=== PATIENT | male | born 1955 | race Hispanic/Latino ===

== ENCOUNTER 2024-12-27 12:13 | Outpatient (CLI) | payer MEDICARE, MEDICAID, SELFPAY ==
--- NOTE | ~2024-12-27 | XR_ITS ---
XR chest 2V 12/27/2024 12:37 Indication: Pleuritic chest pain Procedure: 2 view chest Comparison: No prior studies for comparison. Findings: There are pleural-based opacities in the lower lungs bilaterally, right greater than left. Heart size normal. No pleural effusion or pneumothorax. Impression: 1: Bilateral lower thoracic pleural opacities. Correlation with CT chest with contrast recommended. Reviewed, dictated and finalized at location A. Impression: 1: Bilateral lower thoracic pleural opacities. Correlation with CT chest with c ontrast recommended.
--- OUTSIDE RECORDS SUMMARY | 2024-12-27 12:49 | XMS_ITS | Encounter Summary ---
Author Organization [facility] Address [address] [place] [address] Phone Care Team Providers Care Top Frame Fitter Name Role Phone Unavailable Primary Care Provider Unavailabl e Reason for Visit * Reason Comments Medication Refill Encounter Details Date Type Department Care Team (Late st Contact Info) Description 10/03/2020 [facility] [address] [place] [address] Alex Pineda MD [address] [address] Medication Refill Social History Tobacco Use Types Packs/Day Years Used Date Smoking Tobacco: Former Smokeless Tobacco: Never Alcohol Use Standard Drinks/Week Comments No 0 (1 standard drink = 0.6 oz pur e alcohol) PHQ-2 Answer Date Recorded PHQ-2 Score 8 05/29/2019 Sexually Active Control Partners Comments Never Sex and Gender Information Value Date Recorded Sex Assigned at Not on file Legal Sex Male 11:07 AM CDT Gender Identity Not on file Sexual Orientation Not on file documented as of this encounter Miscellaneous Notes * Telephone Encounter - Humera Roth RMA - 10/05/2020 5:50 PM BUDGET EXAMINER Called patient, no answer ET EXAMINER * Telephone Encounter - Patricia Jackson RN - 10/05/2020 8:07 AM CST Patient needs appointment per Dr Pineda. ET EXAMINER * Telephone Encounter - Vickie Rivers RN - 10/03/2020 1:15 PM CST Medication failed the protocol, provider to review and approve the medication order if appropriate.Last OV 08/05/2019. Requested Prescriptions Pending Prescriptions Disp Refills Vascepa 1 g Capsule [Pharmacy Med Name: Vascepa 1 GM Oral Capsule] 360 Cap 0 Sig: TAKE 2 CAPSULES BY MOUTH TWICE DAILY Off-Protocol Failed - 10/03/2020 10:57 AM Failed - Valid encounter within last 12 months Past Office Visits Recent Outpatient Visits 1 year ago Essential hypertension [facility] - Alex Hathaway MD 1 year ago Essential hypertension [facility] Alex Hathaway MD 1 year ago Chronic midline low [facility] without [facility] 2 [facility] [place] APN, DIVORCE ATTORNEY 2 years ago Type 2 diabetes mellitus without complication, with long-term current use of insulin (HCC) [facility] Alex Hathaway MD 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 Showing recent visits within past 460 days with a meds authorizing provider and meeting all other requirements Future Appointments No visits were found meeting these conditions. Showing future appointments within next 90 days with a meds authorizing provider and meeting all other requirements Failed - Medication not assigned to a protocol, review manually. ET EXAMINER documented in this encounter Plan of Treatment Not on file documented as of this encounter Visit Diagnoses Not on filedocumented in this encounter Additional Health Concerns Assessment Noted Time PHQ-9 Depression Total Score: 8 04/03/20 1:49 PM CDT documented as of this encounter
--- OUTSIDE RECORDS SUMMARY | 2024-12-27 12:49 | XMS_ITS | Encounter Summary ---
Author Organization [facility] Address [address] [place] [address] Phone Care Team Providers Care Photolith Operator Name Role Phone Unavailable Primary Care Provider Unavailabl e Reason for Visit * Reason Comments Medication Refill Encounter Details Date Type Department Care Team (Late st Contact Info) Description 06/25/2020 Refill [facility] - [facility] [address] [place] [address] Alex Pineda MD [address] [address] Medication Refill Social History Tobacco Use Types [...] encounter Miscellaneous Notes * Telephone Encounter - Beulah Dale RN - 06/27/2020 2:01 PM CDT Requested Prescriptions Pending Prescriptions Disp Refills busPIRone (BUSPAR) 10 MG Tablet [Pharmacy Med Name: BUSPIRONE 10MG TABLETS] 270 Tab 0 Sig: TAKE 1 TABLET BY MOUTH THREE TIMES DAILY Not Delegated - Psychiatry: Anxiolytics/Hypnotics Failed - 06/25/2020 6:51 PM Failed - Valid encounter within last 6 months Past Office Visits Recent Outpatient Visits 10 months ago Essential hypertension [facility] - Alex Hathaway MD 1 year ago Essential hypertension [facility] Alex Hathaway MD 1 year ago Chronic midline low back pain without sciatica [facility] Alex Hathaway MD 1 year [facility] KYM 2 years ago Type 2 diabetes mellitus without complication, with long-term current use of insulin (HCC) [facility] Alex Hathaway MD 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 Showing future appointments within next 90 days with a meds authorizing provider and meeting all other requirements Failed - This refill cannot be delegated documented in this encounter Plan of Treatment Not on file documented as of this encounter Visit Diagnoses Not on filedocumented in this encounter Additional Health Concerns Assessment Noted Time PHQ-9 Depression Total Score: 8 04/03/20 19 1:49 PM CDT documented as of this encounter
--- OUTSIDE RECORDS SUMMARY | 2024-12-27 12:50 | XMS_ITS | Encounter Summary ---
Author Organization [facility] Address [address] [place] [address] Care Team Providers Care Small Electric Engine Technician Name Role Phone Unavailable Primary Care Provider Unavailabl e Encounter Details Date Type Department Care Team (Latest Contact Info) Description 08/07/2018 Abstract [facility] , Generic ConversionMD Social History Tobacco Use Types Packs/Day Years Used Date Smoking Tobacco: Never Assessed Sex and Gender Information Value Date Recorded Sex Assigned at Not on file Legal Sex Male 9:16 PM CDT Gender Identity Not on file Sexual Orientation Not on file documented as of this encounter Plan of Treatment Not on file documented as of this encounter Visit Diagnoses Not on filedocumented in this encounter
--- OUTSIDE RECORDS SUMMARY | 2024-12-27 12:50 | XMS_ITS | Clinical Summary ---
Author Organization [facility] Address [address] [place] [address] Care Team Providers Care Foot Drill Operator Name Role Phone Unavailable Primary Care Provider Unavailabl e Social History Tobacco Use Types Packs/Day Years Used Date Smoking Tobacco: Never Assessed Sex and Gender Information Value Date Recorded Sex Assigned at Not on file Legal Sex Male 9:16 PM CDT Gender Identity Not on file Sexual Orientation Not on file Last Filed Vital Signs Vital Sign Reading Time Taken Comments Blood Pressure 135/64 04/08/2014 10:29 AM CDT Pulse 74 04/08/2014 10:29 AM CDT Temperature - - Respiratory Rate - - Oxygen Saturation - - Inhaled Oxygen Concentration - - Weight 76.6 kg (168 lb 14.4 oz) 014 10:29 AM CDT Height 160 cm (5' 3 ) 04/08/2014 10:29 AM CDT Body Mass Index 29.92 04/08/2014 10:29 AM CDT Plan of Treatment Health Maintenance Due Date Last Done Comments Colorectal Cancer Screening Colonoscopy (10 Years) 1957 Hepatitis C 1975 DTaP, Tdap and Td Vaccines ( 1 - Tdap) 1976 Zoster Vaccines (1 of 2) 2007 Pneumococcal Vaccine: 65+ Ye ars (1 of 1 - PCV) 2022 COVID-19 Vaccine ( - 2023-2 5 season) 2024 Influenza Adult (#1) 2024 08/09/2012 RSV Immunization or 60+ Years (1 - 1-dose 75+ series) 2032 Meningococcal B Vaccine Aged Out No l onger eligible based on patient's age to complete this topic Meningococcal Vaccine Aged Out No miryam jadon eligible based on patient's age to complete this topic RSV Immunizations Under 20 Months Aged Out No longer eligible based on patient's age to complete this topic
--- OUTSIDE RECORDS SUMMARY | 2024-12-27 12:50 | XMS_ITS | Referral Summary ---
Author Organization [facility] Address [address] [place] [address] Care Team Providers Care Residential Tech Name Role Phone Becca Oh MD Primary Care Provider [phone] Allergies Active Allergy Reactions Criticality Noted Date Comments Cyclobenzaprine Dizziness Low 07/27/2021 Isosorbide Mononitrate Headache High 08/01/2018 Medications insulin glargine (LANTUS) 100 unit/mL (3 mL) pen for injection 80 Units daily 0 Active pen needle, diabetic 32 gauge x 5/32 needle BD Rebecca 2nd Gen Pen Needle 32 gauge x 5/32 Active amLODIPine (NORVASC) 10 mg tablet 1 tablet daily 1 Active metFORMIN (GLUCOPHAGE) 1,000 mg tablet 1 tablet 2 (two) times a day 2 Active carvediloL (COREG) 6.25 mg tablet carvedilol 6.25 mg tablet TAKE 1 TABLET BY MOUTH TWICE DAILY 1 Active montelukast (SINGULAIR) 10 mg tablet 1 tablet daily 0 Active lidocaine (LIDODERM) 5 % lidocaine 5 % topical patch 8 Active clopidogreL (PLAVIX) 75 mg tablet 1 tablet daily 7 Active irbesartan (AVAPRO) 300 mg tablet 1 tablet daily 1 Active furosemide (LASIX) 20 mg tablet 1 tablet daily 7 Active FLUoxetine (PROzac) 20 mg capsule 1 capsule daily Acti ve ALPRAZolam (XANAX) 1 mg tablet 1 tablet 3 (three) times a day Active gabapentin (NEURONTIN) 300 mg capsule 1 capsule daily as needed Active HYDROcodone-theo taminophen (NORCO) 7.5-325 mg per tablet 1 tablet 3 (three) times a day as needed Active morphine ER (MS CONTIN) 15 mg 12 hr tablet 1 tablet 2 (two) times a day Active potassium chloride ER (KLOR-CON) 20 mEq CR tablet 1 tablet daily A ctive Active Problems Problem Noted Date Diagnosed Date Physical deconditioning 02/08/2022 Spondylosis of lumbar region without myelopathy or radiculopathy 10/19/2021 Lumbar radiculitis 10/19/2021 Hypertension, essential 07/27/2021 Assessment & Plan (07/27/2021 3:40 PM CDT): Continue current medications. Discussed low-salt diet. Discussed exercise on regular basis. Will continue to monitor Dyslipidemia 07/27/2021 Assessment & Plan (07/27/2021 3:40 PM CDT): Controlled on current medications. Continue low-fat diet. Will continue to monitor . Controlled type 2 diabetes miri rodriguez without complication, with long-term current use of insulin 07/27/2021 Assessment & Plan (07/27/2021 3:40 PM CDT): Continue current medications, discussed low carbohydrate diet, advised to exercise on regular basis, advised to have annual eye exam. We will continue to monitor. Coronary artery disease invo lving napaimute coronary artery of napaimute heart without angina pectoris 07/27/2021 Assessment & Plan (07/27/2021 3:40 PM CDT): Status post stent placement. Continue current medications and he is followed by post commander Chronic bilateral low back pain without sciatica 07/27/2021 Assessment & Plan (07/27/2021 3:40 PM CDT): Patient needs to follow-up with pain specialist Immunizations Immunization Administration Dates Next Due Influenza, Quadrivalent, Jada l Culture-based MDCK, Preservative Free, Antibiotic Free, Intramuscular 07/17/2020 Influenza, Quadrivalent, Spl it, Preservative Free, Intramuscular 07/27/2021,08/05/2019,06/28/2018,06/23 Influenza, Trivalent, IM (MDV) 07/11/2016,2015,10/12/2013 Influenza, Unspecified 10/12/2013,07/25/2009, Pneumococcal Polysaccharide PPV23 06/23/2017 Tdap 07/01/2019 Social History Tobacco Use Types Packs/Day Years Used Date Smoking Tobacco: Former Cigarettes 2 9 1 971 - 1979 Smokeless Tobacco: Never AUDIT-C Answer Date Recorded Q1: How often do you have a drink containing alc ohol? Never 07/27/2021 Average Number of Drinks Not on file 021 Q3: How often do you have si x or more drinks on one occasion? Never 07/27/2021 PHQ-2 Answer Date Recorded PHQ-2 Total Score (If total score is 3 or more points, staff should administer the PHQ-9) 0 07/27/2021 Personal Safety Answer Date Recorded Getting School Help Needed Not on file 11/25 Sex and Gender Information Value Date Recorded Sex Assigned at Not on file Legal Sex Male 12:30 AM FLOOR HAND Gender Identity Not on file Sexual Orientation Not on file Last Filed Vital Signs Vital Sign Reading Time Taken Comments Blood Pressure 157/64 02/08/2022 9:58 AM CDT Pulse 75 02/08/2022 9:58 AM CDT Temperature 36.7 C (98.1 F) 10/19/2021 8:51 AM FLOOR HAND Respiratory Rate 18 10/19/2021 8:51 AM FLOOR HAND Oxygen Saturation 99% 02/08/2022 9:58 AM CDT Inhaled Oxygen Concentration - - Weight 80.2 kg (176 lb 11.2 oz) 02/08/2022 9:58 AM CDT Height 160 cm (5' 2.99 ) 02/08/2022 9:58 AM CDT Body Mass Index 31.31 02/08/2022 9:58 AM CDT Plan of Treatment Not on file Procedures Procedure Name Priority Date/Time Associated Diagnosis Comments SERUM LIPID PANEL Routine 11/22/2016 8:1 7 AM FLOOR HAND from Last 3 Months or Most Recently Relevant to Health Maintenance Results * (ABNORMAL) Serum lipid panel (11/22/2016 8:17 AM FLOOR HAND) Cholesterol 126 100 - 200 mg/dl CDR HISTORICAL RESULTS Comment: Interpretive Data Desirable: <200 mg/dL Borderline high: 200-239 mg/dL High: >240 mg/dL Current interpretive data was last revised on 2016. Triglycerides 158(H) 10 - 150 mg/dl CDR HISTORICAL RESULTS Comment: Interpretive Data Desirable: < 150 mg/dL Borderline High: 150 - 199 mg/dL High: 200 - 499 mg/dL Very High: > or = 499 mg/dL Current interpretive data was last revised on 2016. HDL 29(L) 40 - 59 mg/dl CDR HISTORICAL RESULTS Comment: Interpretive Data Less than 40 mg/dL - Low; A major risk factor for heart disease. Greater than or equal to 60 mg/dL - High; Considered protective of heart disease. Current interpretive data was last revised on 2016. LDL 65 60 - 129 mg/dl CDR HISTORICAL RESULTS Comment: Interpretive Data Optimal: < 100 mg/dL Near Optimal: 100 - 129 mg/dL Borderline High: 130 - 159 mg/dL High: > 160 mg/dL Current interpretive data was last revised on 2016. Non-HDL cholesterol, calculated 97 mg/dl CDR HISTORICAL RESULTS Comment: Interpretive Data When triglycerides are >200 mg/dL, non-HDL C is a secondary target of therapy, with a goal 30 mg/dL higher than the identified LDL-C goal. Current interpretive data was last revised 2016. Serum 11/22/2016 8:17 AM FLOOR HAND us Florian Au MD LAB BLOOD ORDERABLES Fin al Result CDR HISTORICAL RESULTS from Last 3 Months or Most Recently Relevant to Health Maintenance Insurance MEDICARE ADVANTAGE [facility] Address: [facility] [address] [place] [address] IDPA [facility] MEDICARE ADVANTAGE [facility] MEDIC[facility] Address: [address] [address] [place] [address] Care Teams Residential Tech Relationship Specialty Start Date End Date Becca Oh MD [address] [facility] [place] [address] PCP - General Internal Medicine 07/27/21
--- OUTSIDE RECORDS SUMMARY | 2024-12-27 12:50 | XMS_ITS | Encounter Summary ---
Author Organization [facility] Address [address] [place] [address] Care Team Providers Care Bait Man Name Role Phone Mary Workman MD Primary Care Provider [phone] Reason for Visit * Reason Comments Question Encounter Details Date Type Department Care Team ([facility] st Contact Info) Description 12/26/2024 Telephone [facility] [address] [place] [address] Mary Workman MD [address] [place] [address] Question Social History Tobacco Use Types Packs/Day Years Used Date Smoking Tobacco: Never Passive Smoke Exposure: Never Smokeless Tobacco: Never Alcohol Use Standard Drinks/Week Comments Not Currently 0 (1 standard drink = 0.6 oz pur e alcohol) Sex and Gender Information Value Date Recorded Sex Assigned at Not on file Legal Sex Male 12:22 PM CDT Gender Identity Not on file Sexual Orientation Not on file documented as of this encounter Miscellaneous Notes * Telephone Encounter - Serena Bernard RN - 12/26/2024 2:36 PM CDT Please advise patient that chest x-ray order was sent to [facility] and a new prescription for pantoprazole was sent to [facility] to replace the omeprazole. He should not take them both. 12/26/2024 2:36 PM Returned call. No answer. Left voice mail/message advising above information. If patient/caregiver calls back, contact center please transfer caller to [facility] mack. Serena BURNETTE * Telephone Encounter - Mary Workman MD - 12/26/2024 12:48 PM CDT Ok for CXR and change omeprazole to pantoprazole 20 mg daily. * Telephone Encounter - Serena Bernard RN - 12/26/2024 12:25 PM CDT Patient having upper back pain for the last month. He is recovering from URI. No longer having a cough. He c/o pain in upper back, off and on, worse when he takes a deep breath. He says he had pleurisy in the past. It's hard to get specific answers from him about his symptoms. He says he takes cough/cold medicine and it helps his back pain but then he says he's not having any cough/cold symptoms.I tried to get him to schedule an appointment but [place] ways away and with the closure of [facility] it is difficult for him. Are you ok with ordering a chest xray and he can go to [facility] to have it done? OtherwiseI will refer him to Urgent Care. Also, when he picked up his plavix from [facility] they told him he shouldn't be taking omeprazole with it. Is there any concern with this or should he be switched to something else? 22 minutes spent on phone with patient. * Telephone Encounter - Stephany Solano - 12/26/2024 10:49 AM CDT Copied from [facility] #[id number]. Topic: Patient or Caregiver Communication Request >> Dec 26, 2024 10:48 AM Stephany Guevara wrote: Patient or Caregiver requesting that a message be sent to Care Team Caller: Christian Patient/Caregiver Callback Number: [phone] Call Notes: Pt calling stating he has been experiencing back pain x 1 month Offered same day appt with Phu ELIAS for today 12/26 at 2:20 pt declined appt requesting an order for an xray to be placed so he can do the xray at hospital Pt informed of 24 - 48 hour time frame and suggested to schedule an appt to discuss his request ethel xray Pt declined Please advise documented in this encounter Plan of Treatment Upcoming Encounters Date Type Department Care Team (Late st Contact Info) Description 02/05/2025 2:40 PM CDT Office Visit [facility] [address] [place] [address] Phu Ly, PA-C [address] [place] [address] Scheduled Orders Name Type Priority Associated Diagnoses Orde r Schedule XR CHEST PA AND LATERAL 2 VW Imaging Routine Pleuritic chest pain Upper back pain 1 Occurrences starting 12/26/2024 until 12/26/2025 documented as of this encounter Visit Diagnoses Diagnosis Pleuritic chest pain- Primary Painful respiration Upper back pain documented in this encounter Care Teams Bait Man Relationship Specialty Start Date End Date Mary Workman MD [address] [place] [id number] PCP - General Internal Medicine 12/26/23 documented as of this encounter
--- OUTSIDE RECORDS SUMMARY | 2024-12-27 12:50 | XMS_ITS | Encounter Summary ---
Author Organization [facility] Address [address] [place] [address] Care Team Providers Care Airline Lounge Receptionist Name Role Phone Mary Workman MD Primary Care Provider [phone] Reason for Visit * Reason Comments Medication Assistance Encounter Details Date Type Department Care Team ([facility] st Contact Info) Description 12/26/2024 Telephone [facility] [address] [place] [address] Mary Wrokman MD [address] [place] [address] Medication Assistance Social History Tobacco Use Types Packs/Day Years [...] Encounter - Serena Bernard RN - 12/26/2024 12:45 PM CDT See other TE. * Telephone Encounter - Stephany Solano - 12/26/2024 10:46 AM CDT Copied from [facility] #[id number]. Topic: Medication Request >> Dec 26, 2024 10:34 CRYSTAL Guevara wrote: Caller Name: Christian Callback Number: [phone] Medication (Ask patient/caregiver to spell if possible): omeprazole Pt states he went to [facility] previously and was advised by pharmacist to have pcp send alternative rx for omerazole Pt states they can call [facility] and they'll explain it to them Note: All medication prescriptions can be requested using one CRM Caller is requesting: Medication Question from Patient (not involving new prescription or refill) Preferred Pharmacy: [facility] pharmacy Call Notes: Caller has question about Is there an encounter open? No documented in this encounter Plan of Treatment Upcoming Encounters Date Type Department Care Team (Late st Contact Info) Description 02/05/2025 2:40 PM CDT Office Visit [facility] [address] [place] [address] Phu Ly PA-C [address] [place] [address] documented as of this encounter Visit Diagnoses Not on filedocumented in this encounter Care Teams Airline Lounge Receptionist Relationship Specialty Start Date End Date Mary Workman MD [address] [place] [address] PCP - General Internal Medicine 12/26/23 documented as of this encounter
--- OUTSIDE RECORDS SUMMARY | 2024-12-27 12:50 | XMS_ITS | Clinical Summary ---
Author Organization [facility] Address [address] [address] Phone Care Team Providers Care Geodetic Surveyor Technologist Name Role Phone Unavailable Primary Care Provider Unavailabl e Allergies No known active allergies Medications clopidogrel (PLAVIX) 75 MG Tablet TK 1 T PO QD 11 7 Active metoprolol tartrate (LOPRESSOR) 25 MG Tablet Take 50 mg by mouth 2 times daily. 0 7 Active nitroGLYCERIN (NITROSTAT) 0.[address] 1 T UNDER TONGUE PRN. MAY REPEAT TWICE IN 10 MINUTES 11 7 Active losartan-hydroc hlorothiazide (HYZAAR) 100-12.5 MG Tablet Reported on 03/02/2017 11 7 Active ASPIRIN LOW DOSE 81 MG Tablet Delayed Response TK 1 T PO QD 0 7 Active furosemide (LASIX) 20 MG Tablet Take 1 Tab by mouth daily. 11 7 Active ondansetron (ZOFRAN) 4 MG Tablet Take 1 Tab by mouth every 8 hours as needed for Nausea. 15 Tab 7 Active omeprazole (PRILOSEC) 40 MG CAPSULE DELAYED RELEASE TAKE 1 CAPSULE BY MOUTH TWICE DAILY 180 Cap 3 7 Active potassium chloride SA (KLORCON M) 20 MEQ Tablet Controlled Release TAKE 1 TABLET BY MOUTH DAILY 90 Tab 3 7 Active amLODIPine (NORVASC) 5 MG Tablet Take 1 Tab by mouth daily. 3 7 Active busPIRone (BUSPAR) 5 MG Tablet Take 1 Tab by mouth 3 times daily. 270 Tab 8 Active sucralfate (CARAFATE) 1 GM Tablet TK 1 T PO THREE TIMES DAILY 0 8 Active rosuvastatin (CRESTOR) 10 MG Tablet Take 10 mg by mouth daily. Active insulin aspart (NOVOLOG FLEXPEN) 100 UNIT/ML Solution Pen-injector 12 units before each meal. Correctional factor insulin of 1:20 if > 140 mg/dL. Up to 60 units per day 30 mL 3 8 Active Additional Information Patient not taking.Reported on 08/05/2019 Blood Glucose Monitoring Suppl (YouMail) w/Device Kit 1 Kit by Does not apply route daily. Test blood sugar 4x daily. E11.9 1 Kit 8 Active Lancets Mis Test Blood sugar 4x daily. E11.9 400 Lancet 3 8 Active clotrimazole-be tamethasone (LOTRISONE) 1-0.05 % Cream Application Site: apply to groin daily (Description and Location) 45 g 8 Active pravastatin (PRAVACHOL) 10 MG Tablet TAKE ONE TABLET BY MOUTH EVERY DAY 90 Tab 3 8 Active losartan (COZAAR) 100 MG Tablet TK 1 T PO D 6 8 Active metoprolol tartrate (LOPRESSOR) 50 MG Tablet TK 1 T PO BID 7 8 Active HYDROcodone-theo taminophen (NORCO) 10-325 MG Tablet Take 1 Tab by mouth every 8 hours as needed for Moderate or more severe pain. 90 Tab 8 Active ergocalciferol (VITAMIN D) 67707 UNIT Capsule TAKE 1 CAPSULE BY MOUTH EVERY WEEK. 30 Cap 4 8 Active isosorbide mononitrate (IMDUR) 30 MG TABLET SR 24 HR TK 1 T PO D 6 8 Active lidocaine (LIDODERM) 5 % Patch 8 Active tiZANidine (ZANAFLEX) 4 MG Tablet Take 1 Tab by mouth 2 times daily as needed. 1 8 Active metFORMIN (GLUCOPHAGE) 1000 MG Tablet Take 1 Tab by mouth 2 times daily. 180 Tab 3 9 Active busPIRone (BUSPAR) 10 MG Tablet Take 1 Tab by mouth 3 times daily. 270 Tab 9 Active Insulin Pen Needle (BD PEN NEEDLE CHRISTOS U/F) 32G X 4 MM Misc USE FOUR TIMES DAILY 400 Pen Needle 3 9 Active Glucose Blood (ONETOUCH VERIO) Strip 1 Strip by Does not apply route 4 times daily. Test blood sugar 4x daily. E11.9 400 Strip 3 9 Active montelukast (SINGULAIR) 10 MG Tablet TAKE 1 TABLET BY MOUTH DAILY 90 Tab 2 9 Active Alcohol Swabs (B-D SINGLE USE SWABS REGULAR) Pads USE 1 ALCOHOL PAD BEFORE INJECTION( THREE TIMES DAILY) 300 Each 2 9 Active ALPRAZolam (XANAX) 0.5 MG Tablet Take 1 Tab by mouth 3 times daily. 80 Tab 9 Active VASCEPA 1 g Capsule TAKE 2 CAPSULES BY MOUTH TWICE DAILY 360 Cap 3 9 Active dicyclomine (BENTYL) 10 MG Capsule TAKE ONE CAPSULE BY MOUTH THREE TIMES DAILY 270 Cap 3 9 Active LANTUS SOLOSTAR 100 UNIT/ML Solution Pen-injector ADMINISTER 80 UNITS UNDER THE SKIN EVERY 12 HOURS 90 mL 2 0 Active Active Problems Problem Noted Date Diagnosed Date Brain tumor 07/19/2017 Left lower quadrant pain 04/05/2017 Physical exam, annual (Adult) 02/23/2017 Lipid disorder 02/23/2017 HTN (hypertension) 02/23/2017 Chronic midline low back pain without sciatica 0 02/23/2017 Type 2 diabetes mellitus wit h diabetic polyneuropathy, with long-term current use of insulin 02/23/2017 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 02/23/2017 Anxiety 02/23/2017 Immunizations Immunization Administration Dates Next Due Influenza Vaccine greater than 3 yrs 07/11/2016 Influenza Vaccine, Quadrivalent, PF 08/05/2019,0 06/28/2018,06/23/2017 Influenza Vaccine,unspecified Formulation 2008 Influenza, Seasonal, Injectable, Undefined 10/12 Pneumococcal Vaccine Adult - 23 Valent 7 Family History Medical History Relation Name Comments No Known Problems Father Diabetes Mother Relation Name Status Comments Father Mother Social History Tobacco Use Types Packs/Day Years Used Date Smoking Tobacco: Former Smokeless Tobacco: Never Tobacco Cessation:Counseling Given: No Alcohol Use Standard Drinks/Week Comments No 0 [...] Sign Reading Time Taken Comments Blood Pressure 130/76 08/05/2019 2:25 PM [facility] Pulse 72 08/05/2019 2:25 PM [facility] Temperature 36.4 C (97.6 F) 08/05/2019 2:25 PM [facility] Respiratory Rate 16 08/05/2019 2:25 PM [facility] Oxygen Saturation 98% 08/05/2019 2:25 PM [facility] Inhaled Oxygen Concentration - - Weight 79.1 kg (174 lb 4.8 oz) 08/05/2019 2:25 P M [facility] Height 165.1 cm (5' 5 ) 08/05/2019 2:25 PM [facility] Body Mass Index 29.01 08/05/2019 2:25 PM [facility] Plan of Treatment Health Maintenance Due Date Last Done Comments Diabetes: Eye Exam 1957 Diabetes: Foot Exam 1955 TdaP Immunization 1955 Cologuard 2007 Immunochemical Fecal Occult Blood 2007 Zoster Immunization (1 of 2) 2007 Respiratory Syncytial Virus (RSV) Immunization (Adult) (1 - Risk 60-74 years 1-dose series) 2017 Pneumococcal Immunization (50+ years) (2 of 2 - PCV) 06/23/2018 06/23/2017 Diabetes: Hemoglobin A1c 02/03/2020 019, 04/03/2019, 08/22/2018, Additional history exists Diabetes: Nephropathy Screening 08/05/2020 08/05/2019, 08/05/2019, 04/03/2019, Additional history exists Influenza Immunization (#1) 06/02/202412/2018, 06/28/2018, 06/23/2017, Additional history exists SARS-COV-2 Immunization ( season) 2024 02/02/2021, 01/06/2021 Colonoscopy 06/26/2027 06/26/2017 Colorectal Cancer Screening 06/26/2027 06/26/2017 Hepatitis C Virus (HCV) Screening Completed 02/23/2017 Pneumococcal Immunization Combined Discontinued 06/23/2017 Hepatitis B Immunization Aged Out No longer eligible based on patient's age to complete this topic Meningococcal Immunization (ACWY) Aged Out No longer eligible based on patient's age to complete this topic Rotavirus Immunization Aged Out No lo nger eligible based on patient's age to complete this topic Procedures Procedure Name Priority Date/Time Associated Diagnosis Comments CMP (COMPREHENSIVE METABOLIC PANEL) Today 08/05/2019 2:56 PM [facility] Essential hypertension Type 2 diabetes mellitus with diabetic polyneuropathy, with long-term current use of insulin (HCC) Coronary artery disease involving chitina coronary artery of chitina heart without angina pectoris Lipid disorder Chronic midline low back pain without sciatica HEMOGLOBIN A1C W/ ESTIMATED GLUCOSE Today 08/05/2019 2:56 PM [facility] Essential hypertension Type 2 diabetes mellitus with diabetic polyneuropathy, with long-term current use of insulin (HCC) Coronary artery disease involving chitina coronary artery of chitina heart without angina pectoris Lipid disorder Chronic midline low back pain without sciatica HM COLONOSCOPY Routine 06/26/2017 HEPATITIS C ANTIBODY Routine 02/23/2017 2:14 PM CDT Physical exam, annual (Adult) from Last 3 Months or Most Recently Relevant to Health Maintenance Results * (ABNORMAL) HEMOGLOBIN A1C W/ ESTIMATED GLUCOSE (08/05/2019 2:56 PM [facility]) HGB-A1C 9.4(H) 4.0 - 6.0 % 08/05/2019 4:28 PM [facility] Est Average Glucose 223.1 mg/dL 08/05/2019 4:28 PM G[facility] D[facility] Blood specimen (specimen) Venipuncture / Unknown 08/05/2019 2:56 PM [facility] 08/05/2019 2:56 PM [facility] Narrative [facility] - 08/05/2019 4:28 PM [facility] HEMOGLOBIN A1C: DIABETIC PATIENTS: WELL-CONTROLLED: 6.2 - 7.0 INTERMEDIATE WELL-CONTROLLED: 7.0 - 9.0 POORLY-CONTROLLED: >9.0 us Alex Pineda MD CHEMISTRY ORDERABLES Final Re sult [facility] [address] [place] [address] * (ABNORMAL) CMP (COMPREHENSIVE METABOLIC PANEL) (08/05/2019 2:56 PM [facility]) SODIUM 143 136 - 144 mmol/L 08/05/2019 3:50 PM [facility] POTASSIUM 4.3 3.5 - 5.1 mmol/L 08/05/2019 3:50 PM [facility] CHLORIDE 105 100 - 110 mmol/L 08/05/2019 3:50 PM [facility] CO2, VENOUS 25 22 - 32 mmol/L 08/05/2019 3:50 PM [facility] ANION GAP 17.3 8.0 - 20.0 mmol/L 08/05/2019 3:50 PM [facility] GLUCOSE 159(H) 70 - 99 mg/dL 08/05/2019 3:50 PM [facility] BUN 7(L) 8 - 23 mg/dL 08/05/2019 3:50 PM [facility] CREATININE, BLOOD 0.51(L) 0.80 - 1.30 mg/dL 08/05/2019 3:50 PM [facility] BUN/CREATININE RATIO 14 12 - 20 ratio 08/05/2019 3:50 PM [facility] TOTAL PROTEIN 7.1 6.0 - 8.3 g/dL 08/05/2019 3:50 PM [facility] ALBUMIN 4.3 3.5 - 5.2 g/dL 08/05/2019 3:50 PM [facility] Comment: The colormetric methods used for the determination of Albumin may lead to falsely elevated test results in patients suffering from renal failure or insufficiency due to interference with other proteins. A/G RATIO 1.5 1.0 - 2.0 08/05/2019 3:50 PM [facility] CALCIUM 9.5 8.9 - 10.3 mg/dL 08/05/2019 3:50 PM [facility] T BILI 0.3 <=1.2 mg/dL 08/05/2019 3:50 PM [facility] SGOT (AST) 17 <=40 U/L 08/05/2019 3:50 PM [facility] SGPT (ALT) 29 <=41 U/L 08/05/2019 3:50 PM [facility] ALKALINE PHOSPHATASE 53 40 - 130 U/L 08/05/2019 3:50 PM [facility] GFR, EST. NONAFRICAN >60 >=60 08/05/2019 3:50 PM [facility] GFR, EST. >60 >=60 019 3:50 PM [facility] Comment: Creatinine Clearance is the preferred criteria for selecting drug dose adjustments in renally impaired patients. The GFR is provided as additional pertinent clinical information. GFR is reported in mL/min/1.73 sq m. Blood specimen (specimen) Venipuncture / Unknown 08/05/2019 2:56 PM [facility] 08/05/2019 2:56 PM [facility] us Alex Pineda MD CHEMISTRY ORDERABLES Final Re sult [facility] [address] [place] [address] * COLONOSCOPY (06/26/2017) us Tata Do MD PROCEDURE/MINOR SURGICAL ORDER EMILY Final Result * HEPATITIS C ANTIBODY (02/23/2017 2:14 PM CDT) hepatitis C antibody 0.06 <1 S/CO 02/23/2017 11:23 PM CDT [facility] Comment: Signal/Cutoff ratio < 0.79 is Nondetected Signal/Cutoff ratio 0.80-0.99 is Grayzone Signal/Cutoff ratio > 0.99 is Detected Supplemental assays are recommended if signal/cutoff ratio is >/=1.00. Signal/cutoff ratio result >/= 5.00 is 97% predictive of positivity for recombinant immunoblot assay (RIBA) and will be reported to the [place] [facility] as required. Blood specimen (specimen) Venipuncture / Unknown 02/23/2017 2:14 PM CDT 02/23/2017 2:14 PM CDT us Alex Pineda MD CHEMISTRY ORDERABLES Final Re sult [facility] [address] [place] [address], from Last 3 Months or Most Recently Relevant to Health Maintenance Insurance MEDICARE [place]ICA[place]
--- OUTSIDE RECORDS SUMMARY | 2024-12-27 12:50 | XMS_ITS | CONTINUITY OF CARE DOCUMENT ---
Author Name ismael guevara Address Unknown Organization [facility] Address [address] [place] [address] Phone [phone] Care Team Providers Care Slate Splitting Supervisor Name Role Phone Jarod Villegas MD Unavailable [phone] NHAN CARRIZALES MD Unavailable JASON RUIZ Unavailable [phone] PROBLEMS Condition Status Date Provider Notes Hypertension active Misael Becerril DIABETES MELLITUS active Jarod Villegas MD Tobacco use quit active Jarod Villegas MD Chest pain-type to be determined completed - Jarod Villegas MD Iron deficiency anemia active Misael garciaerg Preop exam completed - Jaord Villegas MD Aortic stenosis, mild active Sukhi Joseph i Systolic murmur active Domi Ventimiglia [facility] [employer] Shortness of breath active Domi Ventimigl ia [place]ON LINER PAD - mild active Kathia Hodgson Venous insufficiency active Kathia knox Swelling, R leg active Jarod Villegas MD Leg cramps active Kathia Hodgson Snoring - NEG sleep study 10/18 active Misael Becerril Right renal artery stenosis active Jarod campos MD CAD active Jarod Villegas MD Dyslipidemia active Misael Becerril ENCOUNTERS Date Type Provider Location Encounter Diag nosis 4 - 5 In-person encounter Office Visit Jarod Villegas MD [facility] Aortic stenosis, mild 0 - 7 In-person encounter Office Visit Jarod Villegas MD [facility] Shortness of breathSystolic murmur 0 - 1 In-person encounter Office Visit Jarod Villegas MD [facility] 1 - 3 In-person encounter Office Visit Jarod Villegas MD [facility] Swelling, R legVenous insufficiencyPAD - mild 7 - 9 In-person encounter Office Visit Jarod Villegas MD [facility] Leg cramps 8 - 8 In-person encounter Office Visit Jarod Villegas MD [facility] Chest pain-type to be determined 6 - 6 In-person encounter Office Visit Jarod Villegas MD [facility] Preop exam 9 - 9 In-person encounter Office Visit Jarod Villegas MD [facility] Right renal artery stenosis 1 - 5 In-person encounter Office Visit Jarod Villegas MD [facility] 9 - 1 In-person encounter Office Visit Nicolas Rocha MD [facility] 0 - 0 In-person encounter Office Visit Jarod Villegas MD [facility] 0 - 2 In-person encounter Office Visit Jarod Villegas MD [facility] 6 - 5 In-person encounter Office Visit Jarod Villegas MD [facility] Iron deficiency anemia 1 - 3 In-person encounter Office Visit Jarod Villegas MD [facility] Iron deficiency anemiaSnoring - NEG sleep study 10/18 8 - 0 In-person encounter Office Visit Jarod Villegas MD [facility] CADRight renal artery stenosis 3 - 4 In-person encounter Office Visit Jarod Villegas MD [facility] 3 - 8 In-person encounter Office Visit Jarod Villegas MD [facility] 7 - 4 In-person encounter Office Visit Jarod Villegas MD [facility] 9 - 6 In-person encounter Office Visit Jarod Villegas MD [facility] Tobacco use quit 0 - 3 In-person encounter Office Visit Jarod Villegas MD [facility] 0 - 4 In-person encounter Office Visit Jarod Villegas MD [facility] 6 - 7 In-person encounter Office Visit Jarod Villegas MD [facility] 0 - 1 In-person encounter Office Visit Jarod Villegas MD [facility] 2 - 2 In-person encounter Office Visit Jarod Villegas MD [facility] HypertensionDyslipidemiaDIABETES MELLITUS VITAL SIGNS Date Observation Value Provider Body Mass Index (Ratio) 32.94 kg/m2 [facility] am Angie blood pressure, cuff size regular [facility] blood pressure, diastolic 68 mm[Hg] [facility] blood pressure, systolic 148 mm[Hg] [facility] pulse rate 85 /min [facility] respiratory rate E&M 12 /min [facility] oxygen saturation, oximetry 98 % [facility] weight E&M 186 [lb_av] [facility] height E&M 63 [in_i] [facility] Body Mass Index (Ratio) 32.59 kg/m2 [facility] am Angie blood pressure, cuff size regular [facility] blood pressure, diastolic 58 mm[Hg] [facility] blood pressure, systolic 138 mm[Hg] [facility] oxygen saturation, oximetry 99 % Aisha [place] respiratory rate E&M 16 /min Aisha championr pulse rate 76 /min Aisha [place] weight E&M 184 [lb_av] Aisha [place] height E&M 63 [in_i] [facility] Body Mass Index (Ratio) 32.41 kg/m2 Kiki Connerabilio blood pressure, diastolic 67 mm[Hg] Jade Ajand blood pressure, systolic 141 mm[Hg] Slava jojo Ewing oxygen saturation, oximetry 97 % Allyson Ewing pulse rate 76 /min Allyson grider weight E&M 183 [lb_av] Allyson grider respiratory rate E&M 16 /min Ankita Ewing blood pressure, cuff size large Jade chan Gildardo height E&M 63 [in_i] Allyson grider Body Mass Index (Ratio) 32.59 kg/m2 Kiki Connerabilio blood pressure, diastolic 65 mm[Hg] Ri rocio Ernandezerson blood pressure, systolic 141 mm[Hg] Long jojo Ernandezerson blood pressure, cuff size regular Eric Baca oxygen saturation, oximetry 97 % Alejandra Baca respiratory rate E&M 16 /min Rejilamont garcia Baca pulse rate 84 /min Alejandra Hennessy son weight E&M 184 [lb_av] Alejandra Hennessy son height E&M 63 [in_i] Alejandra Hennessy son Body Mass Index (Ratio) 31.70 kg/m2 Kiki Connerabilio blood pressure, cuff size large Ke amparoi Claudette blood pressure, diastolic 67 mm[Hg] Ke rri Gruenenfelder blood pressure, systolic 134 mm[Hg] Deanne Fortenenfelder oxygen saturation, oximetry 97 % Genesis Deleonnfelder respiratory rate E&M 14 /min Genesis romeronfelder pulse rate 84 /min Genesis Fortenestoneye lder weight E&M 179 [lb_av] Genesis Fortenenfe lder height E&M 63 [in_i] Genesis Deleonnfe lder Body Mass Index (Ratio) 31.17 kg/m2 Nate Becerril blood pressure, cuff size regular Cy ariel Ovalle blood pressure, diastolic 60 mm[Hg] Cy ariel Ovalle blood pressure, systolic 120 mm[Hg] Reyna Ovalle oxygen saturation, oximetry 98 % Lily Ovalle respiratory rate E&M 16 /min Lily Ovalle pulse rate 76 /min Lily Campbel l weight E&M 176 [lb_av] Lily Campbel l height E&M 63 [in_i] Lily Campbel l Body Mass Index (Ratio) 32.06 kg/m2 Jarod Villegas MD blood pressure, diastolic 70 mm[Hg] Da siobhan Kp blood pressure, systolic 122 mm[Hg] Dac ia Kp oxygen saturation, oximetry 96 % Yasmine Kp respiratory rate E&M 16 /min Yasmine V oss pulse rate 63 /min Yasmine Kp weight E&M 181 [lb_av] Yasmine Kp height E&M 63 [in_i] Yasmine Kp blood pressure, diastolic 70 mm[Hg] Cy ariel Ovalle blood pressure, systolic 158 mm[Hg] Reyna rodger Ovalle pulse rate 76 /min Lily Campbel l height E&M 63 [in_i] Liyl sandy height in centimeters E&M 160.02 cm Cy ariel Ovalle Body Mass Index (Ratio) 31.70 kg/m2 Nate Becerril blood pressure, cuff size regular Cy ariel Ovalle blood pressure, diastolic 70 mm[Hg] Cy ariel Ovalle blood pressure, systolic 160 mm[Hg] Reyna Ovalle oxygen saturation, oximetry 98 % Lily Ovalle respiratory rate E&M 16 /min Lily Ovalle pulse rate 77 /min Lily sandy weight E&M 179 [lb_av] Lily sandy height E&M 63 [in_i] Lily sandy Body Mass Index (Ratio) 31.35 kg/m2 Cecilia Rocha MD height E&M 63 [in_i] Jaord Villegas MD blood pressure, diastolic 75 mm[Hg] Inna Villegas MD blood pressure, systolic 142 mm[Hg] Jarod Villegas MD pulse rate 75 /min Jarod Villegas MD blood pressure, diastolic 75 mm[Hg] Da [facility] blood pressure, systolic 142 mm[Hg] Dac ia Kp pulse rate 75 /min Yasmine Kp height E&M 63 [in_i] Yasmine Kp height in centimeters E&M 160.02 cm Da siobhan Kp blood pressure, diastolic 80 mm[Hg] Da siobhan Kp blood pressure, systolic 146 mm[Hg] Dac ia Kp oxygen saturation, oximetry 96 % Yasmine Kp respiratory rate E&M 16 /min Yasmine V oss pulse rate 81 /min Yasmine Kp weight E&M 177 [lb_av] Yasmine Kp height E&M 63 [in_i] Yasmine [place] Body Mass Index (Ratio) 31.53 kg/m2 Nate Becerril blood pressure, diastolic 70 mm[Hg] Da siobhan [place] blood pressure, systolic 142 mm[Hg] Dac ia Kp oxygen saturation, oximetry 97 % Yasmine [place] respiratory rate E&M 16 /min Yasmine V oss pulse rate 72 /min Yasmine Kp weight E&M 178 [lb_av] Yasmine [place] height E&M 63 [in_i] Yasmine [place] Body Mass Index (Ratio) 30.82 kg/m2 Nate Becerril blood pressure, cuff size regular Ke [facility] pressure, diastolic 90 mm[Hg] [facility], systolic 148 mm[Hg] [facility] oxygen saturation, oximetry 98 % Genesis [facility] respiratory rate E&M 18 /min Genesis aguero pulse rate 65 /min Genesis Sol [facility] weight E&M 174 [lb_av] Genesis Sol [facility] height E&M 63 [in_i] Genesis Sol [facility] Body Mass Index (Ratio) 32.41 kg/m2 Nate Becerril oxygen saturation, oximetry 86 % Jannette [place] respiratory rate E&M 16 /min Jannette Emanuel schmidt pulse rate 97 /min Jannette [place] blood pressure, diastolic 70 mm[Hg] Ie sha [place] blood pressure, systolic 140 mm[Hg] Ies anders [place] weight E&M 183 [lb_av] Jannette [place] height E&M 63 [in_i] Jannette [place] Body Mass Index (Ratio) 32.34 kg/m2 Rebecca ica N Ady blood pressure, diastolic 60 mm[Hg] crystal Demecs RN blood pressure, systolic 150 mm[Hg] [facility] sta Demecs RN blood pressure, cuff size regular crystal Demecs RN oxygen saturation, oximetry 99 % Ivelisse Demecs RN respiratory rate E&M 18 /min Gilbert Demecs RN pulse rate 88 /min Ivelisse Demecs R N weight E&M 182.6 [lb_av] Gilbert Demecs RN Body Mass Index (Ratio) 32.17 kg/m2 [facility] N Ady blood pressure, cuff size regular crystal Demecs RN blood pressure, diastolic 56 mm[Hg] crystal Demecs RN blood pressure, systolic 136 mm[Hg] [facility] sta [facility] oxygen saturation, oximetry 98 % Gilbert Demecs RN respiratory rate E&M 18 /min Gilbert Demecs RN pulse rate 86 /min Gilbert Demecs R N weight E&M 181.6 [lb_av] Gilbert Demecs RN Body Mass Index (Ratio) 32.09 kg/m2 Nate Becerril blood pressure, resting Yes Tami Antoine blood pressure, diastolic 63 mm[Hg] Ashwin Antoine blood pressure, systolic 123 mm[Hg] Arpita Antoine oxygen saturation, oximetry 98 % Massimo Antoine respiratory rate E&M 18 /min Quirino Antoine pulse rate 60 /min Massimo mcgee weight E&M 181.2 [lb_av] Massimo genao height E&M 63 [in_i] Massimo mcgee blood pressure, diastolic 50 mm[Hg] Ashwin Antoine blood pressure, systolic 110 mm[Hg] Arpita Antoine pulse rate 87 /min Massimo mcgee oxygen saturation, oximetry 96 % Massimo Antoine respiratory rate E&M 16 /min Qiurino Antoine Body Mass Index (Ratio) 32.06 kg/m2 Tami Antoine weight E&M 181 [lb_av] Massimo mcgee blood pressure, diastolic, left arm 71 mm [Hg] Carmen Terry blood pressure, systolic, left arm 126 mm [Hg] Carmen Terry blood pressure, diastolic, right arm 70 m m[Hg] Carmen Terry blood pressure, systolic, right arm 121 m m[Hg] Carmen Terry blood pressure, diastolic 70 mm[Hg] Va destini Terry blood pressure, systolic 121 mm[Hg] Ayah aylin Terry pulse rate 74 /min Carmen Terry oxygen saturation, oximetry 97 % Carmen Terry respiratory rate E&M 15 /min Carmen Terry Body Mass Index (Ratio) 32.59 kg/m2 Juliet kushal Terry weight E&M 184 [lb_av] Carmen Terry blood pressure, diastolic, left arm 68 mm [Hg] Carmen Terry blood pressure, systolic, left arm 138 mm [Hg] Carmen Terry blood pressure, diastolic, right arm 70 m m[Hg] Carmen Terry blood pressure, systolic, right arm 135 m m[Hg] Carmen Terry blood pressure, diastolic 68 mm[Hg] Me destini Terry blood pressure, systolic 138 mm[Hg] Ayah aylin Terry pulse rate 74 /min Carmen Terry oxygen saturation, oximetry 98 % Carmen Terry respiratory rate E&M 16 /min Carmen Terry Body Mass Index (Ratio) 32.59 kg/m2 Juliet fatima Terry weight E&M 184 [lb_av] Carmen Terry blood pressure, diastolic 68 mm[Hg] Ashwin Antoine blood pressure, systolic 132 mm[Hg] Arpita Antoine pulse rate 69 /min Massimo mcgee oxygen saturation, oximetry 99 % Massimo Antoine respiratory rate E&M 16 /min Quirino Antoine Body Mass Index (Ratio) 32.91 kg/m2 Tami Antoine weight E&M 185.8 [lb_av] Massimo genao blood pressure, diastolic 71 mm[Hg] Ashwin Antoine blood pressure, systolic 160 mm[Hg] Arpita Antoine pulse rate 83 /min Massimo mcgee oxygen saturation, oximetry 97 % Massimo Antoine respiratory rate E&M 16 /min Quirino Antoine Body Mass Index (Ratio) 33.30 kg/m2 Tami Antoine weight E&M 188 [lb_av] Massimo Prince nszeke blood pressure, diastolic, left arm 75 mm [Hg] Carmen Terry blood pressure, systolic, left arm 155 mm [Hg] Carmen Terry blood pressure, diastolic, right arm 88 m m[Hg] Carmen Terry blood pressure, systolic, right arm 177 m m[Hg] Carmen Terry Body Mass Index (Ratio) 31.35 kg/m2 Juliet ssa Terry blood pressure, diastolic 75 mm[Hg] Va destini Terry blood pressure, systolic 155 mm[Hg] Ayah aylin Terry pulse rate 84 /min Carmen Terry oxygen saturation, oximetry 98 % Carmen Terry respiratory rate E&M 15 /min Carmen Terry weight E&M 177 [lb_av] Carmen Terry Body Mass Index (Ratio) 32.41 kg/m2 Faust i Reannanegianni blood pressure, diastolic 53 mm[Hg] Ke rri Gruenenfelder blood pressure, systolic 120 mm[Hg] Deanne ri Reannanejobyer pulse rate 90 /min Genesis Reannanenfe lder oxygen saturation, oximetry 97 % Genesis Claudette respiratory rate E&M 16 /min Genesis G more weight E&M 183 [lb_av] Genesis Sloane lder blood pressure, diastolic 66 mm[Hg] Prashanth Greenberg RN blood pressure, systolic 158 mm[Hg] Tre Garberkallie BURNETTE pulse rate 89 /min Tre Greenberg RN oxygen saturation, oximetry 98 % Tre Greenberg RN respiratory rate E&M 16 /min Tre Tanya kallie [place] Body Mass Index (Ratio) 30.58 kg/m2 Tre Greenberg RN weight E&M 172 [lb_av] Tre Greenberg RN Body Mass Index (Ratio) 30.22 kg/m2 Faust i Claudette blood pressure, diastolic 77 mm[Hg] Ke rri Claudette blood pressure, systolic 138 mm[Hg] Deanne ri Claudette pulse rate 76 /min Genesis Nathaliae lder oxygen saturation, oximetry 99 % Genesis Nathaliaelder respiratory rate E&M 16 /min Genesis G katieenenfelder weight E&M 170 [lb_av] Genesis Reannanenfe lder height E&M 63 [in_i] Genesis Gruenenfe lder blood pressure, diastolic 58 mm[Hg] Dru perla Paulino blood pressure, systolic 117 mm[Hg] Jose lopez Lora pulse rate 87 /min Gloria Paulino oxygen saturation, oximetry 99 % Gloria Paulino respiratory rate E&M 16 /min Gloria Corearan weight E&M 172 [lb_av] Ash Carvajalacop ALLERGIES Allergy Name Onset Date Reaction Criticality Status NORVAS Unable to assess critical ity suspended IMDUR Headaches High Criticality active RESULTS Date Observation Value Provider Reference Range Interpretation Location 2 LDL cholesterol, serum 137 mg/dL Jarod Villegas MD 2 prothrombin time (patient) 10.4 s [facility] 9.1-12.0 2 international normalized ratio (INR) 1.0 [facility] 0.8-1.2 2 lipoprotein, beta, serum, point, quantitative, calculated 137 mg/dL [facility] 0-99 High 2 very low density lipoproteins 32 mg/dL [facility] 5-40 2 HDL cholesterol, serum 29 mg/dL [facility] >39 Low 2 triglyceride, serum, random 162 mg/dL [facility] 0-149 High 2 cholesterol, serum 198 mg/dL [facility] [id number]/01/1 2 calcium, serum 9.6 mg/dL [facility] 8.6-10.2 2 carbon dioxide, venous blood 25 mmol/L [facility] 20-29 2 chloride, serum 106 mmol/L [facility] 96-106 2 potassium, serum 4.6 mmol/L [facility] 3.5-5.2 2 sodium, serum 144 mmol/L [facility] [id number]/01/1 2 urea nitrogen/creatini ne ratio, serum 16 [facility] 10-24 2 eGFR if 123 mL/min/{1 .73_m2} [facility] >59 2 eGFR if not 106 mL/min/{1 .73_m2} [facility] >59 2 creatinine, serum 0.63 mg/dL [facility] 0.76-1.27 Low 2 urea nitrogen, blood 10 mg/dL [facility] 8-27 2 blood glucose, random 127 mg/dL [facility] 65-99 High 2 basophil count, absolute 0.0 x10E3/uL [facility] 0.0-0.2 2 Eosinophil Absolute Count 0.2 X10E3/UL [facility] 0.0-0.4 2 monocyte count, blood, automated 0.5 X10E3/UL [facility] 0.1-0.9 2 lymphocyte count, blood, automated 2.2 X10E3/UL [facility] 0.7-3.1 2 Absolute Neutrophils 3.0 X10E3/UL [facility] 1.4-7.0 2 basophils as percent of blood leukocytes 0 % [facility] Not Estab. 2 eosinophils as percent of blood leukocytes 3 % [facility] Not Estab. 2 monocytes as percent of blood leukocytes 8 % [facility] Not Estab. 2 lymphocytes as percent of blood leukocytes 37 % [facility] Not Estab. 2 neutrophils as percent of blood leukocytes 52 % [facility] Not Estab. 2 platelet count 264 X10E3/UL [facility] [id number]/01/1 2 red blood cell distribution width 14.2 % [facility] 12.3-15.4 2 mean corpuscular hemoglobin concentration, RBC 33.7 G/DL [facility] 31.5-35.7 2 mean corpuscular hemoglobin, RBC 28.1 pg [facility] 26.6-33.0 2 mean corpuscular volume, RBC 84 fL [facility] 79-97 2 hematocrit, blood 38.0 % [facility] 37.5-51.0 2 hemoglobin, blood 12.8 g/dL [facility] 13.0-17.7 Low 2 erythrocyte (RBC) count 4.55 X10E6/UL [facility] 4.14-5.80 2 leukocyte count, blood 6.0 X10E3/UL [facility] 3.4-10.8 0 hemoglobin A1C, blood, as % of total hemoglobin 8.2 % [facility] 0 LDL cholesterol, serum 74 mg/dL [facility] 3 ferritin, serum 585.5 ng/mL [facility] 30.0 - 400.0 High 3 red blood cell distribution width, size density 52.6 fL [facility] - 3 immature granulocytes, percentage of total cells, blood 0.4 % [facility] 3 nucleated red blood cells as percent of blood leukocytes 0.0 % [facility] 3 red blood cell (erythrocyte) count, per high power field 0.0 10*3/UL [facility] - 3 eosinophils as percent of blood leukocytes 2.0 % [facility] - 3 neutrophils as percent of blood leukocytes 55.7 % [facility] - 3 Absolute Neutrophils 3.0 CELLS/UL [facility] 1.5 - 7.8 3 basophils as percent of blood leukocytes 0.6 % [facility] - 3 Absolute Basophils 0.0 CELLS/UL [facility] 0.0 - 0.2 3 monocytes as percent of blood leukocytes 6.8 % [facility] Absolute Monocytes 0.4 CELLS/UL [facility] 0.2 - 1.0 3 lymphocytes as percent of blood leukocytes 34.5 % [facility] - 3 Absolute Lymphocytes 1.9 CELLS/UL [facility] 0.9 - 3.9 3 mean platelet volume 10.8 (?) [facility] - 3 platelet count 255.0 THOUSAND/ UL [facility] 100.0 - 400.0 3 mean corpuscular hemoglobin concentration, RBC 30.9 G/DL [facility] 31.0 - 38.0 Low 3 mean corpuscular hemoglobin, RBC 26.9 pg [facility] 25.0 - 35.0 3 mean corpuscular volume, RBC 87.1 fL [facility] 75.0 - 100.0 3 hematocrit, blood 39.2 % [facility] 35.0 - 55.0 3 hemoglobin, blood 12.1 g/dL [facility] 11.5 - 16.5 3 erythrocyte count, whole blood 4.5 MILLION/U L [facility] 3.5 - 5.5 3 iron, serum 91.0 ug/dL [facility] 31.0 - 144.0 3 iron saturation percent, serum 31.4 % [facility] 20.0 - 50.0 3 iron binding capacity, total 289.8 ug/dL [facility] 250.0 - 450.0 6 folate, serum 17.3 NG/MLM [facility] 4.4 - 31.0 6 vitamin b12, serum 335.3 pg/mL [facility] 211.0 - 946.0 6 ferritin, serum 15.3 ng/mL [facility] 30.0 - 400.0 Low 6 iron, serum 70.0 ug/dL [facility] 31.0 - 144.0 6 iron saturation percent, serum 14.7 % [facility] 20.0 - 50.0 Low 6 iron binding capacity, total 476.0 ug/dL [facility] 250.0 - 450.0 High 6 reticulocyte count, absolute 0.099 10*6 CELLS/UL [facility] - 6 reticulocyte count, blood, uncorrected 2.40 % [facility] 0.50 - 2.00 High 9 hemoglobin A1C, blood, as % of total hemoglobin 8.5 % [facility] 4.0 - 5.6 High 3 LDL cholesterol, serum 53 mg/dL Jarod Villegas MD 4 very low density lipoproteins 42.0 mg/dL [facility] 5.0 - 40.0 High 4 LDL/HDL (low-density lipoprotein/high- density lipoprotein) ratio 1.5 RATIO [facility] - 4 lipoprotein, beta, serum, point, quantitative, calculated 53.0 (?) [facility] 0.0 - 100.0 4 HDL cholesterol, serum 36.0 mg/dL [facility] 35.0 - 55.0 4 cholesterol, serum 131.0 mg/dL [facility] 0.0 - 200.0 4 triglyceride, serum, fasting 210.0 mg/dL [facility] 0.0 - 150.0 High 4 urea nitrogen/creatini ne ratio, [facility].3 [facility] Estimated Glomerular Filtration Rate (calc) 105.2 (?) [facility] 59.0 - 4 chloride, serum 96.5 mmol/L [facility] 98.0 - 107.0 Low 4 potassium, serum 4.5 [facility] - 5[facility]1 4 sodium, serum 140.0 mmol/L [facility] 136.0 - 145.0 4 creatinine, serum 0.8 mg/dL [facility] 0.7 - 1.2 4 carbon dioxide, venous blood 25.0 mmol/L [facility] 22.0 - 29.0 4 calcium, serum 10.3 mg/dL [facility] 8.6 - 10.2 High 4 urea nitrogen, blood 13.0 mg/dL [facility] 6.[facility] - 20.0 4 blood glucose, random 115.0 mg/dL [facility] 74.0 - 99.0 High 4 red blood cell distribution width, size density 44.6 fL [facility] - 4 immature granulocytes, percentage of total cells, blood 0.8 % [facility] - 4 nucleated red blood cells as percent of blood leukocytes 0.0 % [facility] - 4 red blood cell (erythrocyte) count, per high power field 0.0 10*3/UL [facility] - 4 eosinophils as percent of blood leukocytes 1.8 % [facility] - 4 neutrophils as percent of blood leukocytes 58.7 % [facility] - 4 Absolute Neutrophils 4.2 CELLS/UL [facility] 1.5 - 7.8 4 basophils as percent of blood leukocytes 0.7 % [facility] - 4 Absolute Basophils 0.1 CELLS/UL [facility] 0.0 - 0.2 4 monocytes as percent of blood leukocytes 7.0 % [facility] - 4 Absolute Monocytes 0.5 CELLS/UL [facility] 0.2 - 1.0 4 lymphocytes as percent of blood leukocytes 31.0 % [facility] - 4 Absolute Lymphocytes 2.2 CELLS/UL [facility] 0.9 - 3.9 4 mean platelet volume 10.9 (?) [facility] - 4 platelet count 290.0 THOUSAND/ UL [facility] 100.0 - 400.0 4 mean corpuscular hemoglobin concentration, RBC 30.3 G/DL [facility] 31.0 - 38.0 Low 4 mean corpuscular hemoglobin, RBC 26.5 pg [facility] 25.0 - 35.0 4 mean corpuscular volume, RBC 87.3 fL [facility] 75.0 - 100.0 4 hematocrit, blood 38.6 % [facility] 35.0 - 55.0 4 hemoglobin, blood 11.7 g/dL [facility] 11.5 - 16.5 4 erythrocyte count, whole blood 4.4 MILLION/U L [facility] 3.5 - 5.5 4 prothrombin time (patient) 10.0 s [facility] 9.0 - 11.5 4 international normalized ratio (INR) 0.9 [facility] 0.9 - 1.1 4 hemoglobin A1C, blood, as % of total hemoglobin 8.4 % [facility] 4.0 - 6.0 High 2 triglyceride, serum, fasting 267 mg/dL Jarod Villegas MD 2 HDL cholesterol, serum 36 mg/dL Jarod Villegas MD 2 LDL cholesterol, serum 116 mg/dL Jarod Villegas MD 2 cholesterol, serum 205 mg/dL Jarod Villegas MD 2 triglyceride, serum, fasting 267 mg/dL Jarod Villegas MD 2 HDL cholesterol, serum 36 mg/dL Jarod Villegas MD 2 LDL cholesterol, serum 116 mg/dL Jarod Villegas MD 2 cholesterol, serum 205 mg/dL Jarod Villegas MD 0 hemoglobin A1C, blood, as % of total hemoglobin 8.1 % [facility] 4.0 - 6.0 High HISTORY OF MEDICATION USE Medication Status Instructions Dates Provider Indications Com ments atorvastatin 80 mg tablet active Take 1 tablet by mouth once a day LAST FILL TILL SEEN IN OFFICE 12/26 Genesis Wilkins irbesartan 300 mg tablet active TAKE 1 TABLET BY MOUTH DAILY. INSTEAD OF LOSARTAN. 10/15 Bharti Rushing irbesartan 300 mg tablet completed TAKE 1 TABLET BY MOUTH EVERY DAY, INSTEAD OF LOSARTAN. - 10/15 Bharti Rushiana rosa nitroglycerin 0.4 mg tablet, sublingual active PLACE ONE TABLET UNDER THE TONGUE NEEDED FOR CHEST PAIN AND MAY REPEAT IN 10 MINUTES IF NEEDED 11/20 Hoa Dove RN amoxicillin-pot clavulanate 875-125 mg tablet active 1 tablet by mouth twice a day 10/21 Domi Nguyen MASON LINER irbesartan 300 mg tablet completed TAKE 1 TABLET BY MOUTH DAILY, INSTEAD OF LOSARTAN - Genesis Wilkins Viagra 50 mg tablet active Take 1 tablet by mouth once a day as needed NEVER TAKE WITHIN 24 HOURS OF NITROGLYCERIN 02/19 Tomeka Grant furosemide 20 mg tablet active TAKE 1 TABLET BY MOUTH EVERY DAY 06/07 Bharti Rushing furosemide 20 mg tablet completed Take 1 tablet by mouth once a day 06/04 - 06/07 Allyson Eiwng carvedilol 6.25 mg tablet active TAKE 1 TABLET BY MOUTH EVERY DAY 12/06 Massimo Antoine nitroglycerin 0.4 mg tablet, sublingual completed ONE TABLET UNDER TONGUE NEEDED FOR CHEST PAIN. MAY REPEAT IN 10 MINUTES IF NEEDED 10/04 - 11/20 Hoa Dove RN furosemide 20 mg tablet completed TAKE 1 TABLET BY MOUTH DAILY - 06/04 Genesis Wilkins clopidogrel 75 mg tablet active TAKE 1 TABLET BY MOUTH DAILY irbesartan 300 mg tablet completed TAKE 1 TABLET BY MOUTH EVERY DAY INSTEAD OF LOSARTAN - carvedilol 6.25 mg tablet completed Take 1 tablet by mouth twice a day 06/19 - 12/06 Tre Greenberg RN atorvastatin 80 mg tablet completed TAKE 1 TABLET BY MOUTH DAILY 05/19 - 12/26 Genesis Wilkins Viagra 50 mg tablet completed Take 1 tablet by mouth single dose as needed 05/17 - 05/24 Jarod Villegas MD Vitamin D3 125 mcg (5,000 unit) tablet active Take 1 tablet by mouth once a day 05/17 Jarod Villegas MD amlodipine 10 mg tablet active TAKE 1 TABLET BY MOUTH EVERY DAY DIRECTED 05/09 Bharti Adams clopidogrel 75 mg tablet completed Take 1 tablet by mouth once a day 01/10 - Catrachita Cuevas Patient needs appointment for further refills//EB 04/25/21 carvedilol 6.25 mg tablet completed 1 tablet twice a day 10/09 - 06/19 Tomeka Grant per pcp cyclobenzaprine 10 mg tablet completed Take 1 tablet three times a day 04/08 - 10/21 Domi Ventimiglia [facility] morphine 15 mg tablet completed Take 1 tablet once a day 04/08 - 10/21 Domi Ontiverosmigljosh RAMOSP buspirone 30 mg tablet active Take once a day 10/17 Tomeka Grant ISOSORBIDE MONONITRATE ER 30 MG ORAL TABLET EXTENDED RELEASE 24 HOUR completed one tab. daily - Misael Schuster U-100 Insulin 100 unit/mL solution active Inject as directed Tomeka Grant amlodipine 10 mg tablet completed Take 1 tablet by mouth once a day as directed 10/16 - 05/09 Lavonshea Atkins PEPCID TABLET completed as directed 05/31 - 04/25 Yasmine Kp atorvastatin 80 mg tablet completed Take 1 tablet by mouth once a day 11/10 - 05/19 Lavonsamna Atkins furosemide 20 mg tablet completed Take 1 tablet by mouth once a day 10/30 - Lavmarii Atkins Plavix 75 mg tablet completed 1 tablet once a day 02/24 - Jarod Villegas MD Nitrostat 0.4 mg tablet, sublingual completed Place 1 tablet under tongue as needed 05/04 - 10/04 Jarod Villegas MD ZITHROMAX PACKET completed Use as directed 04/13 - 04/25 Massimo Antoine NORVASC 10 MG ORAL TABLET completed Take one tablet daily 03/17 - 04/13 Jarod Villegas MD ZITHROMAX Z-GIACOMO 250 MG ORAL TABLET completed Take as directed 01/26 - 04/13 Carmen Terry irbesartan 300 mg tablet completed Take 1 tablet by mouth once a day 05/01 - Vargas Bansal CRESTOR 40 MG ORAL TABLET completed ONE TAB. DAILY 01/19 - 03/20 Emilia Ochoa RN side aches, stopped by PCP and changed to atorvastatin NOVOLOG FLEXPEN 100 UNIT/ML SUBCUTANEOUS SOLUTION PEN-INJECTOR completed 60u twice a day 01/19 - 04/25 Yasmine Goodrich PROMETHAZINE HCL 25 MG ORAL TABLET completed TAKE ONE TAB BY MOUTH EVERY 8 HOURS NEEDED FOR NAUSEA/VOMITTI NG - 04/25 Genesis Wilkins OMEPRAZOLE 40 MG ORAL CAPSULE DELAYED RELEASE completed TAKE ONE CAPSULE BY MOUTH DAILY. - 01/15 Tre Greenberg RN montelukast 10 mg tablet active Take 1 tablet by mouth once a day Irma Heard LIDODERM 5 % EXTERNAL PATCH completed APPLY 1 PATCH TOPICALLY FOR 12 HOURS, THEN REMOVE FOR 12 HOURS. - 04/13 Carmen Terry HYDROCORTISONE ACETATE 25 MG RECTAL SUPPOSITORY completed INSERT ONE SUPPOSITORY RECTALLY EVERY NIGHT AT BEDTIME. - 01/15 Tre Greenberg RN fluticasone propionate 50 mcg/actuation spray,suspension active Take as directed Irma Heard clotrimazole-bet amethasone 1-0.05% cream active Take as directed Tomeka Grant BUPROPION HCL ER (XL) 300 MG ORAL TABLET EXTENDED RELEASE 24 HOUR completed TAKE ONE TAB BY MOUTH EVERY MORNING - 04/25 Genesis Wilkins JANUVIA TABLET completed 1 tab daily 04/02 - 04/25 Genesis Wilkins FOLIC ACID 1 MG ORAL TABLET completed 1 tab daily 04/02 - 01/15 Tre Greenberg RN ACTOS 45 MG ORAL TABLET completed 1 tab daily 04/02 - 04/25 Genesis Wilkins ASPIRIN 81 MG ORAL TABLET active 1 tablet once a day 04/02 Jarod Villegas MD BUDEPRION XL 300 MG [id number] completed 1 tab daily 04/02 - 04/25 Genesis Wilkins FAMOTIDINE 20 MG ORAL TABLET completed 1 tab daily 04/02 - 04/25 Genesis Wilkins metformin 1,000 mg tablet active 1 tablet twice a day 04/02 Tomeka Grant CARISOPRODOL 350 MG ORAL TABLET completed 1 tab four times daily. - 04/13 Carmen Terry LAMOTRIGINE 100 MG ORAL TABLET completed 1 tab twice daily 04/02 - 04/25 Genesis Wilkins PRAVACHOL 80 MG ORAL TABLET completed 1 tab daily 04/02 - 04/25 Genesis Wilkins alprazolam 1 mg tablet active 1 tablet three times a day 04/02 Tomeka Grant ABILIFY 20 MG ORAL TABLET completed 1 tab daily 04/02 - 04/25 Genesis Claudette MORPHINE SULFATE ER 60 MG ORAL CAPSULE EXTENDED RELEASE 24 HOUR completed 1 tab two times daily 04/02 - 04/25 Massimo Antoine METOPROLOL TARTRATE 50MG TABLETS completed TAKE 1 TABLET BY MOUTH TWICE DAILY 06/14 - 10/09 Tomeka Grant GLIPIZIDE XL 10 MG ORAL TABLET EXTENDED RELEASE 24 HOUR completed 1 tab twice daily 04/02 - 04/25 Genesis Claudette HYDROCODONE-ACET AMINOPHEN 10-500 MG ORAL TABLET completed 1 tablet five times a day - 10/21 Domi Nguyen [facility] SOCIAL HISTORY Date Observation Value Provider drug use no Jarod Villegas MD alcohol use no Jarod Villegas MD passive cigarette sm pao exposure yes Jarod Villegas MD smoking, year quit 1982 Jarod burrell MD number of years as a smoker 10 a Jarod Villegas MD smoking history, tot al pack/year 20 Jarod Villegas MD smoking history, tot al pack/day 2 Jarod Villegas MD cigarette use yes Jarod Villegas MD smoking status Former smoker Jarod Villegas MD alcohol use no Domi RAMOSP smoking status Former smoker Aisha Mauricio social history E&M Marital Statu s: E thnicity: Smoking History: Andrew medellin is a former smoker. Kathia Hodgson social history reviewed E&M revi maryseed - no changes required Kathia Hodgson physical exercise, frequency, days per week yes Allyson Ewing caffeine use, averag e drinks per day 1+ Allyson Ewing passive cigarette sm pao exposure yes Allyson Ewing smoking, year quit 1982 Allyson Ewing number of years as a smoker 10 a Allyson Ewing smoking history, tot al pack/year 20 Allyson Ewing smoking history, tot al pack/day 2 Allyson Ewing cigarette use yes Allyson Siddiqui nd smoking status Former smoker Allyson smith social history E&M Marital Statu s: E thnicity: Smoking History: P atclarisa is a former smoker. Jarod Villegas MD social history reviewed E&M revi ewed - no changes required Jarod Villegas MD physical exercise, frequency, days per week yes Alejandra Baca caffeine use, averag e drinks per day 1+ Alejandra Baca passive cigarette sm pao exposure yes Alejandra Baca smoking, year quit 1982 Alejandra Baca number of years as a smoker 10 a Alejandra Baca smoking history, tot al pack/year 20 Alejandra Baca smoking history, tot al pack/day 2 Alejandra Baca cigarette use yes Alejandra damianzeke smoking status Former smoker Alejandra lai social history E&M Marital Statu s: E thnicity: Smoking History: P lacie is a former smoker. Kathia Hodgson social history reviewed E&M revi ewed - no changes required Kathia Hodgson physical exercise, frequency, days per week yes Genesis Wilkins caffeine use, averag e drinks per day 1+ Genesis Wilkins passive cigarette sm pao exposure yes Genesis Wilikns smoking, year quit 1982 Genesis beckwith number of years as a smoker 10 a Genesis Wilkins smoking history, tot al pack/year 20 Genesis Wilkins smoking history, tot al pack/day 2 Genesis Wilkins cigarette use yes Genesis broderick smoking status Former smoker Genesis hemphiller social history reviewed E&M revi ewed - no changes required [facility] physical exercise, frequency, days per week yes [facility] alcohol use, average drinks per day none [facility] alcohol use no Misael Lyndb erg caffeine use, averag e drinks per day 1+ [facility] drug use no Misael Lyndb erg passive cigarette sm pao exposure yes [facility] smoking, year quit 1982 [facility] number of years as a smoker 10 a [facility] smoking history, tot al pack/year 20 [facility] smoking history, tot al pack/day 2 [facility] cigarette use yes [facility] smoking status Former smoker Misael [facility] social history reviewed E&M revi ewed - no changes required Jarod Villegas MD physical exercise, frequency, days per week yes Yasmine Kp alcohol use, average drinks per day none Yasmine Kp alcohol use no Yasmine Kp caffeine use, averag e drinks per day 1+ Yasmine Kp drug use no Yasmine Kp passive cigarette sm pao exposure yes Yasmine Kp smoking, year quit 1982 Yasmine Santy s number of years as a smoker 10 a Yasmine Kp smoking history, tot al pack/day 2 Yasmine Kp cigarette use yes Yasmine Kp smoking status Former smoker Yasmine Kp social history E&M Marital Statu s: E thnicity: Smoking History: P atient is a former smoker. Misael Becerril social history reviewed E&M revi ewed - no changes required Misael Becerril number of grandchildren Jarod Villegas MD physical exercise, frequency, days per week yes Lily Ovalle alcohol use, average drinks per day none Lily Ovalle alcohol use no Lily sandy caffeine use, averag e drinks per day 1+ Lily Ovalle drug use no Lily Yung l passive cigarette sm pao exposure yes Lily Ovalle smoking, year quit 1982 Lily Jose vidales number of years as a smoker 10 a Lily Ovalle smoking history, tot al pack/day 2 Lily Ovalle cigarette use yes Lily Muñiz ll smoking status Former smoker Lily Nicola acharya physical exercise, frequency, days per week yes Misael Kennyberg alcohol use, average drinks per day none Misael Becerril alcohol use no Misael Kennyb erg caffeine use, averag e drinks per day 1+ Misael Kennyberg drug use no Misael Kennyb erg passive cigarette sm pao exposure yes Misael Becerril smoking, year quit 1982 Misael Becerril number of years as a smoker 10 a Misael Becerril smoking history, tot al pack/day 2 Misael Jone cigarette use yes Misael Kenny osullivan smoking status Former smoker Misael Munoz [facility] social history reviewed E&M revi ewed - no changes required Misael Becerril number of grandchildren Nicolas Rocha MD social history reviewed E&M revi ewed - no changes required Nicolas Rocha MD social history E&M Marital Statu s: E thnicity: Smoking History: P lacie is a former smoker. Nicolas Rocha MD physical exercise, frequency, days per week yes [facility] alcohol use, average drinks per day none [facility] alcohol use no Yasmine Kp caffeine use, averag e drinks per day 1+ Yasmine Kp drug use no Yasmine [place] passive cigarette sm pao exposure yes [facility] smoking, year quit 1982 [facility] number of years as a smoker 10 a [facility] smoking history, tot al pack/year 5840 [facility] smoking history, tot al pack/day 2 [facility] cigarette use yes [facility] smoking status Former smoker [facility] social history reviewed E&M revi ewed - no changes required Misael Becerril physical exercise, frequency, days per week yes [facility] alcohol use, average drinks per day none [facility] alcohol use no [facility] caffeine use, averag e drinks per day 1+ [facility] drug use no [facility] passive cigarette sm pao exposure yes [facility] smoking, year quit 1982 [facility] number of years as a smoker 10 a [facility] smoking history, tot al pack/day 2 [facility] cigarette use yes [facility] smoking status Former smoker [facility] social history reviewed E&M revi ewed - no changes required Jarod Villegas MD physical exercise, frequency, days per week yes Genesis Wilkins alcohol use, average drinks per day none Genesis Wilkins alcohol use no Genesis rogers caffeine use, averag e drinks per day 1+ Genesis Wilkins drug use no Genesis leunger passive cigarette sm pao exposure yes Genesis Deleongianni smoking, year quit 1982 Genesis gardnerjjetelvinaalexander number of years as a smoker 10 a Genesis Sloanyahiralexander smoking history, tot al pack/day 2 Genesis Sloanmeggan cigarette use yes Genesis broderick smoking status Former smoker Genesis luameggan physical exercise, frequency, days per week yes Jarod Villegas MD alcohol use, average drinks per day none Jarod Villegas MD alcohol use no Jarod Villegas MD caffeine use, averag e drinks per day 1+ Jarod Villegas MD drug use no Jarod Villegas MD passive cigarette sm pao exposure yes Jarod Villegas MD smoking, year quit 1982 Jarod burrell MD smoking history, tot al pack/day 2 Jarod Villegas MD cigarette use yes Jarod Villegas MD smoking status Former smoker Jarod Villegas MD social history reviewed E&M ricco serraed - no changes required Jarod Villegas MD social history reviewed E&M ricco ewed - no changes required Misael Becerril social history E&M Marital Statu s: E thnicity: Smoking History: Andrew medellin is a former smoker. Misael Becerril physical exercise, frequency, days per week yes Massimo Antoine alcohol use, average drinks per day none Massimo Antoine alcohol use no Massimo mcgee caffeine use, averag e drinks per day 1+ Misael Becerril drug use no Massimo mcgee passive cigarette sm pao exposure yes Massimo Antoine smoking, year quit 1982 Massimo Antoine number of years as a smoker 10 a Massimo Antoine smoking history, tot al pack/day 2 Massimo Antoine cigarette use yes Massimo genao smoking status Former smoker Massimo Mcallister social history reviewed E&M revi ewed - no changes required Jarod Villegas MD physical exercise, frequency, days per week yes Massimo Antoine alcohol use, average drinks per day none Massimo Antoine alcohol use no Massimo mayon caffeine use, averag e drinks per day yes Massimo Antoine drug use no Massimo mayon passive cigarette sm pao exposure yes Massimo Antoine smoking, year quit 1982 Massimo Antoine number of years as a smoker 10 a Massimo Antoine smoking history, tot al pack/year 5840 Massimo Antoine smoking history, tot al pack/day 2 Massimo Antoine cigarette use yes Massimo genao smoking status Former smoker Massimo Mcallister social history E&M Marital Statu s: E thnicity: Smoking History: Patient is a former smoker. Misael Becerril social history reviewed E&M revi ewed - no changes required Jarod Villegas MD physical exercise, frequency, days per week yes Carmen Mara alcohol use, average drinks per day none Carmen Terry alcohol use no Carmen Terry caffeine use, averag e drinks per day yes Carmen Terry drug use no Carmen Terry passive cigarette sm pao exposure yes Carmen Terry smoking, year quit 1982 Carmen Ramos Fariba number of years as a smoker 10 a Carmen Terry smoking history, tot al pack/year 5840 Carmen Terry smoking history, tot al pack/day 2 Carmen Terry cigarette use yes Carmen Terry smoking status Former smoker Carmen Garcia nn social history reviewed E&M revi ewed - no changes required Jarod Villegas MD social history E&M Marital Statu s: E thnicity: Smoking History: Andrew medellin is a former smoker. Jarod Villegas MD physical exercise, frequency, days per week yes Carmen Terry alcohol use, average drinks per day none Carmen Terry alcohol use no Carmen Terry caffeine use, averag e drinks per day yes Carmen Terry drug use no Carmen Terry passive cigarette sm pao exposure yes Carmen Terry smoking, year quit 1982 Carmen Ramos cCamichael number of years as a smoker 10 a Carmen Terry smoking history, tot al pack/year 5840 Carmen Terry smoking history, tot al pack/day 2 Carmen Terry cigarette use yes Carmen Terry smoking status Former smoker Carmen Garcia nn social history reviewed E&M ricco ewed - no changes required Jarod Villegas MD physical exercise, frequency, days per week yes Massimo Antoine alcohol use, average drinks per day none Massimo Antoine alcohol use no Massiom mcgee caffeine use, averag e drinks per day yes Massimo Antoine drug use no MassimoAnila mayon passive cigarette sm pao exposure yes Massimo Antoine smoking, year quit 1982 Massimo Antoine number of years as a smoker 10 a Massimo Antoine smoking history, tot al pack/year 5840 Massimo Antoine smoking history, tot al pack/day 2 Massimo Antoine cigarette use yes Massimo genao smoking status Former smoker Massimo [facility] social history E&M Marital Statu s: E thnicity: Smoking History: Andrew medellin is a former smoker. Jarod Villegas MD social history reviewed E&M revi ewed - no changes required Jarod Villegas MD physical exercise, frequency, days per week yes Massimo Antoine alcohol use, average drinks per day none Massimo Antoine alcohol use no Massimo mayon caffeine use, averag e drinks per day yes Massimo Antoine drug use no Massimo mayon passive cigarette sm pao exposure yes Massimo Antoine smoking, year quit 1982 Massimo Antoine number of years as a smoker 10 a Massimo Antoine smoking history, tot al pack/year 5840 Massimo Antoine smoking history, tot al pack/day 2 Massimo Antoine cigarette use yes Massimo genao smoking status Former smoker Massimo Mcallister social history E&M Marital Statu s: E thnicity: Andrew medellin is a former smoker. Smoking History: Andrew medellin is a former smoker. Andrew medellin has been counseled to quit. Misael Becerril social history reviewed E&M revi ewed - no changes required Misael Becerril physical exercise, frequency, days per week yes Carmen Mara alcohol use, average drinks per day none Carmen Mara alcohol use no Carmen Terry caffeine use, averag e drinks per day yes Carmen Terry drug use no Carmen Terry passive cigarette sm pao exposure yes Carmen Terry smoking/tobacco cess ation, patient education and counseling yes Carmen Terry smoking, year quit 1982 Carmen Link number of years as a smoker 10 a Carmen Mara smoking history, tot al pack/year 5840 Carmen Terry smoking history, tot al pack/day 2 Carmen Terry cigarette use yes Carmen Terry smoking status Former smoker Carmen Garcia michael smoking/tobacco cess ation, patient education and counseling yes Jarod Villegas MD social history E&M Marital Statu s: E thnicity: Andrew medellin is a former smoker. Smoking History: Andrew medellin is a former smoker. Lawanda Camara social history reviewed E&M ricco collazo - no changes required Lawanda Camara alcohol use no Genesis rogers number of years as a smoker 10 a Genesis Wilkins smoking history, tot al pack/day 2 Genesis Wilkins cigarette use yes Genesis broderick smoking status Former smoker Lawanda Camara social history reviewed E&M reviewed Tre Greenberg RN social history reviewed E&M reviewed Tre Greenberg RN drug use no Genesis rogers passive cigarette sm pao exposure yes Genesis Wilkins smoking history, tot al pack/year 5840 eGnesis Wilkins smoking, year quit 1983 Genesis beckwith smoking status former smoker Genesis archer social history E&M Marital Statu s: E thnicity: Jarod Villegas MD physical exercise, frequency, days per week no Jarod Villegas MD drug use none Jarod Villegas MD smoking status Non-Smoker Jarod Grider social history reviewed E&M reviewed Jarod Villegas MD physical exercise, frequency, days per week yes [employer] caffeine use, averag e drinks per day yes [employer] alcohol use, average drinks per day none [employer] smoking status Non-smoker [employer] FUNCTIONAL STATUS Date Observation Value Provider HRA, CV Assess/Plan, Angina (inactive) Management Plan continue current therapy Jarod Villegas MD HRA, CV Assess/Plan, Angina (inactive) Management Plan continue current therapy Domi Mckayfransicojosh [place] [facility]ER HRA, CV Assess/Plan, Angina (inactive) Management Plan continue current therapy Kathia Hodgson HRA, CV Assess/Plan, Angina (inactive) Management Plan continue current therapy Jarod Villegas MD HRA, CV Assess/Plan, Angina (inactive) Management Plan continue current therapy Kathia Hodgson HRA, CV Assess/Plan, Angina (inactive) Management Plan continue current therapy [facility] HRA, CV Assess/Plan, Angina (inactive) Management Plan continue current therapy Jarod Villegas MD HRA, CV Assess/Plan, Angina (inactive) Management Plan continue current therapy Jarod Villegas MD HRA, CV Assess/Plan, Angina (inactive) Management Plan continue current therapy Jarod Villegas MD HRA, CV Assess/Plan, Angina (inactive) Management Plan continue current therapy, antianginal therapy Nicolas Rocha MD HRA, CV Assess/Plan, Angina (inactive) Management Plan continue current therapy [facility] HRA, CV Assess/Plan, Angina (inactive) Management Plan continue current therapy Jarod Villegas MD HRA, CV Assess/Plan, Angina (inactive) Management Plan continue current therapy Jarod Villegas MD HRA, CV Assess/Plan, Angina (inactive) Management Plan continue current therapy Misael [facility] HRA, CV Assess/Plan, Angina (inactive) Management Plan continue current therapy Jarod Villegas MD MENTAL STATUS Date Observation Value Provider assessment of judgme nt and insight E&M Alert and oriented to time, place and person. Mood and affect are normal. Tre Greenberg RN assessment of judgme nt and insight E&M Alert and oriented to time, place and person. Mood and affect are normal. Tre Greenberg RN FAMILY HISTORY Family Member Condition Father Family History of Pr ostate Cancer: INSURANCE PROVIDERS Payer name Policy type / Coverage type Mary red democrat ID [facility] CHRONIC COMPLETE ASSURE (PPO C-SNP) Medicare [id number] [facility] Medicaid 1 [id number] ADVANCE DIRECTIVES Name Date DISCUSSED - NO DECISION MADE TREATMENT PLAN Date Name Performer [id number],C,continued cullen sation encouraged. [facility] [id number],C,w ill update lipids H is updated medication list for this problem includes: Atorvastatin 80 Mg Tablet (Atorvastatin) ..... Take 1 tablet by mouth daily [facility] [id number],C,B P controlled c ontinue current meds H is updated medication list for this problem includes: Furosemide 20 Mg Tablet (Furosemide) ..... Take 1 tablet by mouth every day Irbesartan 300 Mg Tablet (Irbesartan) ..... Take 1 tablet by mouth daily, instead of losartan Amlodipine 10 Mg Tablet (Amlodipine) ..... Take 1 tablet by mouth every day as directed Carvedilol 6.25 Mg Tablet (Carvedilol) ..... Take 1 tablet by mouth every day [facility] [id number],C,n ew on exam today w ith reports of chest congestion and LE edema c oncern for MR and possible CHF w ill update labs and echo H is updated medication list for this problem includes: Furosemide 20 Mg Tablet (Furosemide) ..... Take 1 tablet by mouth every day Irbesartan 300 Mg Tablet (Irbesartan) ..... Take 1 tablet by mouth daily, instead of losartan Carvedilol 6.25 Mg Tablet (Carvedilol) ..... Take 1 tablet by mouth every day Nitroglycerin 0.4 Mg Tablet, Sublingual (Nitroglycerin) ..... One tablet under tongue as needed for chest pain. may repeat in 10 minutes if needed [facility] [id number],C,w ith previous stents in past c /o chest congestion but no pain E KG today NSR w ill update echo c ontinue current meds H is updated medication list for this problem includes: Amlodipine 10 Mg Tablet (Amlodipine) ..... Take 1 tablet by mouth every day as directed Clopidogrel 75 Mg Tablet (Clopidogrel) ..... Take 1 tablet by mouth daily Carvedilol 6.25 Mg Tablet (Carvedilol) ..... Take 1 tablet by mouth every day Nitroglycerin 0.4 Mg Tablet, Sublingual (Nitroglycerin) ..... One tablet under tongue as needed for chest pain. may repeat in 10 minutes if needed Dominaomi Mckayjosh [facility] [id number],C,P atient reports chest congestion with cough H as chest discomfort with deep inspiration l ungs are clear on exam today O 2 saturation is normal H e does have new systolic murmur noted on exam which is new c oncern is for URI as reviewed with Dr. Nelly schulz ill send abx therapy, do CXR, labs and f/u echo p atient will return in 2-4 weeks or sooner if needed. H is updated medication list for this problem includes: Furosemide 20 Mg Tablet (Furosemide) ..... Take 1 tablet by mouth every day Irbesartan 300 Mg Tablet (Irbesartan) ..... Take 1 tablet by mouth daily, instead of losartan Amlodipine 10 Mg Tablet (Amlodipine) ..... Take 1 tablet by mouth every day as directed Carvedilol 6.25 Mg Tablet (Carvedilol) ..... Take 1 tablet by mouth every day Dominaomi Nguyen [facility] [id number],C,N o CP No SOB, leg swelling does not bother him. Kathia Hodgson [id number],C, H is updated medication list for this problem includes: Metformin 1,000 Mg Tablet (Metformin) ..... 1 tablet twice a day Lantus U-100 Insulin 100 Unit/ml Solution (Insulin glargine) ..... Inject as directed Irbesartan 300 Mg Tablet (Irbesartan) ..... Take 1 tablet by mouth every day instead of losartan Kathia Jacobsmeyer [id number],C, H is updated medication list for this problem includes: Atorvastatin 80 Mg Tablet (Atorvastatin) ..... Take 1 tablet by mouth daily Kathia Hodgson [id number],C, B P today: 141/67 P rior BP: 141/65 (08/22/2022) Labs Reviewed: C reat: 0.63 (10/13/2018) C hol: 198 (10/13/2018) HDL: 29 (10/13/2018) His updated medication list for this problem includes: Amlodipine 10 Mg Tablet (Amlodipine) ..... Take 1 tablet by mouth every day as directed Irbesartan 300 Mg Tablet (Irbesartan) ..... Take 1 tablet by mouth every day instead of losartan Furosemide 20 Mg Tablet (Furosemide) ..... Take 1 tablet by mouth every day Carvedilol 6.25 Mg Tablet (Carvedilol) ..... Take 1 tablet by mouth every day Kathia Hodgson [id number],C,N o CP No SOB, leg swelling does not bother him. echo NL EF, renal artery duplex is normal. Pro BNP is normal. Kathia Camposyuni [id number],C,H emoglobin A1c was 9.1 and I advised him to contact PCP for further diabetes care. . He has significant proteinuria. H is updated medication list for this problem includes: Irbesartan 300 Mg Tablet (Irbesartan) ..... Take 1 tablet by mouth every day instead of losartan Metformin 1,000 Mg Tablet (Metformin) ..... 1 tablet twice a day Lantus U-100 Insulin 100 Unit/ml Solution (Insulin glargine) ..... Inject as directed Kathiaedith Connerabilio [id number],C,L DL is 80 H is updated medication list for this problem includes: Atorvastatin 80 Mg Tablet (Atorvastatin) ..... Take 1 tablet by mouth daily Kathia Connerabilio [id number],C,V enous duplex showed bilateral venous insufficiency. Arterial duples showed mild PAD. He does not have leg pain thus no need for intervention at this time. He'll continue Lasix. Kathia Hodgson [id number],C,P t denies CP or SOB. Will continiue Lasix. Will reorder echo, renal artery duplex, and proBNP. H is updated medication list for this problem includes: Amlodipine 10 Mg Tablet (Amlodipine) ..... Take 1 tablet by mouth every day as directed Carvedilol 6.25 Mg Tablet (Carvedilol) ..... Take 1 tablet by mouth every day Carvedilol 6.25 Mg Tablet (Carvedilol) ..... Take 1 tablet by mouth every day Nitroglycerin 0.4 Mg Tablet, Sublingual (Nitroglycerin) ..... One tablet under tongue as needed for chest pain. may repeat in 10 minutes if needed Clopidogrel 75 Mg Tablet (Clopidogrel) ..... Take 1 tablet by mouth daily Jarod Villegas MD [id number],C,V enous duplex showed bilateral venous insufficiency. Arterial duples showed mild PAD. He has significant proteinuria. LDL cholesterol is 80. He is not willing to take additional medications. Echo and renal artery duplex were not performed yet. He does not have leg pain thus no need for intervention at this time. He'll continue Lasix. Hemoglobin A1c was 9.1 and I advised him to contact PCP for further diabetes care. Will continiue Lasix. Will reorder echo, renal artery duplex, and proBNP. Jarod Villegas MD [id number],C,H emoglobin A1c was 9.1 and I advised him to contact PCP for further diabetes care. His updated medication list for this problem includes: Irbesartan 300 Mg Tablet (Irbesartan) ..... Take 1 tablet by mouth every day instead of losartan Metformin 1,000 Mg Tablet (Metformin) ..... 1 tablet twice a day Lantus U-100 Insulin 100 Unit/ml Solution (Insulin glargine) ..... Inject as directed Jarod Villegas MD [id number],C, B P today: 141/65 P rior BP: 134/67 (07/18/2022) Labs Reviewed: C reat: 0.63 (10/13/2018) C hol: 198 (10/13/2018) HDL: 29 (10/13/2018) His updated medication list for this problem includes: Irbesartan 300 Mg Tablet (Irbesartan) ..... Take 1 tablet by mouth every day instead of losartan Furosemide 20 Mg Tablet (Furosemide) ..... Take 1 tablet by mouth every day Amlodipine 10 Mg Tablet (Amlodipine) ..... Take 1 tablet by mouth every day as directed Carvedilol 6.25 Mg Tablet (Carvedilol) ..... Take 1 tablet by mouth every day Carvedilol 6.25 Mg Tablet (Carvedilol) ..... Take 1 tablet by mouth every day Jarod Villegas MD [id number],C, H is updated medication list for this problem includes: Atorvastatin 80 Mg Tablet (Atorvastatin) ..... Take 1 tablet by mouth daily Jarod Villegas MD [id number],C, H is updated medication list for this problem includes: Irbesartan 300 Mg Tablet (Irbesartan) ..... Take 1 tablet by mouth every day instead of losartan Metformin 1,000 Mg Tablet (Metformin) ..... 1 tablet twice a day Lantus U-100 Insulin 100 Unit/ml Solution (Insulin glargine) ..... Inject as directed Kathia Hodgson [id number],C, H is updated medication list for this problem includes: Atorvastatin 80 Mg Tablet (Atorvastatin) ..... Take 1 tablet by mouth daily Kathia Hodgson [id number],C, B P today: 134/67 P rior BP: 120/60 (04/08/2019) Labs Reviewed: C reat: 0.63 (10/13/2018) C hol: 198 (10/13/2018) HDL: 29 (10/13/2018) His updated medication list for this problem includes: Irbesartan 300 Mg Tablet (Irbesartan) ..... Take 1 tablet by mouth every day instead of losartan Furosemide 20 Mg Tablet (Furosemide) ..... Take 1 tablet by mouth every day Amlodipine 10 Mg Tablet (Amlodipine) ..... Take 1 tablet by mouth every day as directed Carvedilol 6.25 Mg Tablet (Carvedilol) ..... Take 1 tablet by mouth every day Carvedilol 6.25 Mg Tablet (Carvedilol) ..... Take 1 tablet by mouth every day [facility] [place] [id number],C,P t denies chest pain or SOB. W ill check microalbumin, BMP, proBNP, hs CRP, lipid panel, A1C, and venous duplex and arterial duplex of the lower extremities, and renal artery duplex, hx of right renal artery stenosis, and echo. H is updated medication list for this problem includes: Amlodipine 10 Mg Tablet (Amlodipine) ..... Take 1 tablet by mouth every day as directed Carvedilol 6.25 Mg Tablet (Carvedilol) ..... Take 1 tablet by mouth every day Carvedilol 6.25 Mg Tablet (Carvedilol) ..... Take 1 tablet by mouth every day Nitroglycerin 0.4 Mg Tablet, Sublingual (Nitroglycerin) ..... One tablet under tongue as needed for chest pain. may repeat in 10 minutes if needed Clopidogrel 75 Mg Tablet (Clopidogrel) ..... Take 1 tablet by mouth daily Kathia Hodgson [id number],C,T he pt complains of leg cramps. He stopped Lasix with some improvement but then developed leg swelling. Will check microalbumin, BMP, proBNP, hs CRP, lipid panel, A1C, and venous duplex and arterial duplex of the lower extremities, and renal artery duplex, hx of right renal artery stenosis, and echo. Kathia Hodgson [id number],S, Kathia garrisonoryuni [id number],C, H is updated medication list for this problem includes: Metformin 1,000 Mg Tablet (Metformin) ..... 1 tablet twice a day Lantus U-100 Insulin 100 Unit/ml Solution (Insulin glargine) ..... Inject as directed Irbesartan 300 Mg Tablet (Irbesartan) ..... Take 1 tablet by mouth once a day Kathia aCmposyuni [id number],C,O n statin. His updated medication list for this problem includes: Atorvastatin 80 Mg Tablet (Atorvastatin) ..... Take 1 tablet by mouth once a day Kathia Camposyuni [id number],C, H is updated medication list for this problem includes: Amlodipine 10 Mg Tablet (Amlodipine) ..... Take 1 tablet by mouth every day as directed Carvedilol 6.25 Mg Tablet (Carvedilol) ..... 1 tablet twice a day Furosemide 20 Mg Tablet (Furosemide) ..... Take 1 tablet by mouth once a day Irbesartan 300 Mg Tablet (Irbesartan) ..... Take 1 tablet by mouth once a day [facility] [id number],C,T he pt has rare episodes of angina. He is using NTG s/l once a month. He is feeling well. He would like to take Viagra. He is aware he cannot take it with NTG. H is updated medication list for this problem includes: Nitrostat 0.4 Mg Tablet, Sublingual (Nitroglycerin) ..... Place 1 tablet under tongue as needed Amlodipine 10 Mg Tablet (Amlodipine) ..... Take 1 tablet by mouth every day as directed Carvedilol 6.25 Mg Tablet (Carvedilol) ..... 1 tablet twice a day Clopidogrel 75 Mg Tablet (Clopidogrel) ..... Take 1 tablet by mouth once a day Plavix 75 Mg Tablet (Clopidogrel) ..... 1 tablet once a day Kathiaedith Connerabilio Cardiology: H is updated medication list for this problem includes: Clopidogrel 75 Mg Tablet (Clopidogrel) ..... Take 1 tablet by mouth daily Jarod Villegas MD Cardiology: H is updated medication list for this problem includes: Furosemide 20 Mg Tablet (Furosemide) ..... Take 1 tablet by mouth every day Irbesartan 300 Mg Tablet (Irbesartan) ..... Take 1 tablet by mouth daily, instead of losartan Amlodipine 10 Mg Tablet (Amlodipine) ..... Take 1 tablet by mouth every day as directed Carvedilol 6.25 Mg Tablet (Carvedilol) ..... Take 1 tablet by mouth every day Jarod Villegas MD Cardiology: B P today: 148/68 P rior BP: 138/58 (08/21/2023) Labs Reviewed: C reat: 0.63 (10/13/2018) C hol: 198 (10/13/2018) HDL: 29 (10/13/2018) LDL: 137 (10/13/2018) T (10/13/2018) His updated medication list for this problem includes: Furosemide 20 Mg Tablet (Furosemide) ..... Take 1 tablet by mouth every day Irbesartan 300 Mg Tablet (Irbesartan) ..... Take 1 tablet by mouth daily, instead of losartan Amlodipine 10 Mg Tablet (Amlodipine) ..... Take 1 tablet by mouth every day as directed Carvedilol 6.25 Mg Tablet (Carvedilol) ..... Take 1 tablet by mouth every day Jarod Villegas MD Cardiology: LDL is 8 8. We discussed PREVAIL clinical trial. H is updated medication list for this problem includes: Atorvastatin 80 Mg Tablet (Atorvastatin) ..... Take 1 tablet by mouth daily Jarod Villegas MD Cardiology Jarod Villegas MD Cardiology:Overall d oing well, He is over his URI. No CP or SOB. Echo shwoed normal Ef with mild aortic stenosis. LDL is 88. We discussed PREVAIL clinical trial. H is updated medication list for this problem includes: Amlodipine 10 Mg Tablet (Amlodipine) ..... Take 1 tablet by mouth every day as directed Clopidogrel 75 Mg Tablet (Clopidogrel) ..... Take 1 tablet by mouth daily Carvedilol 6.25 Mg Tablet (Carvedilol) ..... Take 1 tablet by mouth every day Nitroglycerin 0.4 Mg Tablet, Sublingual (Nitroglycerin) ..... One tablet under tongue as needed for chest pain. may repeat in 10 minutes if needed Jarod Villegas MD Cardiology:continued cessation e ncouraged. [facility] Cardiology:will upda te lipids H is updated medication list for this problem includes: Atorvastatin 80 Mg Tablet (Atorvastatin) ..... Take 1 tablet by mouth daily [facility] Cardiology:BP contro lled c ontinue current meds H is updated medication list for this problem includes: Furosemide 20 Mg Tablet (Furosemide) ..... Take 1 tablet by mouth every day Irbesartan 300 Mg Tablet (Irbesartan) ..... Take 1 tablet by mouth daily, instead of losartan Amlodipine 10 Mg Tablet (Amlodipine) ..... Take 1 tablet by mouth every day as directed Carvedilol 6.25 Mg Tablet (Carvedilol) ..... Take 1 tablet by mouth every day [facility] Cardiology:new on ex am today w ith reports of chest congestion and LE edema c oncern for MR and possible CHF w ill update labs and echo H is updated medication list for this problem includes: Furosemide 20 Mg Tablet (Furosemide) ..... Take 1 tablet by mouth every day Irbesartan 300 Mg Tablet (Irbesartan) ..... Take 1 tablet by mouth daily, instead of losartan Carvedilol 6.25 Mg Tablet (Carvedilol) ..... Take 1 tablet by mouth every day Nitroglycerin 0.4 Mg Tablet, Sublingual (Nitroglycerin) ..... One tablet under tongue as needed for chest pain. may repeat in 10 minutes if needed [facility] Cardiology:with prev ious stents in past c /o chest congestion but no pain E KG today NSR w ill update echo c ontinue current meds H is updated medication list for this problem includes: Amlodipine 10 Mg Tablet (Amlodipine) ..... Take 1 tablet by mouth every day as directed Clopidogrel 75 Mg Tablet (Clopidogrel) ..... Take 1 tablet by mouth daily Carvedilol 6.25 Mg Tablet (Carvedilol) ..... Take 1 tablet by mouth every day Nitroglycerin 0.4 Mg Tablet, Sublingual (Nitroglycerin) ..... One tablet under tongue as needed for chest pain. may repeat in 10 minutes if needed Domi Nguyen [facility] Cardiology:Patient r eports chest congestion with cough H as chest discomfort with deep inspiration l ungs are clear on exam today O 2 saturation is normal H e does have new systolic murmur noted on exam which is new c oncern is for URI as reviewed with Dr. Nelly schulz ill send abx therapy, do CXR, labs and f/u echo p atient will return in 2-4 weeks or sooner if needed. His updated medication list for this problem includes: Furosemide 20 Mg Tablet (Furosemide) ..... Take 1 tablet by mouth every day Irbesartan 300 Mg Tablet (Irbesartan) ..... Take 1 tablet by mouth daily, instead of losartan Amlodipine 10 Mg Tablet (Amlodipine) ..... Take 1 tablet by mouth every day as directed Carvedilol 6.25 Mg Tablet (Carvedilol) ..... Take 1 tablet by mouth every day Dominaomi Nguyen [facility] Cardiology:No CP No SOB, leg swelling does not bother him. Kathia Hodgson Cardiology: H is updated medication list for this problem includes: Metformin 1,000 Mg Tablet (Metformin) ..... 1 tablet twice a day Lantus U-100 Insulin 100 Unit/ml Solution (Insulin glargine) ..... Inject as directed Irbesartan 300 Mg Tablet (Irbesartan) ..... Take 1 tablet by mouth every day instead of losartan Kathia Hodgson Cardiology: H is updated medication list for this problem includes: Atorvastatin 80 Mg Tablet (Atorvastatin) ..... Take 1 tablet by mouth daily Kathia Hodgson Cardiology: B P today: 141/67 P rior BP: 141/65 (08/22/2022) Labs Reviewed: C reat: 0.63 (10/13/2018) C hol: 198 (10/13/2018) HDL: 29 (10/13/2018) His updated medication list for this problem includes: Amlodipine 10 Mg Tablet (Amlodipine) ..... Take 1 tablet by mouth every day as directed Irbesartan 300 Mg Tablet (Irbesartan) ..... Take 1 tablet by mouth every day instead of losartan Furosemide 20 Mg Tablet (Furosemide) ..... Take 1 tablet by mouth every day Carvedilol 6.25 Mg Tablet (Carvedilol) ..... Take 1 tablet by mouth every day Kathia Rema Cardiology:No CP No SOB, leg swelling does not bother him. echo NL EF, renal artery duplex is normal. Pro BNP is normal. Kathia Hodgson Cardiology:Hemoglobi n A1c was 9.1 and I advised him to contact PCP for further diabetes care. . He has significant proteinuria. H is updated medication list for this problem includes: Irbesartan 300 Mg Tablet (Irbesartan) ..... Take 1 tablet by mouth every day instead of losartan Metformin 1,000 Mg Tablet (Metformin) ..... 1 tablet twice a day Lantus U-100 Insulin 100 Unit/ml Solution (Insulin glargine) ..... Inject as directed Kathia Hodgson Cardiology:LDL is 80 H is updated medication list for this problem includes: Atorvastatin 80 Mg Tablet (Atorvastatin) ..... Take 1 tablet by mouth daily Kathia Hodgson Cardiology:Venous du plex showed bilateral venous insufficiency. Arterial duples showed mild PAD. He does not have leg pain thus no need for intervention at this time. He'll continue Lasix. Kathia Hodgson Cardiology:Pt denies CP or SOB. Will continiue Lasix. Will reorder echo, renal artery duplex, and proBNP. H is updated medication list for this problem includes: Amlodipine 10 Mg Tablet (Amlodipine) ..... Take 1 tablet by mouth every day as directed Carvedilol 6.25 Mg Tablet (Carvedilol) ..... Take 1 tablet by mouth every day Carvedilol 6.25 Mg Tablet (Carvedilol) ..... Take 1 tablet by mouth every day Nitroglycerin 0.4 Mg Tablet, Sublingual (Nitroglycerin) ..... One tablet under tongue as needed for chest pain. may repeat in 10 minutes if needed Clopidogrel 75 Mg Tablet (Clopidogrel) ..... Take 1 tablet by mouth daily Jarod Villegas MD Cardiology:Venous du plex showed bilateral venous insufficiency. Arterial duples showed mild PAD. He has significant proteinuria. LDL cholesterol is 80. He is not willing to take additional medications. Echo and renal artery duplex were not performed yet. He does not have leg pain thus no need for intervention at this time. He'll continue Lasix. Hemoglobin A1c was 9.1 and I advised him to contact PCP for further diabetes care. Will continiue Lasix. Will reorder echo, renal artery duplex, and proBNP. Jarod Villegas MD Cardiology:Hemoglobi n A1c was 9.1 and I advised him to contact PCP for further diabetes care. His updated medication list for this problem includes: Irbesartan 300 Mg Tablet (Irbesartan) ..... Take 1 tablet by mouth every day instead of losartan Metformin 1,000 Mg Tablet (Metformin) ..... 1 tablet twice a day Lantus U-100 Insulin 100 Unit/ml Solution (Insulin glargine) ..... Inject as directed Jarod Villegas MD Cardiology: B P today: 141/65 P rior BP: 134/67 (07/18/2022) Labs Reviewed: C reat: 0.63 (10/13/2018) C hol: 198 (10/13/2018) HDL: 29 (10/13/2018) His updated medication list for this problem includes: Irbesartan 300 Mg Tablet (Irbesartan) ..... Take 1 tablet by mouth every day instead of losartan Furosemide 20 Mg Tablet (Furosemide) ..... Take 1 tablet by mouth every day Amlodipine 10 Mg Tablet (Amlodipine) ..... Take 1 tablet by mouth every day as directed Carvedilol 6.25 Mg Tablet (Carvedilol) ..... Take 1 tablet by mouth every day Carvedilol 6.25 Mg Tablet (Carvedilol) ..... Take 1 tablet by mouth every day Jarod Villegas MD Cardiology: H is updated medication list for this problem includes: Atorvastatin 80 Mg Tablet (Atorvastatin) ..... Take 1 tablet by mouth daily Jarod Villegas MD Cardiology: H is updated medication list for this problem includes: Irbesartan 300 Mg Tablet (Irbesartan) ..... Take 1 tablet by mouth every day instead of losartan Metformin 1,000 Mg Tablet (Metformin) ..... 1 tablet twice a day Lantus U-100 Insulin 100 Unit/ml Solution (Insulin glargine) ..... Inject as directed Kathia Hodgson Cardiology: H is updated medication list for this problem includes: Atorvastatin 80 Mg Tablet (Atorvastatin) ..... Take 1 tablet by mouth daily Kathia Hodgson Cardiology: B P today: 134/67 P rior BP: 120/60 (04/08/2019) Labs Reviewed: C reat: 0.63 (10/13/2018) C hol: 198 (10/13/2018) HDL: 29 (10/13/2018) His updated medication list for this problem includes: Irbesartan 300 Mg Tablet (Irbesartan) ..... Take 1 tablet by mouth every day instead of losartan Furosemide 20 Mg Tablet (Furosemide) ..... Take 1 tablet by mouth every day Amlodipine 10 Mg Tablet (Amlodipine) ..... Take 1 tablet by mouth every day as directed Carvedilol 6.25 Mg Tablet (Carvedilol) ..... Take 1 tablet by mouth every day Carvedilol 6.25 Mg Tablet (Carvedilol) ..... Take 1 tablet by mouth every day Kathia Hodgson Cardiology:Pt denies chest pain or SOB. W ill check microalbumin, BMP, proBNP, hs CRP, lipid panel, A1C, and venous duplex and arterial duplex of the lower extremities, and renal artery duplex, hx of right renal artery stenosis, and echo. H is updated medication list for this problem includes: Amlodipine 10 Mg Tablet (Amlodipine) ..... Take 1 tablet by mouth every day as directed Carvedilol 6.25 Mg Tablet (Carvedilol) ..... Take 1 tablet by mouth every day Carvedilol 6.25 Mg Tablet (Carvedilol) ..... Take 1 tablet by mouth every day Nitroglycerin 0.4 Mg Tablet, Sublingual (Nitroglycerin) ..... One tablet under tongue as needed for chest pain. may repeat in 10 minutes if needed Clopidogrel 75 Mg Tablet (Clopidogrel) ..... Take 1 tablet by mouth daily Kathia Hodgson Cardiology:The pt co mplains of leg cramps. He stopped Lasix with some improvement but then developed leg swelling. Will check microalbumin, BMP, proBNP, hs CRP, lipid panel, A1C, and venous duplex and arterial duplex of the lower extremities, and renal artery duplex, hx of right renal artery stenosis, and echo. Kathia Hodgson Telehealth Kathia Jason eyer Telehealth: H is updated medication list for this problem includes: Metformin 1,000 Mg Tablet (Metformin) ..... 1 tablet twice a day Lantus U-100 Insulin 100 Unit/ml Solution (Insulin glargine) ..... Inject as directed Irbesartan 300 Mg Tablet (Irbesartan) ..... Take 1 tablet by mouth once a day Kathia Hodgson Telehealth:On statin . His updated medication list for this problem includes: Atorvastatin 80 Mg Tablet (Atorvastatin) ..... Take 1 tablet by mouth once a day Kathia Hodgson Telehealth: H is updated medication list for this problem includes: Amlodipine 10 Mg Tablet (Amlodipine) ..... Take 1 tablet by mouth every day as directed Carvedilol 6.25 Mg Tablet (Carvedilol) ..... 1 tablet twice a day Furosemide 20 Mg Tablet (Furosemide) ..... Take 1 tablet by mouth once a day Irbesartan 300 Mg Tablet (Irbesartan) ..... Take 1 tablet by mouth once a day Kathia Hodgson Telehealth:The pt anders s rare episodes of angina. He is using NTG s/l once a month. He is feeling well. He would like to take Viagra. He is aware he cannot take it with NTG. H is updated medication list for this problem includes: Nitrostat 0.4 Mg Tablet, Sublingual (Nitroglycerin) ..... Place 1 tablet under tongue as needed Amlodipine 10 Mg Tablet (Amlodipine) ..... Take 1 tablet by mouth every day as directed Carvedilol 6.25 Mg Tablet (Carvedilol) ..... 1 tablet twice a day Clopidogrel 75 Mg Tablet (Clopidogrel) ..... Take 1 tablet by mouth once a day Plavix 75 Mg Tablet (Clopidogrel) ..... 1 tablet once a day Kathia Rema Telehealth:His new [facility] ed medication list for this problem includes: Lantus 100 Unit/ml Subcutaneous Solution (Insulin glargine) ..... Inject as directed Irbesartan 300mg Tablets (Irbesartan) ..... Take 1 tablet by mouth every day Metformin Hcl 1000 Mg Oral Tablet (Metformin hcl) ..... 1 tab twice daily Aspirin 81 Mg Oral Tablet (Aspirin) ..... 1 tab daily [facility] Telehealth:His [facility] medication list for this problem includes: Atorvastatin 80mg Tablets (Atorvastatin calcium) ..... Take 1 tablet by mouth daily [facility] Telehealth:Prior BP: 120/60 (04/08/2019) His updated medication list for this problem includes: Carvedilol 6.25 Mg Oral Tablet (Carvedilol) ..... One tablet twice a day Amlodipine Besylate 10mg Tablets (Amlodipine besylate) ..... Take 1 tablet by mouth daily Lasix 20 Mg Oral Tablet (Furosemide) ..... One tablet daily Irbesartan 300mg Tablets (Irbesartan) ..... Take 1 tablet by mouth every day [facility] Telehealth:Rare epis odes of CP. Took a nitro once 2 months ago. Will continue current medications. His updated medication list for this problem includes: Clopidogrel Bisulfate 75 Mg Tabs (Clopidogrel bisulfate) ..... Take 1 tablet by mouth daily Carvedilol 6.25 Mg Oral Tablet (Carvedilol) ..... One tablet twice a day Amlodipine Besylate 10mg Tablets (Amlodipine besylate) ..... Take 1 tablet by mouth daily Plavix 75 Mg Oral Tablet (Clopidogrel bisulfate) ..... One tab. daily Nitrostat 0.4 Mg Sublingual Tablet Sublingual (Nitroglycerin) ..... One tab. under tongue as needed. may repeat twice in 10 minutes. Aspirin 81 Mg Oral Tablet (Aspirin) ..... 1 tab daily Misael Jone Cardiology follow up Misael Sandy gilma Cardiology follow up :Declined to participate in a clinical trial. His updated medication list for this problem includes: Lantus 100 Unit/ml Subcutaneous Solution (Insulin glargine) ..... Inject as directed Irbesartan 300 Mg Oral Tablet (Irbesartan) ..... One tab daily Metformin Hcl 1000 Mg Oral Tablet (Metformin hcl) ..... 1 tab twice daily Aspirin 81 Mg Oral Tablet (Aspirin) ..... 1 tab daily Labs Reviewed: H gBA1c: 8.2 (03/21/2018) Creat: 0.63 (10/13/2018) Misael [facility] Cardiology follow up :Labs (before Atorvastatin was increased to 80mg daily): C HOL: 198 (10/13/2018) HDL: 29 (10/13/2018) TRI (10/13/2018) LDL: 137 (10/13/2018) His updated medication list for this problem includes: Atorvastatin Calcium 80 Mg Oral Tablet (Atorvastatin calcium) ..... Take one tablet daily Recommended to check lipid panel periodically. Misael [facility] Cardiology follow up :BP today: 120/60 P rior BP: 122/70 (10/17/2018) His updated medication list for this problem includes: Amlodipine Besylate 10 Mg Oral Tablet (Amlodipine besylate) ..... Take one tablet daily Lasix 20 Mg Oral Tablet (Furosemide) ..... One tablet daily Irbesartan 300 Mg Oral Tablet (Irbesartan) ..... One tab daily Metoprolol Tartrate 50 Mg Oral Tablet (Metoprolol tartrate) ..... One tablet twice daily Misael Jone Cardiology follow up :No chest pain or SOB. Reviewed the last cath and intervention from 05/2016. His updated medication list for this problem includes: Amlodipine Besylate 10 Mg Oral Tablet (Amlodipine besylate) ..... Take one tablet daily Plavix 75 Mg Oral Tablet (Clopidogrel bisulfate) ..... One tab. daily Nitrostat 0.4 Mg Sublingual Tablet Sublingual (Nitroglycerin) ..... One tab. under tongue as needed. may repeat twice in 10 minutes. Metoprolol Tartrate 50 Mg Oral Tablet (Metoprolol tartrate) ..... One tablet twice daily Aspirin 81 Mg Oral Tablet (Aspirin) ..... 1 tab daily Misael Becerril Cardiology follow up :Since BP is well controlled, there's no need for renal artery angio at this time. Misael Becerril Cardiology follow up :CHOL: 198 (10/13/2018) HDL: 29 (10/13/2018) TRI (10/13/2018) LDL: 137 (10/13/2018) His updated medication list for this problem includes: Atorvastatin Calcium 80 Mg Oral Tablet (Atorvastatin calcium) ..... Take one tablet daily Jarod Villegas MD Cardiology follow up :Labs Reviewed: H gBA1c: 8.2 (03/21/2018) Creat: 0.63 (10/13/2018) His updated medication list for this problem includes: Lantus 100 Unit/ml Subcutaneous Solution (Insulin glargine) ..... Inject as directed Losartan Potassium 100 Mg Oral Tablet (Losartan potassium) ..... Take one tablet daily Metformin Hcl 1000 Mg Oral Tablet (Metformin hcl) ..... 1 tab twice daily Aspirin 81 Mg Oral Tablet (Aspirin) ..... 1 tab daily Jarod Villegas MD Cardiology follow up :His updated medication list for this problem includes: Amlodipine Besylate 10 Mg Oral Tablet (Amlodipine besylate) ..... Take one tablet daily Plavix 75 Mg Oral Tablet (Clopidogrel bisulfate) ..... One tab. daily Nitrostat 0.4 Mg Sublingual Tablet Sublingual (Nitroglycerin) ..... One tab. under tongue as needed. may repeat twice in 10 minutes. Metoprolol Tartrate 50 Mg Oral Tablet (Metoprolol tartrate) ..... One tablet twice daily Aspirin 81 Mg Oral Tablet (Aspirin) ..... 1 tab daily Jarod Villegas MD Cardiology follow up :BP today: 122/70 P rior BP: 158/70 (10/12/2018) His updated medication list for this problem includes: Amlodipine Besylate 10 Mg Oral Tablet (Amlodipine besylate) ..... Take one tablet daily Lasix 20 Mg Oral Tablet (Furosemide) ..... One tablet daily Losartan Potassium 100 Mg Oral Tablet (Losartan potassium) ..... Take one tablet daily Metoprolol Tartrate 50 Mg Oral Tablet (Metoprolol tartrate) ..... One tablet twice daily Jarod Villegas MD Cardiology follow up :Labs Reviewed: H gBA1c: 8.2 (03/21/2018) His updated medication list for this problem includes: Lantus 100 Unit/ml Subcutaneous Solution (Insulin glargine) ..... Inject as directed Losartan Potassium 100 Mg Oral Tablet (Losartan potassium) ..... Take one tablet daily Metformin Hcl 1000 Mg Oral Tablet (Metformin hcl) ..... 1 tab twice daily Aspirin 81 Mg Oral Tablet (Aspirin) ..... 1 tab daily Misael Jone Cardiology follow up :His updated medication list for this problem includes: Atorvastatin Calcium 20 Mg Oral Tablet (Atorvastatin calcium) ..... Take 1 tab at bedtime LDL: 74 (03/21/2018) Misael Jone Cardiology follow up :His updated medication list for this problem includes: Amlodipine Besylate 10 Mg Oral Tablet (Amlodipine besylate) ..... Take one tablet daily Plavix 75 Mg Oral Tablet (Clopidogrel bisulfate) ..... One tab. daily Nitrostat 0.4 Mg Sublingual Tablet Sublingual (Nitroglycerin) ..... One tab. under tongue as needed. may repeat twice in 10 minutes. Metoprolol Tartrate 50 Mg Oral Tablet (Metoprolol tartrate) ..... One tablet twice daily Aspirin 81 Mg Oral Tablet (Aspirin) ..... 1 tab daily Misael Becerril Cardiology follow up :BP today: 160/70 P rior BP: 142/75 (08/01/2018) His updated medication list for this problem includes: Amlodipine Besylate 10 Mg Oral Tablet (Amlodipine besylate) ..... Take one tablet daily Lasix 20 Mg Oral Tablet (Furosemide) ..... One tablet daily Losartan Potassium 100 Mg Oral Tablet (Losartan potassium) ..... Take one tablet daily Metoprolol Tartrate 50 Mg Oral Tablet (Metoprolol tartrate) ..... One tablet twice daily Orders: R enal Angio - [facility] (*) Misael Becerril Cardiology follow up :Orders: R enal Angio - [facility] (*) Misael Becerril Cardiology - angina class:BP today: 142/75 P rior BP: 142/70 (01/29/2018) His updated medication list for this problem includes: Amlodipine Besylate 5 Mg Oral Tablet (Amlodipine besylate) ..... Take one tab daily Lasix 20 Mg Oral Tablet (Furosemide) ..... One tablet daily Losartan Potassium 100 Mg Oral Tablet (Losartan potassium) ..... Take one tablet daily Metoprolol Tartrate 50 Mg Oral Tablet (Metoprolol tartrate) ..... One tablet twice daily Jarod Villegas MD Cardiology - angina class:These medications were stopped: Isosorbide Mononitrate Er 30 Mg Oral Tablet Extended Release 24 Hour (Isosorbide mononitrate) ..... One tab. daily His updated medication list for this problem includes: Amlodipine Besylate 5 Mg Oral Tablet (Amlodipine besylate) ..... Take one tab daily Plavix 75 Mg Oral Tablet (Clopidogrel bisulfate) ..... One tab. daily Nitrostat 0.4 Mg Sublingual Tablet Sublingual (Nitroglycerin) ..... One tab. under tongue as needed. may repeat twice in 10 minutes. Metoprolol Tartrate 50 Mg Oral Tablet (Metoprolol tartrate) ..... One tablet twice daily Aspirin 81 Mg Oral Tablet (Aspirin) ..... 1 tab daily Jarod Villegas MD Cardiology - angina class:Reschedule stress test for tomorrow. Jarod Villegas MD Cardiology follow up : H is updated medication list for this problem includes: Atorvastatin Calcium 20 Mg Oral Tablet (Atorvastatin calcium) ..... Take 1 tab at bedtime Orders: S TR - Exercise Nuclear (CPT-87472) 9 9215 HIGH Complex (CPT-13832) C omplete Echo (CPT-24820) R enal Artery Duplex (CPT-86796) Nicolas Rocha MD Cardiology follow up : T he following medications were removed from the medication list: Novolog Flexpen 100 Unit/ml Subcutaneous Solution Pen-injector (Insulin aspart) ..... 60u twice a day H is updated medication list for this problem includes: Lantus 100 Unit/ml Subcutaneous Solution (Insulin glargine) ..... Inject as directed Losartan Potassium 100 Mg Oral Tablet (Losartan potassium) ..... Take one tablet daily Metformin Hcl 1000 Mg Oral Tablet (Metformin hcl) ..... 1 tab twice daily Aspirin 81 Mg Oral Tablet (Aspirin) ..... 1 tab daily Orders: STR - Exercise Nuclear (CPT-54152) 9 9215 HIGH Complex (CPT-75220) C omplete Echo (CPT-13747) Nicolas Rocha MD Cardiology follow up :May be driving his BP up. Will get renal artery doppler. Nicolas Rocha MD Cardiology follow up : H is updated medication list for this problem includes: Amlodipine Besylate 5 Mg Oral Tablet (Amlodipine besylate) ..... Take one tab daily Lasix 20 Mg Oral Tablet (Furosemide) ..... One tablet daily Losartan Potassium 100 Mg Oral Tablet (Losartan potassium) ..... Take one tablet daily Metoprolol Tartrate 50 Mg Oral Tablet (Metoprolol tartrate) ..... One tablet twice daily Aspirin 81 Mg Oral Tablet (Aspirin) ..... 1 tab daily BP today: 146/80 P rior BP: 142/70 (01/29/2018) Labs Reviewed: C reat: 0.8 (05/05/2016) C hol: 131.0 (05/05/2016) HDL: 36.0 (05/05/2016) T.0 (05/05/2016) Nicolas Rocha MD Cardiology follow up Nicolas welch MD Cardiology follow up :Will order Lexiscan stress test and echo. HIs symptoms may be resembling prior CAD. He is exposed to secondhand smoke. Still on ASA Plavix. Will add Imdur 30 mg once daily. & #13;His updated medication list for this problem includes: Amlodipine Besylate 5 Mg Oral Tablet (Amlodipine besylate) ..... Take one tab daily Plavix 75 Mg Oral Tablet (Clopidogrel bisulfate) ..... One tab. daily Nitrostat 0.4 Mg Sublingual Tablet Sublingual (Nitroglycerin) ..... One tab. under tongue as needed. may repeat twice in 10 minutes. Metoprolol Tartrate 50 Mg Oral Tablet (Metoprolol tartrate) ..... One tablet twice daily Aspirin 81 Mg Oral Tablet (Aspirin) ..... 1 tab daily Orders: S TR - Exercise Nuclear (CPT-84141) C omplete Echo (CPT-80489) Nicolas Rocha MD Cardiology follow up :He would like to participate in the [facility] trial. His updated medication list for this problem includes: Losartan Potassium 100 Mg Oral Tablet (Losartan potassium) ..... Take one tablet daily Novolog Flexpen 100 Unit/ml Subcutaneous Solution Pen-injector (Insulin aspart) ..... 60u twice a day Metformin Hcl 1000 Mg Oral Tablet (Metformin hcl) ..... 1 tab twice daily Aspirin 81 Mg Oral Tablet (Aspirin) ..... 1 tab daily Orders: B ASIC METABOLIC PANEL W/EGFR (92158) H EMOGLOBIN A1c (496) U RINALYSIS, RANDOM, MICROALB/CREATININE (6517) Misael Becerril Cardiology follow up :BP today: 142/70 P rior BP: 148/90 (05/31/2017) His updated medication list for this problem includes: Amlodipine Besylate 5 Mg Oral Tablet (Amlodipine besylate) ..... Take one tab daily Lasix 20 Mg Oral Tablet (Furosemide) ..... One tablet daily Losartan Potassium 100 Mg Oral Tablet (Losartan potassium) ..... Take one tablet daily Metoprolol Tartrate 50 Mg Oral Tablet (Metoprolol tartrate) ..... One tablet twice daily Misael Becerril Cardiology follow up :No chest pain or SOB. His updated medication list for this problem includes: Amlodipine Besylate 5 Mg Oral Tablet (Amlodipine besylate) ..... Take one tab daily Plavix 75 Mg Oral Tablet (Clopidogrel bisulfate) ..... One tab. daily Nitrostat 0.4 Mg Sublingual Tablet Sublingual (Nitroglycerin) ..... One tab. under tongue as needed. may repeat twice in 10 minutes. Metoprolol Tartrate 50 Mg Oral Tablet (Metoprolol tartrate) ..... One tablet twice daily Aspirin 81 Mg Oral Tablet (Aspirin) ..... 1 tab daily Misael [facility] Cardiology follow up :He's a candidate for dental extractions. He's clear from cardiac perspective. [facility] Follow up :% Saturation increased to 31.4 and ferritin increased to 585.5. Hemoglobin 12.1 and hematocrit 39.2. [facility] Follow up:Continues o n 20mg Lasix daily. [facility] Follow up :% Saturation increased to 31.4 and ferritin increased to 585.5. Hemoglobin 12.1 and hematocrit 39.2. [facility] Follow up :His updated medication list for this problem includes: Atorvastatin Calcium 20 Mg Oral Tabs (Atorvastatin calcium) ..... Take 1 tab at bedtime [facility] Follow up :BP today: 148/90 P rior BP: 140/70 (02/24/2017) His updated medication list for this problem includes: Lasix 20 Mg Tabs (Furosemide) ..... One tablet daily Losartan Potassium 100 Mg Oral Tabs (Losartan potassium) ..... Take one tablet daily Metoprolol Tartrate 50 Mg Tabs (Metoprolol tartrate) ..... One tablet twice daily [facility] Follow up :He's a candidate for dental work and a colonoscopy. He may stop Plavix as recommended by the dentist and GI specialist. [facility] Follow up :The pt has rare episodes of chest discomfort. Will increase Metoprolol to 50mg BID. He's a candidate for dental work and a colonoscopy. He may stop Plavix as recommended by the dentist and GI specialist. If he has more chest pain, will consider cardiac cath. His updated medication list for this problem includes: Plavix 75 Mg Tabs (Clopidogrel bisulfate) ..... One tab. daily Nitrostat 0.4 Mg Subl (Nitroglycerin) ..... One tab. under tongue as needed. may repeat twice in 10 minutes. Metoprolol Tartrate 50 Mg Tabs (Metoprolol tartrate) ..... One tablet twice daily Aspirin 81 Mg Tabs (Aspirin) ..... 1 tab daily Misael [facility] Cardiology Follow up :The pt has rare episodes of chest discomfort. If he has more chest pain, will consider cardiac cath. [facility]:S/P iron infusion x2. [facility]:On Crestor 40mg daily . [facility]:His new [facility] ed medication list for this problem includes: Losartan Potassium 100 Mg Oral Tabs (Losartan potassium) ..... Take one tablet daily Novolog Flexpen 100 Unit/ml Sc Sopn (Insulin aspart) ..... 60u twice a day Metformin Hcl 1000 Mg Tabs (Metformin hcl) ..... 1 tab twice daily Aspirin 81 Mg Tabs (Aspirin) ..... 1 tab daily [facility]:BP today: 140/70 P rior BP: 150/60 (01/23/2017) His updated medication list for this problem includes: Lasix 20 Mg Tabs (Furosemide) ..... One tablet daily Losartan Potassium 100 Mg Oral Tabs (Losartan potassium) ..... Take one tablet daily Metoprolol Tartrate 25 Mg Oral Tabs (Metoprolol tartrate) ..... Take one tab twice daily [facility]:S/P iron infusion x2. Misael [facility] Cardiology:He has sw elling of his fingers and hands. We will switch Losartan-HCTZ to Losartan and start Lasix 20mg daily. [facility]:No recurr ence of chest pain or SOB. His updated medication list for this problem includes: Plavix 75 Mg Tabs (Clopidogrel bisulfate) ..... One tab. daily Nitrostat 0.4 Mg Subl (Nitroglycerin) ..... One tab. under tongue as needed. may repeat twice in 10 minutes. Metoprolol Tartrate 25 Mg Oral Tabs (Metoprolol tartrate) ..... Take one tab twice daily Aspirin 81 Mg Tabs (Aspirin) ..... 1 tab daily [facility]:Sleep blake dy in October was negative for NEETU. [facility]:Orders: F ERRITIN (457) F OLATE, SERUM (466) I BERYL AND TOTAL IRON BINDING CAPACITY (7573) R ETICULOCYTE COUNT (793) V ITAMIN B12 (927) [facility]:Labs Revi ewed: H gBA1c: 8.5 (06/30/2016) Creat: 0.8 (05/05/2016) His updated medication list for this problem includes: Losartan Potassium-hctz 100-12.5 Mg Oral Tabs (Losartan potassium-hctz) ..... One tablet daily Novolog Flexpen 100 Unit/ml Sc Sopn (Insulin aspart) ..... 60u twice a day Metformin Hcl 1000 Mg Tabs (Metformin hcl) ..... 1 tab twice daily Aspirin 81 Mg Tabs (Aspirin) ..... 1 tab daily [facility]:His updat ed medication list for this problem includes: Crestor 40 Mg Tabs (Rosuvastatin calcium) ..... One tab. daily CHOL: 131.0 (05/05/2016) HDL: 36.0 (05/05/2016) T.0 (05/05/2016) LDL: 53.0 (05/05/2016) [facility]:BP today: 123/63 P rior BP: 110/50 (06/29/2016) His updated medication list for this problem includes: Losartan Potassium-hctz 100-12.5 Mg Oral Tabs (Losartan potassium-hctz) ..... One tablet daily Metoprolol Tartrate 25 Mg Oral Tabs (Metoprolol tartrate) ..... Take one tab twice daily Aspirin 81 Mg Tabs (Aspirin) ..... 1 tab daily [facility]:Pt had an admission for chest pain and DE was ruled out. Will schedule regadenosine myoview. His updated medication list for this problem includes: Nitrostat 0.4 Mg Subl (Nitroglycerin) ..... One tab. under tongue as needed. may repeat twice in 10 minutes. Misael Jone Cardiology:Pt had an admission for chest pain and DE was ruled out. Will schedule regadenosine myoview. His updated medication list for this problem includes: Plavix 75 Mg Tabs (Clopidogrel bisulfate) ..... One tab. daily Metoprolol Tartrate 25 Mg Oral Tabs (Metoprolol tartrate) ..... Take one tab twice daily Aspirin 81 Mg Tabs (Aspirin) ..... 1 tab daily Misael Jone Cardiology:Pt had an admission for chest pain and DE was ruled out. Will schedule regadenosine myoview. His updated medication list for this problem includes: Nitrostat 0.4 Mg Subl (Nitroglycerin) ..... One tab. under tongue as needed. may repeat twice in 10 minutes. Misael Becerril Cardiology:BP today: 110/50 P rior BP: 121/70 (2016) Jarod Villegas MD Cardiology:Will repe at HgA1c. If still above 7.0%, he would like to participate in the [place] trial. Jarod Villegas MD Cardiology:Resolved after stents to the LCX and diagonal branch. Jarod Villegas MD Cardiology:S/P stent s to the LCX and diagonal branch. Angina has resolved. Jarod Villegas MD Cardiology:Orders: LIPID PANEL ( 7600) Misael Becerril Cardiology:BP today: 121/70 P rior BP: 138/68 (04/13/2016) Misael Becerril Cardiology:Labs Revi ewed: HgBA1c: 8.4 (04/14/2016) His updated medication list for this problem includes: Zestoretic 20-12.5 Mg Tabs (Lisinopril-hydrochlorothiazide) ..... One tab. daily Novolog Flexpen Sopn (Insulin aspart sopn) ..... 60u twice a day Metformin Hcl 1000 Mg Tabs (Metformin hcl) ..... 1 tab twice daily Aspirin 81 Mg Tabs (Aspirin) ..... 1 tab daily Misael Becerril Cardiology:Myoview s can showed inferior wall ischemia. Will schedule cardiac cath. Will start nitroglycerin prn. Misael Becerril Cardiology:BP today: 138/68 P rior BP: 132/68 (01/27/2016) The following medications were removed from the medication list: Norvasc 10 Mg Oral Tabs (Amlodipine besylate) ..... Take one tablet daily His updated medication list for this problem includes: Zestoretic 20-12.5 Mg Tabs (Lisinopril-hydrochlorothiazide) ..... One tab. daily Metoprolol Tartrate 25 Mg Oral Tabs (Metoprolol tartrate) ..... Take one tab twice daily Aspirin 81 Mg Tabs (Aspirin) ..... 1 tab daily Jarod Villegas MD Cardiology:CHOL: 205 (04/22/2010) LDL: 116 (04/22/2010) HDL: 36 (04/22/2010) T (04/22/2010) Dose of Crestor increased to 40mg daily. Jarod Villegas MD Cardiology:Will repeat HgA1c. Inna Villegas MD Cardiology:Labs Revi ewed: H gBA1c: 8.1 (12/10/2015) His updated medication list for this problem includes: Zestoretic 20-12.5 Mg Tabs (Lisinopril-hydrochlorothiazide) ..... One tab. daily Novolog Flexpen Sopn (Insulin aspart sopn) ..... 60u twice a day Metformin Hcl 1000 Mg Tabs (Metformin hcl) ..... 1 tab twice daily Aspirin 81 Mg Tabs (Aspirin) ..... 1 tab daily Jarod Villegas MD Cardiology:His new [facility] ed medication list for this problem includes: Crestor 20 Mg Oral Tabs (Rosuvastatin calcium) ..... Take one pill a day Jarod Villegas MD Cardiology:BP today: 132/68 P rior BP: 160/71 (12/09/2015) His updated medication list for this problem includes: Zestoretic 20-12.5 Mg Tabs (Lisinopril-hydrochlorothiazide) ..... One tab. daily Metoprolol Tartrate 25 Mg Oral Tabs (Metoprolol tartrate) ..... Take one tab twice daily Aspirin 81 Mg Tabs (Aspirin) ..... 1 tab daily Jarod Villegas MD Cardiology:His upd ed medication list for this problem includes: Crestor 20 Mg Oral Tabs (Rosuvastatin calcium) ..... Take one pill a day Jarod Villegas MD Cardiology:His updat ed medication list for this problem includes: Novolog Flexpen Sopn (Insulin aspart sopn) ..... 60u twice a day Zestoretic 20-12.5 Mg Tabs (Lisinopril-hydrochlorothiazide) ..... Two tablets daily Metformin Hcl 1000 Mg Tabs (Metformin hcl) ..... 1 tab twice daily Aspirin 81 Mg Tabs (Aspirin) ..... 1 tab daily Orders: S [facility]: [id number] Physical Exam, Performed: Pulse Exam of Foot ([id number]) H EMOGLOBIN A1c (496) Jarod Villegas MD Cardiology:Blood pre ssure is elevated. Will increase the Zestoretic to two pills daily. B P today: 160/71 P rior BP: 155/75 (05/11/2015) His updated medication list for this problem includes: Zestoretic 20-12.5 Mg Tabs (Lisinopril-hydrochlorothiazide) ..... Two tablets daily Aspirin 81 Mg Tabs (Aspirin) ..... 1 tab daily Jarod Villegas MD Cardiology:BP today: 155/75 P rior BP: 120/53 (01/19/2015) Misael Jone Cardiology:No chest pain or SOB. The patient is a cndidate for shoulder surgery.He is cleared from cardiology perspective. Misael Becerril Date Name X-Ray, Chest - Routi ne HEMOGLOBIN A1c CBC (INCLUDES DIFF/P LT) LIPID PANEL PROBNP, N TERMINAL COMPREHENSIVE METABO LIC PANEL, W/EGFR Complete Echo RPM (remote patient monitoring) PROBNP, N TERMINAL CRP, high sensitivit y HEMOGLOBIN A1c LIPID PANEL PROBNP, N TERMINAL BASIC METABOLIC PANE L W/EGFR Microalb/Creatinine Urine, Random Venous Doppler Bilat eral LE - Reflux Arterial Duplex Bi-L ower EX Complete Echo Renal Artery Duplex RPM (remote patient monitoring) PROTHROMBIN TIME WIT H INR LIPID PANEL CBC (INCLUDES DIFF/P LT) BASIC METABOLIC PANE L W/EGFR Renal Angio - [facility] X-Ray, Chest - Routi ne Renal Artery Duplex Complete Echo STR - Exercise Nucle ar URINALYSIS, RANDOM, MICROALB/CREATININE HEMOGLOBIN A1c BASIC METABOLIC PANE L W/EGFR IRON AND TOTAL IRON BINDING CAPACITY FERRITIN CBC (INCLUDES DIFF/P LT) STR - Adenosine VITAMIN B12 RETICULOCYTE COUNT IRON AND TOTAL IRON BINDING CAPACITY FOLATE, SERUM FERRITIN Carotid Duplex Bilat eral HEMOGLOBIN A1c PROTHROMBIN TIME WIT H INR CBC (INCLUDES DIFF/P LT) LIPID PANEL BASIC METABOLIC PANE L W/EGFR Cardiac Cath - Left - GC STR - Adenosine Complete Echo HEMOGLOBIN A1c HEMOGLOBIN A1c Stress Test - [place] Complete Echo HISTORY OF PROCEDURES Procedure Date Procedure Name Provider Procedure Notes S tatus EKG Jarod Villegas MD completed MARTIR Villegas MD completed Regadenoson, 4 units Jarod Villegas MD completed Cardiolite, 2 units Jarod Villegas MD c ompleted SPECT Images Ariela Baer MD complet ed Stress EKG Jasen Guardado MD complete d EKG Nicolas Rocha MD completed EKG Jarod Villegas MD completed SNOMED-CT: [id number] Physical Exam, Performed: Pulse Exam of Foot Jarod Villegas MD completed SNOMED-CT: 079850467 [id number] Current Medications Documented Jarod Villegas MD completed SNOMED-CT: 16209705 Physical Exam, Performed: Pulse Exam of Foot Jarod Villegas MD completed SNOMED-CT: [id number] 757775 Current Medications Documented Jarod Villegas MD completed Stress EKG Axel Torres MD complet ed Regadenoson, 4 units Jarod Villegas MD completed Cardiolite, 2 units Jarod Villegas MD c ompleted SPECT Images Ariela Baer MD complet ed SNOMED-CT: 87707064 Physical Exam, Performed: Pulse Exam of Foot Jarod Villegas MD completed EKG Jarod Villegas MD completed SNOMED-CT: 094217495 839268 Current Medications Documented Jarod Villegas MD completed SNOMED-CT: 68782221 Physical Exam, Performed: Pulse Exam of Foot Jarod Villegas MD completed SNOMED-CT: 440034970 850756 Current Medications Documented Jarod Villegas MD completed SNOMED-CT: 96201492 Physical Exam, Performed: Pulse Exam of Foot Jarod Villegas MD completed SNOMED-CT: 810224065 772578 Current Medications Documented Jarod Villegas MD completed Stress EKG Jasen Guardado MD complete d Regadenoson, 4 units Jarod Villegas MD completed Cardiolite, 2 units Jarod Villegas MD c ompleted SPECT Images Jarod Villegas MD complete d SNOMED-CT: 46331950 Physical Exam, Performed: Pulse Exam of Foot Jarod Villegas MD completed EKG Jarod Villegas MD completed SNOMED-CT: 181377873 944449 Current Medications Documented Jarod Villegas MD completed SNOMED-CT: 49574997 Physical Exam, Performed: Pulse Exam of Foot Jarod Villegas MD completed SNOMED-CT: 277886692 Smoking Cessation Counseling Jarod Villegas MD completed SNOMED-CT: 151781454 951100 Current Medications Documented Jarod Villegas MD completed SNOMED-CT: 325345721 Smoking Cessation Counseling Jarod Villegas MD completed SNOMED-CT: 957296483 Smoking Cessation Counseling Jarod Villegas MD completed SNOMED-CT: 22333220 Physical Exam, Performed: Pulse Exam of Foot Jarod Villegas MD completed SNOMED-CT: 413639054 503401 Current Medications Documented Jarod Villegas MD completed EKG Jarod Villegas MD completed EKG Jarod Villegas MD completed EKG Jarod Villegas MD completed ePrescribe - Check t his box if eRx is used Jarod Villegas MD completed EKG Jarod Villegas MD completed EKG Jarod Villegas MD completed
--- OUTSIDE RECORDS SUMMARY | 2024-12-27 12:50 | XMS_ITS | Clinical Summary ---
Author Organization [facility] Address [address] [place] [id number] Care Team Providers Care Freezer Machine Operator Name Role Phone Becca Oh MD Primary Care Provider [phone] Allergies Active Allergy Reactions Criticality Noted Date [...] to monitor. Coronary artery disease invo lving [place] coronary artery of [place] heart without angina pectoris 07/27/2021 Assessment & Plan (07/27/2021 3:40 PM CDT): Status post stent placement. Continue current medications and he is followed by loan expeditor Chronic bilateral low back pain without sciatica 07/27/2021 Assessment & Plan (07/27/2021 3:40 PM CDT): Patient needs to follow-up with pain specialist Immunizations Immunization Administration Dates Next Due Influenza, Quadrivalent, Jada l Culture-based MDCK, Preservative Free, Antibiotic Free, Intramuscular 07/17/2020 Influenza, Quadrivalent, Spl it, Preservative Free, Intramuscular 07/27/2021,08/05/2019,06/28/2018,06/23 Influenza, Trivalent, IM (MDV) 07/11/2016,2015,10/12/2013 Influenza, Unspecified 10/12/2013,07/25/2009, Pneumococcal Polysaccharide PPV23 06/23/2017 Tdap 07/01/2019 Surgical History Surgery Date Site/Laterality Comments CARDIAC SURGERY 10/02/2015 - 10/01/2016 2 stents BRAIN SURGERY 10/02/2005 - 10/01/2006 Tumor removed CHOLECYSTECTOMY Medical History Medical History Date Comments Hypertension Hyperlipidemia Diabetes mellitus (HCC) Heart disease Vitamin D deficiency Family History Medical History Relation Name Comments Prostate cancer Father Diabetes Mother Relation Name Status Comments [...] on file Legal Sex 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 Gender Identity Not on file Sexual Orientation Not on file Obstetrics History Last Filed Vital Signs Vital Sign Reading Time Taken Comments Blood Pressure 157/64 02/08/2022 9:58 AM CDT Pulse 75 02/08/2022 9:58 AM CDT Temperature 36.7 C (98.1 F) 10/19/2021 8:51 AM MECHANICAL MAINTENANCE FOREMAN Respiratory Rate 18 10/19/2021 8:51 AM MECHANICAL MAINTENANCE FOREMAN Oxygen Saturation 99% 02/08/2022 9:58 AM CDT Inhaled Oxygen Concentration - - Weight 80.2 kg (176 lb 11.2 oz) 02/08/2022 9:58 AM CDT Height 160 cm (5' 2.99 ) 02/08/2022 9:58 AM CDT Body Mass Index 31.31 02/08/2022 9:58 AM CDT Plan of Treatment Health Maintenance Due Date Last Done Comments Albumin Creatinine Ratio, Urine 1957 Colon Cancer Screening-Colonoscopy 1957 Hemoglobin A1C 1957 Hepatitis C Screening 1957 Prostate Cancer Screening-PSA 1957 eGFR 1957 Dilated Eye Exam 1957 Foot Exam 1957 Hepatitis B Screening 1975 Zoster Vaccine (1 of 2) 2007 Lipid Panel 11/22/2017 11/22/2016 Pneumococcal vaccine 65+ (2 of 2 - PCV) 06/23/2018 06/23/2017 Abdominal Aortic Aneurysm (A AA) Screen 2022 Well Visit 65+ 2022 Depression Screening 07/27/2022 07/27/2021 Fall Risk Assessment 07/27/2022 07/27/2021 Covid-19 Vaccine (3 - 2023-2 5 season) 2024 02/02/2021, 01/06/2021 Influenza Vaccine (#1) 2024 , 07/17/2020, 08/05/2019, Additional history exists DTaP/Tdap/Td Vaccine (2 - Td or Tdap) 07/01/2029 07/01/2019 Procedures Procedure Name Priority Date/Time Associated Diagnosis Comments SERUM LIPID PANEL Routine 11/22/2016 8:1 7 AM MECHANICAL MAINTENANCE FOREMAN from Last 3 Months or Most Recently Relevant to Health Maintenance Results * (ABNORMAL) Serum lipid panel (11/22/2016 8:17 AM MECHANICAL MAINTENANCE FOREMAN) Pathologist [facility] Cholesterol 126 100 - 200 mg/dl CDR [...] last revised 2016. Serum 11/22/2016 8:17 AM MECHANICAL MAINTENANCE FOREMAN Florian Au MD LAB BLOOD ORDERABLES Fin al Result CDR HISTORICAL RESULTS from Last 3 Months or Most Recently Relevant to Health Maintenance Insurance MEDICARE [facility] Address: [facility] [address] [place] [address] ID[employer] [facility] MEDICARE [facility] Address: [address] [address] [place] [address] Care Teams Freezer Machine Operator Relationship Specialty Start Date End Date Becca Oh MD [address] [place] [address] PCP - General Internal Medicine 07/27/21
--- OUTSIDE RECORDS SUMMARY | 2024-12-27 12:50 | XMS_ITS | Encounter Summary ---
Author Organization [facility] Address [address] [place] [address] Care Team Providers Care Food Services Director Name Role Phone Mary Workman MD Primary Care Provider [phone] Reason for Visit * Reason Onset Date Comments Medication Refill 12/27/2024 Encounter Details Date Type Department Care Team (Late st Contact Info) Description 12/27/2024 Telephone [facility] [place] [address] [place] [address] Mary Workman MD [address] [place] [address] Medication Refill Social History Tobacco Use Types [...] encounter Miscellaneous Notes * Telephone Encounter - Valery Molina - 12/27/2024 11:23 AM CDT Images from the original note were not included. documented in this encounter Plan of Treatment Upcoming Encounters Date Type Department Care Team (Late Contact Info) Description 02/05/2025 2:40 PM CDT Office Visit [facility] [address] [place] [address] Phu Ly PA-C [address] [place] [address] documented as of this encounter Visit Diagnoses Not on filedocumented in this encounter Care Teams Food Services Director Relationship Specialty Start Date End Date Mary Workman MD [address] [place] [address] PCP - General Internal Medicine 12/26/23 documented as of this encounter
--- OUTSIDE RECORDS SUMMARY | 2024-12-27 12:50 | XMS_ITS | Clinical Summary ---
Author Organization [id number]. 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 07/21/20 21 Active atorvastatin (LIPITOR) 80 mg tablet atorvastatin 80 mg tablet 05/19/20 21 Active clopidogreL (PLAVIX) 75 mg Tablet clopidogrel 75 mg tablet 07/27/20 21 Active FLUoxetine (PROzac) 20 mg capsule 1 Capsule daily. Act carmen fluticasone propionate (FLONASE) 50 mcg/spray [place], Suspension nasal inhaler fluticasone propionate 50 mcg/actuation spray,suspension Active furosemide (LASIX) 20 mg tablet furosemide 20 mg tablet 06/07/20 22 Active Irbesartan (AVAPRO) 300 mg tablet irbesartan 300 mg tablet 07/23/20 21 Active montelukast (SINGULAIR) 10 mg tablet Take by mouth. Activ e potassium chloride (KLOR-CON) 20 mEq Extended Release tablet 1 Tablet daily. Active clotrimazole-b etamethasone (LOTRISONE) 1-0.05 % CreamIndicatio ns:Tinea pedis of both feet Apply to affected area 2 times daily. 30 Gram 12/26/19 24 Active potassium chloride (K-TAB) 20 mEq Extended Release tablet take 1 tablet by mouth every day 90 Tablet 1 01/08/20 24 Active glipiZIDE (GLUCOTROL XL) 5 mg Extended Release 24 hour tabletIndicati ons:Controlled type 2 diabetes mellitus without complication, with long-term current use of insulin (CMS/HCC) Take 1 Tablet (5 mg) by mouth daily with breakfast. DIABETES 100 Tablet 3 03/29/20 24 Active metFORMIN (GLUCOPHAGE) 1,000 mg tablet Take 1 Tablet (1,000 mg) by mouth 2 times daily with meals. 200 Tablet 3 04/11/20 24 Active Lantus Solostar U-100 Insulin 100 unit/mL (3 mL) solution for injectionIndic ations:Control led type 2 diabetes mellitus without complication, with long-term current use of insulin ([facility]) Inject 80 Units by subcutaneous injection 2 times daily. 144 mL 3 05/29/20 24 Active gabapentin (NEURONTIN) 300 mg capsule Take 1 Capsule (300 mg) by mouth 3 times daily. 90 Capsule 3 07/01/20 24 Active ipratropium bromide (ATROVENT) 42 mcg (0.06 %) [place], Non-AerosolInd ications:Runny nose Administer 2 Sprays in each nostril 2 times daily with meals. 1 mL 2 07/01/20 24 Active carvediloL (COREG) 12.5 mg tablet take 1 tablet by mouth twice daily 200 Tablet 3 07/05/20 24 Active amLODIPine (NORVASC) 10 mg tablet take 1 tablet by mouth every day as directed 100 Tablet 3 07/08/20 24 Active metoclopramide HCl (REGLAN) 10 mg tabletIndicati ons:Nausea,Con trolled type 2 diabetes mellitus without complication, with long-term current use of insulin ([facility]) Take 1 Tablet (10 mg) by mouth 2 times daily as needed for Nausea/Emesis. 60 Tablet 07/16/20 24 Active Insulin [place], Disposable, 32 gauge x 5/32 Needle Use needle to administer lantus subcutaneously two times daily 200 Each 3 09/23/20 24 Active ferrous sulfate 325 mg (65 mg iron) tablet Take 1 Tablet (325 mg) by mouth daily. 100 Tablet 3 10/04/19 25 Active cholecalcifero l 1,250 mcg (50,000 unit) Capsule Take 1 Capsule (50,000 Units) by mouth every 7 days. 14 Capsule 10/11/19 25 Active hydrocortisone acetate (ANUSOL-HC) 25 mg SuppositoryInd ications:Hemor rhoids, unspecified hemorrhoid type Insert 1 Suppository (25 mg) by rectum 2 times daily as needed for Itching. 60 Suppository 10/17/19 25 Active cyclobenzaprin e (FLEXERIL) 10 mg tablet Take 1 Tablet (10 mg) by mouth 3 times daily as needed for Spasm. 90 Tablet 10/21/19 25 Active lancets (OneTouch Delica Plus Lancet) 30 gauge Use to check blood glucose twice daily. 200 Each 3 12/26/19 25 Active blood sugar diagnostic (OneTouch Ultra Test) Strip Use to check blood glucose twice daily. 200 Strip 3 12/26/19 25 Active pantoprazole (PROTONIX) 20 mg Tablet, Delayed Release (E.C.) Take 1 Tablet (20 mg) by mouth daily. 100 Tablet 3 12/27/19 25 Active OneTouch Ultra Test Strip 12/20/19 24 2024 Discontin ued(Reord er) OneTouch Delica Plus Lancet 30 gauge 12/20/19 24 2024 Discontin ued(Reord er) omeprazole (PriLOSEC) 20 mg Capsule, Delayed Release(E.C.) take 1 capsule by mouth twice daily 200 Capsule 3 07/05/20 24 2024 Discontin ued(Alter nicole therapy prescribe d) testosterone cypionate (DEPO-TESTOSTE GABRIEL) 200 mg/mL OilIndications :Erectile dysfunction, unspecified erectile dysfunction type Inject 0.5 mL (100 mg) by intramuscular injection one time only for 1 dose. 1 mL 3 12/03/19 25 2024 doxycycline (MONODOX) 100 mg Capsule Take 1 Capsule (100 mg) by mouth every 12 hours for 7 days. 14 Capsule 12/04/19 25 2024 Active Problems Problem Noted Date Diagnosed Date Obesity (BMI 30.0-34.9) 03/29/2024 Aortic stenosis, mild 09/04/2023 Systolic murmur 08/21/2023 Peripheral arterial occlusive disease 08/22/2022 Venous insufficiency 08/22/2022 Anxiety 02/23/2017 Chronic low back pain 02/23/2017 Overview (12/26/2023): Last Assessment & Plan: Patient needs to follow-up with pain specialist Controlled type 2 diabetes m ellitus without complication, with long-term current use of insulin 02/23/2017 Overview (12/26/2023): Last Assessment & Plan: Continue current medications, discussed low carbohydrate diet, advised to exercise on regular basis, advised to have annual eye exam. We will continue to monitor. Iron deficiency anemia 11/30/2016 Arteriosclerosis of coronary artery 06/29/2016 Overview (12/26/2023): Last Assessment & Plan: Status post stent placement. Continue current medications and he is followed by choker setter Right renal artery stenosis 06/29/2016 Personal history of nicotine dependence 12/09/19 16 Dyslipidemia 04/20/2010 Overview (12/26/2023): Last Assessment & Plan: Controlled on current medications. Continue low-fat diet. Will continue to monitor . Hypertension, essential 04/20/2010 Overview (12/26/2023): Last Assessment & Plan: Continue current medications. Discussed low-salt diet. Discussed exercise on regular basis. Will continue to monitor Resolved Problems Problem Noted Date Diagnosed Date Resolved Date Right ankle injury, initial encounter 01/08/2024 07/01/2024 Physical deconditioning 02/08/202212/01 Spondylosis of lumbar region without myelopathy or radiculopathy 10/19/2021 07/01/2024 Brain tumor 07/19/2017 12/26/2023 Snoring 10/17/2016 12/26/2023 Encounters Date Type Department Care Team Description 12/27/2024 Telephone [facility] [place] [address] [place] [address] Mary Workman MD Medication Refill 12/26/2024 Telephone [facility] [place] [address] [place] [address] Mary Workman MD Question 12/26/2024 [facility] [place] [address] [place] [address] Mary Workman MD Medication Assistance 12/25/2024 Refill [facility] [address] [place] [address] Mary Workman MD 12/18/2024 External Device Data STL ABSTRACTION Provider, Abstract 12/12/2024 Refill [facility] [place] [address] Mary Workman MD 12/07/2024 External Device Data STL ABSTRACTION Provider, Abstract 12/06/2024 External Device Data STL ABSTRACTION Provider, Abstract 12/04/2024 External Device Data STL ABSTRACTION Provider, Abstract 12/03/2024 Telephone [facility] [address] [place] [phone] Mary Workman MD Medication Assistance; Question 11/26/2024 Results Follow-Up [facility] [place] [address] Phu Ly PA-C FERRITIN, HEPATITIS C ANTIBODY W REFLEX, CBC WITH DIFFERENTIAL, Additional followed-up results: 2 11/04/2024 3:00 PM BREEDING MANAGER Office Visit [address] [address] Phu Ly PA-C Annual physical exam (Primary Dx); Controlled type 2 diabetes mellitus without complication, with long-term current use of insulin ([facility]); Venous insufficiency; Systolic murmur; Right renal artery stenosis; Personal history of nicotine dependence; Peripheral arterial occlusive disease; Obesity (BMI 30.0-34.9); Iron deficiency anemia, unspecified iron deficiency anemia type; Hypertension, essential; Dyslipidemia; Chronic midline low back pain without sciatica; Aortic stenosis, mild; Anxiety; Arteriosclerosis of coronary artery; History of smoking; Screening for AAA (abdominal aortic aneurysm); Need for hepatitis C screening test; Erectile dysfunction, unspecified erectile dysfunction type 10/21/2024 Refill [facility] [address] [place] [address], [place] [phone] Mary Workman MD 10/17/2024 Telephone [facility] [address] [facility] [phone] Mary Workman MD Medication Assistance 10/11/2024 Orders Only [facility] [address] [address] Phu Ly PA-C 10/07/2024 Telephone [facility] [address] [facility] [place] [address] Mary Workman MD Results (a) 10/04/2024 [facility] [address] [facility] [place] [address] Phu Ly, PARandell Results from Last 3 Months Immunizations Immunization Administration Dates Next Due (ADACEL/BOOSTRIX)(10 YR UP) TDAP VACCINE, 0.5ML, IM 07/01/2019 (PNEUMOVAX 23)(50 YRS UP) PN EUMOCOCCAL POLYSACCHARIDE (PPV23) 0.5 ML, IM 06/23/2017 (PREVNAR 20)(6 WKS UP) PNEUM OCOCCAL CONJUGATE VACCINE 20-VALENT (PCV20), POLYSACCHARIDE CAR104 CONJUGATE, ADJUVANT 0.5 ML (PF) IM 03/29/2024 INFLUENZA VACCINE INACTIVATE D ADJUV, (65 YR UP), 0.5ML (PF), IM 07/01/2024 INFLUENZA VACCINE QUADRIVALE NT 6 MOS UP CELL DERIVED PF IM 07/17/2020 INFLUENZA VACCINE QUADRIVALE NT 6 MOS UP PF IM 07/27/2021,08/05/2019,06/28/2018,06/23 Influenza Seasonal Unspecifi ed Formulation IM 07/27/2021,07/11/2016,10/12/2013 Influenza, Unspecified Formulation 10/12/2013, Skin Test TB 10/12/2013 Family History Medical History Relation Name Comments Diabetes Sister 1 Diabetes Sister 2 Relation Name Status Comments Father Mother Sister 1 Sister 2 Alive Social History Tobacco Use Types Packs/Day Years Used Date Smoking Tobacco: Never Passive Smoke Exposure: Never Smokeless Tobacco: Never Tobacco Cessation:Counseling Given: No Alcohol Use Standard Drinks/Week Comments Not Currently 0 (1 standard drink = 0.6 oz pur e alcohol) Sex and Gender Information Value Date Recorded Sex Assigned at Not on file Legal Sex Male 12:22 PM CDT Gender Identity Not on file Sexual Orientation Not on file Last Filed Vital Signs Vital Sign Reading Time Taken Comments Blood Pressure 112/62 09/18/2024 12:47 PM BREEDING MANAGER Pulse 86 11/04/2024 2:38 PM BREEDING MANAGER Temperature 36.4 C (97.6 F) 11/04/2024 2:38 PM BREEDING MANAGER Respiratory Rate 18 11/04/2024 2:38 PM BREEDING MANAGER Oxygen Saturation 98% 11/04/2024 2:38 PM BREEDING MANAGER Inhaled Oxygen Concentration - - Weight 82.3 kg (181 lb 6.4 oz) 11/04/2024 2:38 P M BREEDING MANAGER Height 160 cm (5' 3 ) 11/04/2024 2:38 PM BREEDING MANAGER Body Mass Index 32.13 11/04/2024 2:38 PM BREEDING MANAGER Plan of Treatment Upcoming Encounters Date Type Department Care Team (Late st Contact Info) Description 02/05/2025 2:40 PM CDT Office Visit [facility] [place] [address] [place] [address] Phu Ly PA-C [address] [place] [address] Health Maintenance Due Date Last Done Comments DIABETES ANNUAL RETINAL EXAM 1975 FIT/ DNA Q 3 YEARS (AUTO ORDER) 1975 FIT/FOBT Q 1 YEAR (AUTO ORDER) 1975 FIT-DNA Q 3 years 2002 FIT/FOBT Q 1 year 2002 Flex Sig/CT Colonography Q 5 years 2002 ZOSTER VACCINE (1 of 2) 2007 RSV VACCINE (60+ or ) (1 - Risk 60-74 years 1-dose series) 2017 FLEX SIG/CT COLONOGRAPHY Q 5 YEARS (AUTO ORDER) 06/26/2022 06/26/2017, 06/26/2017 KHE uACR (Auto Order) 10/02/2024 03/29/2024 DIABETES MICROALBUMIN ANNUAL SCREEN 03/29/2025 03/29/2024 DIABETES HBA1C Q 6 MONTHS 04/03/20252024, 07/01/2024, 03/29/2024, Additional history exists DIABETES ANNUAL FOOT EXAM 07/01/2025 07/01/2024, LDL CHOLESTEROL ANNUAL 07/15/2025 07/15/2024, 2023 DIABETES: A1C (Auto Order) 10/04/202510/04, 07/01/2024, 03/29/2024, Additional history exists COLORECTAL CANCER SCREENING (AUTO ORDER) 06/26/2027 06/26/2017 COLORECTAL SCREENING 06/26/2027 06/26/2017 Colorectal Cancer Screening (AUTO ORDER) 06/26/2027 Colorectal Cancer Screening 06/26/2027 DTAP/TDAP/TD VACCINES (2 - T d or Tdap) 07/01/2029 07/01/2019 PNEUMOCOCCAL VACCINE 50+ YEARS Completed 03/29/2024 , 06/23/2017 INFLUENZA VACCINE Completed 07/01/2024, , 07/27/2021, Additional history exists KHE eGFR (Auto Order) Completed 10/04/2024 , 07/15/2024, 04/30/2024, Additional history exists Medicare Advantage ([place]) Preventative Visit/Annual Wellness Visit Completed 11/04/2024, 11/04/2024, 07/01/2024 Procedures Procedure Name Priority Date/Time Associated Diagnosis Comments TESTOSTERONE FREE AND TOTAL Routine 11/25/2024 10:08 AM BREEDING MANAGER Erectile dysfunction, unspecified erectile dysfunction type HEPATITIS C ANTIBODY Routine 11/25/2024 10:05 AM BREEDING MANAGER Need for hepatitis C screening test FERRITIN Routine 11/25/2024 10:05 AM BREEDING MANAGER Iron deficiency anemia, unspecified iron deficiency anemia type IRON, TIBC, AND PERCENT SATURATION Routine 11/25/2024 10:00 AM BREEDING MANAGER Iron deficiency anemia, unspecified iron deficiency anemia type CBC WITH DIFFERENTIAL Routine 11/25/2024 10:00 AM BREEDING MANAGER Iron deficiency anemia, unspecified iron deficiency anemia type HEMOGLOBIN A1C Routine 10/04/2024 8:50 AM BREEDING MANAGER Controlled type 2 diabetes mellitus without complication, with long-term current use of insulin ([facility]) VITAMIN D 25 HYDROXY Routine 10/04/2024 8:50 AM BREEDING MANAGER Vitamin D deficiency TSH REFLEXIVE Routine 10/04/2024 8:50 AM BREEDING MANAGER Iron deficiency anemia, unspecified iron deficiency anemia type care home use of drug COMPREHENSIVE METABOLIC PANEL Routine 10/04/2024 8:50 AM BREEDING MANAGER Iron deficiency anemia, unspecified iron deficiency anemia type CBC WITH DIFFERENTIAL Routine 10/04/2024 8:50 AM BREEDING MANAGER Iron deficiency anemia, unspecified iron deficiency anemia type LIPID PANEL Routine 07/15/2024 8:41 AM CDT Dyslipidemia POC MICROALB/CREAT RATIO URINE QUANT Routine 03/29/2024 10:29 AM CDT Controlled type 2 diabetes mellitus without complication, with long-term current use of insulin ([facility]) from Last 3 Months or Most Recently Relevant to Health Maintenance Results * (ABNORMAL) TESTOSTERONE FREE AND TOTAL (11/25/2024 10:08 AM BREEDING MANAGER) [facility] TESTOSTERONE 222(L) 250 - 1100 ng/dL [email or web address] Comment: Men with clinically significant hypogonadal symptoms and testosterone values repeatedly in the range of the 200-300 ng/dL or less, may benefit from testosterone treatment after adequate risk and benefits counseling. For additional information, please refer to https://education.Zilyo.swabr/faq/DGO689 (This link is being provided for informational/educational purposes only.) (Note) This test was developed and its analytical performance characteristics have been determined by [employer]. It has not been cleared or approved by the FDA. This assay has been validated pursuant to the CLIA regulations and is used for clinical purposes. TESTOSTERONE FREE 34.3(L) 35.0 - 155.0 pg/mL [facility] Comment: (Note) This test was developed and its analytical performance characteristics have been determined by [employer]. It has not been cleared or approved by the FDA. This assay has been validated pursuant to the CLIA regulations and is used for clinical purposes. [facility] [address] [address],[address] [facility] [address] Marcelina Johnson MD, PhD FASTING:YES FASTING: YES Test Performed at: [facility] [address] [place] [address], [address] [place] [address] Marcelina Johnson MD,PhD Blood 11/25/2024 10:0 8 AM BREEDING MANAGER 11/25/2024 10:08 AM BREEDING MANAGER Phu Ly PA-C CHEMISTRY ORDERABLES F inal Result [facility] [phone] [facility] [address] [place] [address], [address] [place] [address] * HEPATITIS C ANTIBODY W REFLEX (11/25/2024 10:05 AM BREEDING MANAGER) HEPATITIS C AB NON-REACTI VE NON-REACT CARMEN [facility] Comment: HCV antibody was non-reactive. There is no laboratory evidence of HCV infection. In most cases, no further action is required. However, if recent HCV exposure is suspected, a test for HCV RNA (test code 57134) is suggested. For additional information please refer to http://education.Zilyo.swabr/faq/IOW85a7 (This link is being provided for informational/ educational purposes only.) FASTING:YES FASTING: YES Test Performed at: [facility] [address] [place] [address] Kassandra Rendon MD Blood 11/25/2024 10:0 5 AM BREEDING MANAGER 11/25/2024 10:06 AM BREEDING MANAGER Phu Ly PA-C CHEMISTRY ORDERABLES F inal Result Performing Organization Address [facility] Co de Phone Number [facility] [phone] [facility] [address] * (ABNORMAL) FERRITIN (11/25/2024 10:05 AM BREEDING MANAGER) Pathologist [facility] FERRITIN 8(L) 24 - 380 ng/mL [facility] Comment: FASTING:YES FASTING: YES Test Performed at: [facility] [address] Kassandra Rendon MD Blood 11/25/2024 10:0 5 AM BREEDING MANAGER 11/25/2024 10:06 AM BREEDING MANAGER Phu Ly PA-C CHEMISTRY ORDERABLES F inal Result Performing Organization Address [facility] de Phone Number [place] [phone] [facility] [address] * (ABNORMAL) IRON, TIBC, AND PERCENT SATURATION (11/25/2024 10:00 AM BREEDING MANAGER) [facility] IRON 40(L) 50 - 180 mcg/dL [facility] TIBC 347 250 - 425 mcg/dL (calc) [facility] IRON % SATURATION 12(L) 20 - 48 % (calc) [facility] Comment: FASTING:YES FASTING: YES Test Performed at: [employer] [facility] [address] Kassandra Rendon MD Blood 11/25/2024 10:0 0 AM BREEDING MANAGER 11/25/2024 10:01 AM BREEDING MANAGER Phu Ly PA-C CHEMISTRY ORDERABLES F inal Result Performing Organization Address [facility] Co de Phone Number [facility] [phone] [facility] [address] * (ABNORMAL) CBC WITH DIFFERENTIAL (11/25/2024 10:00 AM BREEDING MANAGER) Only the most recent of2 resultswithin the time period is included. WBC 5.8 3.8 - 10.8 Thousand/u L [facility] RBC 4.42 4.20 - 5.80 Million/uL [facility] HEMOGLOBIN 11.4(L) 13.2 - 17.1 g/dL [facility] HEMATOCRIT 37.8(L) 38.5 - 50.0 % [facility] MCV 85.5 80.0 - 100.0 fL [facility] MCH 25.8(L) 27.0 - 33.0 pg [facility] MCHC 30.2(L) 32.0 - 36.0 g/dL [facility] Comment: For adults, a slight decrease in the calculated MCHC value (in the range of 30 to 32 g/dL) is most likely not clinically significant; however, it should be interpreted with caution in correlation with other red cell parameters and the patient's clinical condition. RDW 19.7(H) 11.0 - 15.0 % [facility] PLATELETS 325 140 - 400 Thousand/u L [facility] MPV 10.3 7.5 - 12.5 fL [facility] NEUTROPHIL ABSOLUTE 3,579 1,500 - 7,800 cells/uL [facility] LYMPHOCYTE ABSOLUTE 1,647 850 - 3,900 cells/uL [facility] MONOCYTE ABSOLUTE 423 200 - 950 cells/uL [facility] EOSINOPHIL ABSOLUTE 110 15 - 500 cells/uL [facility] BASOPHILS ABSOLUTE 41 0 - 200 cells/uL [facility] NEUTROPHIL 61.7 % [facility] LYMPHOCYTES 28.4 % [facility] MONOCYTE 7.3 % [facility] EOSINOPHILS 1.9 % [facility] BASOPHILS 0.7 % [facility] Comment: FASTING:YES FASTING: YES Test Performed at: [facility] [address] [facility] [place] [address] HelenaShereen Rendon MD Blood 11/25/2024 10:0 0 AM BREEDING MANAGER 11/25/2024 10:01 AM BREEDING MANAGER Phu Ly PA-C HEMATOLOGY ORDERABLES Final Result [facility] [phone] [facility] [address] [place] [address] * TSH REFLEXIVE (10/04/2024 8:50 AM BREEDING MANAGER) TSH 1.97 0.40 - 4.50 mIU/L [facility] Comment: Test Performed at: [facility] [address] [place] [address] Kassandra Rendon Blood 10/04/2024 8:50 AM BREEDING MANAGER 10/04/2024 8:50 AM BREEDING MANAGER Phu Ly PA-C CHEMISTRY ORDERABLES F inal Result [facility] [phone] [place] [address] [place] [address] * VITAMIN D 25 HYDROXY (10/04/2024 8:50 AM BREEDING MANAGER) VITAMIN D, 25 OH, TOTAL 63 30 - 100 ng/mL [facility] Comment: Vitamin D Status 25-OH Vitamin D: Deficiency: <20 ng/mL Insufficiency: 20 - 29 ng/mL Optimal: > or = 30 ng/mL For 25-OH Vitamin D testing on patients on D2-supplementation and patients for whom quantitation of D2 and D3 fractions is required, the [facility] 25-OH VIT D, (D2,D3), LC/MS/MS is recommended: order code 06211 (patients >2yrs). See Note 1 Note 1 For additional information, please refer to http://education.Blue Apron/faq/FRG340 (This link is being provided for informational/ educational purposes only.) Test Performed at: [facility] [address] [address] Kassandra Rendon MD Blood 10/04/2024 8:50 AM BREEDING MANAGER 10/04/2024 8:50 AM BREEDING MANAGER Phu Ly PA-C CHEMISTRY ORDERABLES F inal Result Performing Organization Address City/[facility]/ZIP Co ca Phone Number [facility] [phone] [facility] [address] [address] * (ABNORMAL) HEMOGLOBIN A1C (10/04/2024 8:50 AM BREEDING MANAGER) HEMOGLOBIN A1C 7.8(H) <5.7 % of total Hgb [facility] [place] Comment: For someone without known diabetes, a hemoglobin A1c value of 6.5% or greater indicates that they may have diabetes and this should be confirmed with a follow-up test. For someone with known diabetes, a value <7% indicates that their diabetes is well controlled and a value greater than or equal to 7% indicates suboptimal control. A1c targets should be individualized based on duration of diabetes, age, comorbid conditions, and other considerations. Currently, no consensus exists regarding use of hemoglobin A1c for diagnosis of diabetes for children. ESTIMATED AVERAGE GLUCOSE (MG/DL) 177 mg/dL [facility] [place] ESTIMATED AVERAGE GLUCOSE (MMOL/L) 9.8 mmol/L [facility] [place] Comment: Test Performed at: [facility] [address] [address] Kassandra Rendon Blood 10/04/2024 8:50 AM BREEDING MANAGER 10/04/2024 8:50 AM BREEDING MANAGER Phu Ly PA-C CHEMISTRY ORDERABLES F inal Result [facility] [phone] [facility] [address] [address] * (ABNORMAL) COMPREHENSIVE METABOLIC PANEL (10/04/2024 8:50 AM BREEDING MANAGER) GLUCOSE 92 65 - 99 mg/dL [facility] [place] Comment: Fasting reference interval BUN 13 7 - 25 mg/dL [facility] [place] CREATININE 0.56(L) 0.70 - 1.35 mg/dL [facility] [place] GFR 108 > OR = 60 mL/min/1. 73m2 [facility] [place] BUN/CREAT RATIO 23(H) 6 - 22 (calc) [facility] [place] SODIUM 140 135 - 146 mmol/L [facility] [place] POTASSIUM 4.2 3.5 - 5.3 mmol/L [facility] [place] CHLORIDE 105 98 - 110 mmol/L [facility] [place] CO2 26 20 - 32 mmol/L [facility] [place] CALCIUM 8.6 8.6 - 10.3 mg/dL [facility] [place] TOTAL PROTEIN 6.1 6.1 - 8.1 g/dL [facility] [place] ALBUMIN 4.0 3.6 - 5.1 g/dL [facility] [place] GLOBULIN 2.1 1.9 - 3.7 g/dL (calc) [facility] [place] ALBUMIN/GLOBULIN RATIO 1.9 1.0 - 2.5 (calc) [facility] [place] BILIRUBIN TOTAL 0.3 0.2 - 1.2 mg/dL [facility] [place] ALKALINE PHOSPHATASE 48 35 - 144 U/L [facility] [place] AST 14 10 - 35 U/L [facility] [place] ALT 21 9 - 46 U/L [facility] [place] Comment: Test Performed at: [place] [address] [address] [place] [phone] HelenaLorraine Pendleton Blood 10/04/2024 8:50 AM BREEDING MANAGER 10/04/2024 8:50 AM BREEDING MANAGER Phu Ly PA-C CHEMISTRY ORDERABLES F inal Result [facility] [phone] [facility] [place] [address] [address] [place] [phone] * (ABNORMAL) LIPID PANEL (07/15/2024 8:41 AM CDT) [facility] CHOLESTEROL 92 <200 mg/dL [facility] [place] HDL 25(L) > OR = 40 mg/dL [facility] [place] TRIGLYCERIDE 120 <150 mg/dL [facility] [place] LDL CALCULATED 46 mg/dL (calc) [facility] [place] Comment: Reference range: <100 Desirable range <100 mg/dL for primary prevention; <70 mg/dL for patients with CHD or diabetic patients with > or = 2 CHD risk factors. LDL-C is now calculated using the Ricardo calculation, which is a validated novel method providing better accuracy than the Friedewald equation in the estimation of LDL-C. Robbin SS et al. MORIAH. 2013;310(19): 6770-1608 (http://education.Blue Apron/faq/UIV949) CHOL/HDL RATIO 3.7 <5.0 (calc) [facility] [place] NON-HDL CHOLESTEROL 67 <130 mg/dL (calc) [facility] [place] Comment: For patients with diabetes plus 1 major ASCVD risk factor, treating to a non-HDL-C goal of <100 mg/dL (LDL-C of <70 mg/dL) is considered a therapeutic option. Test Performed at: [facility] ([place]) [place] [address] [address] [place] [phone] Kassandra Pendleton Blood 07/15/2024 8:41 AM CDT 07/15/2024 8:41 AM CDT Tara Diop NP CHEMISTRY ORDERABLES Final Re sult [facility] [phone] [place] [address] [address] [place] [phone] * POC MICROALB/CREAT RATIO URINE QUANT (03/29/2024 10:29 AM CDT) Pathologist [facility] MICROALBUMIN, URINE POC 5.2 5.0 - 300.0 mg/L [facility] CREATININE, URINE POC 25.6 15.0 - 500.0 mg/dL [facility] MICROALBUMIN/CR EAT RATIO, URINE POC 20.3 1.0 - 2,000.0 mg/g [facility] Urine 03/29/2024 10:2 9 AM CDT Marry Weber PA-C POINT OF CARE TESTING Fi nal Result [facility] CLIA# [id number] [place] [address] from Last 3 Months or Most Recently Relevant to Health Maintenance 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
== END 2024-12-27 12:14 | disposition home or self-care (01) ==
PROVIDERS: PCP Family Medicine
DX: R07.81 Pleurodynia (principal); M54.9 Dorsalgia, unspecified
CPT/HCPCS: 71046

== ENCOUNTER 2025-01-15 11:15 | Outpatient (CLI) | payer MEDICARE, MEDICAID, SELFPAY ==
--- NOTE | ~2025-01-15 | CT_ITS ---
Clinical Indication: Chest pain CT Scan of the Chest with Contrast: Technique: Contiguous sections were acquired throughout the chest after intravenous administration of 75 cc of Omnipaque 350. Dose reduction technique was used on this scan by utilizing automated exposu re control and iterative reconstruction technique. The dose-length product (DLP) was 241.29 mGy-cm. Findings: There is no evidence of any significant mediastinal, hilar or axillary lymphadenopathy. There is no f illing defect in the pulmonary arterial tree to suggest pulmonary embolus. There is no evidence of ao rtic dissection or aneurysm. There is no evidence of pleural or pericardial effusion. 4 mm left basilar pulmonary nodule present (axial image 65). Lungs are otherwise essentially clear. Images through the upper abdomen reveal diffuse hepatic steatosis. Impression: 4 mm left basilar pulmonary nodule. According to Fleischner Society criteria, for a low-risk patient, no further follow-up required. For a high-risk patient, consider 12 month follow-up CT. Diffuse hepatic steatosis. Reviewed, dictated and finalized at location . Impression: 4 mm left basilar pulmonary nodule. According to Fleischner Society criteria, f or a low-risk patient, no further follow-up required. For a high-risk patient, consider 12 month follow-up CT. Diffuse hepatic steatosis.
[2025-01-15 11:48] LABS: Estimated Glomerular Filt Rate > 60
--- OUTSIDE RECORDS SUMMARY | 2025-01-15 12:40 | XMS_ITS | Clinical Summary ---
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
--- OUTSIDE RECORDS SUMMARY | 2025-01-15 12:40 | XMS_ITS | Clinical Summary ---
Author Organization [facility] Organization [address] [place] [address] Address [address] [place] [address] Care Team Providers Care Automatic Lathe Tender Name Role Phone Mary Workman MD Primary Care Provider [phone] Allergies No known active allergies Medications ALPRAZolam (XANAX) 1 mg tablet 1 Tablet. Active atorvastatin (LIPITOR) 80 mg tablet atorvastatin 80 mg tablet Active clopidogreL (PLAVIX) 75 mg Tablet clopidogrel 75 mg tablet 021 Active FLUoxetine (PROzac) 20 mg capsule 1 Capsule daily. Act carmen fluticasone propionate (FLONASE) 50 mcg/spray [place], Suspension nasal inhaler fluticasone propionate 50 mcg/actuation spray,suspension Active furosemide (LASIX) 20 mg tablet furosemide 20 mg tablet 022 Active Irbesartan (AVAPRO) 300 mg tablet irbesartan 300 mg tablet 021 Active montelukast (SINGULAIR) 10 mg tablet Take by mouth. Activ e potassium chloride (KLOR-CON) 20 mEq Extended Release tablet 1 Tablet daily. Active clotrimazole-b etamethasone (LOTRISONE) 1-0.05 % CreamIndicatio ns:Tinea pedis of both feet Apply to affected area 2 times daily. 30 Gram 024 Active potassium chloride (K-TAB) 20 mEq Extended Release tablet take 1 tablet by mouth every day 90 Tablet 1 024 Active glipiZIDE (GLUCOTROL XL) 5 mg Extended Release 24 hour tabletIndicati ons:Controlled type 2 diabetes mellitus without complication, with long-term current use of insulin (CMS/HCC) Take 1 Tablet (5 mg) by mouth daily with breakfast. DIABETES 100 Tablet 3 024 Active metFORMIN (GLUCOPHAGE) 1,000 mg tablet Take 1 Tablet (1,000 mg) by mouth 2 times daily with meals. 200 Tablet 3 024 Active Lantus Solostar U-100 Insulin 100 unit/mL (3 mL) solution for injectionIndic ations:Control led type 2 diabetes mellitus without complication, with long-term current use of insulin ([facility]) Inject 80 Units by subcutaneous injection 2 times daily. 144 mL 3 024 Active gabapentin (NEURONTIN) 300 mg capsule Take 1 Capsule (300 mg) by mouth 3 times daily. 90 Capsule 3 024 Active ipratropium bromide (ATROVENT) 42 mcg (0.06 %) [place], Non-AerosolInd ications:Runny nose Administer 2 Sprays in each nostril 2 times daily with meals. 1 mL 2 024 Active carvediloL (COREG) 12.5 mg tablet take 1 tablet by mouth twice daily 200 Tablet 3 024 Active amLODIPine (NORVASC) 10 mg tablet take 1 tablet by mouth every day as directed 100 Tablet 3 024 Active metoclopramide HCl (REGLAN) 10 mg tabletIndicati ons:Nausea,Con trolled type 2 diabetes mellitus without complication, with long-term current use of insulin ([facility]) Take 1 Tablet (10 mg) by mouth 2 times daily as needed for Nausea/Emesis. 60 Tablet 024 Active Insulin [place], Disposable, 32 gauge x 5/32 Needle Use needle to administer lantus subcutaneously two times daily 200 Each 3 024 Active ferrous sulfate 325 mg (65 mg iron) tablet Take 1 Tablet (325 mg) by mouth daily. 100 Tablet 3 025 Active cholecalcifero l 1,250 mcg (50,000 unit) Capsule Take 1 Capsule (50,000 Units) by mouth every 7 days. 14 Capsule 025 Active pantoprazole (PROTONIX) 20 mg Tablet, Delayed Release (E.C.) Take 1 Tablet (20 mg) by mouth daily. 100 Tablet 3 025 Active ipratropium-al buteroL (DUONEB) 0.5 mg-3 mg(2.5 mg base)/3 mL Solution for Nebulization Take 3 mL by inhalation every 6 hours as needed for Shortness of Breath. 100 Each 1 Active blood sugar diagnostic (OneTouch Ultra Test) Strip Use to check blood glucose four times a day. 400 Strip 3 Active lancets (OneTouch Delica Plus Lancet) 30 gauge Use to check blood glucose four times a day. 400 Each 3 Active hydrocortisone acetate (ANUSOL-HC) 25 mg SuppositoryInd ications:Hemor rhoids, unspecified hemorrhoid type INSERT 1 SUPPOSITORY (25 MG) BY RECTUM 2 TIMES DAILY NEEDED FOR ITCHING. 60 Suppository Active cyclobenzaprin e (FLEXERIL) 10 mg tablet TAKE 1 TABLET BY MOUTH 3 TIMES DAILY NEEDED FOR SPASMS 90 Tablet Active testosterone cypionate (DEPO-TESTOSTE GABRIEL) 200 mg/mL Oil Inject 200 mg by intramuscular injection every 2 weeks. Active methocarbamoL (ROBAXIN) 500 mg tablet Take 1 Tablet (500 mg) by mouth 4 times daily as needed for Spasm. 30 Tablet Active OneTouch Ultra Test Strip 024 2024 Discontinued( Reorder) OneTouch Delica Plus Lancet 30 gauge 2024 Discontinued( Reorder) omeprazole (PriLOSEC) 20 mg Capsule, Delayed Release(E.C.) take 1 capsule by mouth twice daily 200 Capsule 3 024 2024 Discontinued( Alternate therapy prescribed) hydrocortisone acetate (ANUSOL-HC) 25 mg SuppositoryInd ications:Hemor rhoids, unspecified hemorrhoid type Insert 1 Suppository (25 mg) by rectum 2 times daily as needed for Itching. 60 Suppository 025 2024 Discontinued cyclobenzaprin e (FLEXERIL) 10 mg tablet Take 1 Tablet (10 mg) by mouth 3 times daily as needed for Spasm. 90 Tablet 025 2024 Discontinued lancets (OneTouch Delica Plus Lancet) 30 gauge Use to check blood glucose twice daily. 200 Each 3 025 2024 Discontinued( Reorder) blood sugar diagnostic (OneTouch Ultra Test) Strip Use to check blood glucose twice daily. 200 Strip 3 025 2024 Discontinued( Reorder) doxycycline hyclate (VIBRAMYCIN) 100 mg tablet Take 1 Tablet (100 mg) by mouth 2 times daily for 7 days. 14 Tablet 025 2024 Hospital, Clinic, or Other Facility Administered Medication Ordered Dose Route Frequency Start Date End Date Status lidocaine-EPINEPHrine (XYLOCAINE-EPI) 1 %-1:100,000 injection 3 mLIndications:Back muscle spasm,Trigger point with back pain 3 mL Ifil ONE TIME ONLY 01/07/2025 01/07/2025 E nded Active Problems Problem Noted Date Diagnosed Date Obesity (BMI 30.0-34.9) 03/29/2024 Aortic stenosis, mild 09/04/2023 Systolic murmur 08/21/2023 Peripheral arterial occlusive disease 08/22/2022 Venous insufficiency 08/22/2022 Anxiety 02/23/2017 Chronic low back pain 02/23/2017 Overview (12/26/2023): Last Assessment & Plan: Patient needs to follow-up with pain specialist Controlled type 2 diabetes miri rodriguez without [...] current medications and he is followed by elastic cutter Right renal artery stenosis 06/29/2016 Personal history [...] Encounters Date Type Department Care Team Description 01/13/2025 Telephone [facility] [place] [address] [place] [address] Mary Workman MD Medication Refill 01/07/2025 2:40 PM CDT Office Visit [facility] [place] [address] [place] [phone] Tara Diop NP Type 2 diabetes mellitus without complication, unspecified whether termite renewal inspector insulin use ([facility]) (Primary Dx); Controlled type 2 diabetes mellitus without complication, with long-term current use of insulin ([facility]); Obesity (BMI 30.0-34.9); Personal history of nicotine dependence; Other specified deforming dorsopathies, cervical region; Back muscle spasm; Trigger point with back pain; Hx of fall 01/07/2025 Refill [facility] [place] [address] [place] [address] Tara Diop NP Muscle spasm of back (Primary Dx); Trigger point with back pain; Hx of fall 01/07/2025 Results Follow-Up [facility] [place] [address] [place] [address] Tara Diop, ONEL POC HEMOGLOBIN A1C, MICROALBUMIN/CREATINI NE RATIO, RANDOM UR 01/06/2025 Refill [facility] [place] [address] [place] [phone] Mary Workman MD 01/01/2025 Refill [facility] [address] [place] [address] Mary Workman MD 01/01/2025 Refill [facility] [address] [place] [address] Phu Ly, PA-C Hemorrhoids, unspecified hemorrhoid type 01/01/2025 [facility] [address] [place] [address] Mary Workman MD Provider Call 01/01/2025 [facility] [place] [address] [place] [address] Mary Workman MD Clinical Consult Before Scheduling 01/01/2025 Refill [facility] [address] [place] [phone] Mary Workman MD 12/31/2024 Telephone [facility] [address] [place] [phone] Mary Workman MD Needs Orders Written; Patient Communication 12/30/2024 Results Follow-Up [facility] [address] [place] [address] Mary Workman MD XR CHEST PA AND LATERAL 2 VW 12/30/2024 Orders Only [facility] [place] [address] [place] [phone] Mary Workman MD Pleuritic chest pain; Upper back pain 12/27/2024 Telephone [facility] [place] [phone] Mary Workman MD Medication Refill 12/26/2024 Telephone [facility] [address] [place] [address] Mary Workman MD Question; Patient Communication 12/26/2024 Telephone [facility] [address] [place] [address] Mary Workman MD Medication Assistance 12/25/2024 Refill [facility] [address] [place] [phone] Mary Workman MD 12/18/2024 External Device Data STL ABSTRACTION Provider, Abstract 12/12/2024 Refill [facility] [place] [address] [place] [phone] Mary Workman MD 12/07/2024 External Device Data STL ABSTRACTION Provider, Abstract 12/06/2024 External Device Data STL ABSTRACTION Provider, Abstract 12/04/2024 External Device Data STL ABSTRACTION Provider, Abstract 12/03/2024 Telephone [facility] [address] [place] [address] Mary Workman MD Medication Assistance; Question 11/26/2024 Results Follow-Up [facility] [address] [place] [phone] Phu Ly PA-C FERRITIN, HEPATITIS C ANTIBODY W REFLEX, CBC WITH DIFFERENTIAL, Additional followed-up results: 2 11/04/2024 3:00 PM UI ARCHITECT Office Visit [facility] [place] [address] [place] [phone] Phu Ly PA-C Annual physical exam (Primary Dx); Controlled type 2 diabetes mellitus without complication, with long-term current use of insulin ([facility]); Venous insufficiency; Systolic murmur; Right renal artery [...] dysfunction, unspecified erectile dysfunction type 10/21/2024 Refill [facility] [place] [address] [place] [address] Mary Workman MD 10/17/2024 Telephone [facility] [place] [address] [place] [address] Mary Workman MD Medication Assistance from Last 3 Months Immunizations Immunization Administration Dates Next Due (ADACEL/BOOSTRIX)(10 YR UP) TDAP VACCINE, 0.5ML, IM 07/01/2019 (PNEUMOVAX 23)(50 YRS UP) PN EUMOCOCCAL POLYSACCHARIDE (PPV23) 0.5 ML, IM 06/23/2017 (PREVNAR 20)(6 WKS UP) PNEUM OCOCCAL CONJUGATE VACCINE 20-VALENT (PCV20), POLYSACCHARIDE [id number] CONJUGATE, ADJUVANT 0.5 ML (PF) IM 03/29/2024 [...] Sign Reading Time Taken Comments Blood Pressure 110/60 01/07/2025 2:52 PM CDT Pulse 66 01/07/2025 2:52 PM CDT Temperature 37 C (98.6 F) 01/07/2025 2:52 PM CDT Respiratory Rate 16 01/07/2025 2:52 PM CDT Oxygen Saturation 98% 01/07/2025 2:52 PM CDT Inhaled Oxygen Concentration - - Weight 86.2 kg (190 lb) 01/07/2025 2:52 PM CDT Height 160 cm (5' 3 ) 01/07/2025 2:52 PM CDT Body Mass Index 33.66 01/07/2025 2:52 PM CDT Plan of Treatment Upcoming Encounters Date Type Department Care Team (Late st Contact Info) Description 02/05/2025 2:40 PM CDT Office Visit [facility] [address] [place] [address] Phu Ly PA-C [address] [place] [phone] 04/08/2025 2:20 PM CDT Office Visit [facility] [address] [place] [address] Tara Diop, LINOTYPE WORKER [address] [place] [address] Health Maintenance Due Date Last Done Comments [...] 5 YEARS (AUTO ORDER) 06/26/2022 06/26/2017, 06/26/2017 DIABETES ANNUAL FOOT EXAM 07/01/2025 07/01/2024, DIABETES HBA1C Q 6 MONTHS 07/09/20252024, 10/04/2024, 07/01/2024, Additional history exists LDL CHOLESTEROL ANNUAL 07/15/2025 07/15/2024, 2023 DIABETES MICROALBUMIN ANNUAL SCREEN 01/07/2026 01/07/2025, 03/29/2024 DIABETES: A1C (Auto Order) 01/07/202601/07, 10/04/2024, 07/01/2024, Additional history exists COLORECTAL CANCER SCREENING (AUTO [...] Visit/Annual Wellness Visit Completed 11/04/2024, 11/04/2024, 07/01/2024 KHE uACR (Auto Order) Completed 01/07/2025, 024 Procedures Procedure Name Priority Date/Time Associated Diagnosis Comments POC HEMOGLOBIN A1C Routine 01/07/2025 3: 03 PM CDT Type 2 diabetes mellitus without complication, unspecified whether termite renewal inspector insulin use (CMS/HCC) MICROALBUMIN/CREATININ E RATIO, RANDOM UR Routine 01/07/2025 3:00 PM CDT Type 2 diabetes mellitus without complication, unspecified whether senior living insulin use (CMS/HCC) AR INJECTION SINGLE/BOXING INSPECTOR TRIGGER POINT 1/2 MUSCLES Routine 01/07/2025 2:40 PM CDT Trigger point with back pain XR CHEST PA AND LATERAL 2 VW Routine 12/27/2024 Pleuritic chest pain Upper back pain TESTOSTERONE FREE AND TOTAL Routine 11/25/2024 10:08 AM UI ARCHITECT Erectile dysfunction, unspecified erectile dysfunction type HEPATITIS C ANTIBODY Routine 11/25/2024 10:05 AM UI ARCHITECT Need for hepatitis C screening test FERRITIN Routine 11/25/2024 10:05 AM UI ARCHITECT Iron deficiency anemia, unspecified iron deficiency anemia type IRON, TIBC, AND PERCENT SATURATION Routine 11/25/2024 10:00 AM UI ARCHITECT Iron deficiency anemia, unspecified iron deficiency anemia type CBC WITH DIFFERENTIAL Routine 11/25/2024 10:00 AM UI ARCHITECT Iron deficiency anemia, unspecified iron deficiency anemia type COMPREHENSIVE METABOLIC PANEL Routine 10/04/2024 8:50 AM UI ARCHITECT Iron deficiency anemia, unspecified iron deficiency anemia type LIPID PANEL Routine 07/15/2024 8:41 AM CDT Dyslipidemia from Last 3 Months or Most Recently Relevant to Health Maintenance Results * (ABNORMAL) POC HEMOGLOBIN A1C (01/07/2025 3:03 PM CDT) HGB A1C POC 7.1(A) 4.0 - 6.0 % [facility] KIT LOT NUMBER POC [phone] [facility] KIT EXP DATE POC 11/25/2026 [facility] Blood, capillary 01/07/2025 3:03 PM CDT us Tara Diop NP POINT OF CARE TESTING Final R esult [facility] CLIA# [id number] [facility] [place] [address] * MICROALBUMIN/CREATININE RATIO, RANDOM UR (01/07/2025 3:00 PM CDT) Creatinine, Urine 85 20 - 320 mg/dL [facility] MICROALBUMIN, URINE 2.0 See Note: mg/dL [facility] Comment: Reference Range: Reference Range Not established MICROALBUMIN/CREAT RATIO, UR 24 <30 mg/g creat [facility] Comment: The ADA defines abnormalities in albumin excretion as follows: Albuminuria Category Result (mg/g creatinine) Normal to Mildly increased <30 Moderately increased 30-299 Severely increased > OR = 300 The ADA recommends that at least two of three specimens collected within a 3-6 month period be abnormal before considering a patient to be within a diagnostic category. Test Performed at: [facility] [address] [id number] Kassandra Rendon MD Urine URINE SPECIMEN OBTAINED BY CLEAN CATCH PROCEDURE / Unknown 01/07/2025 3:00 PM CDT 01/08/2025 7:06 AM CDT Tara Diop NP URINE ORDERABLES Final Result [facility] [phone] [facility] [address] [place] [id number] * AR INJECTION SINGLE/BOXING INSPECTOR TRIGGER POINT 1/2 MUSCLES (01/07/2025 2:40 PM CDT) Narrative [facility] - 01/07/2025 2:40 PM CDT Tara Diop NP 01/07/2025 3:41 PM Injection Trigger Point Date/Time: 01/07/2025 2:40 PM Performed by: Tara Diop NP Authorized by: Tara Diop NP Local anesthesia used: yes Anesthesia: see MAR for details Anesthesia: Local anesthesia used: yes Anesthetic total: 3 mL Sedation: Patient sedated: no Patient tolerance: patient tolerated the procedure well with no immediate complications Comments: Recommendations for proceeding with trigger point injection: Patient has a pain complaint with reported altered sensation in the expected distribution of referred pain from suspected trigger point on examination. There is a taut band/lump palpable in an accessible muscle contributing to myofascial pain. On examination there is exquisite spot tenderness upon palpation at said points along the length of the taut band/lump contributing to myofascial pain. There is restricted range of motion related to myofascial pain in the involved muscle and region upon examination. Additionally, the patient complains of Reproduction of clinical pain complaint or altered sensation by pressure on the tender spot Local response (twitch) elicited by snapping palpation at the tender spot and by needle insertion into the tender spot. Pain alleviation by elongating (stretching) the muscle and by injecting the tender spot. Recommendations: Discussed side effects, precautions and indications of trigger point injections. Discussed that this is a procedure that will be billed to insurance. Discussed side effects of medications involved. The patient has tried at home stretching, over the counter medications including tylenol and ibuprofen. The patient has tried ice and heat. Additional interventions that the patient has tried to alleviate pain and discomfort include tylenol, heat, NSAIDs, muscle relaxers, stretching. The patient has decided to proceed with procedure. Pain prior to procedure was a 6/10. Pain post procedure was a 0/10. us Tara Diop NP PROCEDURE/MINOR SURGICAL ORDE ANSELMO Final Result [facility]# [id number] [facility] [place] [address] * XR CHEST PA AND LATERAL 2 VW (12/27/2024) Anatomical Region Laterality Modality Chest Other 12/27/2024 us Mary Workman MD DIAGNOSTIC IMAGING ORDERABLES Fi nal Result * (ABNORMAL) TESTOSTERONE FREE AND TOTAL (11/25/2024 10:08 AM UI ARCHITECT) TESTOSTERONE 222(L) 250 - 1100 ng/dL [facility] Comment: Men with clinically significant hypogonadal symptoms and testosterone values repeatedly in the range of the 200-300 ng/dL or less, may benefit from testosterone treatment after adequate risk and benefits counseling. For additional information, please refer to https://education.[employer]/faq/YMK305 (This link is being provided for informational/educational purposes only.) (Note) This test was developed and its analytical performance characteristics have been determined by [employer]. It has not been cleared or approved by the FDA. This assay has been validated pursuant to the CLIA regulations and is used for clinical purposes. TESTOSTERONE FREE 34.3(L) 35.0 - 155.0 pg/mL [facility] Comment: (Note) This test was developed and its analytical performance characteristics have been determined by [employer]. It has not been cleared or approved by the FDA. This assay has been validated pursuant to the CLIA regulations and is used for clinical purposes. [facility] [address] [place] [address],[address] [place] [id number] Marcelina Johnson MD, PhD FASTING:YES FASTING: YES Test Performed at: [facility] [address] [place] [address], [address] [place] [id number] Marcelina Johnson MD,PhD Blood 11/25/2024 10:0 8 AM UI ARCHITECT 11/25/2024 10:08 AM UI ARCHITECT Phu Ly PA-C CHEMISTRY ORDERABLES F inal Result [facility] [phone] [facility] [address] [place] [address], [address] [place] [phone] * HEPATITIS C ANTIBODY W REFLEX (11/25/2024 10:05 AM UI ARCHITECT) HEPATITIS C AB NON-REACTI VE NON-REACT CARMEN [facility] Comment: HCV antibody was non-reactive. There is no laboratory evidence of HCV infection. In most cases, no further action is required. However, if recent HCV exposure is suspected, a test for HCV RNA (test code 58836) is suggested. For additional information please refer to http://education.[employer]/faq/ELP40b8 (This link is being provided for informational/ educational purposes only.) FASTING:YES FASTING: YES Test Performed at: [facility] [address] [place] [address] Kassandra Rendon MD Blood 11/25/2024 10:0 5 AM UI ARCHITECT 11/25/2024 10:06 AM UI ARCHITECT Phu Ly PA-C CHEMISTRY ORDERABLES F inal Result Performing Organization Address [facility] Co de Phone Number [facility] [phone] [facility] [phone] * (ABNORMAL) FERRITIN (11/25/2024 10:05 AM UI ARCHITECT) FERRITIN 8(L) 24 - 380 ng/mL [facility] Comment: FASTING:YES FASTING: YES Test Performed at: [facility] [address] HelenaShereen Rendon MD Blood 11/25/2024 10:0 5 AM UI ARCHITECT 11/25/2024 10:06 AM UI ARCHITECT Phu Ly PA-C CHEMISTRY ORDERABLES F inal Result Performing Organization Address [facility] Co de Phone Number [facility] [phone] [facility] [address] [place] [phone] * (ABNORMAL) IRON, TIBC, AND PERCENT SATURATION (11/25/2024 10:00 AM UI ARCHITECT) IRON 40(L) 50 - 180 mcg/dL [facility] TIBC 347 250 - 425 mcg/dL (calc) [facility] IRON % SATURATION 12(L) 20 - 48 % (calc) [facility] Comment: FASTING:YES FASTING: YES Test Performed at: [facility] [address] [place] [phone] Kassandra Rendon MD Blood 11/25/2024 10:0 0 AM UI ARCHITECT 11/25/2024 10:01 AM UI ARCHITECT us Phu yL PA-C CHEMISTRY ORDERABLES F inal Result [facility] [phone] [facility] [address] [id number] * (ABNORMAL) CBC WITH DIFFERENTIAL (11/25/2024 10:00 AM UI ARCHITECT) WBC 5.8 3.8 - 10.8 Thousand/u L [...] % [facility] BASOPHILS 0.7 % [facility] Comment: FASTING:YES FASTING: YES Test Performed at: [facility] [address] [facility] [place] [address] Kassandra Rendon MD Blood 11/25/2024 10:0 0 AM UI ARCHITECT 11/25/2024 10:01 AM UI ARCHITECT Phu Ly PA-C HEMATOLOGY ORDERABLES Final Result [facility] [phone] [facility] [address] [place] [address] * (ABNORMAL) COMPREHENSIVE METABOLIC PANEL (10/04/2024 8:50 AM UI ARCHITECT) GLUCOSE 92 65 - 99 mg/dL [facility] [place] Comment: Fasting reference interval BUN 13 7 - 25 mg/dL [facility] [place] CREATININE 0.56(L) 0.70 - 1.35 mg/dL [facility] [place] GFR 108 > OR = 60 mL/min/1. 73m2 [facility] [place] BUN/CREAT RATIO 23(H) 6 - 22 (calc) [facility] [place] SODIUM 140 135 - 146 mmol/L [facility] [place] POTASSIUM 4.2 3.5 - 5.3 mmol/L [facility] [place] CHLORIDE 105 98 - 110 mmol/L [facility] [place] CO2 26 20 - 32 mmol/L [facility] [place] CALCIUM 8.6 8.6 - 10.3 mg/dL [facility] [place] TOTAL PROTEIN 6.1 6.1 - 8.1 g/dL [facility] [place] ALBUMIN 4.0 3.6 - 5.1 g/dL [facility] [place] GLOBULIN 2.1 1.9 - 3.7 g/dL (calc) [facility] [place] ALBUMIN/GLOBULIN RATIO 1.9 1.0 - 2.5 (calc) [facility] [place] BILIRUBIN TOTAL 0.3 0.2 - 1.2 mg/dL [facility] [place] ALKALINE PHOSPHATASE 48 35 - 144 U/L [facility] [place] AST 14 10 - 35 U/L Craft DragonRosario garces [place] ALT 21 9 - 46 U/L [facility] [place] Comment: Test Performed at: [place] [address] [address] [address] [facility] Blood 10/04/2024 8:50 AM UI ARCHITECT 10/04/2024 8:50 AM UI ARCHITECT Phu Ly PA-C CHEMISTRY ORDERABLES F inal Result [facility] [facility] [phone] [facility] [place] [address] [address] [phone] * (ABNORMAL) LIPID PANEL (07/15/2024 8:41 AM CDT) CHOLESTEROL 92 <200 mg/dL [facility] [place] HDL 25(L) > OR = 40 mg/dL [facility] [place] TRIGLYCERIDE 120 <150 mg/dL [facility] EmoryRosario mili [place] LDL CALCULATED 46 mg/dL (calc) Tani [employer] SecurityRosario garces Stanislaw Comment: Reference range: <100 Desirable range <100 mg/dL for primary prevention; <70 mg/dL for patients with CHD or diabetic patients with > or = 2 CHD risk factors. LDL-C is now calculated using the Ricardo calculation, which is a validated novel method providing better accuracy than the Friedewald equation in the estimation of LDL-C. Robbin SHAIKH et al. MORIAH. 2013;310(19): 9541-6323 (http://education.AMS VariCode.EyeQuant/faq/OLI668) CHOL/HDL RATIO 3.7 <5.0 (calc) Tani [place] NON-HDL CHOLESTEROL 67 <130 mg/dL (calc) Tani [facility] [place] Comment: For patients with diabetes plus 1 major ASCVD risk factor, treating to a non-HDL-C goal of <100 mg/dL (LDL-C of <70 mg/dL) is considered a therapeutic option. Test Performed at: [place] [address] [address] [place] [phone] [facility] Blood 07/15/2024 8:41 AM CDT 07/15/2024 8:41 AM CDT Tara Diop LINOTYPE WORKER CHEMISTRY ORDERABLES Final Re sult [facility] [phone] [facility] [address] [place] [address] from Last 3 Months or Most Recently Relevant to Health Maintenance Insurance Care Teams Automatic Lathe Tender Relationship Specialty Start Date End Date Mary Workman MD [address] [place] [phone] PCP - General Internal Medicine 12/26/23
--- OUTSIDE RECORDS SUMMARY | 2025-01-15 12:40 | XMS_ITS | Encounter Summary ---
Author Organization [facility] Address [address] [place] [address] Phone Care Team Providers Care General Internal Medicine Doctor Name Role Phone Unavailable Primary Care Provider Unavailabl e Reason for Visit * Reason Comments Medication Refill Encounter Details Date Type Department Care Team (Late st Contact Info) Description 06/25/2020 Refill [facility] - Family Medicine [facility] [address] [place] [address] Alex Pineda MD [address] [address] Medication Refill Social History Tobacco Use Types [...] Outpatient Visits 10 months ago Essential hypertension [facility] - Alex Hathaway MD 1 year ago Essential hypertension [facility] - Alex Hathaway MD 1 year ago Chronic midline low back pain without sciatica [facility] - Alex Hathaway MD 1 year ago [facility] [place] [facility], KYM 2 years ago Type 2 diabetes mellitus without complication, with long-term current use of insulin (HCC) 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
--- OUTSIDE RECORDS SUMMARY | 2025-01-15 12:40 | XMS_ITS | Encounter Summary ---
Author Organization [facility] Address [address] [place] [address] Phone Care Team Providers Care Flatwork Folder Name Role Phone Unavailable Primary Care Provider Unavailabl e Reason for Visit * Reason Comments Medication Refill Encounter Details Date Type Department Care Team (Late st Contact Info) Description 10/03/2020 [facility] [address] [place] [address] Alex Pineda MD [address] [address] Medication Refill Social History Tobacco Use Types [...] Humera Roth RMA - 10/05/2020 5:50 PM SEMAPHORE OPERATOR Called patient, no answer PHORE OPERATOR * Telephone Encounter - Patricia Jackson RN - 10/05/2020 8:07 AM CST Patient needs appointment per Dr Pineda. 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 Showing future appointments within next 90 days with a meds authorizing provider and meeting all other requirements Failed - Medication not assigned to a protocol, review manually. PHORE OPERATOR documented in this encounter Plan of Treatment Not on file documented as of this encounter Visit Diagnoses Not on filedocumented in this encounter Additional Health Concerns Assessment Noted Time PHQ-9 Depression Total Score: 8 04/03/20 1:49 PM CDT documented as of this encounter
--- OUTSIDE RECORDS SUMMARY | 2025-01-15 12:40 | XMS_ITS | Encounter Summary ---
Author Organization [facility] Address [address] [place] [address] Care Team Providers Care Beamer Hand Name Role Phone Unavailable Primary Care Provider Unavailabl e Encounter Details Date Type Department Care Team (Latest Contact Info) Description 08/07/2018 Abstract [facility] , Generic MD Heena Social History Tobacco Use Types Packs/Day Years [...]
--- OUTSIDE RECORDS SUMMARY | 2025-01-15 12:41 | XMS_ITS | CONTINUITY OF CARE DOCUMENT ---
Author Name ismael guevara Address Unknown Organization [facility] Address [address] [place] [address] Phone [phone] Care Team Providers Care Actuarial Manager Name Role Phone Jarod Villegas MD Unavailable [phone] NHAN CARRIZALES MD Unavailable JASON RUIZ Unavailable [phone] PROBLEMS Condition Status Date Provider Notes Hypertension active Misael Becerril Dyslipidemia active Misael Becerril DIABETES MELLITUS active Jarod Villegas MD Tobacco use quit active Jarod Villegas MD Chest pain-type to be determined completed - Jarod Villegas MD CAD active Jarod Villegas MD Right renal artery stenosis active Jarod campos MD Iron deficiency anemia active Misael dos santos Snoring - NEG sleep study 10/18 active Misael Becerril Preop exam completed - Jarod Villegas MD Leg cramps active Kathia Hodgson Swelling, R leg active Jarod Villegas MD Venous insufficiency active Kathia knox PAD - mild active Kathia Hodgson Shortness of breath active Domi 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 Systolic murmur active Domi Ventimiglia F 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 Aortic stenosis, mild active Sukhi Joseph i ENCOUNTERS Date Type Provider Location Encounter Diag nosis 4 - 5 In-person encounter Office Visit Jarod Villegas MD [facility] Aortic stenosis, mild 0 - 7 In-person encounter Office Visit Jarod Villegas MD [facility] Shortness of breathSystolic murmur 0 - 1 In-person encounter Office Visit Jarod Villegas MD [facility] Office 1 - 3 In-person encounter Office Visit Jarod Villegas MD [facility] Swelling, R legVenous insufficiencyPAD - mild 7 - 9 In-person encounter Office Visit Jarod Villegas MD [facility] Leg cramps 8 - 8 In-person encounter Office Visit Jarod Villegas MD [facility] Chest pain-type to be determined 6 - 6 In-person encounter Office Visit Jarod Villegas MD [facility] Preop exam 9 - 9 In-person encounter Office Visit Jarod Villegas MD [facility] Right renal artery stenosis 1 - 5 In-person encounter Office Visit Jarod Villegas MD [facility] 9 - 1 In-person encounter Office Visit Nicolas Rocha MD [facility] 0 - 0 In-person encounter Office Visit Jarod Villegas MD [facility] 0 - 2 In-person encounter Office Visit Jarod Villegas MD [facility] 6 - 5 In-person encounter Office Visit Jarod Villegas MD [facility] Office Iron deficiency anemia 1 - 3 In-person encounter Office Visit Jarod Villegas MD [facility] Iron deficiency anemiaSnoring - NEG sleep study 10/18 8 - 0 In-person encounter Office Visit Jarod Villegas MD [facility] CADRight renal artery stenosis 3 - 4 In-person encounter Office Visit Jarod Villegas MD [facility] Office 3 - 8 In-person encounter Office Visit Jarod Villegas MD [facility] 7 - 4 In-person encounter Office Visit Jarod Villegas MD [facility] 9 - 6 In-person encounter Office Visit Jarod Villegas MD [facility] Tobacco use quit 0 - 3 In-person encounter Office Visit Jarod Villegas MD [facility] 0 - 4 In-person encounter Office Visit Jarod Villegas MD [facility] 6 - 7 In-person encounter Office Visit Jarod Villegas MD [facility] 0 - 1 In-person encounter Office Visit Jarod Villegas MD [facility] 2 - 2 In-person encounter Office Visit Jarod Villegas MD [facility] HypertensionDyslipidemiaDIABETES MELLITUS VITAL SIGNS Date Observation Value Provider Body Mass Index (Ratio) 32.94 kg/m2 [facility] Angie blood pressure, cuff size regular [facility] blood pressure, diastolic 68 mm[Hg] [facility] blood pressure, systolic 148 mm[Hg] [facility] pulse rate 85 /min [facility] respiratory rate E&M 12 /min [facility] oxygen saturation, oximetry 98 % [facility] weight E&M 186 [lb_av] [facility] height E&M 63 [in_i] [facility] Body Mass Index (Ratio) 32.59 kg/m2 [facility] Angie blood pressure, cuff size regular [facility] blood pressure, diastolic 58 mm[Hg] [facility] blood pressure, systolic 138 mm[Hg] [facility] oxygen saturation, oximetry 99 % [facility] respiratory rate E&M 16 /min Aisha championr pulse rate 76 /min Aisha [place] weight E&M 184 [lb_av] Aisha [place] height E&M 63 [in_i] [facility] Body Mass Index (Ratio) 32.41 kg/m2 Kiki Connerabilio blood pressure, diastolic 67 mm[Hg] Mi rocio Ewing blood pressure, systolic 141 mm[Hg] Slava jojo [...] jojo Ernandezerson blood pressure, cuff size regular Chica Baca oxygen saturation, oximetry 97 % Alejandra Baca respiratory rate E&M 16 /min Rejilamont garcia Baca pulse rate 84 /min Alejandra Hennessy son weight E&M 184 [lb_av] Alejandra Hennessy son height E&M 63 [in_i] Alejandra Hennessy son Body Mass Index (Ratio) 31.70 kg/m2 Kiki sharma Rema blood pressure, cuff size large Ke amparoi Claudette blood pressure, diastolic 67 mm[Hg] Ke rri Claudette blood pressure, systolic 134 mm[Hg] Deanne Sloanelder oxygen saturation, oximetry 97 % Genesis Sloanelder respiratory rate E&M 14 /min Genesis romeronfelder pulse rate 84 /min Genesis Sloane lder weight E&M 179 [lb_av] Genesis Sloane lder height E&M 63 [in_i] Genesis Sloane lder Body Mass Index (Ratio) 31.17 kg/m2 [...] Campbel l height E&M 63 [in_i] Lily sandy height in centimeters E&M 160.02 cm Jeremy Ovalle Body Mass Index (Ratio) 31.70 kg/m2 Nate Becerril blood pressure, cuff size regular Cy ariel Ovalle blood pressure, diastolic 70 mm[Hg] Cy ariel Ovalle blood pressure, systolic 160 mm[Hg] Reyna rodger Ovalle oxygen saturation, oximetry 98 % Lily Ovalle respiratory rate E&M 16 /min Lily Ovalle pulse rate 77 /min Lily sandy weight E&M 179 [lb_av] Lily sandy height E&M 63 [in_i] Lily sandy Body Mass Index (Ratio) 31.35 kg/m2 Cecilia Rocha MD height E&M 63 [in_i] Jarod Villegas MD blood pressure, diastolic 75 mm[Hg] Inna Villegas MD blood pressure, systolic 142 mm[Hg] Jarod Villegas MD pulse rate 75 /min Jarod Villegas MD blood pressure, diastolic 75 mm[Hg] Da [facility] blood pressure, systolic 142 mm[Hg] Dac ia [...] Yasmine Kp height E&M 63 [in_i] Yasmine [place] Body Mass Index (Ratio) 31.53 kg/m2 Nate Becerril blood pressure, diastolic 70 mm[Hg] Da siobhan [place] blood pressure, systolic 142 mm[Hg] Dac ia Kp oxygen saturation, oximetry 97 % Yasmine Kp respiratory rate E&M 16 /min Yasmine V oss pulse rate 72 /min Yasmine Kp weight E&M 178 [lb_av] Yasmine Kp height E&M 63 [in_i] Yasmine [place] Body Mass Index (Ratio) 30.82 kg/m2 Nate Becerril blood pressure, cuff size regular Ke [facility] blood pressure, diastolic 90 mm[Hg] Rickey [facility] blood pressure, systolic 148 mm[Hg] Deanne Sloanthe [facility] oxygen saturation, oximetry 98 % Genesischica Sloanwhite river junction va medical centeralexander respiratory rate E&M 18 /min Genesis aguero pulse rate 65 /min Genesis Sol [facility] weight E&M 174 [lb_av] Genesis [facility] height E&M 63 [in_i] Genesis Sol [facility] Body Mass Index (Ratio) 32.41 kg/m2 Nate Becerril oxygen saturation, oximetry 86 % Jannette [place] respiratory rate E&M 16 /min Jannette Emanuel schmidt pulse rate 97 /min Jannette [place] blood pressure, diastolic 70 mm[Hg] Ie sha [place] blood pressure, systolic 140 mm[Hg] Ies anders [place] weight E&M 183 [lb_av] Jannette [place] height E&M 63 [in_i] Jannette [place] Body Mass Index (Ratio) 32.34 kg/m2 Rebecca ica N Ady blood pressure, diastolic 60 mm[Hg] crystal Demecs RN blood pressure, systolic 150 mm[Hg] [facility] sta Demecs RN blood pressure, cuff size regular crystal Demecs RN oxygen saturation, oximetry 99 % Ivelisse Demecs RN respiratory rate E&M 18 /min [place] Demecs RN pulse rate 88 /min Ivelisse Demecs R N weight E&M 182.6 [lb_av] [place] Demecs RN Body Mass Index (Ratio) 32.17 kg/m2 [facility] N Ady blood pressure, cuff size regular crystal Demecs RN blood pressure, diastolic 56 mm[Hg] crystal Demecs RN blood pressure, systolic 136 mm[Hg] [facility] sta [facility] oxygen saturation, oximetry 98 % [place] Demecs RN respiratory rate E&M 18 /min [place] Demecs RN pulse rate 86 /min [place] Demecs R N weight E&M 181.6 [lb_av] [place] Demecs RN Body Mass Index (Ratio) 32.09 [...] /min Quirino Antoine Body Mass Index (Ratio) 32.06 kg/m2 Tami Antoine weight E&M 181 [lb_av] Massimo Prince zeke blood pressure, diastolic, left arm 71 mm [Hg] Carmen Terry blood pressure, systolic, left arm 126 mm [Hg] Carmen Terry blood pressure, diastolic, right arm 70 m m[Hg] Carmen Terry blood pressure, systolic, right arm 121 m m[Hg] Carmen Terry blood pressure, diastolic 70 mm[Hg] Ca destini Terry blood pressure, systolic 121 mm[Hg] [...] ssa Terry blood pressure, diastolic 75 mm[Hg] Ca destini Terry blood pressure, systolic 155 mm[Hg] Ayah aylin Terry pulse rate 84 /min Carmen Terry oxygen saturation, oximetry 98 % Carmen Terry respiratory rate E&M 15 /min Carmen Terry weight E&M 177 [lb_av] Carmen Terry Body Mass Index (Ratio) 32.41 kg/m2 Faust i Claudette blood pressure, diastolic 53 mm[Hg] Ke rri Gruenenfelder blood pressure, systolic 120 mm[Hg] Ker ri Reannanejobyer pulse rate 90 /min Genesis Adriennenfe lder oxygen saturation, oximetry 97 % Genesis Claudette respiratory rate E&M 16 /min Genesis G more weight E&M 183 [lb_av] Genesis Nathaliae lder blood pressure, diastolic 66 mm[Hg] Prashanth Greenberg RN blood pressure, systolic 158 mm[Hg] Tre Garberkallie BURNETTE pulse rate 89 /min Tre Greenberg RN oxygen saturation, oximetry 98 % Tre Greenberg RN respiratory rate E&M 16 /min Tre Tanya kallie RN Body Mass Index (Ratio) 30.58 kg/m2 Tre Greenberg RN weight E&M 172 [lb_av] Tre Greenberg RN Body Mass Index (Ratio) 30.22 kg/m2 Faust i Claudette blood pressure, diastolic 77 mm[Hg] Ke rri Claudette blood pressure, systolic 138 mm[Hg] Deanne ri Claudette pulse rate 76 /min Genesis Reannanenfe lder oxygen saturation, oximetry 99 % Genesis Nathaliaelder respiratory rate E&M 16 /min Genesis G katieenenfelder weight E&M 170 [lb_av] Genesis Reannanenfe lder height E&M 63 [in_i] Genesis Gruenenfe lder blood pressure, diastolic 58 mm[Hg] Dru perla Paulino blood pressure, systolic 117 mm[Hg] Jose lopez Paulino pulse rate 87 /min Gloria Paulino oxygen saturation, oximetry 99 % Gloria Paulino respiratory rate E&M 16 /min Gloria Corearan weight E&M 172 [lb_av] Ash Mirzap ALLERGIES Allergy Name Onset Date Reaction Criticality [...] High 2 cholesterol, serum 198 mg/dL [facility] 114-181 3334/01/1 2 calcium, serum 9.6 mg/dL [facility] 8.6-10.2 2 carbon dioxide, venous blood 25 mmol/L [facility] 20-29 2 chloride, serum 106 mmol/L [facility] 96-106 2 potassium, serum 4.6 mmol/L [facility] 3.5-5.2 2 sodium, serum 144 mmol/L [facility] 420-915 9317/01/1 2 urea nitrogen/creatini ne ratio, serum 16 [...] Estab. 2 platelet count 264 X10E3/UL [facility] [phone]/01/1 2 red blood cell distribution width 14.2 [...] as % of total hemoglobin 8.2 % [facility] 0 LDL cholesterol, serum 74 mg/dL [facility] 3 ferritin, serum 585.5 ng/mL [facility] 30.0 - 400.0 High 3 red blood cell distribution width, size density 52.6 fL [facility] - 3 immature granulocytes, percentage of total cells, blood 0.4 % [facility] 3 nucleated red blood cells as percent of blood leukocytes 0.0 % [facility] - 3 red blood cell (erythrocyte) count, per high power field 0.0 10*3/UL [facility] - 3 eosinophils as percent of blood leukocytes 2.0 % [facility] - 3 neutrophils as percent of blood leukocytes 55.7 % [facility] - 3 Absolute Neutrophils 3.0 CELLS/UL [facility] 1.5 - 7.8 3 basophils as percent of blood leukocytes 0.6 % [facility] - 3 Absolute Basophils 0.0 CELLS/UL [facility] 0.0 - 0.2 3 monocytes as percent of blood leukocytes 6.8 % [facility] Absolute Monocytes 0.4 CELLS/UL [facility] 0.2 - 1.0 3 lymphocytes as percent of blood leukocytes 34.5 % [facility] - 3 Absolute Lymphocytes 1.9 CELLS/UL [facility] 0.9 - 3.9 3 mean platelet volume 10.8 (?) [facility] - 3 platelet count 255.0 THOUSAND/ UL [...] (low-density lipoprotein/high- density lipoprotein) ratio 1.5 RATIO [facility] - 4 lipoprotein, beta, serum, point, quantitative, calculated 53.0 (?) [facility] 0.0 - 100.0 4 HDL cholesterol, serum 36.0 mg/dL [facility] 35.0 - 55.0 4 cholesterol, serum 131.0 mg/dL [facility] 0.0 - 200.0 4 triglyceride, serum, fasting 210.0 mg/dL [facility] 0.0 - 150.0 High 4 urea nitrogen/creatini ne ratio, serum 16.3 [facility] - 4 Estimated Glomerular Filtration Rate (calc) 105.2 (?) [facility] 59[facility]0 - 4 chloride, serum 96.5 mmol/L [facility] 98.0 - 107.0 Low 4 potassium, serum 4.5 mmol/L [facility] 3.5 - 5.1 4 sodium, serum 140.0 mmol/L [facility] 136.0 - 145.0 4 creatinine, serum 0.8 mg/dL [facility] 0.7 - 1.2 4 carbon dioxide, venous blood 25.0 mmol/L [facility] 22.0 - 29.0 4 calcium, serum 10.3 mg/dL [facility] 8.6 - 10.2 High 4 urea nitrogen, blood 13.0 mg/dL [facility] 6.0 - 20.0 4 blood glucose, random 115.0 mg/dL [facility] 74.0 - 99.0 High 4 red blood cell distribution width, size density 44.6 fL [facility] - 4 immature granulocytes, percentage of total cells, blood 0.8 % [facility] - 4 nucleated red blood cells as percent of blood leukocytes 0.0 % [facility] - 4 red blood cell (erythrocyte) count, per high power field 0.0 10*3/UL [facility] - 4 eosinophils as percent of blood leukocytes 1.8 % [facility] - 4 neutrophils as percent of blood [...] BY MOUTH DAILY. INSTEAD OF LOSARTAN. 10/15 Domi Meléndez RN irbesartan 300 mg tablet completed TAKE 1 TABLET BY MOUTH EVERY DAY, INSTEAD OF LOSARTAN. - 10/15 Bharti Adams nitroglycerin 0.4 mg tablet, sublingual active PLACE ONE TABLET UNDER THE TONGUE NEEDED FOR CHEST PAIN AND MAY REPEAT IN 10 MINUTES IF NEEDED 11/20 Hoa Dove RN amoxicillin-pot clavulanate 875-125 mg tablet active 1 tablet by mouth twice a day 10/21 Domi GROVE irbesartan 300 mg tablet completed TAKE 1 TABLET BY MOUTH DAILY, INSTEAD OF LOSARTAN - Genesis Wilkins Viagra 50 mg tablet active Take 1 tablet by mouth once a day as needed NEVER TAKE WITHIN 24 HOURS OF NITROGLYCERIN 02/19 Tomeka Grant furosemide 20 mg tablet active TAKE 1 TABLET BY MOUTH EVERY DAY 06/07 Domi Meléndez RN furosemide 20 mg tablet completed Take 1 tablet by mouth once a day 06/04 - 06/07 Allyson Ewing carvedilol 6.25 mg tablet active TAKE 1 TABLET BY MOUTH EVERY DAY 12/06 Massimo Antoine nitroglycerin 0.4 mg tablet, sublingual completed ONE TABLET UNDER TONGUE NEEDED FOR CHEST PAIN. MAY REPEAT IN 10 MINUTES IF NEEDED 10/04 - 11/20 Hao Dove RN furosemide 20 mg tablet completed TAKE 1 TABLET BY MOUTH DAILY - 06/04 Genesis Wilkins clopidogrel 75 mg tablet active TAKE 1 TABLET BY MOUTH DAILY Domi Meléndez RN irbesartan 300 mg tablet completed TAKE 1 TABLET BY MOUTH EVERY DAY INSTEAD OF LOSARTAN - Ammon Hannon carvedilol 6.25 mg tablet completed Take 1 [...] times a day 04/08 - 10/21 Domi Ontiverosmigljosh BIOLOGY RESEARCH ASSISTANT morphine 15 mg tablet completed Take 1 tablet once a day 04/08 - 10/21 Domi RAMOSP buspirone 30 mg tablet active Take [...] completed as directed 05/31 - 04/25 Yasmine Goodrich atorvastatin 80 mg tablet completed Take 1 tablet by mouth once a day 11/10 - 05/19 Lavonsamna Atkins furosemide 20 mg tablet completed Take 1 tablet by mouth once a day 10/30 - Lavclydehea Atkins Plavix 75 mg tablet completed 1 [...] Jarod Villegas MD BUDEPRION XL 300 MG [id number] completed 1 tab daily 04/02 - 04/25 [...] times a day - 10/21 Domi Nguyen [facility] SOCIAL HISTORY Date Observation Value Provider drug [...] of years as a smoker 10 a Alejandar Baca smoking history, tot al pack/year 20 [...] cigarette sm pao exposure yes Genesis Wilkins smoking, year quit 1982 Genesis beckwith number of years as a smoker 10 a Genesis Wilkins smoking history, tot al pack/year 20 Genesis Wilkins smoking history, tot al pack/day 2 Genesis Wilkins cigarette use yes Genesis broderick smoking status Former smoker Genesis hemphiller social history reviewed E&M revi ewed - no changes required [facility] physical exercise, frequency, days per week yes [facility] alcohol use, average drinks per day none [facility] alcohol use no Misael Mineral [facility] caffeine use, averag e drinks per day 1+ [facility] drug use no [facility] erg passive cigarette sm pao exposure yes [facility] smoking, year quit 1982 [facility] number of years as a smoker 10 a [facility] smoking history, tot al pack/year 20 [facility] smoking history, tot al pack/day 2 [facility] cigarette use yes [facility] smoking status Former smoker [facility] social history reviewed E&M revi ewed - no changes required Jarod Villegas MD physical exercise, frequency, days per week yes Yasmine Kp alcohol use, average drinks per day none Yasmine Kp alcohol use no Yasmine Kp caffeine use, averag e drinks per day 1+ Ysamine Kp drug use no Yasmine Kp passive [...] History: P atient is a former smoker. [facility] social history reviewed E&M revi ewed - no changes required Misael Jone number of grandchildren Jarod Villegas MD physical exercise, frequency, days per week yes Lily Ovalle alcohol use, average drinks per day none Lily Ovalle alcohol use no iLly sandy caffeine use, averag e drinks per [...] exercise, frequency, days per week yes Misael Becerril alcohol use, average drinks per day none Misael Becerril alcohol use no Misael Miller erg caffeine use, averag e drinks per day 1+ Misael Becerril drug use no Misael Kennyb erg passive cigarette sm pao exposure yes Misael Jone smoking, year quit 1982 Misael Becerril number of years as a smoker 10 a Misael Becerril smoking history, tot al pack/day 2 Misael Jone cigarette use yes Misael Kenny osullivan smoking status Former smoker Misael [facility] social history reviewed E&M revi ewed - no changes required Misael Jone number of grandchildren Nicolas Rocha MD social history reviewed E&M revi ewed - no changes required Nicolas Rocha MD social history E&M Marital Statu s: E thnicity: Smoking History: P atclarisa is a former smoker. Nicolas Rocha MD physical exercise, frequency, days per week yes [facility] alcohol use, average drinks per day none [facility] alcohol use no Yasmine Pk caffeine use, averag e drinks per day 1+ Yasmine Kp drug use no [facility] passive cigarette sm pao exposure yes [facility] smoking, year quit 1982 [facility] number of years as a smoker 10 a [facility] smoking history, tot al pack/year 5840 [facility] smoking history, tot al pack/day 2 [facility] cigarette use yes [facility] smoking status Former smoker [facility] social history reviewed E&M revi ewed - no changes required Misael Becerril physical exercise, frequency, days per week yes [facility] alcohol use, average drinks per day none [facility] alcohol use no [facility] caffeine use, averag e drinks per day 1+ [facility] drug use no [facility] passive cigarette sm pao exposure yes [facility] smoking, year quit 1982 [facility] s number of years as a smoker 10 a [facility] smoking history, tot al pack/day 2 [facility] cigarette use yes [facility] smoking status Former smoker [facility] social history reviewed E&M revi ewed - no changes required Jarod Villegas MD physical exercise, frequency, days per week yes Genesis Wilkins alcohol use, average drinks per day none Genesis Wilkins alcohol use no Genesis rogers caffeine use, averag e drinks per day 1+ Genesis Wilkins drug use no Genesis leunger passive cigarette sm pao exposure yes Genesis Sloanmeggan smoking, year quit 1982 Genesis mariaalexander number of years as a smoker 10 a Genesis Sloanyahiralexander smoking history, tot al pack/day 2 Genesis Sloanmeggan cigarette use yes Genesis broderick smoking status Former smoker Genesis luameggan physical exercise, frequency, days per week yes Jarod Villegas MD alcohol use, average drinks per day none Jarod Villegas MD alcohol use no Jarod Villegas MD caffeine use, averag e drinks per day 1+ Jaord Villegas MD drug use no Jarod Villegas MD passive cigarette sm pao exposure yes Jarod Villegas MD smoking, year quit 1982 Jarod burrell MD smoking history, tot al pack/day 2 Jarod Villegas MD cigarette use yes Jarod Villegas MD smoking status Former smoker Jarod Villegas MD social history reviewed E&M ricco collazo - no changes required Jarod Villegas MD [...] years as a smoker 10 a Carmen Hebertann smoking history, tot al pack/year 5840 Carmen Hebertann smoking history, tot al pack/day 2 Carmen Hebertann cigarette use yes Carmen Terry smoking status [...] yes Carmen Terry drug use no Carmen Trery passive cigarette sm pao exposure yes Carmen Terry smoking, year quit 1982 Carmen Ramos cCamichael number of years as a smoker 10 a Carmen Terry smoking history, tot al pack/year 5840 Carmen Terry smoking history, tot al pack/day 2 Carmen Terry cigarette use yes Carmen Terry smoking status Former smoker Carmen Garcia nn social history reviewed E&M i ewed - no changes required Jarod Villegas [...] history E&M Marital Statu s: E thnicity: P lacie is a former smoker. Smoking History: Andrew [...] Lawanda Camara social history reviewed E&M ricco serraed - no changes required Lawanda Camara alcohol [...] Wilkins smoking history, tot al pack/year 5840 Genesis Wilkins smoking, year quit 1983 Genesis beckwith [...] (inactive) Management Plan continue current therapy Domi Nguyen BIOLOGY RESEARCH ASSISTANT HRA, CV Assess/Plan, Angina (inactive) Management Plan continue current therapy Kathia Hodgson HRA, CV Assess/Plan, Angina (inactive) Management Plan continue current therapy Jarod Villegas MD HRA, CV Assess/Plan, Angina (inactive) Management Plan continue current therapy Kathia Hodgson HRA, CV Assess/Plan, Angina (inactive) Management Plan continue current therapy [facility] HRA, CV Assess/Plan, Angina (inactive) Management Plan [...] Angina (inactive) Management Plan continue current therapy [facility] HRA, CV Assess/Plan, Angina (inactive) Management Plan continue current therapy Jarod Villegas MD HRA, CV Assess/Plan, Angina (inactive) Management Plan continue current therapy Jarod Villegas MD HRA, CV Assess/Plan, Angina (inactive) Management Plan continue current therapy [facility] HRA, CV Assess/Plan, Angina (inactive) Management Plan [...] Policy type / Coverage type Mary red alliance party ID [id number] (PPO C-SNP) [employer] insurance [employer] [id number] HEALTHCARE AND FAMILY SERVICES Medicaid 1 [id number] ADVANCE DIRECTIVES Name Date DISCUSSED - NO DECISION MADE TREATMENT PLAN Date Name Performer [id number],C,continued cullen sation encouraged. [facility] [id number],C,w ill update lipids H is updated medication list for this problem includes: Atorvastatin 80 Mg Tablet (Atorvastatin) ..... Take 1 tablet by mouth daily [facility] [id number],C,B P controlled c ontinue current meds H [...] Take 1 tablet by mouth every day [facility] [id number],C,n ew on exam today w ith reports [...] may repeat in 10 minutes if needed [facility] [id number],C,w ith previous stents in past c /o [...] in 10 minutes if needed Dominaomi Mckayjosh [facility] [id number],C,P atient reports chest congestion with cough H [...] tablet by mouth every day Dominaomi Nguyen [facility] [id number],C,N o CP No SOB, leg swelling does not bother him. Kathia Hodgson [id number],C, H is updated medication list for this problem includes: Metformin 1,000 Mg Tablet (Metformin) ..... 1 tablet twice a day Lantus U-100 Insulin 100 Unit/ml Solution (Insulin glargine) ..... Inject as directed Irbesartan 300 Mg Tablet (Irbesartan) ..... Take 1 tablet by mouth every day instead of losartan Kathia Hodgson [id number],C, H is updated medication list for this problem includes: Atorvastatin 80 Mg Tablet (Atorvastatin) ..... Take 1 tablet by mouth daily Kathia Hodgson [id number],C, B P today: 141/67 P rior BP: [...] 1 tablet by mouth every day [facility] [id number],C,N o CP No SOB, leg swelling does not bother him. echo NL EF, renal artery duplex is normal. Pro BNP is normal. Kathia Conneryuni [id number],C,H emoglobin A1c was 9.1 and I advised [...] glargine) ..... Inject as directed Kathiaedith Connerabilio [id number],C,L DL is 80 H is updated medication list for this problem includes: Atorvastatin 80 Mg Tablet (Atorvastatin) ..... Take 1 tablet by mouth daily Kathia Connerabilio [id number],C,V enous duplex showed bilateral venous insufficiency. Arterial duples showed mild PAD. He does not have leg pain thus no need for intervention at this time. He'll continue Lasix. Kathia Hodgson [id number],C,P t denies CP or SOB. Will continiue [...] tablet by mouth daily Jarod Villegas MD [id number],C,V enous duplex showed bilateral venous insufficiency. Arterial [...] artery duplex, and proBNP. Jarod Villegas MD [id number],C,H emoglobin A1c was 9.1 and I advised [...] ..... Inject as directed Jarod Villegas MD [id number],C, B P today: 141/65 P rior BP: [...] by mouth every day Jarod Villegas MD [id number],C, H is updated medication list for this problem includes: Atorvastatin 80 Mg Tablet (Atorvastatin) ..... Take 1 tablet by mouth daily Jarod Villegas MD [id number],C, H is updated medication list for this problem includes: Irbesartan 300 Mg Tablet (Irbesartan) ..... Take 1 tablet by mouth every day instead of losartan Metformin 1,000 Mg Tablet (Metformin) ..... 1 tablet twice a day Lantus U-100 Insulin 100 Unit/ml Solution (Insulin glargine) ..... Inject as directed Kathia Hodgson [id number],C, H is updated medication list for this problem includes: Atorvastatin 80 Mg Tablet (Atorvastatin) ..... Take 1 tablet by mouth daily Kathia Hodgson [id number],C, B P today: 134/67 P rior BP: [...] 1 tablet by mouth every day [facility] [id number],C,P t denies chest pain or SOB. W [...] Take 1 tablet by mouth daily Kathia Rema [id number],C,T he pt complains of leg cramps. He stopped Lasix with some improvement but then developed leg swelling. Will check microalbumin, BMP, proBNP, hs CRP, lipid panel, A1C, and venous duplex and arterial duplex of the lower extremities, and renal artery duplex, hx of right renal artery stenosis, and echo. Kathia Hodgson [id number],S, Kathia garrisoniayuni [id number],C, H is updated medication list for this problem includes: Metformin 1,000 Mg Tablet (Metformin) ..... 1 tablet twice a day Lantus U-100 Insulin 100 Unit/ml Solution (Insulin glargine) ..... Inject as directed Irbesartan 300 Mg Tablet (Irbesartan) ..... Take 1 tablet by mouth once a day [facility] [id number],C,O n statin. His updated medication list for this problem includes: Atorvastatin 80 Mg Tablet (Atorvastatin) ..... Take 1 tablet by mouth once a day [facility] [id number],C, H is updated medication list for this [...] tablet by mouth once a day [facility] [id number],C,T he pt has rare episodes of angina. [...] ..... 1 tablet once a day [facility] Card[facility]: H is updated medication list for [...] Jarod Villegas MD Cardiology:continued cessation e ncouraged. [facility] Cardiology:will upda te lipids H is updated medication list for this problem includes: Atorvastatin 80 Mg Tablet (Atorvastatin) ..... Take 1 tablet by mouth daily [facility] Cardiology:BP contro lled c ontinue current meds [...] Take 1 tablet by mouth every day [facility] Cardiology:new on ex am today w ith [...] may repeat in 10 minutes if needed [facility] Cardiology:with prev ious stents in past c [...] in 10 minutes if needed Domi Nguyen [facility] Cardiology:Patient r eports chest congestion with cough [...] tablet by mouth every day Dominaomi Nguyen [facility] Cardiology:No CP No SOB, leg swelling does [...] tablet once a day Kathia Rema Telehealth:His [facility] ed medication list for this problem includes: Lantus 100 Unit/ml Subcutaneous Solution (Insulin glargine) ..... Inject as directed Irbesartan 300mg Tablets (Irbesartan) ..... Take 1 tablet by mouth every day Metformin Hcl 1000 Mg Oral Tablet (Metformin hcl) ..... 1 tab twice daily Aspirin 81 Mg Oral Tablet (Aspirin) ..... 1 tab daily [facility] Telehealth:His [facility] medication list for this problem includes: Atorvastatin 80mg Tablets (Atorvastatin calcium) ..... Take 1 tablet by mouth daily [facility] Telehealth:Prior BP: 120/60 (04/08/2019) His updated medication list for this problem includes: Carvedilol 6.25 Mg Oral Tablet (Carvedilol) ..... One tablet twice a day Amlodipine Besylate 10mg Tablets (Amlodipine besylate) ..... Take 1 tablet by mouth daily Lasix 20 Mg Oral Tablet (Furosemide) ..... One tablet daily Irbesartan 300mg Tablets (Irbesartan) ..... Take 1 tablet by mouth every day [facility] Telehealth:Rare epis odes of CP. Took a [...] gBA1c: 8.2 (03/21/2018) Creat: 0.63 (10/13/2018) Misael Jone Cardiology follow up :Labs (before Atorvastatin was increased to 80mg daily): C HOL: 198 (10/13/2018) HDL: 29 (10/13/2018) TRI (10/13/2018) LDL: 137 (10/13/2018) His updated medication list for this problem includes: Atorvastatin Calcium 80 Mg Oral Tablet (Atorvastatin calcium) ..... Take one tablet daily Recommended to check lipid panel periodically. Misael Jone Cardiology follow up :BP today: 120/60 P [...] Oral Tablet (Aspirin) ..... 1 tab daily [facility] Cardiology follow up :His updated medication list for this problem includes: Atorvastatin Calcium 20 Mg Oral Tablet (Atorvastatin calcium) ..... Take 1 tab at bedtime LDL: 74 (03/21/2018) [facility] Cardiology follow up :His updated medication list [...] Oral Tablet (Aspirin) ..... 1 tab daily [facility] Cardiology follow up :BP today: 160/70 P [...] ..... One tablet twice daily Orders: R eber Angio - SL (*) Misael Becerril Cardiology follow up :Orders: R jjal Angio - [facility] (*) Misael Becerril Cardiology [...] bedtime Orders: S TR - Exercise Nuclear (CPT-81217) 9 9215 HIGH Complex (CPT-54517) C omplete Echo (CPT-20173) R enal Artery Duplex (CPT-63091) Nicolas Rocha MD Cardiology follow up : [...] tab daily Orders: STR - Exercise Nuclear (CPT-17805) 9 9215 HIGH Complex (CPT-45577) C omplete Echo (CPT-41126) Nicolas Rocha MD Cardiology follow up :May [...] daily Orders: S TR - Exercise Nuclear (CPT-39342) C omplete Echo (CPT-47677) Nicolas Rocha MD Cardiology follow up :He [...] daily Orders: B ASIC METABOLIC PANEL W/EGFR (34456) H EMOGLOBIN A1c (496) U RINALYSIS, RANDOM, [...] Tablet (Aspirin) ..... 1 tab daily Misael [facility][Note 3] Cardiology follow up :He's a candidate for dental extractions. He's clear from cardiac perspective. [facility] Cardiology Follow up :% Saturation increased to 31.4 and ferritin increased to 585.5. Hemoglobin 12.1 and hematocrit 39.2. [facility] Cardiology Follow up:Continues o n 20mg Lasix daily. [facility] Cardiology Follow up :% Saturation increased to 31.4 and ferritin increased to 585.5. Hemoglobin 12.1 and hematocrit 39.2. [facility] Cardiology Follow up :His updated medication list for this problem includes: Atorvastatin Calcium 20 Mg Oral Tabs (Atorvastatin calcium) ..... Take 1 tab at bedtime [facility] Cardiology Follow up :BP today: 148/90 P rior BP: 140/70 (02/24/2017) His updated medication list for this problem includes: Lasix 20 Mg Tabs (Furosemide) ..... One tablet daily Losartan Potassium 100 Mg Oral Tabs (Losartan potassium) ..... Take one tablet daily Metoprolol Tartrate 50 Mg Tabs (Metoprolol tartrate) ..... One tablet twice daily [facility] Cardiology Follow up :He's a candidate for dental work and a colonoscopy. He may stop Plavix as recommended by the dentist and GI specialist. [facility] Cardiology Follow up :The pt has rare [...] Mg Tabs (Aspirin) ..... 1 tab daily [facility] Cardiology Follow up :The pt has rare episodes of chest discomfort. If he has more chest pain, will consider cardiac cath. [facility] Cardiology:S/P iron infusion x2. [facility] Cardiology:On Crestor 40mg daily . [facility] Cardiology:His [facility] ed medication list for this problem includes: Losartan Potassium 100 Mg Oral Tabs (Losartan potassium) ..... Take one tablet daily Novolog Flexpen 100 Unit/ml Sc Sopn (Insulin aspart) ..... 60u twice a day Metformin Hcl 1000 Mg Tabs (Metformin hcl) ..... 1 tab twice daily Aspirin 81 Mg Tabs (Aspirin) ..... 1 tab daily [facility] Cardiology:BP today: 140/70 P rior BP: 150/60 (01/23/2017) His updated medication list for this problem includes: Lasix 20 Mg Tabs (Furosemide) ..... One tablet daily Losartan Potassium 100 Mg Oral Tabs (Losartan potassium) ..... Take one tablet daily Metoprolol Tartrate 25 Mg Oral Tabs (Metoprolol tartrate) ..... Take one tab twice daily [facility] Cardiology:S/P iron infusion x2. [facility] Cardiology:He has sw elling of his fingers and hands. We will switch Losartan-HCTZ to Losartan and start Lasix 20mg daily. [facility] Cardiology:No recurr ence of chest pain or [...] Mg Tabs (Aspirin) ..... 1 tab daily [facility] Cardiology:Sleep blake dy in October was negative for NEETU. [facility] Cardiology:Orders: F ERRITIN (457) F OLATE, SERUM (466) I BERYL AND TOTAL IRON BINDING CAPACITY (7573) R ETICULOCYTE COUNT (793) V ITAMIN B12 (927) [facility] Cardiology:Labs Revi ewed: H gBA1c: 8.5 (06/30/2016) [...] Mg Tabs (Aspirin) ..... 1 tab daily [facility] Cardiology:His updat ed medication list for this problem includes: Crestor 40 Mg Tabs (Rosuvastatin calcium) ..... One tab. daily CHOL: 131.0 (05/05/2016) HDL: 36.0 (05/05/2016) T.0 (05/05/2016) LDL: 53.0 (05/05/2016) [facility] Cardiology:BP today: 123/63 P rior BP: 110/50 (06/29/2016) His updated medication list for this problem includes: Losartan Potassium-hctz 100-12.5 Mg Oral Tabs (Losartan potassium-hctz) ..... One tablet daily Metoprolol Tartrate 25 Mg Oral Tabs (Metoprolol tartrate) ..... Take one tab twice daily Aspirin 81 Mg Tabs (Aspirin) ..... 1 tab daily [facility] Cardiology:Pt had an admission for chest pain and IL was ruled out. Will schedule regadenosine myoview. His updated medication list for this problem includes: Nitrostat 0.4 Mg Subl (Nitroglycerin) ..... One tab. under tongue as needed. may repeat twice in 10 minutes. Misael Jone Cardiology:Pt had an admission for chest pain and IL was ruled out. Will schedule regadenosine myoview. His updated medication list for this problem includes: Plavix 75 Mg Tabs (Clopidogrel bisulfate) ..... One tab. daily Metoprolol Tartrate 25 Mg Oral Tabs (Metoprolol tartrate) ..... Take one tab twice daily Aspirin 81 Mg Tabs (Aspirin) ..... 1 tab daily Misael Jone Cardiology:Pt had an admission for chest pain and IL was ruled out. Will schedule regadenosine myoview. His updated medication list for this problem includes: Nitrostat 0.4 Mg Subl (Nitroglycerin) ..... One tab. under tongue as needed. may repeat twice in 10 minutes. Misael Becerril Cardiology:BP today: 110/50 P rior BP: 121/70 (2016) Jarod Villegas MD Cardiology:Will repe at HgA1c. If still above 7.0%, he would like to participate in the Viola trial. Jarod Villegas MD Cardiology:Resolved after stents [...] (Aspirin) ..... 1 tab daily Misael Jone Cardiology:Myoview s can showed inferior wall ischemia. [...] 1 tab daily Jarod Villegas MD Cardiology:His [facility] ed medication list for this problem includes: [...] 1 tab daily Jarod Villegas MD Cardiology:His updat ed medication [...] (Aspirin) ..... 1 tab daily [id number] Physical Exam, Performed: Pulse Exam of Foot ([id number]-[id number]) H EMOGLOBIN A1c (496) Jarod Villegas MD [...] completed EKG Jarod Villegas MD completed SNOMED-CT: 48162979 Physical Exam, Performed: Pulse Exam of Foot Jarod Villegas MD completed SNOMED-CT: 251027700 801122 Current Medications Documented Jarod Villegas MD completed SNOMED-CT: 00739608 Physical Exam, Performed: Pulse Exam of Foot Jarod Villegas MD completed SNOMED-CT: 737113340 501153 Current Medications Documented Jarod Villegas MD completed Stress EKG Axel Torres MD complet ed Regadenoson, 4 eduardo Villegas MD completed Cardiolite, 2 units Jarod Villegas MD c ompleted SPECT Images Ariela Baer MD complet ed SNOMED-CT: 87913010 Physical Exam, Performed: Pulse Exam of Foot Jarod Villegas MD completed EKG Jarod Villegas MD completed SNOMED-CT: 209784527 072590 Current Medications Documented Jarod Villegas MD completed SNOMED-CT: 23189347 Physical Exam, Performed: Pulse Exam of Foot Jarod Villegas MD completed SNOMED-CT: 796426948 648805 Current Medications Documented Jarod Villegas MD completed SNOMED-CT: 96342127 Physical Exam, Performed: Pulse Exam of Foot Jarod Villegas MD completed SNOMED-CT: 265897899 965602 Current Medications Documented Jarod Villegas MD completed Stress EKG Jasen Guardado MD complete d Regadenoson, 4 eduardo Villegas MD completed Cardiolite, 2 units Jarod Villegas MD c ompleted SPECT Images Jarod Villegas MD complete d SNOMED-CT: 66282823 Physical Exam, Performed: Pulse Exam of Foot Jarod Villegas MD completed EKG Jarod Villegas MD completed SNOMED-CT: 154980035 879720 Current Medications Documented Jarod Villegas MD completed SNOMED-CT: 68103787 Physical Exam, Performed: Pulse Exam of Foot Jarod Villegas MD completed SNOMED-CT: 265033034 Smoking Cessation Counseling Jarod Villegas MD completed SNOMED-CT: 119492137 638035 Current Medications Documented Jarod Villegas MD completed SNOMED-CT: 469229949 Smoking Cessation Counseling Jarod Villegas MD completed SNOMED-CT: 236013626 Smoking Cessation Counseling Jarod Villegas MD completed SNOMED-CT: 09916937 Physical Exam, Performed: Pulse Exam of Foot Jarod Villegas MD completed SNOMED-CT: 967698123 613163 Current Medications Documented Jarod Villegas MD completed EKG Jarod Villegas MD completed EKG Jarod Villegas MD completed EKG Jarod Villegas MD completed ePrescribe - Check t his box if eRx is used Jarod Villegas MD completed EKG Jarod Villegas MD completed EKG Jarod Villegas MD completed
--- OUTSIDE RECORDS SUMMARY | 2025-01-15 12:41 | XMS_ITS | Clinical Summary ---
Author Organization [facility] Address [address] [address] Phone Care Team Providers Care Production Sampler Name Role Phone Unavailable Primary Care Provider [...] taking.Reported on 08/05/2019 Blood Glucose Monitoring Suppl (HowDo) w/Device Kit 1 Kit by Does not [...] 90 Tab 8 Active ergocalciferol (VITAMIN D) 59963 UNIT Capsule TAKE 1 CAPSULE BY MOUTH [...] insulin 02/23/2017 Coronary artery disease invo lving [place] coronary artery without angina pectoris 02/23/2017 Anxiety [...] Comments Blood Pressure 130/76 08/05/2019 2:25 PM [employer] Pulse 72 08/05/2019 2:25 PM [employer] Temperature 36.4 C (97.6 F) 08/05/2019 2:25 PM [employer]PECTOR Respiratory Rate 16 08/05/2019 2:25 PM [employer]PECTOR Oxygen Saturation 98% 08/05/2019 2:25 PM [employer]OR Inhaled Oxygen Concentration - - Weight 79.1 kg (174 lb 4.8 oz) 08/05/2019 2:25 P M [employer] Height 165.1 cm (5' 5 ) 08/05/2019 2:25 PM [employer] Body Mass Index 29.01 08/05/2019 2:25 PM [employer]PECT[employer] Plan of Treatment Health Maintenance Due Date [...] (COMPREHENSIVE METABOLIC PANEL) Today 08/05/2019 2:56 PM [employer] Essential hypertension Type 2 diabetes mellitus with diabetic polyneuropathy, with long-term current use of insulin (HCC) Coronary artery disease involving [place] coronary artery of [place] heart without angina pectoris Lipid disorder Chronic midline low back pain without sciatica HEMOGLOBIN A1C W/ ESTIMATED GLUCOSE Today 08/05/2019 2:56 PM [employer] Essential hypertension Type 2 diabetes mellitus with diabetic polyneuropathy, with long-term current use of insulin (HCC) Coronary artery disease involving [place] coronary artery of [place] heart without angina pectoris Lipid disorder Chronic midline low back pain without sciatica HM COLONOSCOPY Routine 06/26/2017 HEPATITIS C ANTIBODY Routine 02/23/2017 2:14 PM CDT Physical exam, annual (Adult) from Last 3 Months or Most Recently Relevant to Health Maintenance Results * (ABNORMAL) HEMOGLOBIN A1C W/ ESTIMATED GLUCOSE (08/05/2019 2:56 PM AIR CARRIER INSPECTOR) HGB-A1C 9.4(H) 4.0 - 6.0 % 08/05/2019 4:28 PM [employer] INSPECT[employer] [facility] Est Average Glucose 223.1 mg/dL 08/05/2019 4:28 PM [employer] INSPECTOR [facility] Blood specimen (specimen) Venipuncture / Unknown 08/05/2019 2:56 PM [employer]ER INSPECTOR 08/05/2019 2:56 PM [employer] INSPECTOR Narrative [facility] - 08/05/2019 4:28 PM [employer] INSPECTOR HEMOGLOBIN A1C: DIABETIC PATIENTS: WELL-CONTROLLED: 6.2 - 7.0 INTERMEDIATE WELL-CONTROLLED: 7.0 - 9.0 POORLY-CONTROLLED: >9.0 us Alex Pineda MD CHEMISTRY ORDERABLES Final Re sult [facility] [address] [place] [address] * (ABNORMAL) CMP (COMPREHENSIVE METABOLIC PANEL) (08/05/2019 2:56 PM AIR CAR[employer]ER INSPECTOR) SODIUM 143 136 - 144 mmol/L 08/05/2019 3:50 PM [employer] CAR[employer]ER INSPECTOR [facility] POTASSIUM 4.3 3.5 - 5.1 mmol/L 08/05/2019 3:50 PM [facility] CHLORIDE 105 100 - 110 mmol/L 08/05/2019 3:50 PM [facility] CO2, VENOUS 25 22 - 32 mmol/L 08/05/2019 3:50 PM [facility] ANION GAP 17.3 8.0 - 20.0 mmol/L 08/05/2019 3:50 PM [facility] GLUCOSE 159(H) 70 - 99 mg/dL 08/05/2019 3:50 PM [facility] BUN 7(L) 8 - 23 mg/dL 08/05/2019 3:50 PM [facility] CREATININE, BLOOD 0.51(L) 0.80 - 1.30 mg/dL 08/05/2019 3:50 PM [facility] BUN/CREATININE RATIO 14 12 - 20 ratio 08/05/2019 3:50 PM [facility] TOTAL PROTEIN 7.1 6.0 - 8.3 g/dL 08/05/2019 3:50 PM [facility] ALBUMIN 4.3 3.5 - 5.2 g/dL 08/05/2019 3:50 PM [facility] Comment: The colormetric methods used for the determination of Albumin may lead to falsely elevated test results in patients suffering from renal failure or insufficiency due to interference with other proteins. A/G RATIO 1.5 1.0 - 2.0 08/05/2019 3:50 PM [employer] [facility] CALCIUM 9.5 8.9 - 10.3 mg/dL 08/05/2019 3:50 PM AIR CARRIER INSPECTOR [facility] T BILI 0.3 <=1.2 mg/dL 08/05/2019 3:50 PM AIR CARRIER INSPECTOR [facility] SGOT (AST) 17 <=40 U/L 08/05/2019 3:50 PM AIR CARRIER INSPECTOR [facility] SGPT (ALT) 29 <=41 U/L 08/05/2019 3:50 PM [employer] CAR[employer]ER INSPECTOR [facility] ALKALINE PHOSPHATASE 53 40 - 130 U/L 08/05/2019 3:50 PM AIR CARRIER INSPECTOR [facility] GFR, EST. NONAFRICAN >60 >=60 08/05/2019 3:50 PM AIR CARRIER INSPECTOR [facility] GFR, EST. >60 >=60 019 3:50 PM AIR CARRIER INSPECTOR [facility] Comment: Creatinine Clearance is the preferred criteria for selecting drug dose adjustments in renally impaired patients. The GFR is provided as additional pertinent clinical information. GFR is reported in mL/min/1.73 sq m. Blood specimen (specimen) Venipuncture / Unknown 08/05/2019 2:56 PM AIR CARRIER INSPECTOR 08/05/2019 2:56 PM [employer]ER INSPECTOR us Alex Pineda MD CHEMISTRY ORDERABLES Final Re sult [facility] [address] [place] [address] * COLONOSCOPY (06/26/2017) us Tata Do MD PROCEDURE/MINOR SURGICAL ORDER EMILY Final Result * HEPATITIS C ANTIBODY (02/23/2017 2:14 PM CDT) hepatitis C antibody 0.06 <1 S/CO 02/23/2017 11:23 PM CDT [facility] Comment: Signal/Cutoff ratio < 0.79 is Nondetected Signal/Cutoff ratio 0.80-0.99 is Grayzone Signal/Cutoff ratio > 0.99 is Detected Supplemental assays are recommended if signal/cutoff ratio is >/=1.00. Signal/cutoff ratio result >/= 5.00 is 97% predictive of positivity for recombinant immunoblot assay (RIBA) and will be reported to the [place] [facility] Public [facility] as required. Blood specimen (specimen) Venipuncture / Unknown 02/23/2017 2:14 PM CDT 02/23/2017 2:14 PM CDT us Alex Pineda MD CHEMISTRY ORDERABLES Final Re sult [facility] [address] [place] [address], from Last 3 Months or Most Recently Relevant to Health Maintenance Insurance MEDICARE [place]
--- OUTSIDE RECORDS SUMMARY | 2025-01-15 12:41 | XMS_ITS | Encounter Summary ---
Author Organization [facility] Address [address] [place] [address] Care Team Providers Care Gutter Installer Name Role Phone Mary Workman MD Primary Care Provider [phone] Encounter Details Date Type Department Care Team (Late Contact Info) Description 01/07/2025 Results Follow-Up [facility] [address] [place] [address] Tara Diop NP [address] [place] [address] POC HEMOGLOBIN A1C, MICROALBUMIN/CREATIN INE RATIO, RANDOM UR Social History Tobacco Use Types Packs/Day Years [...] as of this encounter Miscellaneous Notes * Result Encounter Note - [place] [place] - 01/09/2025 8:48 AM CDT Pt aware verbalized understanding no questions documented in this encounter Plan of Treatment Upcoming Encounters Date Type Department Care Team (Late st Contact Info) Description 02/05/2025 2:40 PM CDT Office Visit [facility] [address] [place] [address] Phu Ly, BHANUC [address] [place] [address] 04/08/2025 2:20 PM CDT Office Visit [facility] Primary [facility] [address] [place] [address] Tara Diop NP [address] [place] [address] documented as of this encounter Visit Diagnoses Not on filedocumented in this encounter Care Teams Gutter Installer Relationship Specialty Start Date End Date Mary Workman MD [facility] [place] [address] PCP - General Internal Medicine 12/26/23 documented as of this encounter
== END 2025-01-15 11:16 | disposition home or self-care (01) ==
DX: R07.81 Pleurodynia (principal); K76.0 Fatty (change of) liver, not elsewhere classified; R91.1 Solitary pulmonary nodule
CPT/HCPCS: 71260; Q9967

== ENCOUNTER 2025-01-27 13:19 | Outpatient (CLI) | payer MEDICARE, MEDICAID, SELFPAY ==
--- NOTE | ~2025-01-27 | XR_ITS ---
Cervical Spine: AP, lateral, open-mouth views Clinical History: Pain Findings: There is straightening of the normal cervical lordosis. No fracture or subluxation. Interve rtebral disc spaces are relatively well-preserved. There is moderate to advanced facet arthropathy th roughout the cervical spine. Pre-vertebral soft tissues are unremarkable. Impression: Straightening of the normal cervical lordosis with diffuse moderate to severe facet arthropathy. Reviewed, dictated and finalized at location M. Impression: Straightening of the normal cervical lordosis with diffuse moderate to severe f acet arthropathy.
--- NOTE | ~2025-01-27 | XR_ITS ---
Thoracic spine: Clinical Indication: Back pain AP and lateral views were performed. No fracture is seen. There is normal alignment of the vertebrae. Mild to moderate degenerative disc change throughout the thoracic spine. Paravertebral soft tissues a ppear normal. Impression: Mild to moderate degenerative disc narrowing throughout the thoracic spine. No fracture or subluxatio n. Reviewed, dictated and finalized at [facility]. Impression: Mild to moderate degenerative disc narrowing throughout the thoracic spine. No fracture or subluxation.
--- OUTSIDE RECORDS SUMMARY | 2025-01-27 15:18 | XMS_ITS | Data Portability ---
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 Plan of Treatment Reminders Order Date Submit Date Provider Last Modified By Organization Details Last Modified Time Details Appointments None recorded. Lab unlisted lab - PSA total and free 2022 023 [email or web address] [facility] (Lab), [address] [place], [address], 3 10:45:34 urinalysis complete, reflex culture 2022 023 [facility] (Lab), [address] [place], [address], 3 01:26:55 glycohemogl obin, total, blood 2022 023 [facility] (Lab), [address] [place], [address], 3 20:47:08 CBC 2022 023 [facility] (Lab), [address] [place], [address], 3 19:37:48 CMP, serum or plasma 2022 023 [facility] (Lab), [address] [place], [address], 3 20:57:25 glycohemogl obin, total, blood 2022 023 [facility] (Lab), [address] [place], [address], 3 21:19:24 CBC [address] (Lab), [address] [place], [address], 3 16:15:51 lipid panel, serum [address] (Lab), [address] [place], [address], 3 16:24:25 CMP, serum or plasma [address] (Lab), [address] [place], [address], 3 16:23:56 microalbumi n, urine [address] (Lab), [address] [place], [address], 3 16:24:57 Referral endocrinolo gy referral - Please call patient to schedule appointment . 2023 024 [email or web address] Paulina Correa MD, [address], [place], [address], 4 10:25:12 pain management referral 2022 023 [email or web address] Marry Cruz MD, [address], [facility] [address], [place], [address], 3 10:49:33 Procedures None recorded. Surgeries None recorded. Imaging CT, head, w/wo contrast - *Please call pt to schedule* 2022 023 [facility] ([facility]), [address], [place], [address], 3 12:12:21 Medication Orders fluticasone propionate 50 mcg/actuati on nasal spray,suspe nsion 2023 024 [facility] #[id number], [address], [place], [place], [id number], 4 14:55:44 Lantus Solostar U-100 Insulin 100 unit/mL (3 mL) subcutaneou s pen 2023 024 [facility] #[id number], [address], [place], [place], [id number], 4 14:55:47 fluticasone propionate 50 mcg/actuati on nasal spray,suspe nsion 2022 023 [facility] #[id number], [address], [place], [place], [id number], 3 17:25:35 ergocalcife rol (vitamin D2) 1,250 mcg (50,000 unit) capsule 2022 023 [facility] #[id number], [address], [place], [place], [id number], 3 17:25:34 Lantus Solostar U-100 Insulin 100 unit/mL (3 mL) subcutaneou s pen 2022 023 [facility] #64094, [address], [place], [place], [id number], 3 17:25:35 Mounjaro 2.5 mg/0.5 mL subcutaneou s pen injector 2022 023 [facility] #19425, [address], [place], [place], [id number], 3 17:25:36 Lantus Solostar U-100 Insulin 100 unit/mL (3 mL) subcutaneou s pen 2022 023 [facility] #23457, [address], [place], [place], [id number], 3 15:10:46 naproxen 500 mg tablet 2022 023 [facility] #01564, [address], [place], [place], [id number], 3 15:37:48 ketorolac 30 mg/mL (1 mL) injection solution 2022 023 [email or web address] Not available 3 15:56:11 amoxicillin 500 mg capsule 2022 023 [email or web address] [facility] #43586, [address], [place], [place], [id number], 3 09:12:07 Patient TargetsNo targets recorded. Patient InstructionsNo instructions recorded. Reason for Referral Pain Management Referral for Chronic back pain Referring Physician: Tien Torres, Family Medicine, Encounter Date: 05/03/2023 Endocrinology Referral for H yperglycemia due to type 2 diabetes mellitus Please call patient to schedule appointment. Referring Physician: Ayad Villar Family Medicine, Encounter Date: 10/19/2023 Results Created Date Observation Date Name Description Value Unit Range Abnormal Flag Note LastModifiedBy Organization Detail LastModifiedTime 03/09/20 23 03/09/2023 CBC W/O DIFFE RENTI AL white blood cells 6.6 x10'3 /uL 4.2-10 .8 Not Available [facility] ([facility]) [address] [place], [address], 03/09/2023 19:50:06 03/09/2003/09/2023 CBC W/O DIFFE RENTI AL red blood cells 4.49 x10'6 /uL 4.10-5 .80 Not Available [facility] (Lab) [address] [place], [address], 03/09/2023 19:50:06 03/09/20 23 03/09/2023 CBC W/O DIFFE RENTI AL hemoglobin 11.7 g/dL 13.2-1 7.0 low Not Available [facility] (Lab) [address] [place], [address], 03/09/2023 19:50:06 03/09/20 23 03/09/2023 CBC W/O DIFFE RENTI AL hematocrit 38.0 % 39.3-5 0.0 low Not Available [facility] (Lab) [address] [place], [address], 03/09/2023 19:50:06 03/09/20 23 03/09/2023 CBC W/O DIFFE RENTI AL mean red cell volume 84.6 fL 80.0-9 7.0 Not Available [facility] (Lab) [address] [place], [address], 03/09/2023 19:50:06 03/09/20 23 03/09/2023 CBC W/O DIFFE RENTI AL mean red cell hemoglobin 26.1 pg 27.0-3 3.0 low Not Available [facility] (Lab) [address] [place], [address], 03/09/2023 19:50:06 03/09/20 23 03/09/2023 CBC W/O DIFFE RENTI AL mean RBC HGB concentratio n 30.8 g/dL 31.0-3 6.0 low Not Available [facility] (Lab) [address] [place], [address], 03/09/2023 19:50:06 03/09/20 23 03/09/2023 CBC W/O DIFFE RENTI AL red cell distribution width 14.4 % 11.8-1 5.5 Not Available [facility] (Lab) [address] [place], [address], 03/09/2023 19:50:06 03/09/20 23 03/09/2023 CBC W/O DIFFE RENTI AL platelets 323 x10'3 /uL 150-40 0 Not Available [facility] (Lab) [address] [place], [address], 03/09/2023 19:50:06 03/09/20 23 03/09/2023 CBC W/O DIFFE RENTI AL mean platelet volume 10.5 fL 9.0-12 .4 Not Available [facility] (Lab) [address] [place], [address], 03/09/2023 19:50:06 03/09/20 23 03/09/2023 MICRO ALBUM IN RANDO M URINE microalbumin , urine <6.0 mg/L 0.0-16 .6 Not Available [facility] (Lab) [address] [place], [address], 03/09/2023 20:14:18 03/09/2003/09/2023 LIPID PANEL cholesterol 122 mg/dL 140-19 9 low NIH ANNIE NSUS RECOM MENDA TION FOR ASHLI STERO L: ADULT CHILD LOW RISK: <200 <170 BORDE RLINE : <200- 239 ----- HIGH RISK: >240 >200 Not Available [facility] (Lab) [address] [place], [address], 03/09/2023 20:11:35 03/09/20 23 03/09/2023 LIPID PANEL triglyceride s 234 mg/dL 0-150 high NIH ANNIE NSUS REPOR T RECOM MENDA TION FOR TRIGL YCERI LIBAN: ADULT CHILD LOW RISK: <150 ----- BODER LINE: 150-1 99 ----- HIGH RISK: >200 ----- Not Available [facility] (Lab) [address] [place], [address], 03/09/2023 20:11:35 03/09/20 23 03/09/2023 LIPID PANEL HDL cholesterol 30 mg/dL 40- low Not Available [facility] (Lab) [address] [place], [address], 03/09/2023 20:11:35 03/09/20 23 03/09/2023 LIPID PANEL LDL cholesterol, calculated 45 mg/dL 0-130 NIH ANNIE NSUS REPOR T RECOM MENDA TIONS FOR LDL: ADULT CHILD LOW RISK <130 <110 (OPTI MAL LDL) <100 ----- CHRISTEL RLINE : 130-1 59 ----- HIGH RISK: >160 >130 A TRIGL YCERI DE RESUL T >400 INVAL IDATE S THE CALCU LATIO N FOR LDL FRACT IONAT ION - THE LDL RESUL T WILL NOT BE REPOR YAHIR. Not Available [facility] (Lab) [address] [place], [address], 03/09/2023 20:11:35 03/09/20 23 03/09/2023 COMPR EHENS CARMEN METAB OLIC PANEL sodium 137 mmol/ L 137-14 5 Not Available [facility] (Lab) [address] [place], [address], 03/09/2023 20:11:41 03/09/20 23 03/09/2023 COMPR EHENS CARMEN METAB OLIC PANEL potassium 4.3 mmol/ L 3.5-5. 1 Not Available [facility] (Lab) [address] [place], [address], 03/09/2023 20:11:41 03/09/20 23 03/09/2023 COMPR EHENS CARMEN METAB OLIC PANEL chloride 102 mmol/ L 98-107 Not Available [facility] (Lab) [address] [place], [address], 03/09/2023 20:11:41 03/09/20 23 03/09/2023 COMPR EHENS CARMEN METAB OLIC PANEL carbon dioxide 22 mmol/ L 22-30 Not Available [facility] (Lab) [address] [place], [address], 03/09/2023 20:11:41 03/09/20 23 03/09/2023 COMPR EHENS CARMEN METAB OLIC PANEL anion gap 17.3 mmol/ L 14-22 Not Available [facility] (Lab) [address] [place], [address], 03/09/2023 20:11:41 03/09/20 23 03/09/2023 COMPR EHENS CARMEN METAB OLIC PANEL glucose 259 mg/dL 70-99 high Not Available [facility] (Lab) [address] [place], [address], 03/09/2023 20:11:41 03/09/20 23 03/09/2023 COMPR EHENS CARMEN METAB OLIC PANEL BUN 10 mg/dL 8-19 Not Available [facility] (Lab) [address] [place], [address], 03/09/2023 20:11:41 03/09/20 23 03/09/2023 COMPR EHENS CARMEN METAB OLIC PANEL creatinine 0.57 mg/dL 0.66-1 .25 low Not Available [facility] (Lab) [address] [place], [address], 03/09/2023 20:11:41 03/09/20 23 03/09/2023 COMPR EHENS CARMEN METAB OLIC PANEL GFR >60 Refer ence Range : [place] ge GFR Healt hy Adult : >60 mL/mi n/1.7 3 m2 Chron ic Kidne y Disea se: 15-60 mL/mi n/1.7 3 m2 Kidne y Failu re: <15/m L/min /1.73 m2 www.n iddk. nih.g ov The MDRD study equat ion has not been valid ated in child areli <18 years of age; pregn ant women ; the elder ly >85 years of age; or in some racia l or ethni c subgr oups, such as Hispa nics. Outsi de the valid ated kiah eters , estim ated GFR is less accur ate, requi ring clini ernesto judgm ent on a case- by-ca se basis . Clini ernesto inter preta tion for other races and ages must be made by the clini isis. The MDRD study equat ion has not been valid ated for the evalu ation of serum creat inine relat ed to nutri mamie l statu s or medic ation usage . For perso ns <18 years of age, a pedia tric GFR calcu lator is avail able on the [facility] websi te: https ://alirio w.samia jackson.o rg/pr ofess ional s/kdo qi/gf r_cal culat or Not Available [facility] (Lab) [address] [place], [address], 03/09/2023 20:11:41 03/09/20 23 03/09/2023 COMPR EHENS CARMEN METAB OLIC PANEL alkaline phosphatase 69 U/L 38-126 Not Available [facility] (Lab) [address] [place], [address], 03/09/2023 20:11:41 03/09/20 23 03/09/2023 COMPR EHENS CARMEN METAB OLIC PANEL alanine aminotransfe rase 36 U/L 0-50 Not Available [facility] (Lab) [address] [place], [address], 03/09/2023 20:11:41 03/09/20 23 03/09/2023 COMPR EHENS CARMEN METAB OLIC PANEL aspartate aminotransfe rase 31 U/L 15-46 Not Available [facility] (Lab) [address] [place], [address], 03/09/2023 20:11:41 03/09/20 23 03/09/2023 COMPR EHENS CARMEN METAB OLIC PANEL bilirubin, total 0.50 mg/dL 0.20-1 .30 Not Available [facility] (Lab) [address] [place], [address], 03/09/2023 20:11:41 03/09/20 23 03/09/2023 COMPR EHENS CARMEN METAB OLIC PANEL calcium 9.6 mg/dL 8.4-10 .2 Not Available [facility] (Lab) [address] [place], [address], 03/09/2023 20:11:41 03/09/20 23 03/09/2023 COMPR EHENS CARMEN METAB OLIC PANEL total protein 7.1 g/dL 6.3-8. 2 Not Available [facility] (Lab) [address] [place], [address], 03/09/2023 20:11:41 03/09/20 23 03/09/2023 COMPR EHENS CARMEN METAB OLIC PANEL albumin 4.1 g/dL 3.0-4. 4 Not Available [facility] (Lab) [address] [place], [address], 03/09/2023 20:11:41 03/09/20 23 03/09/2023 COMPR EHENS CARMEN METAB OLIC PANEL globulin 3.0 g/dL 2.6-4. 2 Not Available [facility] (Lab) [address] [place], [address], 03/09/2023 20:11:41 03/09/20 23 03/09/2023 COMPR EHENS CARMEN METAB OLIC PANEL A/G ratio 1.4 ratio 1.0-2. 0 Not Available [facility] (Lab) [address] [place], [address], 03/09/2023 20:11:41 05/03/2005/03/2023 CBC W/O DIFFE RENTI AL white blood cells 7.6 x10'3 /uL 4.2-10 .8 Not Available [facility] (Lab) [address] [place], [address], 05/03/2023 19:37:48 05/03/2005/03/2023 CBC W/O DIFFE RENTI AL red blood cells 4.13 x10'6 /uL 4.10-5 .80 Not Available [facility] (Lab) [address] [facility] [place], [address], 05/03/2023 19:37:48 05/03/2005/03/2023 CBC W/O DIFFE RENTI AL hemoglobin 10.6 g/dL 13.2-1 7.0 low Not Available [facility] (Lab) [address] [place], [address], 05/03/2023 19:37:48 05/03/2005/03/2023 CBC W/O DIFFE RENTI AL hematocrit 34.7 % 39.3-5 0.0 low Not Available [facility] (Lab) [address] [place], [address], 05/03/2023 19:37:48 05/03/2005/03/2023 CBC W/O DIFFE RENTI AL mean red cell volume 84.0 fL 80.0-9 7.0 Not Available [facility] (Lab) [address] [place], [address], 05/03/2023 19:37:48 05/03/2005/03/2023 CBC W/O DIFFE RENTI AL mean red cell hemoglobin 25.7 pg 27.0-3 3.0 low Not Available [facility] (Lab) [address] [place], [address], 05/03/2023 19:37:48 05/03/20 23 05/03/2023 CBC W/O DIFFE RENTI AL mean RBC HGB concentratio n 30.5 g/dL 31.0-3 6.0 low Not Available [facility] (Lab) [address] [place], [address], 05/03/2023 19:37:48 05/03/20 23 05/03/2023 CBC W/O DIFFE RENTI AL red cell distribution width 14.7 % 11.8-1 5.5 Not Available [facility] (Lab) [address] [place], [address], 05/03/2023 19:37:48 05/03/20 23 05/03/2023 CBC W/O DIFFE RENTI AL platelets 306 x10'3 /uL 150-40 0 Not Available [facility] (Lab) [address] [place], [address], 05/03/2023 19:37:48 05/03/20 23 05/03/2023 CBC W/O DIFFE RENTI AL mean platelet volume 10.7 fL 9.0-12 .4 Not Available [facility] (Lab) [address] [place], [address], 05/03/2023 19:37:48 05/03/20 23 05/03/2023 COMPR EHENS CARMEN METAB OLIC PANEL sodium 137 mmol/ L 137-14 5 Not Available [facility] (Lab) [address] [place], [address], 05/03/2023 20:57:24 05/03/2005/03/2023 COMPR EHENS CARMEN METAB OLIC PANEL potassium 4.6 mmol/ L 3.5-5. 1 Not Available [facility] (Lab) [address] [place], [address], 05/03/2023 20:57:24 05/03/20 23 05/03/2023 COMPR EHENS CARMEN METAB OLIC PANEL chloride 104 mmol/ L 98-107 Not Available [facility] (Lab) [address] [place], [address], 05/03/2023 20:57:24 05/03/20 23 05/03/2023 COMPR EHENS CARMEN METAB OLIC PANEL carbon dioxide 25 mmol/ L 22-30 Not Available [facility] (Lab) [address] [place], [address], 05/03/2023 20:57:24 05/03/20 23 05/03/2023 COMPR EHENS CARMEN METAB OLIC PANEL anion gap 12.6 mmol/ L 14-22 low Not Available [facility] (Lab) [address] [place], [address], 05/03/2023 20:57:24 05/03/20 23 05/03/2023 COMPR EHENS CARMEN METAB OLIC PANEL glucose 280 mg/dL 70-99 high Not Available [facility] (Lab) [address] [place], [address], 05/03/2023 20:57:24 05/03/20 23 05/03/2023 COMPR EHENS CARMEN METAB OLIC PANEL BUN 10 mg/dL 8-19 Not Available [facility] (Lab) [address] [place], [address], 05/03/2023 20:57:24 05/03/20 23 05/03/2023 COMPR EHENS CARMEN METAB OLIC PANEL creatinine 0.51 mg/dL 0.66-1 .25 low Not Available [facility] (Lab) [address] [place], [address], 05/03/2023 20:57:24 05/03/20 23 05/03/2023 COMPR EHENS CARMEN METAB OLIC PANEL GFR >60 Refer ence Range : [place] ge GFR Healt hy Adult : >60 mL/mi n/1.7 3 m2 Chron ic Kidne y Disea se: 15-60 mL/mi n/1.7 3 m2 Kidne y Failu re: <15/m L/min /1.73 m2 www.n iddk. nih.g ov The MDRD study equat ion has not been valid ated in child areli <18 years of age; pregn ant women ; the elder ly >85 years of age; or in some racia l or ethni c subgr oups, such as Hispa nics. Outsi de the valid ated kiah eters , estim ated GFR is less accur ate, requi ring clini ernesto judgm ent on a case- by-ca se basis . Clini ernesto inter preta tion for other races and ages must be made by the clini isis. The MDRD study equat ion has not been valid ated for the evalu ation of serum creat inine relat ed to nutri mamie l statu s or medic ation usage . For perso ns <18 years of age, a pedia tric GFR calcu lator is avail able on the [facility] websi te: https ://alirio w.kid manuel.o rg/pr ofess ional s/kdo qi/gf r_cal culat or Not Available [facility] (Lab) [address] [place], [address], 05/03/2023 20:57:24 05/03/20 23 05/03/2023 COMPR EHENS CARMEN METAB OLIC PANEL alkaline phosphatase 61 U/L 38-126 Not Available [facility] (Lab) [address] [place], [address], 05/03/2023 20:57:24 05/03/20 23 05/03/2023 COMPR EHENS CARMEN METAB OLIC PANEL alanine aminotransfe rase 34 U/L 0-50 Not Available [facility] (Lab) [address] [place], [address], 05/03/2023 20:57:24 0805/03/2023 COMPR EHENS CARMEN METAB OLIC PANEL aspartate aminotransfe rase 26 U/L 15-46 Not Available [facility] (Lab) [address] [place], [address], 05/03/2023 20:57:24 05/03/20 23 05/03/2023 COMPR EHENS CARMEN METAB OLIC PANEL bilirubin, total 0.20 mg/dL 0.20-1 .30 Not Available [facility] (Lab) [address] [place], [address], 05/03/2023 20:57:24 05/03/20 23 05/03/2023 COMPR EHENS CARMEN METAB OLIC PANEL calcium 9.2 mg/dL 8.4-10 .2 Not Available [facility] (Lab) [address] [place], [address], 05/03/2023 20:57:24 05/03/20 23 05/03/2023 COMPR EHENS CARMEN METAB OLIC PANEL total protein 6.6 g/dL 6.3-8. 2 Not Available [facility] (Lab) [address] [place], [address], 05/03/2023 20:57:24 05/03/20 23 05/03/2023 COMPR EHENS CARMEN METAB OLIC PANEL albumin 4.1 g/dL 3.0-4. 4 Not Available [facility] (Lab) [address] [place], [address], 05/03/2023 20:57:24 05/03/20 23 05/03/2023 COMPR EHENS CARMEN METAB OLIC PANEL globulin 2.5 g/dL 2.6-4. 2 low Not Available [facility] (Lab) [address] [place], [address], 05/03/2023 20:57:24 05/03/20 23 05/03/2023 COMPR EHENS CARMEN METAB OLIC PANEL A/G ratio 1.6 ratio 1.0-2. 0 Not Available [facility] (Lab) [address] [place], [address], 05/03/2023 20:57:24 05/03/20 23 05/03/2023 HEMOG LOBIN A1C HA1C 8.8 % 4.0-6. 0 high Diabe enrrique Scree kristal Crite tejas: <5.7% Consi stent with absen ce of diabe enrrique 5.7-6 .4% Consi stent with incre ased risk for diabe enrrique (pred iabet es) >OR=6 .5% Consi stent with diabe enrrique REFER ENCE: Diabe enrrique Care 2016, 39(Hooks ppl.1 ):s13 -s22 Not Available [facility] (Lab) [address] [place], [address], 05/03/2023 21:19:23 08/03/20 23 08/03/2023 URINA LYSIS COMPL ETE/I RIS W/RFX color LIGHT- YELLOW Not Available [facility] (Lab) [address] [place], [address], 08/03/2023 20:11:22 08/03/20 23 08/03/2023 URINA LYSIS COMPL ETE/I RIS W/RFX appear CLEAR Not Available [facility] (Lab) [address] [place], [address], 08/03/2023 20:11:22 08/03/20 23 08/03/2023 URINA LYSIS COMPL ETE/I RIS W/RFX specific gravity 1.029 1.001- 1.030 Not Available [facility] (Lab) [address] [place], [address], 08/03/2023 20:11:22 08/03/20 23 08/03/2023 URINA LYSIS COMPL ETE/I RIS W/RFX pH 5.5 pH_un its 5.0-9. 0 Not Available [facility] (Lab) [address] [place], [address], 08/03/2023 20:11:22 08/03/20 23 08/03/2023 URINA LYSIS COMPL ETE/I RIS W/RFX leukocytes NEGATI VE marily/u L negati ve- Not Available [facility] (Lab) [address] [place], [address], 08/03/2023 20:11:22 08/03/20 23 08/03/2023 URINA LYSIS COMPL ETE/I RIS W/RFX nitrite NEGATI VE negati ve- Not Available [facility] (Lab) [address] [place], [address], 08/03/2023 20:11:22 08/03/20 23 08/03/2023 URINA LYSIS COMPL ETE/I RIS W/RFX protein NEGATI VE mg/dL negati ve- Not Available [facility] (Lab) [address] [place], [address], 08/03/2023 20:11:22 08/03/20 23 08/03/2023 URINA LYSIS COMPL ETE/I RIS W/RFX glucose >/=100 0 mg/dL normal - abnormal Not Available [facility] (Lab) [address] [place], [address], 08/03/2023 20:11:22 08/03/20 23 08/03/2023 URINA LYSIS COMPL ETE/I RIS W/RFX ketones NEGATI VE mg/dL negati ve- Not Available [facility] (Lab) [address] [place], [address], 08/03/2023 20:11:22 08/03/20 23 08/03/2023 URINA LYSIS COMPL ETE/I RIS W/RFX urobilinogen NORMAL mg/dL normal - Not Available [facility] (Lab) [address] [place], [address], 08/03/2023 20:11:22 08/03/20 23 08/03/2023 URINA LYSIS COMPL ETE/I RIS W/RFX bilirubin NEGATI VE mg/dL negati ve- Not Available [facility] (Lab) [address] [place], [address], 08/03/2023 20:11:22 08/03/20 23 08/03/2023 URINA LYSIS COMPL ETE/I RIS W/RFX blood NEGATI VE mg/dL negati ve- Not Available [facility] (Lab) [address] [place], [address], 08/03/2023 20:11:22 08/03/20 23 08/03/2023 URINA LYSIS COMPL ETE/I RIS W/RFX white blood cells 0-8 /i??h pfi?? 0-8 Not Available [facility] (Lab) [address] [place], [address], 08/03/2023 20:11:22 08/03/20 23 08/03/2023 URINA LYSIS COMPL ETE/I RIS W/RFX red blood cells 0-4 /i??h pfi?? 0-4 Not Available [facility] (Lab) [address] [place], [address], 08/03/2023 20:11:22 08/03/20 23 08/03/2023 URINA LYSIS COMPL ETE/I RIS W/RFX bacteria NONE Not Available [facility] (Lab) [address] [place], [address], 08/03/2023 20:11:22 08/03/20 23 08/03/2023 URINA LYSIS COMPL ETE/I RIS W/RFX squamous epithelial NONE /i??l pfi?? abnormal Not Available [facility] (Lab) [address] [place], [address], 08/03/2023 20:11:22 08/03/20 23 08/03/2023 HEMOG LOBIN A1C HA1C 8.6 % 4.0-6. 0 high Diabe enrrique Teae kristal Matutete tejas: <5.7% Consi stent with absen ce of diabe enrrique 5.7-6 .4% Consi stent with incre ased risk for diabe enrrique (pred iabet es) >OR=6 .5% Consi stent with diabe enrrique REFER ENCE: Diabe enrrique Care 2016, 39(Hooks ppl.1 ):s13 -s22 Not Available [facility] (Lab) [address] [place], [address], 08/03/2023 20:47:08 08/03/20 23 08/05/2023 PSA TOTAL +FREE (LC) prostate specific Ag, serum 0.9 NG/mL 0.0-4. 0 Maurizio ECLIA metho dolog y. . Accor ding to the [employer] n, Serum PSA shoul d decre ase and remai n at undet ectab le level s after radic al prost atect gabriel. The AUA defin es bioch emica l recur rence as an initi al PSA value 0.2 ng/mL or great er follo wed by a subse quent confi rmato ry PSA value 0.2 ng/mL or great er. Value s obtai winnie with diffe rent assay metho ds or kits canno t be used inter ervin eably . Resul ts canno t be inter prete d as absol grayling evide nce of the prese nce or absen ce of nicanor manzoa se. Not Available [facility] (Lab) [address] [place], [address], 08/05/2023 08:15:10 08/03/20 23 08/05/2023 PSA TOTAL +FREE (LC) PSA, free 0.17 NG/mL n/a Maurizio ECLIA metho dolog y. Not Available [facility] (Lab) [address] [place], [address], 08/05/2023 08:15:10 08/03/20 23 08/05/2023 PSA TOTAL +FREE (LC) % free PSA 18.9 % The table below lists the proba bilit y of prost ate cance r for men with non-s uspic ious ALYSSA resul ts and total PSA betwe en 4 and 10 ng/mL , by patie nt age (Maria jorge et al, MORIAH 1998, 279:1 542). % Free PSA 50-64 yr 65-75 yr 0.00- 10.00 % 56% 55% 10.01 -15.0 0% 24% 35% 15.01 -20.0 0% 17% 23% 20.01 -25.0 0% 10% 20% >25.0 0% 5% 9% Plevenice e note: Marcus dean et al did not make speci fic recom menda tions regar ding the use of perce nt free PSA for any other popul ation of men. Perfo rmed at: [facility] [address] [id number] Lab Direc tor: Christiano mcgee PhD, Phone : [phone] Not Available [facility] (Lab) [address] [place], [address], 08/05/2023 08:15:10 08/10/20 23 08/10/2023 CREAT ININE , I-STA T creatinine 0.5 mg/dL 0.6-1. 3 low Not Available [facility] (Lab) [address] [place], [address], 08/10/2023 09:47:55 04/19/20 23 04/19/2023 XR, chest No observ ation record ed. [email or web address] [facility] [address] [place], [address], 04/20/2023 10:24:45 04/19/20 23 04/19/2023 XR, lumba r spine No observ ation record ed. [email or web address] [facility] [address] [place], [address], 04/20/2023 10:25:07 04/19/20 23 04/19/2023 XR, thora cic spine No observ ation record ed. [email or web address] [facility] [address] [place], [address], 04/20/2023 10:26:20 08/10/20 23 08/10/2023 CT, head, w/wo contr ast No observ ation [facility] ed. [email or web address] ([facility] Scheduling) [address] [place], [address], 08/14/2023 17:49:17 08/22/20 23 08/22/2023 XR, chest No observ ation record ed. [email or web address] [facility] [address] [place], [address], 08/22/2023 13:44:33 09/04/20 23 08/28/2023 US, echoc ardio gram No observ ation record ed. [facility] [address], [place], [address], 09/06/2023 08:53:08 12/14/19 24 12/14/2023 XR, foot [facility] [address] [place] [address] Patien t Name: CHRISTIAN MCCURDY [facility] ion #: [id number] Sex: M : 1954 3 Dictat ed By: Sj Moreno Attend ing Physic taran: ASHLEY NERI [facility] Physic taran: ASHLEY NERI Exam Date: 2023 10:46 AM Exam Name: XR FOOT RT 3V+ Admitt ing Diagno sis(es ): CLINIC AL INDICA TION: pain in right ankle and joints of right foot [facility] Indica tion: pain in right ankle and joints of right foot Compar raghavendra: None FINDIN GS: The AP, obliqu e, and latera l views of the ankle show normal alignm ent withou t fractu res or disloc ations . The mortis e is normal . The tibiot alar joint and talar dome are unrema rkable . The subtal ar joint is unrema rkable . There is no ankle joint effusi on. The distal tibia- fibula r alignm ent is unrema rkable . There is no soft tissue swelli ng or radiop aque foreig n bodies . If there is furthe r concer n, recomm end follow -up radiog raphs or MRI for comple te assess ment. IMPRES ANTONIO: No fractu res or disloc ation of the right ankle. Foot 3 views Clinic al Indica tion: pain in right ankle and joints of right foot Compar raghavendra: None FINDIN GS: AP, obliqu e, and latera l views of the foot show normal alignm ent withou t fractu res or disloc ations . There is narrow ing of the first MTP joint. . The talar dome is normal . Page 1 [facility] [place] [address] Patien t Name: CHRISTIAN MCCURDY ion #: [id number] Sex: M : 1954 3 Dictat ed By: Sj Moreno Attend ing Physic taran: YANG HINKLE Orderi ng Physic taran: ASHLEY NERI Exam Date: 2023 10:46 AM Exam Name: XR FOOT RT 3V+ Admitt ing Diagno sis(es ): There is no soft tissue swelli ng or radiop aque foreig n bodies . If there is furthe r concer n, recomm end follow -up radiog raphs or bone scan for comple te assess ment. IMPRES ANTONIO: No acute fractu res identi fied. Arthri tic change s of the first MTP joint SL: HM-IC- PHAM1 Electr onical ly Signed by: Sj Moreno at 2023 13:38: 13 PM Page 2 [facility] (Imaging) [address], [place], [address], 12/15/2023 16:04:31 12/14/19 24 12/14/2023 XR, ankle , 3 or more view [facility] [address] [facility] [address], [place] [address] Patien t Name: CHRITSIAN MCCURDY Access ion #: [id number] Sex: M : 1954 3 Dictat ed By: Sj Moreno Attend ing Physic taran: ASHLEY NERI Physic taran: ASHLEY NERI Exam Date: 2023 10:46 AM Exam Name: XR ANKLE RT 3V+ Admitt ing Diagno sis(es ): CLINIC AL INDICA TION: pain in right ankle and joints of right foot [facility] al Indica tion: pain in right ankle and joints of right foot Compar raghavendra: None FINDIN GS: The AP, obliqu e, and latera l views of the ankle show normal alignm ent withou t fractu res or disloc ations . The mortis e is normal . The tibiot alar joint and talar dome are unrema rkable . The subtal ar joint is unrema rkable . There is no ankle joint effusi on. The distal tibia- fibula r alignm ent is unrema rkable . There is no soft tissue swelli ng or radiop aque foreig n bodies . If there is furthe r concer n, recomm end follow -up radiog raphs or MRI for comple te assess ment. IMPRES ANTONIO: No fractu res or disloc ation of the right ankle. Foot 3 views Clinic al Indica tion: pain in right ankle and joints of right foot Compar raghavendra: None FINDIN GS: AP, obliqu e, and latera l views of the foot show normal alignm ent withou t fractu res or disloc ations . There is narrow ing of the first MTP joint. . The talar dome is normal . Page 1 [facility] [address] [place] [address] Patien t Name: CHRISTIAN MCCURDY ion #: [id number] Sex: M : 1954 3 Dictat ed By: Sj Moreno Attend ing Physic taran: YANG HINKLE Orderi ng Physic taran: ASHLEY NERI Exam Date: 2023 10:46 AM Exam Name: XR ANKLE RT 3V+ Admitt ing Diagno sis(es ): There is no soft tissue swelli ng or radiop aque foreig n bodies . If there is furthe r concer n, recomm end follow -up radiog raphs or bone scan for comple te assess ment. IMPRES ANTONIO: No acute fractu res identi fied. Arthri tic change s of the first MTP joint SL: HM-IC- PHAM1 Electr onical ly Signed by: Sj Moreno at 2023 13:38: 13 PM Page 2 [email or web address] (Imaging) [address] [place], [address], 12/14/2023 15:16:36 12/14/1912/14/2023 XR, ankle + foot No observ ation record ed. [address] (One Call Scheduling) [address] [place], [address], 04/23/2024 11:00:26 12/14/1912/14/2023 XR, ankle + foot No observ ation record ed. [address] (One Call Scheduling) [address] [place], [address], 04/23/2024 11:00:40 Result Notes None recorded. Problems Name Problem SNOMED Code Status Onset Date Resolution Date Notes Provider Name and Address Organization Details Recorded Time Disorder of shoulder 121229081 Active Not Available [facility] 3 04:56:33 Radial styloid tenosynovi tis 64101829 Active Not Available [facility] 3 04:56:33 Mixed anxiety and depressive disorder 730966312 Active 2020 Not Available [facility] 3 04:56:33 Hyperglyce carmita due to type 2 diabetes mellitus 2199431886518 09 Active 2020 Not Available [facility] 3 04:56:34 Disorder of bursa of shoulder region 34645325 Active Not Available [facility] 3 04:56:34 Chronic low back pain 375567681 Active 2022 Not Available [facility] 3 04:56:33 Anemia of chronic disease 876822997 Active 2022 Not Available [facility] 3 04:56:33 Chronic sinusitis 05317129 Active 2022 Not Available [facility] 3 04:56:34 Essential hypertensi on 86065822 Active 2022 Not Available [facility] 3 04:56:34 Acute sinusitis 02323492 Active 2022 Not Available [facility] 3 04:56:33 Acute pharyngiti s 417810315 Active 2022 Not Available [facility] 3 04:56:33 Neck pain 82160262 Active 2022 Not Available [facility] 3 04:56:34 Pain in upper limb 338237967 Active 2022 Not Available [facility] 3 04:56:33 Chronic back pain 119779577 Active 2022 Not Available [facility] 3 04:56:33 Upper respirator y infection 96153941 Active 2022 Not Available [facility] 3 04:56:34 Intermitte nt confusion 976501034 Active 2022 Not Available [facility] 3 04:56:33 Dysuria 38315919 Active 2022 Not Available [facility] 3 04:56:34 Vitamin D deficiency 57280467 Active 2022 TESSA Alexander [address] [place], [place] [address], [facility] [address], [place], [address] , [place] [facility] 3 17:19:49 Nasal congestion 78626294 Active 2022 Ayad CottonMAINE keene-C [address] [facility], [facility] [address], [place], [address] , [facility] 3 17:20:23 Pain of right ankle joint 0405473889594 9106 Active 2023 Carmen Bean MD [address] [facility], [facility] [address], [place], [address] , [facility] 4 12:03:44 Notes:Some problems listed i n Document: #[id number] could not be added to this patient's chart. Please review this document and add these problems to the patient's chart manually as needed. Problem Notes None recorded. Procedures Surgical History Date Name Laterality Status Provider Name and Address Organization Details Recorded Time procedure on gallbladder completed Not Available [facility] 11/30/2022 10:42:54 Brain Surgery completed Not Available [facility] 11/30/2022 10:42:54 Imaging Results Imaging Date Name Status LastModified by Organization Details LastModified Time 04/19/2023 XR, chest completed [email or web address] [facility] [address] [place], [address], 04/20/2023 10:24:45 04/19/2023 XR, lumbar spine completed [email or web address] [facility] [address] [place], [address], 04/20/2023 10:25:07 04/19/2023 XR, thoracic spine completed [email or web address] [facility] [address] [place], [address], 04/20/2023 10:26:20 08/10/2023 CT, head, w/wo contrast completed [email or web address] [facility] (One Call Scheduling) [address] [place], [address], 08/14/2023 17:49:17 08/22/2023 XR, chest completed [email or web address] [facility] [address] [place], [address], 08/22/2023 13:44:33 08/28/2023 US, echocardiogram completed [email or web address] [facility] [address], [place], [address], 09/06/2023 08:53:08 12/14/2023 XR, foot completed [email or web address] [facility] (Imaging) [address] [place], [address], 12/15/2023 16:04:31 12/14/2023 XR, ankle, 3 or more view completed [email or web address] [facility] (Imaging) [address] [place], [address], 12/14/2023 15:16:36 12/14/2023 XR, ankle + foot completed [email or web address] [facility] (One Call Scheduling) [address] [place], [address], 04/23/2024 11:00:26 12/14/2023 XR, ankle + foot completed [email or web address] [place] [address] (One Call Scheduling) [address] [place], [address], 04/23/2024 11:00:40 Procedure Notes None recorded. Medical Equipment None Reported. Allergies No known drug allergies Medications Name Sig Start Date Stop Date Status Note LastModified by Organization Details LastModified Time carisopro dol 350 mg tablet active Not Available Not Available No t Available cyclobenz aprine 10 mg tablet TAKE 1 TABLET BY MOUTH EVERY 12 HOURS active Not Available Not Available No t Available amoxicill in 500 mg capsule Take 1 capsule every 8 hours by oral route for 7 days. 04/14 completed Not Available Not Available Not Available pioglitaz one 15 mg tablet Take 1 tablet every day by oral route for 90 days. 10/12 completed Not Available Not Available Not Available BD Alcohol Swabs USE DIRECTED TO TEST BLOOD SUGARS 5 TIMES DAILY (FASTING , BEFORE EACH MEAL, EVERY NIGHT AT BEDTIME ) 2023 active Not Available Not Available Not Avai lable atorvasta tin 80 mg tablet active Not Available Not Available Not Available carvedilo l 6.25 mg tablet TAKE 1 TABLET BY MOUTH TWICE DAILY 01/13 completed Not Available Not Available Not Available doxycycli ne hyclate 100 mg capsule active Not Available Not Available Not Available cefuroxim e axetil 250 mg tablet 10/17 completed Not Available Not Available Not Available carvedilo l 12.5 mg tablet TAKE 1 TABLET BY MOUTH TWICE DAILY active Not Available Not Available No t Available OneTouch Ultra Control solution Use per manufact traci's instruct ions active Not Available Not Available No t Available cetirizin e 10 mg tablet active Not Available Not Available Not Available lisinopri l 20 mg-hydroc hlorothia zide 12.5 mg tablet 01/13 completed Not Available Not Available Not Available azithromy jael 250 mg tablet 10/17 completed Not Available Not Available Not Available ibuprofen 800 mg tablet Take 1 tablet every 8 hours by oral route as needed. active Not Available Not Available No t Available alprazola m 1 mg tablet TK 1 T PO TID PRN active Not Available Not Available No t Available tizanidin e 4 mg tablet 10/12 completed Not Available Not Available Not Available prednison e 20 mg tablet active Not Available Not Available Not Available glipizide ER 5 mg tablet, extended release 24 hr active Not Available Not Available Not Available Nexium 40 mg capsule,d elayed release active Not Available Not Available Not Available clopidogr el 75 mg tablet active Not Available Not Available Not Available levofloxa jael 250 mg tablet 10/17 completed Not Available Not Available Not Available ciproflox acin 500 mg tablet 10/17 completed Not Available Not Available Not Available morphine ER 30 mg tablet,ex tended release TK 1 T PO BID 09/13 completed Not Available Not Available Not Available hydrocodo ne 10 mg-acetam inophen 325 mg tablet TK 1 T PO QID PRN 08/31 completed Not Available Not Available Not Available omeprazol e 40 mg capsule,d elayed release 10/12 completed Not Available Not Available Not Available spironola ctone 25 mg tablet active Not Available Not Available No t Available ketorolac 30 mg/mL (1 mL) injection solution Inject 2 mL every 6 hours by intramus cular route. 2022 active Not Available Not Available Not Avai lable pantopraz ole 20 mg tablet,de layed release 10/12 completed Not Available Not Available Not Available meloxicam 7.5 mg tablet active Not Available Not Available Not Available amoxicill in 875 mg tablet Take 1 tablet every 12 hours by oral route for 7 days. active Not Available Not Available No t Available methocarb harpreet 750 mg tablet Take 1 tablet 3 times a day by oral route as needed for 30 days. active Not Available Not Available No t Available OneTouch Ultra Test strips active Not Available Not Available Not Available Proctozon e-HC 2.5 % topical cream perineal applicato r active Not Available Not Available Not Available morphine ER 60 mg tablet,ex tended release 10/17 completed Not Available Not Available Not Available baclofen 10 mg tablet TK 1 T PO TID PRN. active Not Available Not Available No t Available amlodipin e 10 mg tablet Take 1 tablet every day by oral route. active Not Available Not Available No t Available morphine 30 mg immediate release tablet 09/13 completed Not Available Not Available Not Available hydrocodo ne 7.5 mg-acetam inophen 325 mg tablet TAKE 1 TABLET BY MOUTH EVERY 8 HOURS NEEDED 08/31 completed Not Available Not Available Not Available metformin 1,000 mg tablet TAKE 1 TABLET BY MOUTH TWICE DAILY active Not Available Not Available No t Available nystatin 100,000 unit/gram topical cream active Not Available Not Available Not Available buspirone 10 mg tablet Take 1 tablet twice a day by oral route. active Not Available Not Available No t Available clotrimaz ole-betam ethasone 1 %-0.05 % topical cream active Not Available Not Available Not Available glimepiri de 4 mg tablet Take 1 tablet every day by oral route for 90 days. 12/01 completed back pain Not Available Not Available Not Available naproxen 500 mg tablet,de layed release active Not Available Not Available Not Available lidocaine 5 % topical patch APPLY 1 2 PATCHES EVERY 12 HOURS NEEDED active Not Available Not Available No t Available promethaz ine 25 mg tablet active Not Available Not Available Not Available ibuprofen 400 mg tablet 08/31 completed Not Available Not Available Not Available nitroglyc asya 0.4 mg sublingua l tablet active Not Available Not Available Not Available gabapenti n 300 mg capsule TAKE 1 CAPSULE BY MOUTH EVERY 12 HOURS active Not Available Not Available No t Available omeprazol e 20 mg capsule,d elayed release TAKE 1 CAPSULE BY MOUTH TWICE DAILY active Not Available Not Available No t Available diclofena c sodium 75 mg tablet,de layed release TAKE 1 T PO BID WITH FOOD active Not Available Not Available No t Available cephalexi n 500 mg tablet 1 po bid x 7 days active Not Available Not Available No t Available insulin syringe U-100 with needle 1 mL 31 gauge x 02/14 USE TWICE DAILY active Not Available Not Available No t Available monteluka st 10 mg tablet TAKE 1 TABLET BY MOUTH EVERY DAY active Not Available Not Available No t Available morphine ER 15 mg tablet,ex tended release TAKE 1 TABLET BY MOUTH TWICE A DAY 09/13 completed Not Available Not Available Not Available furosemid e 20 mg tablet active Not Available Not Available Not Available gabapenti n 100 mg capsule active Not Available Not Available Not Available ergocalci ferol (vitamin D2) 1,250 mcg (50,000 unit) capsule TAKE 1 CAPSULE BY MOUTH EVERY WEEK FOR 8 WEEKS 2023 active Not Available Not Available Not Avai lable Nasonex 50 mcg/actua tion [place] active Not Available Not Available Not Available ibuprofen 600 mg tablet 08/31 completed Not Available Not Available Not Available levofloxa jael 500 mg tablet 10/17 completed Not Available Not Available Not Available ipratropi um bromide 42 mcg (0.06 %) nasal spray active Not Available Not Available Not Available fluoxetin e 20 mg capsule active Not Available Not Available Not Available fluticaso ne propionat e 50 mcg/actua tion nasal spray,coby pension [place] 2 sprays every day by intranas al route. 2023 active Not Available Not Available Not Avai lable doxycycli ne hyclate 100 mg tablet Take 1 tablet twice a day by oral route for 7 days. 01/13 completed Not Available Not Available Not Available irbesarta n 300 mg tablet active Not Available Not Available Not Available naproxen 500 mg tablet Take 1 tablet twice a day by oral route as needed for 90 days. active Not Available Not Available No t Available metoclopr amide 10 mg tablet active Not Available Not Available No t Available amoxicill in 875 mg-potass ium clavulana te 125 mg tablet Take 1 tablet every 12 hours by oral route with meals for 7 days. 09/13 completed Not Available Not Available Not Available amoxicill in 500 mg-[place]ass ium clavulana te 125 mg tablet 10/17 completed Not Available Not Available Not Available Ventolin HFA 90 mcg/actua tion aerosol inhaler Inhale 2 puffs every 4-6 hours by inhalati on route as needed. active Not Available Not Available No t Available Novolog Mix 70-30 FlexPen U-100 Insulin 100 unit/mL subcutane ous pen 10/12 completed Not Available Not Available Not Available Novolog Mix 70-30 U-100 Insulin 100 unit/mL subcutane ous solution 10/12 completed Not Available Not Available Not Available Crestor 20 mg tablet active Not Available Not Available Not Available metoprolo l tartrate 25 mg tablet active Not Available Not Available Not Available BD Ultra-Fin e Short Pen Needle 31 gauge x 02/14 active Not Available Not Available Not Available Januvia 100 mg tablet Take 1 tablet every day by oral route for 90 days. 12/01 completed swelling of legs Not Available Not Available Not Available Lantus Solostar U-100 Insulin 100 unit/mL (3 mL) subcutane ous pen Inject 80units SQ BID active Not Available Not Available No t Available Voltaren 1 % topical gel active Not Available Not Available Not Available Vascepa 1 gram capsule TAKE 2 CAPSULES BY MOUTH TWICE DAILY 10/12 completed Not Available Not Available Not Available potassium chloride ER 20 mEq tablet,ex tended release TAKE 1 TABLET BY MOUTH EVERY DAY active Not Available Not Available No t Available Levemir FlexTouch U-100 Insulin 100 unit/mL (3 mL) subcutane ous pen 08/07 completed Not Available Not Available Not Available Narcan 4 mg/actuat ion nasal spray ADMINIST ER DIRECTED REPEAT 2ND DOSE IF NEEDED. CALL 911 AFTER ADMINIST RATION active Not Available Not Available No t Available BD Rebecca 2nd Gen Pen Needle 32 gauge x 5/32 USE FOUR TIMES DAILY 2022 active Not Available Not Available Not Avai lable OneTouch Ultra2 Meter USE DIRECTED TO TEST BLOOD SUGARS 5 TIMES DAILY ( FASTING, BEFORE EACH MEAL, EVERY NIGHT AT BEDTIME ) active Not Available Not Available No t Available OneTouch Delica Plus Lancet 30 gauge active Not Available Not Available Not Available Ozempic 1 mg/dose (4 mg/3 mL) subcutane ous pen injector active Not Available Not Available Not Available Mounjaro 2.5 mg/0.5 mL subcutane ous pen injector Inject 1 mL every week by subcutan eous route. active Not Available Not Available No t Available FreeStyle Ksenia 3 Sensor device active Not Available Not Available Not Available Vitals Date Recorded Body height Body mass index (BMI) Body weight Body temperature Heart rate Oxygen saturation Oxygen saturation in Arterial blood by Pulse oximetry Systolic blood pressure Diastolic blood pressure Provider Name and Address Organization Details Last Updated DateTime 3 160.02 cm 32.6 kg/m2 16143 g 97.5 [degF] 84 /min 99 % 99 % 140 mm[Hg] 62 mm[Hg] Shara Parrish RN [facility] [employer] [facility] 3 14:37:58 Date Recorded Body height Body mass index (BMI) Body weight Body temperature Heart rate Oxygen saturation Oxygen saturation in Arterial blood by Pulse oximetry Systolic blood pressure Diastolic blood pressure Provider Name and Address Organization Details Last Updated DateTime 3 160.02 cm 32.4 kg/m2 59225.4 g 98.1 [degF] 70 /min 95 % 95 % 124 mm[Hg] 58 mm[Hg] Shara Parrish RN [facility] [employer] [facility] 3 15:04:16 Date Recorded Body weight Body temperature Heart rate Oxygen saturation Oxygen saturation in Arterial blood by Pulse oximetry Provider Name and Address Organization Details Last Updated DateTime 3 67096.5 9 g 98.4 [degF] 79 /min 98 % 98 % Edith Blanco LPN [facility] [employer] [facility] 3 14:42:54 Date Recorded Systolic blood pressure Diastolic blood pressure Provider Name and Address Organization Details Last Updated DateTime 08/03/2023 138 mm[Hg] 52 mm[Hg] Tien Torres, INTERVENTIONAL NURSE [address], [facility] [address], [place], [address], [place] [employer] [facility] [employer] 08/03/2023 15:59:30 Date Recorded Body height Body mass index (BMI) Body weight Body temperature Heart rate Oxygen saturation Oxygen saturation in Arterial blood by Pulse oximetry Systolic blood pressure Diastolic blood pressure Provider Name and Address Organization Details Last Updated DateTime 3 160.02 cm 32.9 kg/m2 87585.1 8 g 96.8 [degF] 84 /min 98 % 98 % 122 mm[Hg] 60 mm[Hg] [place]ia Bethea LPN [place] [employer] [facility] [employer] 3 16:54:17 Date Recorded Body height Body mass index (BMI) Body weight Body temperature Oxygen saturation Oxygen saturation in Arterial blood by Pulse oximetry Heart rate Systolic blood pressure Diastolic blood pressure Provider Name and Address Organization Details Last Updated DateTime 4 160.02 cm 32.6 kg/m2 06287 g 97.7 [degF] 98 % 98 % 67 /min 132 mm[Hg] 66 mm[Hg] Patricia Sánchez RN [facility] [employer] 4 14:32:23 Social History Question Answer Notes LastModified by Organizat ion Details LastModified Time Tobacco Smoking Status Never Smoker Not Available [facility] 11/30/2022 10:42:42 What Is Your Level Of Alcohol Consumption? Occasional [id number] Information not available 11/30/2022 What Is Your Level Of Caffeine Consumption? Moderate [id number] Information not available 11/30/2022 In The 14 Days Before Symptom Onset, Have You Had Close Contact With A Laboratory-confirm ed COVID-19 While That Case Was Ill? No [id number] Information not available 11/30/2022 In The 14 Days Before Symptom Onset, Have You Had Close Contact With A Person Who Is Under Investigation For COVID-19 While That Person Was Ill? No [id number] Information not available 11/30/2022 What Type Of Diet Are You Following? REGULAR [id number] Information not available 11/30/2022 Have You Ever Been Counseled For Unhealthy Alcohol Use? No [id number] Information not available 11/30/2022 Do You Use Any Illicit Or Recreational Drugs? No [id number] Information not available 11/30/2022 Has Tobacco Cessation Counseling Been Provided? No [id number] Information not available 11/30/2022 Do You Have Any Dietary Restrictions? No [id number] Information not available 11/30/2022 Do You Or Have You Ever Used Any Other Forms Of Tobacco Or Nicotine? No [id number] Information not available 11/30/2022 Sex: Unknown Functional Status Question Answer Note LastModified by Organizat ion Details LastModified Time What is your exercise level? None [id number] Information not available 11/30/2022 Mental Status None recorded. Family History Relationship Description Onset Age of this Age Resolved Age Notes LastModified by Organization Details LastModified Time Mother Diabetes mellitus [id number] Not available 11/30/2022 10:42:59 Medical History Condition Response HEART VALVE DISORDERS N BLINDNESS N KIDNEY STONES N CARPAL TUNNEL SYNDROME N MRSA N ALLERGIES/HAYFEVER N INFECTIOUS DISEASE N HEART ARRHYTHMIA N LUNG DISEASE/DISORDER N INSOMNIA N HISTORY OF DRUG ABUSE N COPD N RADIATION / CHEMOTHERAPY N RHEUMATOID ARTHRITIS N HIGH CHOLESTEROL / HYPERLIPIDEMIA N BLOOD DISEASES N EDEMA N CHRONIC PAIN SYNDROME N CAROTID BLOCKAGE Y SCHIZOPHRENIA N BOWEL PROBLEMS N DEPRESSION (INCLUDING POST ) N BACK / NECK PROBLEMS N HAVE YOU BEEN HOSPITALIZED OR SEEN IN [facility] IN THE PAST YEAR ? N STROKE/TIA N BURSITIS N ULCERS N BENIGN PROSTATIC HYPERPLASIA N HERNIATED DISC N DIALYSIS N OBESITY N GERD/NAUSEA N ANEURYSM N FIBROMYALGIA N OSTEOPOROSIS N URINARY/BLADDER/KIDNEY PROBLEMS N CORONARY ARTERY DISEASE (CAD) Y ADDICTION CONCERNS N ARTHRITIS N USE OF BLOOD THINNERS N NO SIGNIFICANT PAST MEDICAL HISTORY N PERIPHERAL NEUROPATHY N SKIN PROBLEMS N DIABETES, TYPE Y EMPHYSEMA N HEARTBURN / REFLUX N MUSCLE,JOINT OR BONE PROBLEMS N DVT N STOMACH ULCERS N BLOOD CLOTS N HEPATITIS / LIVER DISEASE N USE OF NSAIDS N CONCUSSION OR SPINAL TRAUMA N GOUT N SLEEP DISORDER N ALZHEIMER'S DISEASE N HERPES N HEADACHES/MIGRAINES N SEIZURES/EPILEPSY N VASCULAR DISEASE N Blood Disorder N DIZZINESS N HEAD TRAUMA OR INJURY N HEART DISEASE/HEART PROBLEMS N NEUROPATHY N AIDS/HIV N FRACTURES N MULTIPLE SCLEROSIS N HYPERTENSION N CARDIAC ARRHYTHMIA N CANCER: SPECIFY N ANXIETY DISORDER N Metal allergy N BLOOD TRANSFUSION N ANESTHESIA COMPLICATIONS N ANEMIA/BLOOD DISORDER N ATRIAL FIBRILLATION N BIPOLAR DISORDER N BRONCHITIS N AUTOIMMUNE DISEASE N OSTEOARTHRITIS N TUBERCULOSIS N FOOT PROBLEM N Past Encounters Encounter ID Performer Location Encounter Start Date Encounter Closed Date Diagnosis/Indication Diagnosis SNOMED-CT Code Diagnosis ICD10 Code Diagnosis Note [id number] [facility] [place] [address] [place] [address] 01/19/2021 00:00:00 01/19/2021 14:25:32 [id number] [facility] [place] [address] [place] [address] 01/22/2021 00:00:00 01/25/2021 16:56:31 [id number] [facility] [place] [address] [place] [address] 06/22/2021 00:00:00 06/22/2021 19:51:53 [id number] [facility] [place] [address] [place] [address] 07/30/2021 00:00:00 07/30/2021 13:12:22 [id number] [facility] [place] [address] [place] [address] 09/21/2021 00:00:00 09/21/2021 16:26:29 [id number] [facility] [place] [address] [place] [address] 10/06/2021 00:00:00 10/06/2021 12:21:56 [id number] [facility] [place] [address] [place] [address] 11/16/2021 00:00:00 11/16/2021 15:57:06 [id number] [facility] [place] [address] [place] [address] 11/23/2021 00:00:00 11/23/2021 13:53:16 [id number] [facility] [place] [address] [place] [address] 02/09/2022 00:00:00 02/09/2022 20:38:47 [id number] [facility] [address] [place] [address] 03/29/2022 00:00:00 03/29/2022 15:07:[id number] [place] [address] 10/12/2022 00:00:00 10/12/2022 16:59:49 [id number] MAINE Valenzuela [address] [place] [address] 12/01/2022 16:58:57 12/01/2022 17:47:33 Hyperglycemia due to type 2 diabetes mellitus [id number] 35679 E11.65 Unknown dtlyekS9U 8.9 (06/22/21)D iscussed need for regular exercise, increase intake of water/vege tables/fib er. Decrease intake of carbs, especially white rice/pasta /flour/ben ad/sugar.P t has not been compliant with medication regimen d/t adverse effects. Pt advised to continue with metformin, insulin as directed. Will consider possible addition of pioglitazo ne once updated labs received/r eviewed. Chronic low back pain 27 [id number] M54.50 Chronic, not well controlled Pt again advised we will not take over his pain medication s. Again advised pt to consider seeing the provider his sister-in- law transferre d to since they are prescribin g. Pt again declines. [id number] MAINE Valenzuela [facility] Care [address] [place] [address] 12/15/2022 12:34:14 12/15/2022 14:07:33 Hyperglycemia due to type 2 diabetes mellitus [id number] 17900 E11.65 Not well controlled A1C 8.9 (06/22/21); 8.3 (12/01/22)Di scussed need for regular exercise, increase intake of water/vege tables/fib er. Decrease intake of carbs, especially white rice/pasta /flour/ben ad/sugar.P t has not been compliant with medication regimen d/t adverse effects. Pt advised to continue with metformin, insulin as directed.L antus/Basa glar 80units QHSMetform in 1000mg BIDAdd pioglitazo ne 15mg daily Anemia of chronic disease 104148192 D63.8 ChronicEnc ouraged pt to start taking a daily MV with iron. Chronic sinusitis 976218 00 J32.9 Chronic, recurrentE ncouraged warm compresses to face/jawli ne to promote drainage. Ok to take otc pain relievers per package instructio ns to reduce discomfort . Continue/s tart nasal spray otc anti-hista mines per package instructio ns. Complete all abx as directed [id number] MAINE Valenzuela [facility] Primary Care [facility] [address] [facility] [address] [place] [address] 01/13/2023 14:31:22 01/13/2023 15:15:29 Hyperglycemia due to type 2 diabetes mellitus [id number] 77935 E11.65 Improving based on pts report of fasting sugars of 110-140.A1 C 8.9 (06/22/21); 8.3 (12/01/22)Di scussed need for regular exercise, increase intake of water/vege tables/fib er. Decrease intake of carbs, especially white rice/pasta /flour/ben ad/sugar.P t has not been compliant with medication regimen d/t adverse effects. Pt advised to continue with metformin, insulin as directed.L antus/Basa glar 80units QHSMetform in 1000mg BIDContinu e pioglitazo ne 15mg daily, pt declines any additional increase at this time. Essential hypertension 04131939 I10 Improved with report of higher dose of carvedilol .Asymptoma tic at this timeEncour aged pt to increase water intake, reduce caffeine intake, exercise regularly, decrease/e liminate sodium intake, work on weight loss and stress reductionc ontinue amlodipine 10mg dailyIncre ase to carvedilol 12.5mg BID [id number] MAINE Valenzuela [facility] Primary Care [facility] [address] [facility] [address] [place] [address] 03/09/2023 14:31:53 03/09/2023 15:35:23 Hyperglycemia due to type 2 diabetes mellitus [id number] 74523 E11.65 Improving based on pts report of fasting sugars of 110-140.A1 C 8.9 (06/22/21); 8.3 (12/01/22)Di scussed need for regular exercise, increase intake of water/vege tables/fib er. Decrease intake of carbs, especially white rice/pasta /flour/ben ad/sugar.P t has not been compliant with medication regimen d/t adverse effects. Pt advised to continue with metformin, insulin as directed.L antus/Basa glar 80units QHSMetform in 1000mg BID Essential hypertension 76811012 I10 Slightly elevated in office today.Asym ptomatic at this timeEncour aged pt to increase water intake, reduce caffeine intake, exercise regularly, decrease/e liminate sodium intake, work on weight loss and stress reductionc ontinue amlodipine 10mg dailyConti nue carvedilol 12.5mg BID Acute pharyngitis 829929 003 J02.9 --Ear Pain/Sinus Congestion -encourage d warm compresses to face/jawli ne to promote drainage. Ok to take otc pain relievers per package instructio ns to reduce discomfort . Continue/s tart nasal spray otc anti-hista mines per package instructio ns. Neck pain 31098278 M54.2 New problemGoo d neck mechanics, posture, modalities reviewed with patient. Heat 10-15 minutes 3 times a day, then neck stretches as tolerated not beyond pain. Neck support/pi llow at bedtime. No lifting or straining until symptoms resolve. Return to clinic if no improve for further testing. Go to ED for sudden onset of neurologic symptoms or incontinen ce. Continue with otc pain relievers per package instructio ns. Will give Toradol injection in office today. [id number] MAINE Valenzuela [facility] [address] [facility] [address] [place] [address] 05/03/2023 14:33:41 05/03/2023 15:44:09 Hyperglycemia due to type 2 diabetes mellitus 7800932333 E11.65 Improving based on pts report of fasting sugars of 110-140.A1 C 8.9 (06/22/21); 8.3 (12/01/22)Di scussed need for regular exercise, increase intake of water/vege tables/fib er. Decrease intake of carbs, especially white rice/pasta /flour/ben ad/sugar.P t has not been compliant with medication regimen d/t adverse effects. Pt advised to continue with metformin, insulin as directed.L antus/Basa glar 80units QHSMetform in 1000mg BIDContinu e pioglitazo ne 15mg daily, pt declines any additional increase at this time. Essential hypertension 32542112 I10 Improved with report of higher dose of carvedilol .Asymptoma tic at this timeEncour aged pt to increase water intake, reduce caffeine intake, exercise regularly, decrease/e liminate sodium intake, work on weight loss and stress reductionc ontinue amlodipine 10mg dailyConti nue carvedilol 12.5mg BID Chronic back pain 834310 002 G89.29 Daily good back mechanics reviewed with patient, good posture, avoid prolonged sitting or standing, stretches given and reviewed with patient. Heat 10-15 minutes 3 times daily as needed for pain or spasms. Go to ED for neurologic symptoms or incontinen ce. Referred back to Dr. Cruz to discuss med marijuana. New rx for naproxen in the meantime. [id number] MAINE Valenzuela [facility] Primary Care [address] [place] [address] 08/03/2023 14:09:48 08/03/2023 17:39:17 Hyperglycemia due to type 2 diabetes mellitus [id number] 56148 E11.65 Last HgbA1c 8.8% on 05/03/23BG 150-250 mg/dl at homeDiscus sed healthy diet and lifestyle to lower BG. Essential hypertension 23326602 I10 Chronic, well controlled at this timeAsympt omatic at this timeEncour aged pt to increase water intake, reduce caffeine intake, exercise regularly, decrease/e liminate sodium intake, work on weight loss and stress reductionc ontinue amlodipine 10mg dailyConti nue carvedilol 12.5mg BID Chronic low back pain 27 5309806 M54.50 Chronic, not well controlled Pt again advised we will not take over his pain medication s. Again advised pt to consider seeing the provider his sister-in- law transferre d to since they are prescribin g. Pt again declines. Intermitte nt confusion 104891651 R41.0 AcuteHad a 10 minute episode where he didn't know where he was on 07/30. Also had a severe tension-ty pe headache and fatigue associated with the episode. It passed after 10 minutes. Denies numbness, tingling, muscle weakness, slurred speech.Roney l get head CT with and without contrast Dysuria 00510210 R30.0 New problemWil l check PSA and UAIf labs normal and sx persist, will plan to refer to urology for further evaluation . [id number] TESSA Alexander [facility] Primary Care [address] [place] [address] 09/13/2023 16:47:49 09/13/2023 18:27:32 Hyperglycemia due to type 2 diabetes mellitus [id number] 11371 E11.65 -recent A1c 8.6-pt takes blood sugar BID and as needed, has had levels as high as 300s in the morning-cu rrently takes lantus 75 BID, metformin 1000mg BID-he was encouraged to start taking the lantus 80 units-he tries to not eat too many sweets and stays away from rice, white bread-labs obtained-e ncouraged to go back to taking lantus 80 units BID-will add mounjaro, encouraged to update office with blood sugars after 1 week of using Vitamin D deficiency 347 91552 E55.9 Nasal congestion 2043125 0 R09.81 [id number] TESSA Alexander [facility] Primary Care [address] [place] [address] 10/19/2023 14:22:42 10/19/2023 16:00:12 Hyperglycemia due to type 2 diabetes mellitus 1597136367 49090 E11.65 -pt has been using the mounjaro, but quit because he is worried for side effects (pancreati tis)-aj nues with lantus 80 units BID-refill lantus given-he requests referral to endocrinol lara, given-f/u after seeing endocrinol lara Nasal congestion 8226749 0 R09.81 Health Concerns Section Related Observation LastModified by Organization Detai ls LastModified Time None Recorded Concern Status LastModified by Organization Details LastModified Time None Recorded Advance Directives Directive None Recorded Payers Encounter Date Sequence Insurance Name Policy Number Policy Raymundo Covered Member ID Raymundo Member ID Guarantor Name 03/09/2023 1 [employer] (MEDICARE REPLACEMENT/A DVANTAGE - PPO) [id number] Christian Barros [id number] Christian Barros 03/09/2023 2 [place] MED[place]ARE OR MEDICARE REPLACEMENT PRIMARY) Christian Barros [id number] Christian Barros 05/03/2023 1 [employer] (MEDICARE REPLACEMENT/A DVANTAGE - PPO) [id number] Christian Barros [id number] Christian Barros 05/03/2023 2 [place] OR MEDICARE REPLACEMENT [place]IMARY) Christian Barros [id number] Christian Barros 08/03/2023 1 [employer] (MEDICARE REPLACEMENT/A DVANTAGE - PPO) [id number] Christian Barros [id number] Christian Barros 08/03/2023 2 [place] OR MEDICARE REPLACEMENT PRIMARY) Christian Barros [id number] Christian Barros 09/13/2023 1 [employer] (MEDICARE REPLACEMENT/A DVANTAGE - PPO) [id number] Christian Barros [id number] Christian Barros 09/13/2023 2 [place] WHEN [place] OR MEDICARE REPLACEMENT PRIMARY) Christian Barros [id number] Christian Barros 10/19/2023 1 [employer] (MEDICARE REPLACEMENT/A DVANTAGE - PPO) [id number] Christian Barros [id number] Christian Barros 10/19/2023 2 [place] WHEN [place] OR MEDICARE REPLACEMENT PRIMARY) Christian Barros [id number] Christian Barros Notes Date Note Type Note Provider Name and Address Organization Details Recorded Time 03/09/2023 text/html 03/09/23: 1. Pt in office with for f/u appt. Pt states his blood sugars are looking pretty good. States sometimes his blood sugars are normal, sometimes they are 200.2. Pt states he has been having chronic neck pain. States cardiology recommended he f/u with pcp. Pt reports cardiology checked his blood vessels and nothing is blocked.3. Pt states he thinks he has sinus infection b/c throat is sore despite Coricidin. Pt states he has been having sx for a few days. States his sugars go up if he doesn't treat the sinus sx at night. 01/13/23: 1. Pt in office with for f/u on diabetes. Pt states that his sugars are better and he is often able to reduce his basal insulin to 50-60units. Reports his fasting sugars are around 110-140. Pt states occasionally it drops too low overnight and he has to get up and eat something.2. Pt states he noticed that his bp was better when he increased his carvedilol by accident the past few days. States before the increase, his top number was 150-160. Denies any anders, cp, sob, palpitations. 12/15/22: 1. Pt in office with for f/u on labs.2. Pt c/o having sinus problems for the past few weeks. No improvement with otc meds and he is concerned b/c the otc meds increase his sugars. 12/01/22: 1. Pt in office with for problem visit with c/o having swelling in his legs from the Januvia. States sx didn't improve with abx or steroids. Also had to stop the glimepiride b/c it caused him to have pain in his back and his lungs. Pt states he took the the Januvia for 2 weeks, but had to stop.2. Pt states his back hurts all the time. Pt states that he would like to get something for that b/c he has 4 bulging discs. Pt states he can't stand or sit too long. Tien Torres, INTERVENTIONAL NURSE [address] [facility], [facility] [address], [place], [address], [facility] [employer] 03/09/2023 18:11:29 05/03/2023 text/html 1. Pt in office with for f/u on chronic back pain. Pt states he saw the pain management provider about getting a medical marijuana card, but he didn't want to pay $250, so he didn't f/u. Pt states rx strength naproxen works well for his back pain. Would like refill. MAINE Valenzuela [address], [place], [address], [employer] 05/03/2023 18:01:41 08/03/2023 text/html Confusion: Had a 10 minute episode where he didn't know where he was on 07/30. Also had a severe tension-type headache and fatigue associated with the episode. It passed after 10 minutes. Denies numbness, tingling, muscle weakness, slurred speech. T2DM: insulin and metformin 1000 mg BID. Takes 80 units in the morning and sometimes will take 20-80 units at night and will adjust based upon what he eats. BG ranges 150-250 mg/dl. Essential HTN: BPs have been within normal. No symptoms of CP, SOB, blurred or altered vision. Takes carvedilol 12.5 mg BID. followed by cardiology. Takes BP 120-140s/60s-70s at home. MAINE Valenzuela [address], [place], [address], [employer] 08/03/2023 16:41:08 09/13/2023 text/html Pt is here to discuss lab results TESSA Alexander [address], [place], [address], [employer] 09/13/2023 17:44:03 10/19/2023 text/html Pt is here for 1 month f/u TESSA Alexander [address], [place], [address], [employer] 10/19/2023 14:52:09
--- OUTSIDE RECORDS SUMMARY | 2025-01-27 15:19 | XMS_ITS | Encounter Summary ---
Author Organization [facility] Address [address] [place] [id number] Care Team Providers Care Garnetter Name Role Phone Unavailable Primary Care Provider Unavailabl e Encounter Details Date Type Department Care Team (Latest Contact Info) Description 08/07/2018 Abstract [facility] , Generic ConversionMD [...]
--- OUTSIDE RECORDS SUMMARY | 2025-01-27 15:19 | XMS_ITS | Referral Summary ---
Author Organization [facility] Address [address] [place] [address] Care Team Providers Care Care Transition Coordinator Name Role Phone Becca Oh MD Primary Care Provider [phone] Allergies Active Allergy Reactions Criticality Noted Date [...] to monitor. Coronary artery disease invo lving [place] coronary artery of [place] heart without angina pectoris 07/27/2021 Assessment & Plan (07/27/2021 3:40 PM CDT): Status post stent placement. 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 Gender Identity Not on file Sexual Orientation Not on file Last Filed Vital Signs Vital Sign Reading Time Taken Comments Blood Pressure 157/64 02/08/2022 9:58 AM CDT Pulse 75 02/08/2022 9:58 AM CDT Temperature 36.7 C (98.1 F) 10/19/2021 8:51 AM CAR RETARDER OPERATOR Respiratory Rate 18 10/19/2021 8:51 AM CAR RETARDER OPERATOR Oxygen Saturation 99% 02/08/2022 9:58 AM CDT Inhaled Oxygen Concentration - - Weight 80.2 kg (176 lb 11.2 oz) 02/08/2022 9:58 AM CDT Height 160 cm (5' 2.99 ) 02/08/2022 9:58 AM CDT Body Mass Index 31.31 02/08/2022 9:58 AM CDT Plan of Treatment Not on file Procedures Procedure Name Priority Date/Time Associated Diagnosis Comments SERUM LIPID PANEL Routine 11/22/2016 8:1 7 AM CAR RETARDER OPERATOR from Last 3 Months or Most Recently Relevant to Health Maintenance Results * (ABNORMAL) Serum lipid panel (11/22/2016 8:17 AM CAR RETARDER OPERATOR) Cholesterol 126 100 - 200 mg/dl CDR [...] last revised 2016. Serum 11/22/2016 8:17 AM CAR RETARDER OPERATOR us Florian Au MD LAB BLOOD ORDERABLES Fin al Result CDR HISTORICAL RESULTS from Last 3 Months or Most Recently Relevant to Health Maintenance Insurance MEDICARE ADVANTAGE IDPA [facility] MEDICARE ADVANTAGE Care Teams Care Transition Coordinator Relationship Specialty Start Date End Date Becca Oh MD [address] [facility] [place] [address] PCP - General Internal Medicine 07/27/21
--- OUTSIDE RECORDS SUMMARY | 2025-01-27 15:19 | XMS_ITS | CONTINUITY OF CARE DOCUMENT ---
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 Aortic stenosis, mild active Sukhi Joseph i ENCOUNTERS Date Type Provider Location Encounter Diag nosis 4 - 5 In-person encounter Office Visit Jarod Villegas MD [facility] Aortic stenosis, mild 0 - 7 In-person encounter Office Visit Jarod Villegas MD [facility] Shortness of breathSystolic murmur 0 - 1 In-person encounter Office Visit Jarod Villegas MD [facility] 1 - 3 In-person encounter Office Visit Jarod Villegas MD [facility] Swelling, R legVenous insufficiencyPAD - mild 7 - 9 In-person encounter Office Visit Jarod Villegas MD [facility] Leg cramps 8 - 8 In-person encounter Office Visit Jarod Villegas MD [facility] Chest pain-type to be determined 6 - 6 In-person encounter Office Visit Jarod Villegas MD [facility] Preop exam 9 - 9 In-person encounter Office Visit Jarod Villegas MD [facility] Right renal artery stenosis 1 - 5 In-person encounter Office Visit Jarod Villegas MD [facility] 9 - 1 In-person encounter Office Visit Nicolas Rocha MD [facility] 0 - 0 In-person encounter Office Visit Jarod Villegas MD [facility] 0 - 2 In-person encounter Office Visit Jarod Villegas MD [facility] 6 - 5 In-person encounter Office Visit Jarod Villegas MD [facility] Iron deficiency anemia 1 - 3 In-person encounter Office Visit Jarod Villegas MD [facility] Iron deficiency anemiaSnoring - NEG sleep study 10/18 8 - 0 In-person encounter Office Visit Jarod Villegas MD [facility] CADRight renal artery stenosis 3 - 4 In-person encounter Office Visit Jarod Villegas MD [facility] 3 - 8 In-person encounter Office Visit Jarod Villegas MD [facility] 7 - 4 In-person encounter Office Visit Jarod Villegas MD [facility] 9 - 6 In-person encounter Office Visit Jarod Villegas MD [facility] Tobacco use quit 0 - 3 In-person encounter Office Visit Jarod Villegas MD [facility] 0 - 4 In-person encounter Office Visit Jarod Villegas MD [facility] 6 - 7 In-person encounter Office Visit Jarod Villegas MD [facility] 0 - 1 In-person encounter Office Visit Jarod Villegas MD [facility] 2 - 2 In-person encounter Office Visit Jarod Villegas MD [facility] HypertensionDyslipidemiaDIABETES MELLITUS VITAL SIGNS Date Observation Value Provider Body Mass Index (Ratio) 32.94 kg/m2 [facility] Angie blood pressure, cuff size regular [facility] blood pressure, diastolic 68 mm[Hg] [facility] blood pressure, systolic 148 mm[Hg] [facility] pulse rate 85 /min [facility] respiratory rate E&M 12 /min [facility] oxygen saturation, oximetry 98 % [facility] weight E&M 186 [lb_av] [facility] height E&M 63 [in_i] [facility] Body Mass Index (Ratio) 32.59 kg/m2 [facility] Angie blood pressure, cuff size regular [facility] blood pressure, diastolic 58 mm[Hg] [facility] blood pressure, systolic 138 mm[Hg] [facility] oxygen saturation, oximetry 99 % [facility] respiratory rate E&M 16 /min Aisha championr pulse rate 76 /min Aisha Sterling weight E&M 184 [lb_av] Aisha Sterling height E&M 63 [in_i] [facility] Body Mass Index (Ratio) 32.41 kg/m2 Kiki Connerabilio blood pressure, diastolic 67 mm[Hg] Mi rocio Ewing blood pressure, systolic 141 mm[Hg] Slava jojo Ewing oxygen saturation, oximetry 97 % Allyson Ewing pulse rate 76 /min Allyson grider weight E&M 183 [lb_av] Allyson griedr respiratory rate E&M 16 /min Ankita Ewing [...] Yasmine Kp height E&M 63 [in_i] Yasmine Minto Body Mass Index (Ratio) 31.53 kg/m2 Nate Becerril blood pressure, diastolic 70 mm[Hg] Da siobhan Minto blood pressure, systolic 142 mm[Hg] Dac ia Kp oxygen saturation, oximetry 97 % Yasmine Kp respiratory rate E&M 16 /min Yasmine V oss pulse rate 72 /min Yasmine Kp weight E&M 178 [lb_av] Yasmine Kp height E&M 63 [in_i] Yasmine Minto Body Mass Index (Ratio) 30.82 kg/m2 Nate Becerril blood pressure, cuff size regular [facility] blood pressure, diastolic 90 mm[Hg] [facility], systolic 148 mm[Hg] Deanne [facility] oxygen saturation, oximetry 98 % Genesis[facility] rate E&M 18 /min Genesis aguero pulse rate 65 /min Genesis [facility] weight E&M 174 [lb_av] [facility] height E&M 63 [in_i] [facility] Body Mass Index (Ratio) 32.41 kg/m2 Nate Becerril oxygen saturation, oximetry 86 % Jannette [place] respiratory rate E&M 16 /min Jannette Emanuel schmidt pulse rate 97 /min Jannette [place] blood pressure, diastolic 70 mm[Hg] Ie sha [place] blood pressure, systolic 140 mm[Hg] Ies anders [place] weight E&M 183 [lb_av] Jannette [place] height E&M 63 [in_i] Jannette [place] Body Mass Index (Ratio) 32.34 kg/m2 Rebecca ica N Ady blood pressure, diastolic 60 mm[Hg] crystal Demecs RN blood pressure, systolic 150 mm[Hg] [facility] sta Demecs RN blood pressure, cuff size regular crystal Demecs RN oxygen saturation, oximetry 99 % Ivelisse Demecs RN respiratory rate E&M 18 /min [place] Demecs RN pulse rate 88 /min Ivelisse Demecs R N weight E&M 182.6 [lb_av] [place] Demecs RN Body Mass Index (Ratio) 32.17 kg/m2 [facility] N Ady blood pressure, cuff size regular crystal Demecs RN blood pressure, diastolic 56 mm[Hg] crystal Demecs RN blood pressure, systolic 136 mm[Hg] [facility] sta [facility] saturation, oximetry 98 % [place] Demecs RN respiratory rate E&M 18 /min [place] Demecs RN pulse rate 86 /min [place] Demecs R N weight E&M 181.6 [lb_av] [place] Demecs RN Body Mass Index (Ratio) 32.09 [...] Carmen Terry blood pressure, diastolic 70 mm[Hg] Tn destini Terry blood pressure, systolic 121 mm[Hg] [...] ssa Terry blood pressure, diastolic 75 mm[Hg] Tn destini Terry blood pressure, systolic 155 mm[Hg] [...] /min Gloria Corearan weight E&M 172 [lb_av] sAh Mirzap ALLERGIES Allergy Name Onset Date Reaction [...] High 2 cholesterol, serum 198 mg/dL [facility] 490-642 7892/01/1 2 calcium, serum 9.6 mg/dL [facility] 8.6-10.2 2 carbon dioxide, venous blood 25 mmol/L [facility] 20-29 2 chloride, serum 106 mmol/L [facility] 96-106 2 potassium, serum 4.6 mmol/L [facility] 3.5-5.2 2 sodium, serum 144 mmol/L [facility] 520-996 7255/01/1 2 urea nitrogen/creatini ne ratio, serum 16 [...] Estab. 2 platelet count 264 X10E3/UL [facility] [phone]/01/1 2 red blood cell distribution width 14.2 [...] as % of total hemoglobin 8.2 % [facility] 0 LDL cholesterol, serum 74 mg/dL [facility] 3 ferritin, serum 585.5 ng/mL [facility] 30.0 - 400.0 High 3 red blood cell distribution width, size density 52.6 fL [facility] - 3 immature granulocytes, percentage of total cells, blood 0.4 % [facility] 3 nucleated red blood cells as percent of blood leukocytes 0.0 % [facility] - 3 red blood cell (erythrocyte) count, per high power field 0.0 10*3/UL [facility] - 3 eosinophils as percent of blood leukocytes 2.0 % [facility] - 3 neutrophils as percent of blood leukocytes 55.7 % [facility] - 3 Absolute Neutrophils 3.0 CELLS/UL [facility] 1.5 - 7.8 3 basophils as percent of blood leukocytes 0.6 % [facility] - 3 Absolute Basophils 0.0 CELLS/UL [facility] 0.0 - 0.2 3 monocytes as percent of blood leukocytes 6.8 % [facility] Absolute Monocytes 0.4 CELLS/UL [facility] 0.2 - 1.0 3 lymphocytes as percent of blood leukocytes 34.5 % [facility] - 3 Absolute Lymphocytes 1.9 CELLS/UL [facility] 0.9 - 3.9 3 mean platelet volume 10.8 (?) [facility] - 3 platelet count 255.0 THOUSAND/ [...] (low-density lipoprotein/high- density lipoprotein) ratio 1.5 RATIO [facility] - 4 lipoprotein, beta, serum, point, quantitative, calculated 53.0 (?) [facility] 0.0 - 100.0 4 HDL cholesterol, serum 36.0 mg/dL [facility] 35.0 - 55.0 4 cholesterol, serum 131.0 mg/dL [facility] 0.0 - 200.0 4 triglyceride, serum, fasting 210.0 mg/dL [facility] 0.0 - 150.0 High 4 urea nitrogen/creatini ne ratio, serum 16.3 [facility] - 4 Estimated Glomerular Filtration Rate (calc) 105.2 (?) [facility] 59[facility] - 4 chloride, serum 96.5 mmol/L [facility] 98.0 - 107.0 Low 4 potassium, serum 4.5 mmol/L [facility] 3.5 - 5.1 4 sodium, serum 140.0 mmol/L [facility] 136.0 - 145.0 4 creatinine, serum 0.8 mg/dL [facility] 0.7 - 1.2 4 carbon dioxide, venous blood 25.0 mmol/L [facility] 22.0 - 29.0 4 calcium, serum 10.3 mg/dL [facility] 8.6 - 10.2 High 4 urea nitrogen, blood 13.0 mg/dL [facility] 6.0 - 20.0 4 blood glucose, random 115.0 mg/dL [facility] 74.0 - 99.0 High 4 red blood cell distribution width, size density 44.6 fL [facility] - 4 immature granulocytes, percentage of total cells, blood 0.8 % [facility] - 4 nucleated red blood cells as percent of blood leukocytes 0.0 % [facility] - 4 red blood cell (erythrocyte) count, per high power field 0.0 10*3/UL [facility] - 4 eosinophils as percent of blood leukocytes 1.8 % [facility] - 4 neutrophils as percent of [...] MOUTH DAILY, INSTEAD OF LOSARTAN - Genesis [facility] Viagra 50 mg tablet active Take 1 [...] a day 04/08 - 10/21 Domi Ontiverosmigljosh PRESERVATIONIST morphine 15 mg tablet completed Take 1 [...] Jarod Villegas MD BUDEPRION XL 300 MG [id number] completed 1 tab daily 04/02 - 04/25 [...] times a day - 10/21 Domi Nguyen [facility] SOCIAL HISTORY Date Observation Value [...] E&M revi ewed - no changes required [facility] physical exercise, frequency, days per week yes [facility] alcohol use, average drinks per day none [facility] alcohol use no Misael Berglandb erg caffeine use, averag e drinks per day 1+ [facility] drug use no [facility] passive cigarette sm pao exposure yes [facility] smoking, year quit 1982 [facility] number of years as a smoker 10 a [facility] smoking history, tot al pack/year 20 [facility] smoking history, tot al pack/day 2 [facility] cigarette use yes [facility] smoking status Former smoker [facility] social history reviewed E&M revi ewed [...] History: P atient is a former smoker. [facility] social history reviewed E&M revi ewed [...] Kenny osullivan smoking status Former smoker Misael [facility] social history reviewed E&M revi ewed - no changes required Misael Jone number of grandchildren Nicolas Rocha MD social history reviewed E&M revi ewed - no changes required Nicolas Rocha MD social history E&M Marital Statu s: E thnicity: Smoking History: P atclarisa is a former smoker. Nicolas Rocha MD physical exercise, frequency, days per week yes [facility] alcohol use, average drinks per day none [facility] alcohol use no Yasmine Kp caffeine use, averag e drinks per day 1+ Yasmine Kp drug use no [facility] passive cigarette sm pao exposure yes [facility] smoking, year quit 1982 [facility] number of years as a smoker 10 a [facility] smoking history, tot al pack/year 5840 [facility] smoking history, tot al pack/day 2 [facility] cigarette use yes [facility] smoking status Former smoker [facility] social history reviewed E&M revi ewed - no changes required Misael Becerril physical exercise, frequency, days per week yes [facility] alcohol use, average drinks per day none [facility] alcohol use no [facility] caffeine use, averag e drinks per day 1+ [facility] drug use no [facility] passive cigarette sm pao exposure yes [facility] smoking, year quit 1982 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 HRA, CV Assess/Plan, Angina (inactive) Management Plan continue current therapy Kathia Hodgson HRA, CV Assess/Plan, Angina (inactive) Management Plan continue current therapy Jarod Villegas MD HRA, CV Assess/Plan, Angina (inactive) Management Plan continue current therapy Kathia Hodgson HRA, CV Assess/Plan, Angina (inactive) Management Plan continue current therapy [facility] HRA, CV Assess/Plan, Angina (inactive) Management [...] Angina (inactive) Management Plan continue current therapy [facility] HRA, CV Assess/Plan, Angina (inactive) Management Plan continue current therapy Jarod Villegas MD HRA, CV Assess/Plan, Angina (inactive) Management Plan continue current therapy Jarod Villegas MD HRA, CV Assess/Plan, Angina (inactive) Management Plan continue current therapy [facility] HRA, CV Assess/Plan, Angina (inactive) Management [...] Coverage type [employer] party ID [facility] COMPLETE CARE [id number] (PPO C-SNP) [employer] insurance [employer] [id number] HEALTHCARE AND FAMILY SERVICES Medicaid 1 [id number] ADVANCE DIRECTIVES Name Date DISCUSSED - NO DECISION MADE TREATMENT PLAN Date Name Performer [id number],C,continued cullen sation encouraged. [facility] [id number],C,w ill update lipids H is updated medication list for this problem includes: Atorvastatin 80 Mg Tablet (Atorvastatin) ..... Take 1 tablet by mouth daily [facility] [id number],C,B P controlled c ontinue current meds H [...] Take 1 tablet by mouth every day [facility] [id number],C,n ew on exam today w ith reports [...] may repeat in 10 minutes if needed [facility] [id number],C,w ith previous stents in past c /o [...] in 10 minutes if needed Dominaomi Mckayjosh [facility] [id number],C,P atient reports chest congestion with cough H [...] tablet by mouth every day Dominaomi Nguyen [facility] [id number],C,N o CP No SOB, leg swelling does not bother him. Kathia Hodgson [id number],C, H is updated medication list for this problem includes: Metformin 1,000 Mg Tablet (Metformin) ..... 1 tablet twice a day Lantus U-100 Insulin 100 Unit/ml Solution (Insulin glargine) ..... Inject as directed Irbesartan 300 Mg Tablet (Irbesartan) ..... Take 1 tablet by mouth every day instead of losartan Kathia Hodgson [id number],C, H is updated medication list for this problem includes: Atorvastatin 80 Mg Tablet (Atorvastatin) ..... Take 1 tablet by mouth daily Kathia Hodgson [id number],C, B P today: 141/67 P rior BP: [...] 1 tablet by mouth every day [facility] [id number],C,N o CP No SOB, leg swelling does not bother him. echo NL EF, renal artery duplex is normal. Pro BNP is normal. Kathia Conneryuni [id number],C,H emoglobin A1c was 9.1 and I advised [...] glargine) ..... Inject as directed Kathiaedith Connerabilio [id number],C,L DL is 80 H is updated medication list for this problem includes: Atorvastatin 80 Mg Tablet (Atorvastatin) ..... Take 1 tablet by mouth daily Kathia Connerabilio [id number],C,V enous duplex showed bilateral venous insufficiency. Arterial duples showed mild PAD. He does not have leg pain thus no need for intervention at this time. He'll continue Lasix. Kathia Hodgson [id number],C,P t denies CP or SOB. Will continiue [...] tablet by mouth daily Jarod Villegas MD [id number],C,V enous duplex showed bilateral venous insufficiency. Arterial [...] artery duplex, and proBNP. Jarod Villegas MD [id number],C,H emoglobin A1c was 9.1 and I advised [...] ..... Inject as directed Jarod Villegas MD [id number],C, B P today: 141/65 P rior BP: [...] by mouth every day Jarod Villegas MD [id number],C, H is updated medication list for this problem includes: Atorvastatin 80 Mg Tablet (Atorvastatin) ..... Take 1 tablet by mouth daily Jarod Villegas MD [id number],C, H is updated medication list for this problem includes: Irbesartan 300 Mg Tablet (Irbesartan) ..... Take 1 tablet by mouth every day instead of losartan Metformin 1,000 Mg Tablet (Metformin) ..... 1 tablet twice a day Lantus U-100 Insulin 100 Unit/ml Solution (Insulin glargine) ..... Inject as directed Kathia Hodgson [id number],C, H is updated medication list for this problem includes: Atorvastatin 80 Mg Tablet (Atorvastatin) ..... Take 1 tablet by mouth daily Kathia Hodgson [id number],C, B P today: 134/67 P rior BP: [...] 1 tablet by mouth every day [facility] [id number],C,P t denies chest pain or SOB. W [...] 1 tablet by mouth daily Kathia Rema [id number],C,T he pt complains of leg cramps. He stopped Lasix with some improvement but then developed leg swelling. Will check microalbumin, BMP, proBNP, hs CRP, lipid panel, A1C, and venous duplex and arterial duplex of the lower extremities, and renal artery duplex, hx of right renal artery stenosis, and echo. Kathia Hodgson [id number],S, Kathia garrisonksyuni [id number],C, H is updated medication list for this problem includes: Metformin 1,000 Mg Tablet (Metformin) ..... 1 tablet twice a day Lantus U-100 Insulin 100 Unit/ml Solution (Insulin glargine) ..... Inject as directed Irbesartan 300 Mg Tablet (Irbesartan) ..... Take 1 tablet by mouth once a day [facility] [id number],C,O n statin. His updated medication list for this problem includes: Atorvastatin 80 Mg Tablet (Atorvastatin) ..... Take 1 tablet by mouth once a day [facility] [id number],C, H is updated medication list for this [...] tablet by mouth once a day [facility] [id number],C,T he pt has rare episodes of angina. [...] ..... 1 tablet once a day [facility]ith [facility] Cardiology: H is updated medication [...] repeat in 10 minutes if needed Jarod Vilelgas MD Cardiology:continued cessation e ncouraged. [facility] Cardiology:will upda te lipids H is updated medication list for this problem includes: Atorvastatin 80 Mg Tablet (Atorvastatin) ..... Take 1 tablet by mouth daily [facility] Cardiology:BP contro lled c ontinue current [...] Take 1 tablet by mouth every day [facility] Cardiology:new on ex am today w [...] may repeat in 10 minutes if needed [facility] Cardiology:with prev ious stents in past [...] in 10 minutes if needed Domi Nguyen [facility] Cardiology:Patient r eports chest congestion [...] tablet by mouth every day Dominaomi Nguyen [facility] Cardiology:No CP No SOB, leg [...] tablet once a day Kathia Rema Telehealth:His [facility] ed medication list for this problem includes: Lantus 100 Unit/ml Subcutaneous Solution (Insulin glargine) ..... Inject as directed Irbesartan 300mg Tablets (Irbesartan) ..... Take 1 tablet by mouth every day Metformin Hcl 1000 Mg Oral Tablet (Metformin hcl) ..... 1 tab twice daily Aspirin 81 Mg Oral Tablet (Aspirin) ..... 1 tab daily [facility] Telehealth:[facility] medication list for this problem includes: Atorvastatin 80mg Tablets (Atorvastatin calcium) ..... Take 1 tablet by mouth daily [facility] Telehealth:Prior BP: 120/60 (04/08/2019) His updated medication list for this problem includes: Carvedilol 6.25 Mg Oral Tablet (Carvedilol) ..... One tablet twice a day Amlodipine Besylate 10mg Tablets (Amlodipine besylate) ..... Take 1 tablet by mouth daily Lasix 20 Mg Oral Tablet (Furosemide) ..... One tablet daily Irbesartan 300mg Tablets (Irbesartan) ..... Take 1 tablet by mouth every day [facility] Telehealth:Rare epis odes of CP. Took [...] Oral Tablet (Aspirin) ..... 1 tab daily [facility] Cardiology follow up :His updated medication list for this problem includes: Atorvastatin Calcium 20 Mg Oral Tablet (Atorvastatin calcium) ..... Take 1 tab at bedtime LDL: 74 (03/21/2018) [facility] Cardiology follow up :His updated medication [...] Oral Tablet (Aspirin) ..... 1 tab daily [facility] Cardiology follow up :BP today: 160/70 [...] bedtime Orders: S TR - Exercise Nuclear (CPT-58355) 9 9215 HIGH Complex (CPT-39524) C omplete Echo (CPT-77077) R enal Artery Duplex (CPT-42027) Nicolas Rocha MD Cardiology follow up : [...] tab daily Orders: STR - Exercise Nuclear (CPT-03082) 9 9215 HIGH Complex (CPT-58487) C omplete Echo (CPT-88774) Nicolas Rocha MD Cardiology follow up :May [...] daily Orders: S TR - Exercise Nuclear (CPT-96268) C omplete Echo (CPT-17454) Nicolas Rocha MD Cardiology follow up :He [...] daily Orders: B ASIC METABOLIC PANEL W/EGFR (64851) H EMOGLOBIN A1c (496) U RINALYSIS, RANDOM, [...] Tablet (Aspirin) ..... 1 tab daily Misael [facility] Cardiology follow up :He's a candidate for dental extractions. He's clear from cardiac perspective. [facility] Cardiology Follow up :% Saturation increased to 31.4 and ferritin increased to 585.5. Hemoglobin 12.1 and hematocrit 39.2. [facility] Cardiology Follow up:Continues o n 20mg Lasix daily. [facility] Cardiology Follow up :% Saturation increased to 31.4 and ferritin increased to 585.5. Hemoglobin 12.1 and hematocrit 39.2. [facility] Cardiology Follow up :His updated medication list for this problem includes: Atorvastatin Calcium 20 Mg Oral Tabs (Atorvastatin calcium) ..... Take 1 tab at bedtime [facility] Cardiology Follow up :BP today: 148/90 P rior BP: 140/70 (02/24/2017) His updated medication list for this problem includes: Lasix 20 Mg Tabs (Furosemide) ..... One tablet daily Losartan Potassium 100 Mg Oral Tabs (Losartan potassium) ..... Take one tablet daily Metoprolol Tartrate 50 Mg Tabs (Metoprolol tartrate) ..... One tablet twice daily [facility] Cardiology Follow up :He's a candidate for dental work and a colonoscopy. He may stop Plavix as recommended by the dentist and GI specialist. [facility] Cardiology Follow up :The pt has [...] Mg Tabs (Aspirin) ..... 1 tab daily [facility] Cardiology Follow up :The pt has rare episodes of chest discomfort. If he has more chest pain, will consider cardiac cath. [facility] Cardiology:S/P iron infusion x2. [facility] Cardiology:On Crestor 40mg daily . [facility] Cardiology:His [facility] ed medication list for this problem includes: Losartan Potassium 100 Mg Oral Tabs (Losartan potassium) ..... Take one tablet daily Novolog Flexpen 100 Unit/ml Sc Sopn (Insulin aspart) ..... 60u twice a day Metformin Hcl 1000 Mg Tabs (Metformin hcl) ..... 1 tab twice daily Aspirin 81 Mg Tabs (Aspirin) ..... 1 tab daily [facility] Cardiology:BP today: 140/70 P rior BP: 150/60 (01/23/2017) His updated medication list for this problem includes: Lasix 20 Mg Tabs (Furosemide) ..... One tablet daily Losartan Potassium 100 Mg Oral Tabs (Losartan potassium) ..... Take one tablet daily Metoprolol Tartrate 25 Mg Oral Tabs (Metoprolol tartrate) ..... Take one tab twice daily [facility] Cardiology:S/P iron infusion x2. [facility]iology:He has sw elling of his fingers and hands. We will switch Losartan-HCTZ to Losartan and start Lasix 20mg daily. [facility] Cardiology:No recurr ence of chest pain [...] Mg Tabs (Aspirin) ..... 1 tab daily [facility] Cardiology:Sleep blake dy in October was negative for NEETU. [facility] Cardiology:Orders: F ERRITIN (457) F OLATE, SERUM (466) I BERYL AND TOTAL IRON BINDING CAPACITY (7573) R ETICULOCYTE COUNT (793) V ITAMIN B12 (927) [facility]iology:Labs Revi ewed: H gBA1c: 8.5 [...] Mg Tabs (Aspirin) ..... 1 tab daily [facility] Cardiology:His updat ed medication list for this problem includes: Crestor 40 Mg Tabs (Rosuvastatin calcium) ..... One tab. daily CHOL: 131.0 (05/05/2016) HDL: 36.0 (05/05/2016) T.0 (05/05/2016) LDL: 53.0 (05/05/2016) [facility] Cardiology:BP today: 123/63 P rior BP: 110/50 (06/29/2016) His updated medication list for this problem includes: Losartan Potassium-hctz 100-12.5 Mg Oral Tabs (Losartan potassium-hctz) ..... One tablet daily Metoprolol Tartrate 25 Mg Oral Tabs (Metoprolol tartrate) ..... Take one tab twice daily Aspirin 81 Mg Tabs (Aspirin) ..... 1 tab daily [facility] Cardiology:Pt had an admission for chest pain and HI was ruled out. Will schedule regadenosine myoview. His updated medication list for this problem includes: Nitrostat 0.4 Mg Subl (Nitroglycerin) ..... One tab. under tongue as needed. may repeat twice in 10 minutes. Misael Jone Cardiology:Pt had an admission for chest pain and HI was ruled out. Will schedule regadenosine myoview. His updated medication list for this problem includes: Plavix 75 Mg Tabs (Clopidogrel bisulfate) ..... One tab. daily Metoprolol Tartrate 25 Mg Oral Tabs (Metoprolol tartrate) ..... Take one tab twice daily Aspirin 81 Mg Tabs (Aspirin) ..... 1 tab daily Mis[facility] Jone Cardiology:Pt had an admission for chest pain and HI was ruled out. Will schedule regadenosine myoview. His updated medication list for this problem includes: Nitrostat 0.4 Mg Subl (Nitroglycerin) ..... One tab. under tongue as needed. may repeat twice in 10 minutes. [facility]ael Becerril Cardiology:BP today: 110/50 P rior BP: 121/70 (2016) Jarod Villegas MD Cardiology:Will repe at HgA1c. If still above 7.0%, he would like to participate in the [place] trial. Jarod Villegas MD Cardiology:Resolved after stents [...] 1 tab daily Jarod Villegas MD Cardiology:His [facility] ed medication list for this problem [...] (Aspirin) ..... 1 tab daily Orders: [facility] [id number] Physical Exam, Performed: Pulse Exam of Foot ([id number]) H EMOGLOBIN A1c (496) Jarod Villegas MD [...] completed EKG Jarod Villegas MD completed SNOMED-CT: 81828545 Physical Exam, Performed: Pulse Exam of Foot Jarod Villegas MD completed SNOMED-CT: 049130230 092828 Current Medications Documented Jarod Villegas MD completed SNOMED-CT: 07137959 Physical Exam, Performed: Pulse Exam of Foot Jarod Villegas MD completed SNOMED-CT: 386707054 338754 Current Medications Documented Jarod Villegas MD completed Stress EKG Axel Torres MD complet ed Regadenoson, 4 eduardo Villegas MD completed Cardiolite, 2 units Jarod Villegas MD c ompleted SPECT Images Ariela Baer MD complet ed SNOMED-CT: 74445739 Physical Exam, Performed: Pulse Exam of Foot Jarod Villegas MD completed EKG Jarod Villegas MD completed SNOMED-CT: 803505171 659129 Current Medications Documented Jarod Villegas MD completed SNOMED-CT: 27148653 Physical Exam, Performed: Pulse Exam of Foot Jarod Villegas MD completed SNOMED-CT: 627030005 506070 Current Medications Documented Jarod Villegas MD completed SNOMED-CT: 10915620 Physical Exam, Performed: Pulse Exam of Foot Jarod Villegas MD completed SNOMED-CT: 691697416 910501 Current Medications Documented Jarod Villegas MD completed Stress EKG Jasen Guardado MD complete d Regadenoson, 4 eduardo Villegas MD completed Cardiolite, 2 units Jarod Villegas MD c ompleted SPECT Images Jarod Villegas MD complete d SNOMED-CT: 69702418 Physical Exam, Performed: Pulse Exam of Foot Jarod Villegas MD completed EKG Jarod Villegas MD completed SNOMED-CT: 480193893 353565 Current Medications Documented Jarod Villegas MD completed SNOMED-CT: 97600384 Physical Exam, Performed: Pulse Exam of Foot Jarod Villegas MD completed SNOMED-CT: 120562359 Smoking Cessation Counseling Jarod Villegas MD completed SNOMED-CT: 741470998 902727 Current Medications Documented Jarod Villegas MD completed SNOMED-CT: 290819167 Smoking Cessation Counseling Jarod Villegas MD completed SNOMED-CT: 804056941 Smoking Cessation Counseling Jarod Villegas MD completed SNOMED-CT: 39936831 Physical Exam, Performed: Pulse Exam of Foot Jarod Villegas MD completed SNOMED-CT: 926294484 147583 Current Medications Documented Jarod Villegas MD completed EKG Jarod Villegas MD completed EKG Jarod Villegas MD completed EKG Jarod Villegas MD completed ePrescribe - Check t his box if eRx is used Jarod Villegas MD completed EKG Jarod Villegas MD completed EKG Jarod Villegas MD completed
--- OUTSIDE RECORDS SUMMARY | 2025-01-27 15:19 | XMS_ITS | Clinical Summary ---
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 02/23/2017 Anxiety [...] Comments Blood Pressure 130/76 08/05/2019 2:25 PM LITIGATOR Pulse 72 08/05/2019 2:25 PM LITIGATOR Temperature 36.4 C (97.6 F) 08/05/2019 2:25 PM LITIGATOR Respiratory Rate 16 08/05/2019 2:25 PM LITIGATOR Oxygen Saturation 98% 08/05/2019 2:25 PM LITIGATOR Inhaled Oxygen Concentration - - Weight 79.1 kg (174 lb 4.8 oz) 08/05/2019 2:25 P M LITIGATOR Height 165.1 cm (5' 5 ) 08/05/2019 2:25 PM LITIGATOR Body Mass Index 29.01 08/05/2019 2:25 PM LITIGATOR Plan of Treatment Health Maintenance Due Date [...] (COMPREHENSIVE METABOLIC PANEL) Today 08/05/2019 2:56 PM LITIGATOR Essential hypertension Type 2 diabetes mellitus with diabetic polyneuropathy, 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 Lipid disorder Chronic midline low back pain without sciatica HEMOGLOBIN A1C W/ ESTIMATED GLUCOSE Today 08/05/2019 2:56 PM LITIGATOR Essential hypertension Type 2 diabetes mellitus with diabetic polyneuropathy, 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 Lipid disorder Chronic midline low back pain without sciatica HM COLONOSCOPY Routine 06/26/2017 HEPATITIS C ANTIBODY Routine 02/23/2017 2:14 PM CDT Physical exam, annual (Adult) from Last 3 Months or Most Recently Relevant to Health Maintenance Results * (ABNORMAL) HEMOGLOBIN A1C W/ ESTIMATED GLUCOSE (08/05/2019 2:56 PM LITIGATOR) HGB-A1C 9.4(H) 4.0 - 6.0 % 08/05/2019 4:28 PM LITIGATOR [facility] Est Average Glucose 223.1 mg/dL 08/05/2019 4:28 PM LITIGATOR [facility] Blood specimen (specimen) Venipuncture / Unknown 08/05/2019 2:56 PM LITIGATOR 08/05/2019 2:56 PM LITIGATOR Narrative [facility] - 08/05/2019 4:28 PM LITIGATOR HEMOGLOBIN A1C: DIABETIC PATIENTS: WELL-CONTROLLED: 6.2 - 7.0 INTERMEDIATE WELL-CONTROLLED: 7.0 - 9.0 POORLY-CONTROLLED: >9.0 us Alex Pineda MD CHEMISTRY ORDERABLES Final Re sult [facility] [address] [place] [address] * (ABNORMAL) CMP (COMPREHENSIVE METABOLIC PANEL) (08/05/2019 2:56 PM LITIGATOR) SODIUM 143 136 - 144 mmol/L 08/05/2019 3:50 PM LITIGATOR [facility] POTASSIUM 4.3 3.5 - 5.1 mmol/L 08/05/2019 3:50 PM [facility] CHLORIDE 105 100 - 110 mmol/L 08/05/2019 3:50 PM [facility] CO2, VENOUS 25 22 - 32 mmol/L 08/05/2019 3:50 PM [facility] ANION GAP 17.3 8.0 - 20.0 mmol/L 08/05/2019 3:50 PM [facility] GLUCOSE 159(H) 70 - 99 mg/dL 08/05/2019 3:50 PM [facility] BUN 7(L) 8 - 23 mg/dL 08/05/2019 3:50 PM [facility] CREATININE, BLOOD 0.51(L) 0.80 - 1.30 mg/dL 08/05/2019 3:50 PM [facility] BUN/CREATININE RATIO 14 12 - 20 ratio 08/05/2019 3:50 PM [facility] TOTAL PROTEIN 7.1 6.0 - 8.3 g/dL 08/05/2019 3:50 PM [facility] ALBUMIN 4.3 3.5 - 5.2 g/dL 08/05/2019 3:50 PM [facility] Comment: The colormetric methods used for the determination of Albumin may lead to falsely elevated test results in patients suffering from renal failure or insufficiency due to interference with other proteins. A/G RATIO 1.5 1.0 - 2.0 08/05/2019 3:50 PM LITIGATOR [facility] CALCIUM 9.5 8.9 - 10.3 mg/dL 08/05/2019 3:50 PM LITIGATOR [facility] T BILI 0.3 <=1.2 mg/dL 08/05/2019 3:50 PM LITIGATOR [facility] SGOT (AST) 17 <=40 U/L 08/05/2019 3:50 PM LITIGATOR [facility] SGPT (ALT) 29 <=41 U/L 08/05/2019 3:50 PM LITIGATOR [facility] ALKALINE PHOSPHATASE 53 40 - 130 U/L 08/05/2019 3:50 PM LITIGATOR [facility] GFR, EST. NONAFRICAN >60 >=60 08/05/2019 3:50 PM LITIGATOR [facility] GFR, EST. >60 >=60 019 3:50 PM LITIGATOR [facility] Comment: Creatinine Clearance is the preferred criteria for selecting drug dose adjustments in renally impaired patients. The GFR is provided as additional pertinent clinical information. GFR is reported in mL/min/1.73 sq m. Blood specimen (specimen) Venipuncture / Unknown 08/05/2019 2:56 PM LITIGATOR 08/05/2019 2:56 PM LITIGATOR us Alex Pineda MD CHEMISTRY ORDERABLES Final Re sult [facility] [address] [place] [address] * COLONOSCOPY (06/26/2017) us Tata Do MD PROCEDURE/MINOR SURGICAL ORDER EMILY Final Result * HEPATITIS C ANTIBODY (02/23/2017 2:14 PM CDT) hepatitis C antibody 0.06 <1 S/CO 02/23/2017 11:23 PM CDT [facility] Comment: Signal/Cutoff ratio < 0.79 is Nondetected Signal/Cutoff ratio 0.80-0.99 is Grayzone Signal/Cutoff ratio > 0.99 is Detected Supplemental assays are recommended if signal/cutoff ratio is >/=1.00. Signal/cutoff ratio result >/= 5.00 is 97% predictive of positivity for recombinant immunoblot assay (RIBA) and will be reported to the [place] [facility] Public [facility] as required. Blood specimen (specimen) Venipuncture / Unknown 02/23/2017 2:14 PM CDT 02/23/2017 2:14 PM CDT us Alex Pineda MD CHEMISTRY ORDERABLES Final Re sult [facility] [address] [place] [address], from Last 3 Months or Most Recently Relevant to Health Maintenance Insurance MEDICARE [place]ICAID [place]
--- OUTSIDE RECORDS SUMMARY | 2025-01-27 15:19 | XMS_ITS | Encounter Summary ---
Author Organization [facility] Address [address] [place] [address] Care Team Providers Care Practical Nursing Instructor Name Role Phone Mary Workman MD Primary Care Provider [phone] Encounter Details Date Type Department Care Team (Late Contact Info) Description 01/07/2025 Results Follow-Up [facility] [address] [place] [address] Tara Diop NP [address] [place] [address] POC HEMOGLOBIN A1C, MICROALBUMIN/CREATIN INE [...] Description 02/05/2025 2:40 PM CDT Office Visit [facility] [place] [address] [place] [address] Phu Ly, BHANUC [address] [place] [address] 04/08/2025 2:20 PM CDT Office Visit [facility] Primary [facility] [address] [place] [address] Tara Diop NP [address] [place] [address] documented as of this encounter Visit Diagnoses Not on filedocumented in this encounter Care Teams Practical Nursing Instructor Relationship Specialty Start Date End Date Mary Workman MD [facility] [place] [address] PCP - General Internal Medicine 12/26/23 documented as of this encounter
--- OUTSIDE RECORDS SUMMARY | 2025-01-27 15:19 | XMS_ITS | Encounter Summary ---
Author Organization [facility] Address [address] [place] [address] Phone Care Team Providers Care Mill Order Scheduler Name Role Phone Unavailable Primary Care Provider Unavailabl e Reason for Visit * Reason Comments Medication Refill Encounter Details Date Type Department Care Team (Late st Contact Info) Description 10/03/2020 [facility] [address] [place] [address] Alex Pineda MD [address] [address] Medication Refill Social History Tobacco Use Types [...] Humera Roth RMA - 10/05/2020 5:50 PM LIGHTNING ROD ERECTOR Called patient, no answer TNING ROD ERECTOR * Telephone Encounter - Patricia Jacksno RN - 10/05/2020 8:07 AM CST Patient needs appointment per Dr Pineda. 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 Showing future appointments within next 90 days with a meds authorizing provider and meeting all other requirements Failed - Medication not assigned to a protocol, review manually. TNING ROD ERECTOR documented in this encounter Plan of Treatment Not on file documented as of this encounter Visit Diagnoses Not on filedocumented in this encounter Additional Health Concerns Assessment Noted Time PHQ-9 Depression Total Score: 8 04/03/20 1:49 PM CDT documented as of this encounter
--- OUTSIDE RECORDS SUMMARY | 2025-01-27 15:19 | XMS_ITS | Encounter Summary ---
Author Organization [facility] Address [address] [place] [address] Phone Care Team Providers Care Rehabilitation Supervisor Name Role Phone Unavailable Primary Care Provider Unavailabl e Reason for Visit * Reason Comments Medication Refill Encounter Details Date Type Department Care Team (Late st Contact Info) Description 06/25/2020 Refill [facility] - [facility] [address] [place] [address] Alex Pineda MD [address] [address] Medication Refill Social History Tobacco Use Types [...] Outpatient Visits 10 months ago Essential hypertension [facility] - Alex Hathaway MD 1 year ago Essential hypertension [facility] Alex Hathaway MD 1 year ago Chronic midline low back pain without sciatica [facility] Alex Hathaway MD 1 year ago [facility] APN, KYM 2 years ago Type 2 diabetes mellitus without complication, with long-term current use of insulin (HCC) [facility] Alex Hathaway MD Upcoming Appointments SPECIAL FORCES SPECIALIST - Recent and Past Visits Recent Visits Date Type Provider Dept 08/05/19 Office Visit [facility] Pined[facility] MD [facility] 04/03/19 Office Visit [facility] Showing recent visits within past 460 days [...]
--- OUTSIDE RECORDS SUMMARY | 2025-01-27 15:19 | XMS_ITS | Clinical Summary ---
Author Organization [facility] Address [address] [place] [address] Care Team Providers Care Crate Icer Name Role Phone Unavailable Primary Care Provider [...]
--- OUTSIDE RECORDS SUMMARY | 2025-01-27 15:19 | XMS_ITS | Encounter Summary ---
Author Organization [facility]ER[facility] Address [address] [place] [address] Care Team Providers Care Mechanical Fitter Name Role Phone Mary Workman MD Primary Care Provider [phone] Reason for Visit * Reason Comments Med Refill Encounter Details Date Type Department Care Team (Late st Contact Info) Description 01/26/2025 Refill [facility] [address] [place] [address] Phu Ly PA-C [address] [place] [address] Social History Tobacco Use Types Packs/Day Years [...] as of this encounter Plan of Treatment Upcoming Encounters Date Type Department Care Team (Late st Contact Info) Description 02/05/2025 2:40 PM CDT Office Visit [facility] [address] [place] [address] Phu Ly PA-C [address] [place] [address] 04/08/2025 2:20 PM CDT Office Visit [facility] [address] [place] [address] Tara Diop NP [address] [place] [address] documented as of this encounter Visit Diagnoses Not on filedocumented in this encounter Care Teams Mechanical Fitter Relationship Specialty Start Date End Date Mary Workman MD [address] [place] [address] PCP - General Internal Medicine 12/26/23 documented as of this encounter
--- OUTSIDE RECORDS SUMMARY | 2025-01-27 15:19 | XMS_ITS | Encounter Summary ---
Author Organization [facility] Address [address] [place] [address] Care Team Providers Care Flight Nurse Name Role Phone Mary Workman MD Primary Care Provider [phone] Reason for Visit * Reason Onset Date Comments Medication Authorization 01/27/2025 Encounter Details Date Type Department Care Team (Late st Contact Info) Description 01/27/2025 Medication Prior Auth Encounter [facility] [facility] [place] [address] Grecia Siegel PHARMACIST Social History Tobacco Use Types Packs/Day Years [...] on file documented as of this encounter Progress Notes * Grecia Siegel PHARMACIST - 01/27/2025 11:46 AM CDT FERROUS SULFATE PA DENIED Note from payer: Dietary supplements, including prescription vitamins and mineral products (except vitamins and fluoride vitamins for children), health and beauty aids, herbal supplements and/or alternative medicines are excluded from coverage under Medicare rules. documented in this encounter Plan of Treatment Upcoming Encounters Date Type Department Care Team (Late st Contact Info) Description 02/05/2025 2:40 PM CDT Office Visit [facility] [place] [address] [place] [address] Phu Ly PA-C [address] [place] [address] 04/08/2025 2:20 PM CDT Office Visit [facility] [address] [place] [address] Tara Diop NP [address] [place] [address] documented as of this encounter Visit Diagnoses Not on filedocumented in this encounter Care Teams Flight Nurse Relationship Specialty Start Date End Date Mary Workman MD [facility] [place] [address] PCP - General Internal Medicine 12/26/23 documented as of this encounter
--- OUTSIDE RECORDS SUMMARY | 2025-01-27 15:19 | XMS_ITS | Clinical Summary ---
Author Organization [facility] [address] [place] [address] Address [address] [place] [address] Care Team Providers Care Personnel Security Specialist Name Role Phone Mary Workman MD Primary Care Provider [phone] Allergies No known active allergies Medications ALPRAZolam (XANAX) 1 mg tablet 1 Tablet. Active atorvastatin (LIPITOR) 80 mg tablet atorvastatin 80 mg tablet Active clopidogreL (PLAVIX) 75 mg Tablet clopidogrel 75 mg tablet 021 Active FLUoxetine (PROzac) 20 mg capsule 1 Capsule daily. Act carmen fluticasone propionate (FLONASE) 50 mcg/spray [employer], Suspension nasal inhaler fluticasone propionate 50 mcg/actuation [...] complication, with long-term current use of insulin ([facility]) Inject 80 Units by subcutaneous injection 2 times daily. 144 mL 3 024 Active gabapentin (NEURONTIN) 300 mg capsule Take 1 Capsule (300 mg) by mouth 3 times daily. 90 Capsule 3 024 Active ipratropium bromide (ATROVENT) 42 mcg (0.06 %) [employer], Non-AerosolInd ications:Runny nose Administer 2 Sprays in [...] complication, with long-term current use of insulin ([facility]) Take 1 Tablet (10 mg) by mouth 2 times daily as needed for Nausea/Emesis. 60 Tablet 024 Active Insulin Clayton, Disposable, 32 gauge x 5/32 Needle Use [...] as needed for Spasm. 30 Tablet Active hydrocortisone acetate (ANUSOL-HC) 25 mg SuppositoryInd [...] current medications and he is followed by school based therapist Right renal artery stenosis 06/29/2016 Personal history [...] injury, initial encounter 01/08/2024 07/01/2024 Physical deconditioning 02/08/2022 03/03/2024 Spondylosis of lumbar region without myelopathy or radiculopathy 10/19/2021 07/01/2024 Brain tumor 07/19/2017 12/26/2023 Snoring 10/17/2016 12/26/2023 Encounters Date Type Department Care Team Description 01/27/2025 Medication Prior Auth Encounter [facility] Prescription Management Dept [address] [facility] [place] [phone] Grecia Siegel, PHARMACIST 01/26/2025 Refill [facility] [address] [place] [address] Phu Ly PA-C 01/23/2025 Telephone [facility] [address] [place] [address] Mary Workman MD Medication Authorization 01/22/2025 Telephone [facility] [address] [place] [address] Mary Workman MD Clinical Consult Before Scheduling 01/16/2025 Telephone [facility] [address] [place] [address] Mary Workman MD Results 01/15/2025 Orders Only [facility] [address] [place] [address] Mary Workman MD Lung nodule seen on imaging study (Primary Dx); Pleuritic chest pain 01/15/2025 Refill [facility] [address] [place] [address] Mary Workman MD 01/13/2025 Telephone [facility] [address] [place] [address] Mary Workman MD Medication Refill 01/07/2025 2:40 PM CDT Office Visit [facility] [address] [place] [address] Tara Diop NP Type 2 diabetes mellitus without complication, unspecified whether termite control servicer insulin use ([facility]) (Primary Dx); Controlled type 2 diabetes mellitus without complication, with long-term current use of insulin ([facility]); Obesity (BMI 30.0-34.9); Personal history of nicotine dependence; Other specified deforming dorsopathies, cervical region; Back muscle spasm; Trigger point with back pain; Hx of fall 01/07/2025 Refill [facility] [address] [place] [address] Tara Diop NP Muscle spasm of back (Primary Dx); Trigger point with back pain; Hx of fall 01/07/2025 Results Follow-Up [facility] [address] [place] [address] Tara Diop NP POC HEMOGLOBIN A1C, MICROALBUMIN/CREATIN INE RATIO, RANDOM UR 01/06/2025 Refill [facility] [address] [place] [address] Mary Workman MD 01/01/2025 Refill [facility] [address] [place] [address] Mary Workman MD 01/01/2025 Refill [facility] [address] [place] [address] Phu Ly PA-C Hemorrhoids, unspecified hemorrhoid type 01/01/2025 Telephone [facility] [address] [place] [address] Mary Workman MD Provider Call 01/01/2025 Telephone [facility] [address] [place] [address] Mary Workman MD Clinical Consult Before Scheduling 01/01/2025 Refill [facility] [address] [place] [address] Mary Workman MD 12/31/2024 Telephone [facility] [address] [place] [address] Mary Workman MD Needs Orders Written; Patient Communication 12/30/2024 Results Follow-Up [facility] [address] [place] [address] Mary Workman MD XR CHEST PA AND LATERAL 2 VW, CT CHEST W CONTRAST 12/30/2024 Orders Only [facility] [address] [place] [address] Mary Workman MD Pleuritic chest pain; Upper back pain 12/27/2024 [facility] [address] [place] [address] Mary Workman MD Medication Refill 12/26/2024 [facility] [address] [place] [address] Mary Workman MD Question; Patient Communication 12/26/2024 Telephone [facility] [address] [place] [address] Mary Workman MD Medication Assistance 12/25/2024 Refill [facility] [address] [place] [address] Mary Workman MD 12/18/2024 External Device Data STL ABSTRACTION Provider, Abstract 12/12/2024 Refill [facility] [address] [place] [address] Mary Workman MD 12/07/2024 External Device Data STL ABSTRACTION Provider, Abstract 12/06/2024 External Device Data STL ABSTRACTION Provider, Abstract 12/04/2024 External Device Data STL ABSTRACTION Provider, Abstract 12/03/2024 Telephone [facility] [address] [place] [address] Mary Workman MD Medication Assistance; Question 11/26/2024 Results Follow-Up [facility] [address] [place] [address] Phu Ly PA-C FERRITIN, HEPATITIS C ANTIBODY W REFLEX, CBC WITH DIFFERENTIAL, Additional followed-up results: 2 11/04/2024 3:00 PM SCADA ENGINEER Office Visit [facility] [address] [place] [address] Phu Ly PA-C Annual physical exam (Primary Dx); Controlled type 2 diabetes mellitus without complication, with long-term current use of insulin ([facility]); Venous insufficiency; Systolic murmur; Right renal [...] test; Erectile dysfunction, unspecified erectile dysfunction type from Last 3 Months Immunizations Immunization Administration Dates Next Due (ADACEL/BOOSTRIX)(10 YR UP) TDAP VACCINE, 0.5ML, IM 07/01/2019 (PNEUMOVAX 23)(50 YRS UP) PN EUMOCOCCAL POLYSACCHARIDE (PPV23) 0.5 ML, IM 06/23/2017 (PREVNAR 20)(6 WKS UP) PNEUM OCOCCAL CONJUGATE VACCINE 20-VALENT (PCV20), POLYSACCHARIDE HYD234 CONJUGATE, ADJUVANT 0.5 ML (PF) IM 03/29/2024 [...] Description 02/05/2025 2:40 PM CDT Office Visit [facility] [address] [place] [address] Phu Ly PA-C [address] [place] [address] 04/08/2025 2:20 PM CDT Office Visit [facility] [address] [place] [address] Tara Diop NP [address] [place] [address] Health Maintenance Due Date Last [...] Procedure Name Priority Date/Time Associated Diagnosis Comments CT CHEST W CONTRAST Routine 01/15/2025 Pleuritic chest pain POC HEMOGLOBIN A1C Routine 01/07/2025 3: 03 PM CDT Type 2 diabetes mellitus without complication, unspecified whether termite control servicer insulin use (CMS/HCC) MICROALBUMIN/CREATININ E RATIO, RANDOM UR Routine 01/07/2025 3:00 PM CDT Type 2 diabetes mellitus without complication, unspecified whether termite control servicer insulin use (CMS/HCC) OK INJECTION SINGLE/FINAL ASSEMBLER BOAT TRIGGER POINT 1/2 MUSCLES Routine 01/07/2025 2:40 PM CDT Trigger point with back pain XR CHEST PA AND LATERAL 2 VW Routine 12/27/2024 Pleuritic chest pain Upper back pain TESTOSTERONE FREE AND TOTAL Routine 11/25/2024 10:08 AM SCADA ENGINEER Erectile dysfunction, unspecified erectile dysfunction type HEPATITIS C ANTIBODY Routine 11/25/2024 10:05 AM SCADA ENGINEER Need for hepatitis C screening test FERRITIN Routine 11/25/2024 10:05 AM SCADA ENGINEER Iron deficiency anemia, unspecified iron deficiency anemia type IRON, TIBC, AND PERCENT SATURATION Routine 11/25/2024 10:00 AM SCADA ENGINEER Iron deficiency anemia, unspecified iron deficiency anemia type CBC WITH DIFFERENTIAL Routine 11/25/2024 10:00 AM SCADA ENGINEER Iron deficiency anemia, unspecified iron deficiency anemia type COMPREHENSIVE METABOLIC PANEL Routine 10/04/2024 8:50 AM SCADA ENGINEER Iron deficiency anemia, unspecified iron deficiency anemia type LIPID PANEL Routine 07/15/2024 8:41 AM CDT Dyslipidemia from Last 3 Months or Most Recently Relevant to Health Maintenance Results * CT CHEST W CONTRAST (01/15/2025) Anatomical Region Laterality Modality Chest Computed Tomogra phy 01/15/[address] ORDERABLES Final Result * (ABNORMAL) POC HEMOGLOBIN A1C (01/07/2025 3:03 PM CDT) HGB A1C POC 7.1(A) 4.0 - 6.0 % [facility] KIT LOT NUMBER POC [phone] [facility] KIT EXP DATE POC 11/25/2026 [facility] Blood, capillary 01/07/2025 3:03 PM CDT Tara Diop NP POINT OF CARE TESTING Final R esult [facility] CLIA# [id number] [address] [place] [address] * MICROALBUMIN/CREATININE RATIO, RANDOM UR (01/07/2025 3:00 PM CDT) Creatinine, Urine 85 20 - 320 mg/dL [facility] MICROALBUMIN, URINE 2.0 See Note: mg/dL [facility] Comment: Reference Range: Reference Range Not established MICROALBUMIN/CREAT RATIO, UR 24 <30 mg/g creat [facility] Comment: The ADA defines abnormalities in albumin excretion as follows: Albuminuria Category Result (mg/g creatinine) Normal to Mildly increased <30 Moderately increased 30-299 Severely increased > OR = 300 The ADA recommends that at least two of three specimens collected within a 3-6 month period be abnormal before considering a patient to be within a diagnostic category. Test Performed at: [facility] [address] [address] Ksasandra Rendon MD Urine URINE SPECIMEN OBTAINED BY CLEAN CATCH PROCEDURE / Unknown 01/07/2025 3:00 PM CDT 01/08/2025 7:06 AM CDT Tara Diop NP URINE ORDERABLES Final Result [facility] [phone] [employer] [facility] [address] [place] [address] * [place] INJECTION SINGLE/FINAL ASSEMBLER BOAT TRIGGER POINT 1/2 MUSCLES (01/07/2025 2:40 PM CDT) [facility] - 01/07/2025 2:40 PM CDT Tara [...] 6/10. Pain post procedure was a 0/10. Tara Diop NP PROCEDURE/MINOR SURGICAL ORDE ANSELMO Final Result [id number] [address] [place] [address] * XR CHEST PA AND LATERAL 2 VW (12/27/2024) Anatomical Region Laterality Modality Chest Other 12/27/2024 us Mary Workman MD DIAGNOSTIC IMAGING ORDERABLES Fi nal Result * (ABNORMAL) TESTOSTERONE FREE AND TOTAL (11/25/2024 10:08 AM SCADA ENGINEER) TESTOSTERONE 222(L) 250 - 1100 ng/dL [facility] Comment: Men with clinically significant hypogonadal symptoms and testosterone values repeatedly in the range of the 200-300 ng/dL or less, may benefit from testosterone treatment after adequate risk and benefits counseling. For additional information, please refer to https://education.[employer]/faq/CWM269 (This link is being provided for informational/educational purposes only.) (Note) This test was developed and its analytical performance characteristics have been determined by [employer]. It has not been cleared or approved by the FDA. This assay has been validated pursuant to the CLIA regulations and is used for clinical purposes. TESTOSTERONE FREE 34.3(L) 35.0 - 155.0 pg/mL [facility] Comment: (Note) This test was developed and its analytical performance characteristics have been determined by [employer]. It has not been cleared or approved by the FDA. This assay has been validated pursuant to the CLIA regulations and is used for clinical purposes. [facility] [address] [facility] [place] [address],[address] [facility] [address] Marcelina Johnson MD, PhD FASTING:YES FASTING: YES Test Performed at: [facility] [address] [address], [address] [place] [address] Marcelina Johnson MD,PhD Blood 11/25/2024 10:0 8 AM SCADA ENGINEER 11/25/2024 10:08 AM SCADA ENGINEER Phu January Ly PA-C CHEMISTRY ORDERABLES F inal Result [facility] [phone] [facility] [address] [address], [address] [place] [address] * HEPATITIS C ANTIBODY W REFLEX (11/25/2024 10:05 AM SCADA ENGINEER) HEPATITIS C AB NON-REACTI VE NON-REACT [facility] Comment: HCV antibody was non-reactive. There is no laboratory evidence of HCV infection. In most cases, no further action is required. However, if recent HCV exposure is suspected, a test for HCV RNA (test code 73192) is suggested. For additional information please refer to http://education.[employer]/faq/PWN54r3 (This link is being provided for informational/ educational purposes only.) FASTING:YES FASTING: YES Test Performed at: [address] [facility] [address] [place] [address] Kassandra Rendon MD Blood 11/25/2024 10:0 5 AM SCADA ENGINEER 11/25/2024 10:06 AM SCADA ENGINEER Result [facility] Phudenise Ly PA-C CHEMISTRY ORDERABLES F inal Result [facility] [phone] [facility] [address] [place] [address] [place] [address] * (ABNORMAL) FERRITIN (11/25/2024 10:05 AM SCADA ENGINEER) FERRITIN 8(L) 24 - 380 ng/mL [facility] Comment: FASTING:YES FASTING: YES Test Performed at: [address] [facility] [address] [place] [address] Kassandra Rendon MD Blood 11/25/2024 10:0 5 AM SCADA ENGINEER 11/25/2024 10:06 AM SCADA ENGINEER Phu Ly PA-C CHEMISTRY ORDERABLES F inal Result Performing Organization Address City/[facility]/ZIP Co de Phone Number [facility] [phone] [facility] [address] * (ABNORMAL) IRON, TIBC, AND PERCENT SATURATION (11/25/2024 10:00 AM SCADA ENGINEER) Pathologist [facility] IRON 40(L) 50 - 180 mcg/dL [facility] TIBC 347 250 - 425 mcg/dL (calc) [facility] IRON % SATURATION 12(L) 20 - 48 % (calc) [facility] Comment: FASTING:YES FASTING: YES Test Performed at: [address] [address] Kassandra Rendon MD Blood 11/25/2024 10:0 0 AM SCADA ENGINEER 11/25/2024 10:01 AM SCADA ENGINEER Phu Ly PA-C CHEMISTRY ORDERABLES F inal Result Performing Organization Address City/[facility] Co de Phone Number [facility] [phone] [facility] [address] [address] * (ABNORMAL) CBC WITH DIFFERENTIAL (11/25/2024 10:00 AM SCADA ENGINEER) Pathologist [facility] WBC 5.8 3.8 - 10.8 Thousand/u L [...] Comment: FASTING:YES FASTING: YES Test Performed at: [facility] [address] [place] [address] Kassandra Rendon MD Blood 11/25/2024 10:0 0 AM SCADA ENGINEER 11/25/2024 10:01 AM SCADA ENGINEER Phu Ly PA-C HEMATOLOGY ORDERABLES Final Result [facility] [phone] [facility] [address] [place] [address] * (ABNORMAL) COMPREHENSIVE METABOLIC PANEL (10/04/2024 8:50 AM SCADA ENGINEER) GLUCOSE 92 65 - 99 mg/dL [employer] [facility] [place] Comment: Fasting reference interval BUN 13 7 - 25 mg/dL [facility] CREATININE 0.56(L) 0.70 - 1.35 mg/dL [facility] GFR 108 > OR = 60 mL/min/1. 73m2 [facility] BUN/CREAT RATIO 23(H) 6 - 22 (calc) [facility] SODIUM 140 135 - 146 mmol/L [facility] POTASSIUM 4.2 3.5 - 5.3 mmol/L [facility] CHLORIDE 105 98 - 110 mmol/L [facility] CO2 26 20 - 32 mmol/L [facility] [place] CALCIUM 8.6 8.6 - 10.3 mg/dL [facility] TOTAL PROTEIN 6.1 6.1 - 8.1 g/dL [facility] [place] ALBUMIN 4.0 3.6 - 5.1 g/dL [facility] [place] GLOBULIN 2.1 1.9 - 3.7 g/dL (calc) [facility] ALBUMIN/GLOBULIN RATIO 1.9 1.0 - 2.5 (calc) [facility] BILIRUBIN TOTAL 0.3 0.2 - 1.2 mg/dL [facility] ALKALINE PHOSPHATASE 48 35 - 144 U/L [facility] AST 14 10 - 35 U/L [facility] ALT 21 9 - 46 U/L [facility] [place] Comment: Test Performed at: [place] [place] [address] [address] [address] Kassandra Rendon Blood 10/04/2024 8:50 AM SCADA ENGINEER 10/04/2024 8:50 AM SCADA ENGINEER Phu Ly PA-C CHEMISTRY ORDERABLES F inal Result [facility] [phone] [facility] [address] [address] [address] [place] [address] * (ABNORMAL) LIPID PANEL (07/15/2024 8:41 AM CDT) CHOLESTEROL 92 <200 mg/dL [facility] [place] HDL 25(L) > OR = 40 mg/dL [facility] [place] TRIGLYCERIDE 120 <150 mg/dL [facility] LDL CALCULATED 46 mg/dL (calc) [address] [facility] [place] Comment: Reference range: <100 Desirable range <100 mg/dL for primary prevention; <70 mg/dL for patients with CHD or diabetic patients with > or = 2 CHD risk factors. LDL-C is now calculated using the Ricardo calculation, which is a validated novel method providing better accuracy than the Friedewald equation in the estimation of LDL-C. Robbin SHAIKH et al. MORIAH. 2013;310(19): 5570-5566 (http://education.[facility]/faq/WHS391) CHOL/HDL RATIO 3.7 <5.0 (calc) [address] [facility] NON-HDL CHOLESTEROL 67 <130 mg/dL (calc) [facility] [place] Comment: For patients with diabetes plus 1 major ASCVD risk factor, treating to a non-HDL-C goal of <100 mg/dL (LDL-C of <70 mg/dL) is considered a therapeutic option. Test Performed at: [employer] [place] [address] [address] [place] [address] Kassandra Pendleton Blood 07/15/2024 8:41 AM CDT 07/15/2024 8:41 AM CDT Tara Diop NP CHEMISTRY ORDERABLES Final Re sult [facility] [phone] [address] [address] [address] [place] [phone] from Last 3 Months or Most Recently Relevant to Health Maintenance [place] [address] [place] [id number] [facility] [id number] Care Teams Personnel Security Specialist Relationship Specialty Start Date End Date Mary Workman MD [address] [place] [address] PCP - General Internal Medicine 12/26/23
--- OUTSIDE RECORDS SUMMARY | 2025-01-27 15:19 | XMS_ITS | Clinical Summary ---
Author Organization [facility] Address [address] [place] [address] Care Team Providers Care Cathode Maker Name Role Phone Becca Oh MD Primary Care Provider [phone] Allergies Active Allergy Reactions Criticality Noted Date [...] to monitor. Coronary artery disease invo lving [place] coronary artery of [place] heart without angina pectoris 07/27/2021 Assessment & Plan (07/27/2021 3:40 PM CDT): Status post stent placement. Continue current medications and he is followed by automotive technician Chronic bilateral low back pain without sciatica [...] on file Legal Sex Male 12:30 AM REGISTRY NURSE Gender Identity Not on file Sexual Orientation Not on file Obstetrics History Last Filed Vital Signs Vital Sign Reading Time Taken Comments Blood Pressure 157/64 02/08/2022 9:58 AM CDT Pulse 75 02/08/2022 9:58 AM CDT Temperature 36.7 C (98.1 F) 10/19/2021 8:51 AM REGISTRY NURSE Respiratory Rate 18 10/19/2021 8:51 AM REGISTRY NURSE Oxygen Saturation 99% 02/08/2022 9:58 AM CDT [...] 5 season) 2024 02/02/2021, 01/06/2021 Influenza Vaccine (Season Ended) 2025 07/27/2021, 07/17/2020, 08/05/2019, Additional history exists DTaP/Tdap/Td Vaccine (2 - Td or Tdap) 07/01/2029 07/01/2019 Procedures Procedure Name Priority Date/Time Associated Diagnosis Comments SERUM LIPID PANEL Routine 11/22/2016 8:1 7 AM REGISTRY NURSE from Last 3 Months or Most Recently Relevant to Health Maintenance Results * (ABNORMAL) Serum lipid panel (11/22/2016 8:17 AM REGISTRY NURSE) Pathologist [facility] Cholesterol 126 100 - 200 mg/dl CDR [...] last revised 2016. Serum 11/22/2016 8:17 AM REGISTRY NURSE Florian Au MD LAB BLOOD ORDERABLES Fin al Result CDR HISTORICAL RESULTS from Last 3 Months or Most Recently Relevant to Health Maintenance Insurance MEDICARE ADVANTAGE [facility]PA [facility] MEDICARE ADVANTAGE Care Teams Cathode Maker Relationship Specialty Start Date End Date Becca Oh MD [address] [place] [address] PCP - General Internal Medicine 07/27/21
== END 2025-01-27 13:20 | disposition home or self-care (01) ==
DX: M54.6 Pain in thoracic spine (principal); M54.2 Cervicalgia
CPT/HCPCS: 72040; 72070

== ENCOUNTER 2025-04-27 01:47 | Emergency (ER) | payer MEDICARE, MEDICAID, SELFPAY ==
[2025-04-27] VITALS (17 sets, daily range): BP systolic 132–187; BP diastolic 53–64; PULSE 69–78; RESP 12–23; TEMP 36.7; O2SAT 94–99
--- NOTE | ~2025-04-27 | XR_ITS ---
CHEST RADIOGRAPH CLINICAL HISTORY: HIGH BLOOD PRESSURE . COMPARISON: 12/27/2024 TECHNIQUE: Single portable view of the chest. FINDINGS The cardiomediastinal silhouette is unremarkable. Low lung volumes detected bilaterally, an interval change from previous examination. Left basilar ate lectasis is suspected. The remainder of the lungs are clear. IMPRESSION: Low lung volumes with left basilar atelectasis Reviewed, dictated and finalized at location A.
--- OUTSIDE RECORDS SUMMARY | 2025-04-27 01:49 | XMS_ITS | Clinical Summary ---
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 02/23/2017 Anxiety [...] Comments Blood Pressure 130/76 08/05/2019 2:25 PM SOCIAL SERVICES AIDE Pulse 72 08/05/2019 2:25 PM SOCIAL SERVICES AIDE Temperature 36.4 C (97.6 F) 08/05/2019 2:25 PM SOCIAL SERVICES AIDE Respiratory Rate 16 08/05/2019 2:25 PM SOCIAL SERVICES AIDE Oxygen Saturation 98% 08/05/2019 2:25 PM SOCIAL SERVICES AIDE Inhaled Oxygen Concentration - - Weight 79.1 kg (174 lb 4.8 oz) 08/05/2019 2:25 P M SOCIAL SERVICES AIDE Height 165.1 cm (5' 5) 08/05/2019 2:25 PM SOCIAL SERVICES AIDE Body Mass Index 29.01 08/05/2019 2:25 PM SOCIAL SERVICES AIDE Plan of Treatment Health Maintenance Due Date Last Done Comments Diabetes: Eye Exam 1957 Diabetes: Foot Exam 1955 TdaP Immunization 1955 Cologuard 2002 Immunochemical Fecal Occult Blood 2002 Zoster Immunization (1 of 2) 2007 Respiratory Syncytial Virus (RSV) Immunization (Adult) (1 - Risk 60-74 years 1-dose series) 2017 Pneumococcal Immunization (50+ years) (2 of 2 - PCV) 06/23/2018 06/23/2017 Diabetes: Hemoglobin A1c 02/03/2020 019, 04/03/2019, 08/22/2018, Additional history exists Diabetes: Nephropathy Screening 08/05/2020 08/05/2019, 08/05/2019, 04/03/2019, Additional history exists SARS-COV-2 Immunization ( season) 2024 02/02/2021, 01/06/2021 Influenza Immunization (#1) 06/02/202512/2018, 06/28/2018, 06/23/2017, Additional history exists Colonoscopy 06/26/2027 06/26/2017 Colorectal Cancer Screening 06/26/2027 Hepatitis C Virus (HCV) Screening Completed 02/23/2017 Pneumococcal Immunization Combined Discontinued 06/23/2017 Hepatitis B Immunization Aged Out No longer eligible based on patient's age to complete this topic Human Papillomavirus (HPV) Immunization Aged Out No longer eligible based on patient's age to complete this topic Meningococcal Immunization (ACWY) Aged Out No longer eligible based on patient's age to complete this topic Rotavirus Immunization Aged Out No lo nger eligible based on patient's age to complete this topic Procedures Procedure Name Priority Date/Time Associated Diagnosis Comments CMP (COMPREHENSIVE METABOLIC PANEL) Today 08/05/2019 2:56 PM SOCIAL SERVICES AIDE Essential hypertension Type 2 diabetes mellitus with diabetic polyneuropathy, 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 Lipid disorder Chronic midline low back pain without sciatica HEMOGLOBIN A1C W/ ESTIMATED GLUCOSE Today 08/05/2019 2:56 PM SOCIAL SERVICES AIDE Essential hypertension Type 2 diabetes mellitus with diabetic polyneuropathy, 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 Lipid disorder Chronic midline low back pain without sciatica HM COLONOSCOPY Routine 06/26/2017 HEPATITIS C ANTIBODY Routine 02/23/2017 2:14 PM CDT Physical exam, annual (Adult) from Last 3 Months or Most Recently Relevant to Health Maintenance Results * (ABNORMAL) HEMOGLOBIN A1C W/ ESTIMATED GLUCOSE (08/05/2019 2:56 PM SOCIAL SERVICES AIDE) HGB-A1C 9.4(H) 4.0 - 6.0 % 08/05/2019 4:28 PM SOCIAL SERVICES AIDE [facility] Est Average Glucose 223.1 mg/dL 08/05/2019 4:28 PM SOCIAL SERVICES AIDE [facility] Blood specimen (specimen) Venipuncture / Unknown 08/05/2019 2:56 PM SOCIAL SERVICES AIDE 08/05/2019 2:56 PM SOCIAL SERVICES AIDE Narrative [facility] - 08/05/2019 4:28 PM SOCIAL SERVICES AIDE HEMOGLOBIN A1C: DIABETIC PATIENTS: WELL-CONTROLLED: 6.2 - 7.0 INTERMEDIATE WELL-CONTROLLED: 7.0 - 9.0 POORLY-CONTROLLED: >9.0 us Alex Pineda MD CHEMISTRY ORDERABLES Final Re sult [facility] [address] [place] [address] * (ABNORMAL) CMP (COMPREHENSIVE METABOLIC PANEL) (08/05/2019 2:56 PM SOCIAL SERVICES AIDE) SODIUM 143 136 - 144 mmol/L 08/05/2019 3:50 PM SOCIAL SERVICES AIDE [facility] POTASSIUM 4.3 3.5 - 5.1 mmol/L 08/05/2019 3:50 PM SOCIAL SERVICES AIDE [facility] CHLORIDE 105 100 - 110 mmol/L 08/05/2019 3:50 PM [facility] CO2, VENOUS 25 22 - 32 mmol/L 08/05/2019 3:50 PM SOCIAL SERVICES AIDE [facility] ANION GAP 17.3 8.0 - 20.0 mmol/L 08/05/2019 3:50 PM SOCIAL SERVICES AIDE [facility] GLUCOSE 159(H) 70 - 99 mg/dL 08/05/2019 3:50 PM [facility] BUN 7(L) 8 - 23 mg/dL 08/05/2019 3:50 PM [facility] CREATININE, BLOOD 0.51(L) 0.80 - 1.30 mg/dL 08/05/2019 3:50 PM [facility] BUN/CREATININE RATIO 14 12 - 20 ratio 08/05/2019 3:50 PM [facility] TOTAL PROTEIN 7.1 6.0 - 8.3 g/dL 08/05/2019 3:50 PM [facility] ALBUMIN 4.3 3.5 - 5.2 g/dL 08/05/2019 3:50 PM [facility] Comment: The colormetric methods used for the determination of Albumin may lead to falsely elevated test results in patients suffering from renal failure or insufficiency due to interference with other proteins. A/G RATIO 1.5 1.0 - 2.0 08/05/2019 3:50 PM SOCIAL SERVICES AIDE [facility] CALCIUM 9.5 8.9 - 10.3 mg/dL 08/05/2019 3:50 PM SOCIAL SERVICES AIDE [facility] T BILI 0.3 <=1.2 mg/dL 08/05/2019 3:50 PM SOCIAL SERVICES AIDE [facility] SGOT (AST) 17 <=40 U/L 08/05/2019 3:50 PM SOCIAL SERVICES AIDE [facility] SGPT (ALT) 29 <=41 U/L 08/05/2019 3:50 PM SOCIAL SERVICES AIDE [facility] ALKALINE PHOSPHATASE 53 40 - 130 U/L 08/05/2019 3:50 PM SOCIAL SERVICES AIDE [facility] GFR, EST. NONAFRICAN >60 >=60 08/05/2019 3:50 PM SOCIAL SERVICES AIDE [facility] GFR, EST. >60 >=60 019 3:50 PM SOCIAL SERVICES AIDE [facility] Comment: Creatinine Clearance is the preferred criteria for selecting drug dose adjustments in renally impaired patients. The GFR is provided as additional pertinent clinical information. GFR is reported in mL/min/1.73 sq m. Blood specimen (specimen) Venipuncture / Unknown 08/05/2019 2:56 PM SOCIAL SERVICES AIDE 08/05/2019 2:56 PM SOCIAL SERVICES AIDE us Alex Pineda MD CHEMISTRY ORDERABLES Final Re sult [facility] [address] [place] [address] * HM COLONOSCOPY (06/26/2017) us Tata Do MD PROCEDURE/MINOR SURGICAL ORDER EMILY Final Result * HEPATITIS C ANTIBODY (02/23/2017 2:14 PM CDT) hepatitis C antibody 0.06 <1 S/CO 02/23/2017 11:23 PM CDT [facility] Comment: Signal/Cutoff ratio < 0.79 is Nondetected Signal/Cutoff ratio 0.80-0.99 is Grayzone Signal/Cutoff ratio > 0.99 is Detected Supplemental assays are recommended if signal/cutoff ratio is >/=1.00. Signal/cutoff ratio result >/= 5.00 is 97% predictive of positivity for recombinant immunoblot assay (RIBA) and will be reported to the [place] Department of Public [facility] as required. Blood specimen (specimen) Venipuncture / Unknown 02/23/2017 2:14 PM CDT 02/23/2017 2:14 PM CDT us Alex Pineda MD CHEMISTRY ORDERABLES Final Re sult [facility] [address] [place] [address], [place] from Last 3 Months or Most Recently Relevant to Health Maintenance Insurance MEDICARE [place]ICAID [place]
--- OUTSIDE RECORDS SUMMARY | 2025-04-27 01:49 | XMS_ITS | Encounter Summary ---
Author Organization [facility] Address [address] [place] [address] Care Team Providers Care Customer Complaint Service Supervisor Name Role Phone Mary Workman MD Primary Care Provider [phone] Encounter Details Date Type Department Care Team (Late Contact Info) Description 04/07/2025 Results Follow-Up [facility] [address] [place] [address] Mary Workman MD [address] [place] [address] XR CHEST LAT 1 VW Social History Tobacco Use Types Packs/Day Years Used Date Smoking Tobacco: Former Cigarettes Passive Smoke Exposure: Never Smokeless Tobacco: Never [...] Department Care Team (Late Contact Info) Description 05/15/2025 1:40 PM CDT Office Visit [facility] [address] [place] [address] Phu Ly PA-C [address] [place] [address] documented as of this encounter Visit Diagnoses Not on filedocumented in this encounter Care Teams Customer Complaint Service Supervisor Relationship Specialty Start Date End Date Mary Workman MD [address] [place] [address] PCP - General Internal Medicine 12/26/23 documented as of this encounter
--- OUTSIDE RECORDS SUMMARY | 2025-04-27 01:49 | XMS_ITS | Referral Summary ---
Author Organization [facility] Address [address] [place] [address] Care Team Providers Care [employer] Band Director Name Role Phone Becca Oh MD Primary Care Provider [phone] Allergies Active Allergy Reactions Criticality Noted Date [...] to monitor. Coronary artery disease invo lving [place] coronary artery of [place] heart without angina pectoris 07/27/2021 Assessment & Plan (07/27/2021 3:40 PM CDT): Status post stent placement. 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 Gender Identity Not on file Sexual Orientation Not on file Last Filed Vital Signs Vital Sign Reading Time Taken Comments Blood Pressure 157/64 02/08/2022 9:58 AM CDT Pulse 75 02/08/2022 9:58 AM CDT Temperature 36.7 C (98.1 F) 10/19/2021 8:51 AM POTATO PICKER Respiratory Rate 18 10/19/2021 8:51 AM POTATO PICKER Oxygen Saturation 99% 02/08/2022 9:58 AM CDT Inhaled Oxygen Concentration - - Weight 80.2 kg (176 lb 11.2 oz) 02/08/2022 9:58 AM CDT Height 160 cm (5' 2.99) 02/08/2022 9:58 AM CDT Body Mass Index 31.31 02/08/2022 9:58 AM CDT Plan of Treatment Not on file Insurance [facility] MEDICARE ADVANTAGE IDPA [facility] MEDICARE ADVANTAGE Care Teams [employer] Band Director Relationship Specialty Start Date End Date Becca Oh MD [facility] [facility] [place] [address] PCP - General Internal Medicine 07/27/21
--- OUTSIDE RECORDS SUMMARY | 2025-04-27 01:49 | XMS_ITS | Encounter Summary ---
Author Organization [facility] Address [address] [place] [address] Phone Care Team Providers Care Lavatory Attendant Name Role Phone Unavailable Primary Care Provider Unavailabl e Reason for Visit * Reason Comments Medication Refill Encounter Details Date Type Department Care Team (Late st Contact Info) Description 10/03/2020 [facility] [address] [place] [address] Alex Pineda MD [address] [address] Medication Refill Social History Tobacco Use Types [...] Humera Roth RMA - 10/05/2020 5:50 PM IRRIGATOR SPRINKLING SYSTEM Called patient, no answer GATOR SPRINKLING SYSTEM * Telephone Encounter - Patricia Jackson RN - 10/05/2020 8:07 AM CST Patient needs appointment per Dr Pineda. 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 Showing future appointments within next 90 days with a meds authorizing provider and meeting all other requirements Failed - Medication not assigned to a protocol, review manually. GATOR SPRINKLING SYSTEM documented in this encounter Plan of Treatment Not on file documented as of this encounter Visit Diagnoses Not on filedocumented in this encounter Additional Health Concerns Assessment Noted Time PHQ-9 Depression Total Score: 8 04/03/20 1:49 PM CDT documented as of this encounter
--- OUTSIDE RECORDS SUMMARY | 2025-04-27 01:49 | XMS_ITS | Continuity of Care Document ---
Author Organization [facility] Address [address] [place] [address] Phone Care Team Providers Care Cellophane Bath Mixer Name Role Phone Nelly ONEILL, JAZLYN, Jarod ELDRIDGE Unavailable Unava ilable Nelly ONEILL, JAZLYN, Jarod ELDRIDGE Unavailable Unava ilable Allergies, Adverse Reactions, Alerts Substance Reaction Status Criticality ISOSORBIDE MONONITRATE Headache Active No In formation Medications Medication Instructions Dosage Effective Dates (start - stop) Status Comments clopidogrel 75 mg tablet TAKE 1 TABLET BY MOUTH DAILY - Active furosemide 20 mg tablet TAKE 1 TABLET BY MOUTH EVERY DAY - Active Rebecca 2nd Gen Pen Needle 32 gauge x - Active potassium chloride ER 20 mEq tablet,extended release - Active carisoprodol 350 mg tablet TAKE 1 TABLET BY MOUTH EVERY 8 HOURS NEEDED FOR SPASM *NOT COVERED* - Active OneTouch Ultra Control solution CHECK CONTROL HIGH/LOW ONCE MONTHLY - Active amlodipine 10 mg tablet - Ac tive carvedilol 12.5 mg tablet - Active irbesartan 300 mg tablet - Active alprazolam 1 mg tablet TAKE 1 TABLET BY MOUTH THREE TIMES A DAY - Active cholecalciferol (vitamin D3) 1,250 mcg (50,000 unit) capsule TAKE 1 CAPSULE BY MOUTH EVERY 7 DAYS - Active ipratropium bromide 42 mcg (0.06 %) nasal spray - Active nitroglycerin 0.[address] ONE TABLET UNDER THE TONGUE NEEDED FOR CHEST PAIN AND MAY REPEAT IN 10 MINUTES IF NEEDED - Active OneTouch Delica Plus Lancet 30 gauge - Active OneTouch Ultra Test strips - Active gabapentin 300 mg capsule - Active ipratropium 0.5 mg-albuterol 3 mg (2.5 mg base)/3 mL nebulization soln INHALE THE CONTENTS OF 1 VIAL VIA NEBULIZER EVERY 6 HOURS NEEDED FOR SHORTNESS OF BREATH - Active metformin 1,000 mg tablet TAKE 1 TABLET (1000 MG) BY MOUTH TWICE DAILY WITH MEALS - Active Lantus Solostar U-100 Insulin 100 unit/mL (3 mL) subcutaneous pen INJECT 80 UNITS UNDER THE SKIN TWICE DAILY - Active methocarbamol 500 mg tablet TAKE 1 TABLET BY MOUTH FOUR TIMES A DAY NEEDED FOR SPASM - Active ferrous sulfate 325 mg (65 mg iron) tablet TAKE 1 TABLET BY MOUTH EVERY DAY - Active glipizide ER 5 mg tablet, extended release 24 hr TAKE 1 TABLET BY MOUTH DAILY WITH BREAKFAST FOR DIABETES - Active montelukast 10 mg tablet - Active doxycycline hyclate 100 mg tablet TAKE 1 TABLET BY MOUTH 2 TIMES DAILY FOR 7 DAYS - Active atorvastatin 80 mg tablet - Active pantoprazole 20 mg tablet,delayed release - Active BD REBECCA 2 GEN PEN NDL 32G 4MM USE NEEDLE TO ADMINISTER LANTUS UNDER THE SKIN TWICE DAILY - Active doxycycline monohydrate 100 mg capsule TAKE 1 CAPSULE BY MOUTH EVERY 12 HOURS FOR 7 DAYS - Active testosterone cypionate 200 mg/mL intramuscular oil INJECT 0.5 ML (100 MG) INTRAMUSCULARLY ONE TIME ONLY FOR 1 DOSE. - Active hydrocortisone acetate 25 mg rectal suppository INSERT 1 SUPPOSITORY (25 MG) BY RECTUM 2 TIMES DAILY NEEDED FOR ITCHING. - Active cyclobenzaprine 10 mg tablet - Active omeprazole 20 mg capsule,delayed release TAKE 1 CAPSULE BY MOUTH TWICE DAILY - Active Procedures Procedure Date REM PHYSIOL MNTR EA ADDL 20 REM MNTR PHYSIOL LELO DEV REM PHYSIOL MNTR 20 MIN MO VASCULAR STUDY Advance Directives Directive Yes / No Effective Date File Name No Information Encounters Encounter Description Practice Location Reason(s) For Visit Diagnoses Date Provider Providers Copied on Encounter [facility], [address] [place] [address], [address] [place] [address] , tel: [phone] No Information 5 Nelly Olivera. [address] [place] [address], [address] [place] [address], [id number], [place]. tel:[phone] Referring Provider: Jarod Ramos, [address] [place] [address] [place] [address], [id number] . tel:[phone] sulting Provider: Jarod Ramos, [address] [place] [address] [place] [address], [id number] . tel:[phone] [facility], [address] [place] [address], [id number] , tel: [phone] [facility] Sud[place] No Information 5 Nela Du. [address] [place] [address], [id number], . tel:[phone] [facility] PHYSIOL MNTR EA ADDL 20 [facility], [address] [place] [address], [id number] , tel: [phone] [facility] Essential (primary) hypertension 5 [address]elly [address]. [id number] [place] [address], [address] [place] [address], [id number], [place]. tel:[phone] Referring Provider: Jarod Ramos, [address] [facility] [address] [place] [address], [id number] . tel:[phone] sulting Provider: Jarod Ramos, [id number] [place] [address] [place] [address], [id number] . tel:[phone] [facility] , [address] [place] [address], [id number] , tel: [phone] [facility] [place] No Information 5 Nelly Jarod. [address] [facility], [address] [place] [address], [id number], . tel:[phone] Referring Provider: Jarod Ramos, [id number] [place] [address] [place] [address], [id number] . tel:[phone] [facility] , [address] [place] [address], [id number] , tel: [phone] [facility] [place] Nonrheumatic aortic (valve) stenosisSystolic murmurShortness of breathPeripheral vascular disease, unspecifiedVenous insufficiencyIron deficiency anemia, unspecifiedAtheros clerosis of renal arteryCoronary artery disease of [place] coronary artery without angina pectorisType 2 diabetes w/o complicationHyperl ipidemia, unspecifiedHTN 5 Nelly Olivera. [address] [facility], [address] [facility], [place], [place], [id number], . tel:[phone] Referring Provider: Jarod Ramos, [address] [facility] [address] [place] [address], [address] . tel:[phone] Family History Family Member Type Diagnosis Age At Onset No Information Payers Payer name Insurance type Covered republican ID Authornikiaa tizeke(s) [facility] [id number] PPO C [id number] Social History Type Description Quantity Date Captured Comments Sex Male Smoking Status No Information Chief Complaint And Reason For Visit No Information Reason For Referral Reason For Referral No Information Plan Of Treatment Date Type Action Status Appointment Christian Barros BOOKED History Of Present Illness Encounter Date Complaint History Of Prese nt Illness No Information Functional Status Date Functional Assessmen t No Information Instructions Date Instruction Additional Infor mation No Information Assessments Type Assessment Date No Information Patient Care Teams Name Effective Dates (start - stop) Status Members No Information
--- OUTSIDE RECORDS SUMMARY | 2025-04-27 01:49 | XMS_ITS | Clinical Summary ---
Author Organization [facility] [address] [place] [address] Address [address] [place] [address] Care Team Providers Care [employer] Boss Name Role Phone Mary Workman MD Primary Care Provider [phone] Allergies No known active allergies Medications ALPRAZolam (XANAX) 1 mg tablet 1 Tablet. 021 Active atorvastatin (LIPITOR) 80 mg tablet atorvastatin 80 mg tablet 021 Active clopidogreL (PLAVIX) 75 mg Tablet clopidogrel 75 mg tablet 021 Active FLUoxetine (PROzac) 20 mg capsule 1 Capsule daily. Act elizabeth fluticasone propionate (FLONASE) 50 mcg/spray [place], Suspension nasal inhaler fluticasone propionate 50 mcg/actuation spray,suspension Active furosemide (LASIX) 20 mg tablet furosemide 20 mg tablet 022 Active clotrimazole-b etamethasone (LOTRISONE) 1-0.05 % CreamIndicatio ns:Tinea pedis of both feet Apply to affected area 2 times daily. 30 Gram 024 Active gabapentin (NEURONTIN) 300 mg capsule Take 1 Capsule (300 mg) by mouth 3 times daily. 90 Capsule 3 024 Active metoclopramide HCl (REGLAN) 10 mg tabletIndicati ons:Nausea,Con trolled type 2 diabetes mellitus without complication, with long-term current use of insulin (CMS/HCC) Take 1 Tablet (10 mg) by mouth 2 times daily as needed for Nausea/Emesis. 60 Tablet 024 Active ferrous sulfate 325 mg (65 mg iron) tablet Take 1 Tablet (325 mg) by mouth daily. 100 Tablet 3 025 Active pantoprazole (PROTONIX) 20 mg Tablet, Delayed Release (E.C.) Take 1 Tablet (20 mg) by mouth daily. 100 Tablet 3 025 Active hydrocortisone acetate (ANUSOL-HC) 25 mg SuppositoryInd ications:Hemor rhoids, unspecified hemorrhoid type INSERT 1 SUPPOSITORY (25 MG) BY RECTUM 2 TIMES DAILY NEEDED FOR ITCHING. 60 Suppository 025 Active cyclobenzaprin e (FLEXERIL) 10 mg tablet TAKE 1 TABLET BY MOUTH 3 TIMES DAILY NEEDED FOR SPASMS 90 Tablet 025 Active Irbesartan (AVAPRO) 300 mg tablet Take 1 Tablet (300 mg) by mouth daily. 100 Tablet 1 025 Active ipratropium-al buteroL (DUONEB) 0.5 mg-3 mg(2.5 mg base)/3 mL Solution for Nebulization INHALE THE CONTENTS OF 1 VIAL VIA NEBULIZER EVERY 6 HOURS NEEDED FOR SHORTNESS OF BREATH 270 mL 1 025 Active cholecalcifero l 1,250 mcg (50,000 unit) Capsule Take 1 Capsule (50,000 Units) by mouth every 7 days. 14 Capsule 025 Active carisoprodoL (Soma) 350 mg tabletIndicati ons:Chronic midline low back pain without sciatica Take 1 Tablet (350 mg) by mouth every 8 hours as needed for Spasm. 30 Tablet 025 Active ipratropium bromide (ATROVENT) 42 mcg (0.06 %) [place], Non-AerosolInd ications:Runny nose INSTILL 2 SPRAYS INTO EACH NOSTRIL TWICE DAILY WITH MEALS 15 mL 1 025 Active metFORMIN (GLUCOPHAGE) 1,000 mg tablet TAKE 1 TABLET (1000 MG) BY MOUTH TWICE DAILY WITH MEALS 200 Tablet 3 025 Active glipiZIDE (GLUCOTROL XL) 5 mg Extended Release 24 hour tabletIndicati ons:Controlled type 2 diabetes mellitus without complication, with long-term current use of insulin ([facility]) TAKE 1 TABLET BY MOUTH DAILY WITH BREAKFAST FOR DIABETES 100 Tablet 3 025 Active insulin glargine (Lantus Solostar U-100 Insulin) 100 unit/mL pen syringeIndicat ions:Controlle d type 2 diabetes mellitus without complication, with long-term current use of insulin ([facility]) INJECT 80 UNITS UNDER THE SKIN TWICE DAILY 135 mL 2 Active amLODIPine (NORVASC) 10 mg tablet TAKE 1 TABLET BY MOUTH DAILY 100 Tablet 3 Active Blood Glucose Control High&Low Solution Check control high/low once monthly 1 Each 3 Active blood sugar diagnostic (JuicyCanvasTouch Ultra Test) Strip Use to check blood glucose four times a day. 400 Strip 3 Active Insulin Crescent, Disposable, 32 gauge x 5/32 Needle Use needle to administer lantus subcutaneously two times daily 200 Each 3 Active lancets ([employer] Delica Plus Lancet) 30 gauge Use to check blood glucose four times a day. 400 Each 3 Active carvediloL (COREG) 25 mg tabletIndicati ons:Hypertensi on, essential Take 1 Tablet (25 mg) by mouth 2 times daily. 200 Tablet Active montelukast (SINGULAIR) 10 mg tablet Take 1 Tablet (10 mg) by mouth daily. 100 Tablet 3 025 Active spironolactone (ALDACTONE) 25 mg tablet Take 1 Tablet (25 mg) by mouth daily. 100 Tablet 1 025 Active montelukast (SINGULAIR) 10 mg tablet Take by mouth. 2024 Discontinued( Reorder) potassium chloride (KLOR-CON) 20 mEq Extended Release tablet 1 Tablet daily. 04/25 Discontinued potassium chloride (K-TAB) 20 mEq Extended Release tablet take 1 tablet by mouth every day 90 Tablet 1 024 2024 Discontinued glipiZIDE (GLUCOTROL XL) 5 mg Extended Release 24 hour tabletIndicati ons:Controlled type 2 diabetes mellitus without complication, with long-term current use of insulin ([facility]) Take 1 Tablet (5 mg) by mouth daily with breakfast. DIABETES 100 Tablet 3 024 2024 Discontinued metFORMIN (GLUCOPHAGE) 1,000 mg tablet Take 1 Tablet (1,000 mg) by mouth 2 times daily with meals. 200 Tablet 3 024 2024 Discontinued Lantus Solostar U-100 Insulin 100 unit/mL (3 mL) solution for injectionIndic ations:Control led type 2 diabetes mellitus without complication, with long-term current use of insulin ([facility]) Inject 80 Units by subcutaneous injection 2 times daily. 144 mL 3 024 2024 Discontinued ipratropium bromide (ATROVENT) 42 mcg (0.06 %) [place], Non-AerosolInd ications:Runny nose Administer 2 Sprays in each nostril 2 times daily with meals. 1 mL 2 024 2024 Discontinued carvediloL (COREG) 12.5 mg tablet take 1 tablet by mouth twice daily 200 Tablet 3 024 2024 Discontinued( Reorder) amLODIPine (NORVASC) 10 mg tablet take 1 tablet by mouth every day as directed 100 Tablet 3 024 2024 Discontinued Insulin Cres[place], Disposable, 32 gauge x 5/32 Needle Use needle to administer lantus subcutaneously two times daily 200 Each 3 024 2024 Discontinued( Reorder) blood sugar diagnostic (OneTouch Ultra Test) Strip Use to check blood glucose four times a day. 400 Strip 3 025 2024 Discontinued( Reorder) lancets (OneTouch Delica Plus Lancet) 30 gauge Use to check blood glucose four times a day. 400 Each 3 025 2024 Discontinued( Reorder) Blood Glucose Control High&Low Solution Check control high/low once monthly 1 Each 3 025 2024 Discontinued( Reorder) carvediloL (COREG) 25 mg tablet Take 1 Tablet (25 mg) by mouth 2 times daily. 200 Tablet 1 025 2024 Discontinued( Reorder) Active Problems Problem Noted Date Diagnosed Date [...] current medications and he is followed by injection mold tooling technician Right renal artery stenosis 06/29/2016 Personal history [...] Encounters Date Type Department Care Team Description 04/24/2025 Nurse Triage [facility] [place] [address] [place] [address] Mary Workman MD 04/16/2025 Refill [facility] [address] [place] [address] Mary Workman MD 04/10/2025 Telephone [facility] [address] [place] [id number] Mary Workman MD Patient Communication 04/08/2025 Telephone [facility] [address] [place] [address] Mary Workman MD Med Change Request; Patient Communication 04/07/2025 Results Follow-Up [facility] [address] [place] [address] Mary Workman MD XR CHEST LAT 1 VW 04/07/2025 Orders Only [facility] [address] [place] [address] Provider, Abstract 04/04/2025 Refill [facility] [address] [place] [address] Marry Weber PA-C Controlled type 2 diabetes mellitus without complication, with long-term current use of insulin ([facility]) 04/04/2025 [facility] [address] [place] [address] Mary Workman MD Controlled type 2 diabetes mellitus without complication, with long-term current use of insulin ([facility]) 03/31/2025 [facility] [address] [place] [address] Mary Workman MD Patient Communication 03/30/2025 Refill [facility] [address] [place] [address] Tara Diop NP Runny nose 03/21/2025 [facility] [address] [place] [id number] Mary Workman MD Question 03/19/2025 External Device Data STL ABSTRACTION Provider, Abstract 03/10/2025 Refill [facility] [address] [place] [address] Mary Workman MD 03/06/2025 Telephone [facility] [address] [place] [address] Mary Workman MD Patient Communication 02/21/2025 Results Follow-Up [facility] [address] [place] [address] Phu Ly PA-C CBC WITH DIFFERENTIAL, FERRITIN, IRON, TIBC, AND PERCENT SATURATION, HEMOGLOBIN A1C 02/20/2025 Refill [facility] [place] [address] Phu Ly PA-C 02/19/2025 External Device Data STL ABSTRACTION Provider, Abstract 02/18/2025 External Device Data STL ABSTRACTION Provider, Abstract 02/05/2025 2:40 PM CDT Office Visit [facility] [address] [place] [address] Phu Ly PA-C Chronic pain of right ankle (Primary Dx); Type 2 diabetes mellitus with hyperglycemia, without long-term current use of insulin ([facility]); Controlled type 2 diabetes mellitus without complication, with long-term current use of insulin ([facility]); Anxiety; Chronic midline low back pain without sciatica; Hypertension, essential; Iron deficiency anemia, unspecified iron deficiency anemia type; Obesity (BMI 30.0-34.9); Aortic stenosis, mild; Personal history of nicotine dependence 02/04/2025 Results Follow-Up [facility] [place] [address] Tara Diop NP XR CERVICAL SPINE 2 OR 3 VIEWS, XR THORACIC SPINE 2 VW 02/04/2025 Orders Only [place] [address] [place] [address] Tara Diop NP Acute midline thoracic back pain; Cervicalgia 01/30/2025 Telephone [facility] [address] [place] [address] Mary Workman MD Results; Patient Communication; Information; Results 01/27/2025 Medication Prior Auth Encounter [facility] Prescription Management Dept [address] [place] [address] Grecia Siegel, PHARMACIST 01/26/2025 Refill [facility] [place] [address] [place] [address] Phu Ly PA-C from Last 3 Months Immunizations Immunization Administration Dates Next Due (ADACEL/BOOSTRIX)(10 YR UP) TDAP VACCINE, 0.5ML, IM 07/01/2019 (PNEUMOVAX 23)(50 YRS UP) PN EUMOCOCCAL POLYSACCHARIDE (PPV23) 0.5 ML, IM 06/23/2017 (PREVNAR 20)(6 WKS UP) PNEUM OCOCCAL CONJUGATE VACCINE 20-VALENT (PCV20), POLYSACCHARIDE [id number] CONJUGATE, ADJUVANT 0.5 ML (PF) IM 03/29/2024 [...] Never Smokeless Tobacco: Never Tobacco Cessation:Counseling Given: Not Answered Alcohol Use Standard Drinks/Week Comments Not Currently 0 (1 standard drink = 0.6 oz pur e alcohol) Sex and Gender Information Value Date Recorded Sex Assigned at Not on file Legal Sex Male 12:22 PM CDT Gender Identity Not on file Sexual Orientation Not on file Last Filed Vital Signs Vital Sign Reading Time Taken Comments Blood Pressure 140/42 02/05/2025 3:18 PM CDT Pulse 82 02/05/2025 2:36 PM CDT Temperature 36.1 C (96.9 F) 02/05/2025 2:36 PM CDT Respiratory Rate 18 02/05/2025 2:36 PM CDT Oxygen Saturation 98% 02/05/2025 2:36 PM CDT Inhaled Oxygen Concentration - - Weight 82.7 kg (182 lb 6.4 oz) 02/05/2025 2:36 P M CDT Height 160 cm (5' 3) 02/05/2025 2:36 PM CDT Body Mass Index 32.31 02/05/2025 2:36 PM CDT Plan of Treatment Upcoming Encounters Date Type Department Care Team (Late st Contact Info) Description 05/15/2025 1:40 PM CDT Office Visit [facility] Primary [facility] [place] [address] [place] [address] Phu Ly PA-C [address] [place] [address] Health Maintenance Due Date Last [...] - Risk 60-74 years 1-dose series) 2017 Abdominal Aortic Aneurysm (A AA) Screening 2022 FLEX SIG/CT COLONOGRAPHY Q 5 YEARS (AUTO ORDER) 06/26/2022 06/26/2017, 06/26/2017 INFLUENZA VACCINE (#1) 2025 4, 07/27/2021, 07/27/2021, Additional history exists DIABETES: A1C (Auto Order) 05/23/202502/20, 01/07/2025, 10/04/2024, Additional history exists DIABETES ANNUAL FOOT EXAM 07/01/2025 07/01/2024, LDL CHOLESTEROL ANNUAL 07/15/2025 07/15/2024, 2023 DIABETES HBA1C Q 6 MONTHS 08/23/20252024, 01/07/2025, 10/04/2024, Additional history exists DIABETES MICROALBUMIN ANNUAL SCREEN 01/07/2026 01/07/2025, 03/29/2024 COLORECTAL CANCER SCREENING (AUTO ORDER) 06/26/2027 06/26/2017 COLORECTAL SCREENING 06/26/2027 06/26/2017 Colorectal Cancer Screening (AUTO ORDER) 06/26/2027 Colorectal Cancer Screening 06/26/2027 DTAP/TDAP/TD VACCINES (2 - T d or Tdap) 07/01/2029 07/01/2019 PNEUMOCOCCAL VACCINE 50+ YEARS Completed 03/29/2024 , 06/23/2017 KHE eGFR (Auto Order) Completed 10/04/2024 , 07/15/2024, 04/30/2024, Additional history exists Medicare Advantage ([place]) Preventative Visit/Annual Wellness Visit Completed 11/04/2024, 11/04/2024, 07/01/2024 K[facility] uACR (Auto Order) Completed 01/07/2025, 024 Procedures Procedure Name Priority Date/Time Associated Diagnosis Comments XR CHEST LAT 1 VW Routine 04/03/2025 HEMOGLOBIN A1C Routine 02/20/2025 7:55 AM CDT Chronic pain of right ankle Type 2 diabetes mellitus with hyperglycemia, without long-term current use of insulin ([facility]) IRON, TIBC, AND PERCENT SATURATION Routine 02/20/2025 7:55 AM CDT Chronic pain of right ankle FERRITIN Routine 02/20/2025 7:55 AM CDT Chronic pain of right ankle CBC WITH DIFFERENTIAL Routine 02/20/2025 7:55 AM CDT Chronic pain of right ankle XR CERVICAL SPINE 2 OR 3 VIEWS Routine 01/28/2025 Cervicalgia XR THORACIC SPINE 2 VW Routine 01/28/2025 Acute midline thoracic back pain MICROALBUMIN/CREATININ E RATIO, RANDOM UR Routine 01/07/2025 3:00 PM CDT Type 2 diabetes mellitus without complication, unspecified whether seed cleaning machine operator insulin use ([facility]) COMPREHENSIVE METABOLIC PANEL Routine 10/04/2024 8:50 AM SIGNAL HELPER Iron deficiency anemia, unspecified iron deficiency anemia type LIPID PANEL Routine 07/15/2024 8:41 AM CDT Dyslipidemia from Last 3 Months or Most Recently Relevant to Health Maintenance Results * XR CHEST LAT 1 VW (04/03/2025) Anatomical Region Laterality Modality Chest Other 04/03/2025 us Abstract Provider DIAGNOSTIC IMAGING ORDERABLES Edited Result - Final * IRON, TIBC, AND PERCENT SATURATION (02/20/2025 7:55 AM CDT) IRON 67 50 - 180 mcg/dL [facility] TIBC 304 250 - 425 mcg/dL (calc) [facility] IRON % SATURATION 22 20 - 48 % (calc) [facility] Comment: FASTING:YES FASTING: YES Test Performed at: [facility] [address] [employer] [address] Kassandra Rendon MD Blood 02/20/2025 7:55 AM CDT 02/20/2025 7:55 AM CDT us Phu Ly PA-C CHEMISTRY ORDERABLES F inal Result [facility] [phone] [facility] [address] [facility] [place] [address] * (ABNORMAL) CBC WITH DIFFERENTIAL (02/20/2025 7:55 AM CDT) Pathologist [facility] WBC 5.7 3.8 - 10.8 Thousand/ uL [facility] RBC 4.59 4.20 - 5.80 Million/u L [facility] HEMOGLOBIN 13.1(L) 13.2 - 17.1 g/dL [facility] HEMATOCRIT 40.7 38.5 - 50.0 % [facility] MCV 88.7 80.0 - 100.0 fL [facility] MCH 28.5 27.0 - 33.0 pg [facility] MCHC 32.2 32.0 - 36.0 g/dL [facility] Comment: For adults, a slight decrease in the calculated MCHC value (in the range of 30 to 32 g/dL) is most likely not clinically significant; however, it should be interpreted with caution in correlation with other red cell parameters and the patient's clinical condition. RDW 14.6 11.0 - 15.0 % [facility] PLATELETS 275 140 - 400 Thousand/ uL [facility] MPV 10.4 7.5 - 12.5 fL [facility] NEUTROPHIL ABSOLUTE 2,953 1,500 - 7,800 cells/uL [facility] LYMPHOCYTE ABSOLUTE 2,012 850 - 3,900 cells/uL [facility] MONOCYTE ABSOLUTE 445 200 - 950 cells/uL [facility] EOSINOPHIL ABSOLUTE 262 15 - 500 cells/uL [facility] BASOPHILS ABSOLUTE 29 0 - 200 cells/uL [facility] NEUTROPHIL 51.8 % [facility] LYMPHOCYTES 35.3 % [facility] MONOCYTE 7.8 % [facility] EOSINOPHILS 4.6 % [facility] BASOPHILS 0.5 % [facility] Comment: FASTING:YES FASTING: YES Test Performed at: [facility] [address] [address] [place] [facility] Vo Blood 02/20/2025 7:55 AM CDT 02/20/2025 7:55 AM CDT Result [facility] Phu Ly PA-C HEMATOLOGY ORDERABLES Final Result Performing Organization Address [facility] Code Phone Number [facility] [phone] [place] [address] [place] [place] [phone] * (ABNORMAL) HEMOGLOBIN A1C (02/20/2025 7:55 AM CDT) HEMOGLOBIN A1C 8.5(H) <5.7 % of total Hgb [facility] Comment: For someone without known diabetes, [...] diabetes for children. ESTIMATED AVERAGE GLUCOSE (MG/DL) 197 mg/dL [facility] ([facility] [place] ESTIMATED AVERAGE GLUCOSE (MMOL/L) 10.9 mmol/L [facility] [place] Comment: FASTING:YES FASTING: YES Test Performed at: [facility] [address] [place] [address] Kassandra Rendon Blood 02/20/2025 7:55 AM CDT 02/20/2025 7:55 AM CDT Result [facility] Phu Ly PA-C CHEMISTRY ORDERABLES F inal Result Performing Organization Address City/[facility]/ZIP Code Phone Number [facility] [phone] [place] [address] [phone] * FERRITIN (02/20/2025 7:55 AM CDT) FERRITIN 33 24 - 380 ng/mL [facility] Comment: FASTING:YES FASTING: YES Test Performed at: [facility] [address], [place] [address] Kassandra Rendon MD Blood 02/20/2025 7:55 AM CDT 02/20/2025 7:55 AM CDT Phu Ly PA-C CHEMISTRY ORDERABLES F inal Result [facility] [phone] [facility] [address] [place] [address] * XR THORACIC SPINE 2 VW (01/28/2025) Anatomical Region Laterality Modality Spine Other 01/28/2025 Tara Diop NP DIAGNOSTIC IMAGING ORDERABLES Final Result * XR CERVICAL SPINE 2 OR 3 VIEWS (01/28/2025) Anatomical Region Laterality Modality Spine Other 01/28/2025 Tara Diop NP DIAGNOSTIC IMAGING ORDERABLES Final Result * MICROALBUMIN/CREATININE RATIO, RANDOM UR (01/07/2025 3:00 [...] within a diagnostic category. Test Performed at: [facility] [address] [place] [address] Kassandra Rendon MD Urine URINE SPECIMEN OBTAINED BY CLEAN CATCH PROCEDURE / Unknown 01/07/2025 3:00 PM CDT 01/08/2025 7:06 AM CDT Tara Diop HOSPITAL SUPERINTENDENT URINE ORDERABLES Final Result [facility] [phone] [facility] [address] [place] [address] * (ABNORMAL) COMPREHENSIVE METABOLIC PANEL (10/04/2024 8:50 AM SIGNAL HELPER) GLUCOSE 92 65 - 99 mg/dL [facility] [place] Comment: Fasting reference interval BUN 13 7 - 25 mg/dL [facility] ([facility] [place] CREATININE 0.56(L) 0.70 - 1.35 mg/dL [facility] ([facility] [place] GFR 108 > OR = 60 mL/min/1. 73m2 [facility] ([facility] [place] BUN/CREAT RATIO 23(H) 6 - 22 (calc) [facility] [place] SODIUM 140 135 - 146 mmol/L [facility] ([facility] [place] POTASSIUM 4.2 3.5 - 5.3 mmol/L [facility] ([facility] [place] CHLORIDE 105 98 - 110 mmol/L [facility] ([facility] [place] CO2 26 20 - 32 mmol/L [facility] ([facility] [place] CALCIUM 8.6 8.6 - 10.3 mg/dL [facility] ([facility] [place] TOTAL PROTEIN 6.1 6.1 - 8.1 g/dL [facility] ([facility] [place] ALBUMIN 4.0 3.6 - 5.1 g/dL [facility] [place] GLOBULIN 2.1 1.9 - 3.7 g/dL (calc) [facility] ([facility] [place] ALBUMIN/GLOBULIN RATIO 1.9 1.0 - 2.5 (calc) [facility] ([facility] [place] BILIRUBIN TOTAL 0.3 0.2 - 1.2 mg/dL [facility] ([facility] [place] ALKALINE PHOSPHATASE 48 35 - 144 U/L [facility] [place] AST 14 10 - 35 U/L [facility] [place] ALT 21 9 - 46 U/L [facility] [place] Comment: Test Performed at: [facility] [address] [place], [place] [address] [place] [facility] Vo Blood 10/04/2024 8:50 AM SIGNAL HELPER 10/04/2024 8:50 AM SIGNAL HELPER Phu Ly PA-C CHEMISTRY ORDERABLES F inal Result Performing Organization Address City/[facility]/ZIP Code Phone Number [facility] [phone] [place] [address] [address] [place] [phone] * (ABNORMAL) LIPID PANEL (07/15/2024 8:41 AM CDT) CHOLESTEROL 92 <200 mg/dL [facility] ([facility] HDL 25(L) > OR = 40 mg/dL [facility] ([facility] TRIGLYCERIDE 120 <150 mg/dL [facility] [place] LDL CALCULATED 46 mg/dL (calc) [facility] Comment: Reference range: <100 Desirable range <100 mg/dL for primary prevention; <70 mg/dL for patients with CHD or diabetic patients with > or = 2 CHD risk factors. LDL-C is now calculated using the Ricardo calculation, which is a validated novel method providing better accuracy than the Friedewald equation in the estimation of LDL-C. Robbin SHAIKH et al. MORIAH. 2013;310(19): 5996-8466 (http://education.Digium/faq/WSR240) CHOL/HDL RATIO 3.7 <5.0 (calc) [facility] [place] NON-HDL CHOLESTEROL 67 <130 mg/dL (calc) [facility] ([facility] Comment: For patients with diabetes plus 1 major ASCVD risk factor, treating to a non-HDL-C goal of <100 mg/dL (LDL-C of <70 mg/dL) is considered a therapeutic option. Test Performed at: [place] [address] [place] [address] [phone] Kassandra Pendleton Vo Blood 07/15/2024 8:41 AM CDT 07/15/2024 8:41 AM CDT Tara Diop NP CHEMISTRY ORDERABLES Final Re sult Performing Organization Address City/[facility]/ZIP Code Phone Number [facility] [phone] [place] [address] [phone] from Last 3 Months or Most Recently Relevant to Health Maintenance Insurance D[facility] [id number] [place] [facility] [id number] Care Teams [employer] Crew Boss Relationship Specialty Start Date End Date Mary Workman MD [address] [place] [address] PCP - General Internal Medicine 12/26/23
--- OUTSIDE RECORDS SUMMARY | 2025-04-27 01:49 | XMS_ITS | Encounter Summary ---
Author Organization [facility] Address [address] [place] [address] Phone Care Team Providers Care Last Repairer Name Role Phone Unavailable Primary Care Provider Unavailabl e Reason for Visit * Reason Comments Medication Refill Encounter Details Date Type Department Care Team (Late st Contact Info) Description 06/25/2020 Refill [facility] - Family Medicine [facility] [address] [place] [address] Alex Pineda MD [address] [address] Medication Refill Social History Tobacco Use Types [...] Outpatient Visits 10 months ago Essential hypertension [facility] - Alex Hathaway MD 1 year ago Essential hypertension [facility] - Alex Hathaway MD 1 year ago Chronic midline low back pain without sciatica [facility] - Alex Hathaway MD 1 year ago [facility] Rich[facility]ear[facility] APN, KYM 2 years ago Type 2 diabetes mellitus without complication, with long-term current use of insulin (HCC) [facility] Alex Hathaway MD Upcoming Appointments FACTORY SUPERINTENDENT - Recent and Past Visits Recent Visits Date Type Provider Dept 08/05/19 Office Visit Alex Pineda MD [facility] 04/03/19 Office Visit [facility] Showing recent visits within past 460 [...]
--- OUTSIDE RECORDS SUMMARY | 2025-04-27 01:49 | XMS_ITS | Clinical Summary ---
Author Organization [facility] Address [address] [place] [address] Care Team Providers Care Billet Inspector Name Role Phone Unavailable Primary Care Provider [...] 10:29 AM CDT Height 160 cm (5' 3) 04/08/2014 10:29 AM CDT Body Mass Index [...]
--- OUTSIDE RECORDS SUMMARY | 2025-04-27 01:49 | XMS_ITS | Clinical Summary ---
Author Organization [facility] Address [address] [place] [phone] Care Team Providers Care Bun Machine Operator Name Role Phone Becca Oh MD Primary Care Provider [phone] Allergies Active Allergy Reactions Criticality Noted Date [...] to monitor. Coronary artery disease invo lving [place] coronary artery of [place] heart without angina pectoris 07/27/2021 Assessment & Plan (07/27/2021 3:40 PM CDT): Status post stent placement. Continue current medications and he is followed by manager application development Chronic bilateral low back pain without sciatica [...] on file Legal Sex Male 12:30 AM PICKING MACHINE OPERATOR HELPER Gender Identity Not on file Sexual Orientation Not on file Obstetrics History Last Filed Vital Signs Vital Sign Reading Time Taken Comments Blood Pressure 157/64 02/08/2022 9:58 AM CDT Pulse 75 02/08/2022 9:58 AM CDT Temperature 36.7 C (98.1 F) 10/19/2021 8:51 AM PICKING MACHINE OPERATOR HELPER Respiratory Rate 18 10/19/2021 8:51 AM PICKING MACHINE OPERATOR HELPER Oxygen Saturation 99% 02/08/2022 9:58 AM CDT Inhaled Oxygen Concentration - - Weight 80.2 kg (176 lb 11.2 oz) 02/08/2022 9:58 AM CDT Height 160 cm (5' 2.99) 02/08/2022 9:58 AM CDT Body Mass Index 31.31 02/08/2022 9:58 AM CDT Plan of Treatment Not on file Insurance MEDICARE ADVANTAGE [facility] MEDIC[facility] Address: [address] [address] [place] [address] IDPA [facility] MEDICARE ADVANTAGE [facility] MEDIC[facility] Address: [address] [address] [place] [address] Care Teams Bun Machine Operator Relationship Specialty Start Date End Date Becca Oh MD [address] [address] PCP - General Internal Medicine 07/27/21
--- OUTSIDE RECORDS SUMMARY | 2025-04-27 01:49 | XMS_ITS | Encounter Summary ---
Author Organization [facility] Address [address] [place] [address] Care Team Providers Care Reverberatory Furnace Supervisor Name Role Phone Unavailable Primary Care Provider Unavailabl e Encounter Details Date Type Department Care Team (Latest Contact Info) Description 08/07/2018 Abstract [facility] , Generic ConversionMD Social History [...]
--- NOTE | 2025-04-27 01:56 | ECG_ITS ---
Test Date: 2025-04-27 02:08:03 Measurements Intervals [place] Rate: 71 P: 18 MD: 158 QRS: 7 QRSD: 90 T: 51 QT: 349 QTc: 381 Interpretive Statements SINUS RHYTHM POSSIBLE RIGHT VENTRICULAR CONDUCTION DELAY [RSR (QR) IN V1/V2] NONSPECIFIC T-WAVE ABNORMALITY No previous ECG available for comparison Electronically Signed On 04-27-2025 17:57:26 CDT by Kali Sky M.D.
[2025-04-27 02:15] LABS: Hematocrit 38.6 % (42.0-52.0); Hemoglobin 13.3 g/dL (14.0-18.0); Immature Granulocyte Percent A 0.8 % (0-0.5); Lymphocytes Absolute Auto 2.57 K/mm3 (0.9-3.2); Mean Corpuscular HGB Conc 34.5 g/dl (32-36); Mean Corpuscular Hemoglobin 30.1 pg (26-34); Mean Corpuscular Volume 87.3 fl (80-100); Nucleated Red Blood Cells Absolute Auto 0.000 K/mm3 (0.0-0.012); Nucleated Red Blood Cells Perc 0.0 % (0.0-0.2); Platelet Count Result 266 k/mm3 (150-375); Red Blood Count 4.42 M/mm3 (4.6-6.20); White Blood Count 7.3 K/mm3 (4.5-10.0)
--- OUTSIDE RECORDS SUMMARY | 2025-04-27 02:28 | XMS_ITS | Encounter Summary ---
Author Organization [facility] Address [address] [place] [address] Phone Care Team Providers Care Software Test Automation Engineer Name Role Phone Unavailable Primary Care Provider Unavailabl e Reason for Visit * Reason Comments Medication Refill Encounter Details Date Type Department Care Team (Late st Contact Info) Description 06/25/2020 Refill [facility] Medical [facility] - Family Medicine [facility] [address] [place] [address] Alex Pineda MD #[address] [address] Medication Refill Social History Tobacco Use Types [...] Outpatient Visits 10 months ago Essential hypertension [facility] - Alex Hathaway MD 1 year ago Essential hypertension [facility] - Alex Hathaway MD 1 year ago Chronic midline low back pain without sciatica [facility] - Alex Hathaway MD 1 year ago [facility] RichAramis Kearns APN, KYM 2 years ago Type 2 diabetes mellitus without complication, with long-term current use of insulin (HCC) [facility] Alex Hathaway MD Upcoming Appointments DISABILITY BENEFITS SPECIALIST - Recent and Past Visits Recent Visits Date Type Provider Dept 08/05/19 Office Visit Alex Pineda MD [facility] 04/03/19 Office Visit [facility] Showing recent visits within past 460 [...]
--- OUTSIDE RECORDS SUMMARY | 2025-04-27 02:28 | XMS_ITS | Referral Summary ---
Author Organization [facility] Address [address] [place] [phone] Care Team Providers Care Film Color Tester Name Role Phone Becca Oh MD Primary Care Provider [phone] Allergies Active Allergy Reactions Criticality Noted Date [...] to monitor. Coronary artery disease invo lving [place] coronary artery of [place] heart without angina pectoris 07/27/2021 Assessment & Plan (07/27/2021 3:40 PM CDT): Status post stent placement. Continue current medications and he is followed by chimney repairer Chronic bilateral low back pain without sciatica [...] on file Legal Sex Male 12:30 AM DICTAPHONE MECHANIC Gender Identity Not on file Sexual Orientation Not on file Last Filed Vital Signs Vital Sign Reading Time Taken Comments Blood Pressure 157/64 02/08/2022 9:58 AM CDT Pulse 75 02/08/2022 9:58 AM CDT Temperature 36.7 C (98.1 F) 10/19/2021 8:51 AM DICTAPHONE MECHANIC Respiratory Rate 18 10/19/2021 8:51 AM DICTAPHONE MECHANIC Oxygen Saturation 99% 02/08/2022 9:58 AM CDT Inhaled Oxygen Concentration - - Weight 80.2 kg (176 lb 11.2 oz) 02/08/2022 9:58 AM CDT Height 160 cm (5' 2.99) 02/08/2022 9:58 AM CDT Body Mass Index 31.31 02/08/2022 9:58 AM CDT Plan of Treatment Not on file Insurance [facility] MEDICARE ADVANTAGE IDPA [facility] MEDICARE ADVANTAGE Care Teams Film Color Tester Relationship Specialty Start Date End Date Becca Oh MD [facility] [place] [address] PCP - General Internal Medicine 07/27/21
--- OUTSIDE RECORDS SUMMARY | 2025-04-27 02:28 | XMS_ITS | Encounter Summary ---
Author Organization [facility] Address [address] [place] [address] Care Team Providers Care Monorail Hooker Name Role Phone Mary Workman MD Primary Care Provider [phone] Encounter Details Date Type Department Care Team (Late Contact Info) Description 04/07/2025 Results Follow-Up [facility] [address] [place] [address] Mary Workman MD [address] [place] [address] XR CHEST LAT 1 VW [...] Description 05/15/2025 1:40 PM CDT Office Visit [facility] [address] [place] [address] Phu Ly PA-C [address] [place] [address] documented as of this encounter Visit Diagnoses Not on filedocumented in this encounter Care Teams Monorail Hooker Relationship Specialty Start Date End Date Mary Workman MD [address] [place] [address] PCP - General Internal Medicine 12/26/23 documented as of this encounter
--- OUTSIDE RECORDS SUMMARY | 2025-04-27 02:28 | XMS_ITS | Encounter Summary ---
Author Organization [facility] Address [address] [place] [address] Phone Care Team Providers Care Mechanical Engineering Lecturer Name Role Phone Unavailable Primary Care Provider Unavailabl e Reason for Visit * Reason Comments Medication Refill Encounter Details Date Type Department Care Team (Late st Contact Info) Description 10/03/2020 [facility] [address] [place] [address] Alex Pineda MD [address] [address] Medication Refill Social History Tobacco Use Types [...] Humera Roth RMA - 10/05/2020 5:50 PM BATT MACHINE OPERATOR Called patient, no answer MACHINE OPERATOR * Telephone Encounter - Patricia Jackson RN - 10/05/2020 8:07 AM CST Patient needs appointment per Dr Pineda. MACHINE OPERATOR * Telephone Encounter - Vickie Rivers [...] Outpatient Visits 1 year ago Essential hypertension [facility] - Alex Hathaway MD 1 year ago Essential hypertension [facility] Alex Hathaway MD 1 year ago Chronic midline low back pain without sciatica [facility] 2 years ago Bronchitis [facility] [place] APN, CLINICAL NUTRITION MANAGER 2 years ago Type 2 diabetes mellitus without complication, with long-term current use of insulin (HCC) [facility] Alex Hathaway MD Upcoming Appointments FORK LIFT TRUCK OPERATOR - Recent and Past Visits Recent Visits Date Type Provider Dept 08/05/19 Office Visit Alex Pineda MD [facility] Showing recent visits within past 460 days with a meds authorizing provider and meeting all other requirements Future Appointments No visits were found meeting these conditions. Showing future appointments within next 90 days with a meds authorizing provider and meeting all other requirements Failed - Medication not assigned to a protocol, review manually. MACHINE OPERATOR documented in this encounter Plan of Treatment Not on file documented as of this encounter Visit Diagnoses Not on filedocumented in this encounter Additional Health Concerns Assessment Noted Time PHQ-9 Depression Total Score: 8 04/03/20 1:49 PM CDT documented as of this encounter
--- OUTSIDE RECORDS SUMMARY | 2025-04-27 02:28 | XMS_ITS | Continuity of Care Document ---
Author Organization [facility] Address [address] [place] [address] Phone Care Team Providers Care Autobody Technician Name Role Phone Nelly ONEILL, JAZLYN, Jarod [...] Diagnoses Date Provider Providers Copied on Encounter [facility], [address] [place] [address], [address] [place] [address] , tel: [phone] No Information 5 Nelly Olivera. [address] [place] [address], [address] [place] [address], [id number], [place]. tel:[phone] Referring Provider: Jarod Ramos, [address] [place] [address] [place] [address], [phone] . tel:[phone] sulting Provider: Jarod Ramos, [address] [place] [address] [place] [address], [id number] . tel:[phone] [facility], [address] [place] [address], [id number] , tel: [phone] [facility] [address] Sudhir No Information 5 Nela Du. [address] [place] [address], [id number], . tel:[phone] [facility] MNTR EA ADDL 20 [facility], [address] [place] [address], [id number] , tel: [phone] [facility] Essential (primary) hypertension 5 Nelly Olivera. [id number] [place] [address], [address] [place] [address], [id number], [place]. tel:[phone] Referring Provider: Jarod Ramos, [address] [facility] [address] [place] [address], [id number] . tel:[phone] sulting Provider: Jarod Ramos, [id number] [place] [address] [place] [address], [id number] . tel:[phone] [facility] , [address] [place] [address], [id number] , tel: [phone] [facility] [address] [place] No Information 5 Nelly Jarod. [address] [facility], [address] [place] [address], [id number], . tel:[phone] Referring Provider: Jarod Ramos, [id number] [place] [address] [place] [address], [id number] . tel:[phone] [facility] , [address] [place] [address], [id number] , tel: [phone] [facility] [address] [address] [place] Nonrheumatic aortic (valve) stenosisSystolic murmurShortness of breathPeripheral vascular disease, unspecifiedVenous insufficiencyIron deficiency anemia, unspecifiedAtheros clerosis of renal arteryCoronary artery disease of [place] coronary artery without angina pectorisType 2 diabetes w/o complicationHyperl ipidemia, unspecifiedHTN 5 Nelly Olivera. [address] [facility], [address] [facility], [place], [place], [id number], . tel:[phone] Referring Provider: Jarod Ramos, [address] [facility] [address] [place] [address], [id number] . tel:[phone] Family History Family Member Type Diagnosis Age At Onset No Information Payers Payer name Insurance type Covered democrat ID Authornikiaa tizeke(s) [facility] [address] 001A PPO C [id number] Social History Type Description Quantity Date Captured [...]
--- OUTSIDE RECORDS SUMMARY | 2025-04-27 02:28 | XMS_ITS | Clinical Summary ---
Author Organization [facility] Address [address] [place] [address] Care Team Providers Care Intermission Coordinator Name Role Phone Unavailable Primary Care Provider [...]
--- OUTSIDE RECORDS SUMMARY | 2025-04-27 02:28 | XMS_ITS | Clinical Summary ---
Author Organization [employer] [address] [place] [address] Address [address] [place] [address] Care Team Providers Care Shank Scourer Name Role Phone Mary Workman MD Primary Care Provider [phone] Allergies No known active allergies Medications ALPRAZolam (XANAX) 1 mg tablet 1 Tablet. 021 Active atorvastatin (LIPITOR) 80 mg tablet atorvastatin 80 mg tablet 021 Active clopidogreL (PLAVIX) 75 mg Tablet clopidogrel 75 mg tablet 021 Active FLUoxetine (PROzac) 20 mg capsule 1 Capsule daily. Act elizabeth fluticasone propionate (FLONASE) 50 mcg/spray [place], Suspension nasal inhaler fluticasone propionate 50 mcg/actuation [...] ipratropium bromide (ATROVENT) 42 mcg (0.06 %) [place], Non-AerosolInd ications:Runny nose INSTILL 2 SPRAYS INTO EACH NOSTRIL TWICE DAILY WITH MEALS 15 mL 1 025 Active metFORMIN (GLUCOPHAGE) 1,000 mg tablet TAKE 1 TABLET (1000 MG) BY MOUTH TWICE DAILY WITH MEALS 200 Tablet 3 025 Active glipiZIDE (GLUCOTROL XL) 5 mg Extended Release 24 hour tabletIndicati ons:Controlled type 2 diabetes mellitus without complication, with long-term current use of insulin ([facility]) TAKE 1 TABLET BY MOUTH DAILY WITH BREAKFAST FOR DIABETES 100 Tablet 3 025 Active insulin glargine (Lantus Solostar U-100 Insulin) 100 unit/mL pen syringeIndicat ions:Controlle d type 2 diabetes mellitus without complication, with long-term current use of insulin ([facility]) INJECT 80 UNITS UNDER THE SKIN TWICE DAILY 135 mL 2 Active amLODIPine (NORVASC) 10 mg tablet TAKE 1 TABLET BY MOUTH DAILY 100 Tablet 3 Active Blood Glucose Control High&Low Solution Check control high/low once monthly 1 Each 3 Active blood sugar diagnostic (Aquarium Life CustomsTouch Ultra Test) Strip Use to check blood glucose four times a day. 400 Strip 3 Active Insulin [place], Disposable, 32 gauge x 5/32 Needle Use needle to administer lantus subcutaneously two times daily 200 Each 3 Active lancets (Zingdom Communicationsuch Delica Plus Lancet) 30 gauge Use to [...] complication, with long-term current use of insulin ([facility]) Take 1 Tablet (5 mg) by mouth [...] complication, with long-term current use of insulin ([facility]) Inject 80 Units by subcutaneous injection 2 times daily. 144 mL 3 024 2024 Discontinued ipratropium bromide (ATROVENT) 42 mcg (0.06 %) [place], Non-AerosolInd ications:Runny nose Administer 2 Sprays in each nostril 2 times daily with meals. 1 mL 2 024 2024 Discontinued carvediloL (COREG) 12.5 mg tablet take 1 tablet by mouth twice daily 200 Tablet 3 024 2024 Discontinued( Reorder) amLODIPine (NORVASC) 10 mg tablet take 1 tablet by mouth every day as directed 100 Tablet 3 024 2024 Discontinued Insulin [place], Disposable, 32 gauge x 5/32 Needle Use [...] current medications and he is followed by ordnance artificer Right renal artery stenosis 06/29/2016 Personal history [...] Department Care Team Description 04/24/2025 Nurse Triage [facility] [place] [address] [place] [address] Mary Workman MD 04/16/2025 Refill [facility] [address] [place] [address] Mary Workman MD 04/10/2025 Telephone [facility] [address] [place] [phone] Mary Workman MD Patient Communication 04/08/2025 Telephone [facility] [address] [place] [address] Mary Workman MD Med Change Request; Patient Communication 04/07/2025 Results Follow-Up [facility] [address] [place] [address] Mary Workman MD XR CHEST LAT 1 VW 04/07/2025 Orders Only [facility] [address] [place] [address] Provider, Abstract 04/04/2025 Refill [facility] [address] [place] [address] Marry Weber PA-C Controlled type 2 diabetes mellitus without complication, with long-term current use of insulin ([facility]) 04/04/2025 [facility] [address] [place] [address] Mary Workman MD Controlled type 2 diabetes mellitus without complication, with long-term current use of insulin ([facility]) 03/31/2025 [facility] [address] [place] [address] Mary Workman MD Patient Communication 03/30/2025 Refill [facility] [address] [place] [address] Tara Diop NP Runny nose 03/21/2025 [facility] [address] [place] [phone] Mary Workman MD Question 03/19/2025 External Device Data STL ABSTRACTION Provider, Abstract 03/10/2025 Refill [facility] [address] [place] [address] Mary Workman MD 03/06/2025 Telephone [facility] [address] [place] [address] Mary Workman MD Patient Communication 02/21/2025 Results Follow-Up [facility] [address] [place] [address] Phu Ly PA-C CBC WITH DIFFERENTIAL, FERRITIN, IRON, TIBC, AND PERCENT SATURATION, HEMOGLOBIN A1C 02/20/2025 Refill [facility] [place] [address] Phu Ly PA-C 02/19/2025 External Device Data ST[place] ABSTRACTION Provider, Abstract 02/18/2025 External Device Data STL ABSTRACTION Provider, Abstract 02/05/2025 2:40 PM CDT Office Visit [facility] [address] [place] [address] Phu Ly PA-C Chronic pain of right ankle (Primary Dx); Type 2 diabetes mellitus with hyperglycemia, without long-term current use of insulin ([facility]); Controlled type 2 diabetes mellitus without complication, with long-term current use of insulin ([facility]); Anxiety; Chronic midline low back pain without sciatica; Hypertension, essential; Iron deficiency anemia, unspecified iron deficiency anemia type; Obesity (BMI 30.0-34.9); Aortic stenosis, mild; Personal history of nicotine dependence 02/04/2025 Results Follow-Up [facility] [place] [address] Tara Diop NP XR CERVICAL SPINE 2 OR 3 VIEWS, XR THORACIC SPINE 2 VW 02/04/2025 Orders Only [place] [address] [place] [address] Tara Diop NP Acute midline thoracic back pain; Cervicalgia 01/30/2025 Telephone [facility] [address] [place] [address] Mary Workman MD Results; Patient Communication; Information; Results 01/27/2025 Medication Prior Auth Encounter [facility] Prescription Management Dept [address] [place] [address] Grecia Siegel, PHARMACIST 01/26/2025 Refill [facility] [place] [address] [place] [address] Phu Ly PA-C from Last 3 Months Immunizations Immunization Administration Dates Next Due (ADACEL/BOOSTRIX)(10 YR UP) TDAP VACCINE, 0.5ML, IM 07/01/2019 (PNEUMOVAX 23)(50 YRS UP) PN EUMOCOCCAL POLYSACCHARIDE (PPV23) 0.5 ML, IM 06/23/2017 (PREVNAR 20)(6 WKS UP) PNEUM OCOCCAL CONJUGATE VACCINE 20-VALENT (PCV20), POLYSACCHARIDE [id number] CONJUGATE, ADJUVANT 0.5 ML (PF) IM 03/29/2024 [...] Description 05/15/2025 1:40 PM CDT Office Visit [facility] [place] [address] [place] [address] Phu Ly PA-C [address] [place] [address] Health Maintenance Due Date Last [...] hyperglycemia, without long-term current use of insulin ([facility]) IRON, TIBC, AND PERCENT SATURATION Routine 02/20/2025 [...] 2 diabetes mellitus without complication, unspecified whether terminal carman insulin use ([facility]) COMPREHENSIVE METABOLIC PANEL Routine 10/04/2024 8:50 AM LOADING INSPECTOR Iron deficiency anemia, unspecified iron deficiency anemia [...] CDT) IRON 67 50 - 180 mcg/dL [facility] TIBC 304 250 - 425 mcg/dL (calc) [facility] IRON % SATURATION 22 20 - 48 % (calc) [facility] Comment: FASTING:YES FASTING: YES Test Performed at: [facility] [address] [place] [address] Kassandra Rendon MD Blood 02/20/2025 7:55 AM CDT 02/20/2025 7:55 AM CDT us Phu Ly PA-C CHEMISTRY ORDERABLES F inal Result [facility] [phone] [facility] [address] [facility] [place] [address] * (ABNORMAL) CBC WITH DIFFERENTIAL (02/20/2025 7:55 AM CDT) Pathologist [facility] WBC 5.7 3.8 - 10.8 Thousand/ uL [...] Comment: FASTING:YES FASTING: YES Test Performed at: [facility] [address] [place] [address] [place] [facility] Vo Blood 02/20/2025 7:55 AM CDT 02/20/2025 7:55 AM CDT Result [facility] Phu Ly PA-C HEMATOLOGY ORDERABLES Final Result Performing Organization Address [facility] Code Phone Number [facility] [phone] [place] [address] [place] [phone] * (ABNORMAL) HEMOGLOBIN A1C (02/20/2025 7:55 AM CDT) HEMOGLOBIN A1C 8.5(H) <5.7 % of total Hgb [facility] Comment: For someone without known diabetes, [...] children. ESTIMATED AVERAGE GLUCOSE (MG/DL) 197 mg/dL [facility] [employer] [place] ESTIMATED AVERAGE GLUCOSE (MMOL/L) 10.9 mmol/L [facility] [place] Comment: FASTING:YES FASTING: YES Test Performed at: [facility] [place] [address] [place] [address] Kassandra Rendon Blood 02/20/2025 7:55 AM CDT 02/20/2025 7:55 AM CDT Result [facility] Phu Ly PA-C CHEMISTRY ORDERABLES F inal Result Performing Organization Address City/[facility]/ZIP Code Phone Number [facility] [phone] [place] [address] [address] [place] [phone] * FERRITIN (02/20/2025 7:55 AM CDT) FERRITIN 33 24 - 380 ng/mL [facility] Comment: FASTING:YES FASTING: YES Test Performed at: [facility] [address] [address] [place], [place] [address] Kassandra Rendon MD Blood 02/20/2025 7:55 AM CDT 02/20/2025 7:55 AM CDT Phu Ly PA-C CHEMISTRY ORDERABLES F inal Result [facility] [phone] [facility] [address] [place] [address] * XR THORACIC SPINE 2 VW (01/28/2025) [...] within a diagnostic category. Test Performed at: [facility] [address] [place] [address] Kassandra Rendon MD Urine URINE SPECIMEN OBTAINED BY CLEAN CATCH PROCEDURE / Unknown 01/07/2025 3:00 PM CDT 01/08/2025 7:06 AM CDT Tara Diop JUNIOR TECHNICAL WRITER URINE ORDERABLES Final Result [facility] [phone] [facility] [address] [address] [place] [address] * (ABNORMAL) COMPREHENSIVE METABOLIC PANEL (10/04/2024 8:50 AM LOADING INSPECTOR) GLUCOSE 92 65 - 99 mg/dL [facility] [employer] [place] Comment: Fasting reference interval BUN 13 7 - 25 mg/dL [facility] CREATININE 0.56(L) 0.70 - 1.35 mg/dL [facility] [employer] [place] GFR 108 > OR = 60 mL/min/1. 73m2 [facility] [employer] [place] BUN/CREAT RATIO 23(H) 6 - 22 (calc) [facility] [employer] [place] SODIUM 140 135 - 146 mmol/L [facility] POTASSIUM 4.2 3.5 - 5.3 mmol/L [facility] CHLORIDE 105 98 - 110 mmol/L [facility] CO2 26 20 - 32 mmol/L [facility] CALCIUM 8.6 8.6 - 10.3 mg/dL [facility] [employer] [place] TOTAL PROTEIN 6.1 6.1 - 8.1 g/dL [facility] [employer] [place] ALBUMIN 4.0 3.6 - 5.1 g/dL [facility] [employer] [place] GLOBULIN 2.1 1.9 - 3.7 g/dL (calc) [facility] ALBUMIN/GLOBULIN RATIO 1.9 1.0 - 2.5 (calc) [facility] BILIRUBIN TOTAL 0.3 0.2 - 1.2 mg/dL [facility] [employer] [place] ALKALINE PHOSPHATASE 48 35 - 144 U/L [facility] [place] AST 14 10 - 35 U/L [facility] [employer] [place] ALT 21 9 - 46 U/L [facility] [employer] [place] Comment: Test Performed at: [facility] [address] [place], [place] [address] [place] [facility] Vo Blood 10/04/2024 8:50 AM LOADING INSPECTOR 10/04/2024 8:50 AM LOADING INSPECTOR Phu Ly PA-C CHEMISTRY ORDERABLES F inal Result Performing Organization Address City/[facility]/ZIP Code Phone Number [facility] [phone] [place] [address] [address] [place] [phone] * (ABNORMAL) LIPID PANEL (07/15/2024 8:41 AM CDT) CHOLESTEROL 92 <200 mg/dL [facility] [employer] [place] HDL 25(L) > OR = 40 mg/dL [facility] [employer] [place] TRIGLYCERIDE 120 <150 mg/dL [facility] LDL CALCULATED 46 mg/dL (calc) [facility] [employer] [place] Comment: Reference range: <100 Desirable range <100 mg/dL for primary prevention; <70 mg/dL for patients with CHD or diabetic patients with > or = 2 CHD risk factors. LDL-C is now calculated using the Ricardo calculation, which is a validated novel method providing better accuracy than the Friedewald equation in the estimation of LDL-C. Robbin SHAIKH et al. MORIAH. 2013;310(19): 1492-3367 (http://education.Pedius/faq/UEA292) CHOL/HDL RATIO 3.7 <5.0 (calc) [facility] [place] NON-HDL CHOLESTEROL 67 <130 mg/dL (calc) [facility] [employer] [facility] [place] Comment: For patients with diabetes plus 1 major ASCVD risk factor, treating to a non-HDL-C goal of <100 mg/dL (LDL-C of <70 mg/dL) is considered a therapeutic option. Test Performed at: [place] [address] [address] [place] [address] Kassandra [place] Vo Blood 07/15/2024 8:41 AM CDT 07/15/2024 8:41 AM CDT Tara Diop NP CHEMISTRY ORDERABLES Final Re sult Performing Organization Address City/[facility]/ZIP Code Phone Number [facility] [phone] [place] [address] [address] [place] [phone] from Last 3 Months or Most Recently Relevant to Health Maintenance Insurance D[facility] [id number] [place] [facility] [id number] Care Teams Shank Scourer Relationship Specialty Start Date End Date Mary Workman MD [address] [place] [address] PCP - General Internal Medicine 12/26/23
--- OUTSIDE RECORDS SUMMARY | 2025-04-27 02:28 | XMS_ITS | Encounter Summary ---
Author Organization [facility] Address [address] [place] [address] Care Team Providers Care Clinical Radiologist Name Role Phone Unavailable Primary Care Provider Unavailabl e Encounter Details Date Type Department Care Team (Latest Contact Info) Description 08/07/2018 Abstract [facility] , Generic ConversionMD Social History [...]
--- OUTSIDE RECORDS SUMMARY | 2025-04-27 02:28 | XMS_ITS | Clinical Summary ---
Author Organization [facility] Address [address] [place] [address] Care Team Providers Care Tortilla Maker Name Role Phone Becca Oh MD Primary Care Provider [phone] Allergies Active Allergy Reactions Criticality Noted Date [...] to monitor. Coronary artery disease invo lving [place] coronary artery of [place] heart without angina pectoris 07/27/2021 Assessment & Plan (07/27/2021 3:40 PM CDT): Status post stent placement. Continue current medications and he is followed by client experience administrator Chronic bilateral low back pain without sciatica [...] on file Legal Sex Male 12:30 AM RN SOCIAL SERVICES Gender Identity Not on file Sexual Orientation Not on file Obstetrics History Last Filed Vital Signs Vital Sign Reading Time Taken Comments Blood Pressure 157/64 02/08/2022 9:58 AM CDT Pulse 75 02/08/2022 9:58 AM CDT Temperature 36.7 C (98.1 F) 10/19/2021 8:51 AM RN SOCIAL SERVICES Respiratory Rate 18 10/19/2021 8:51 AM RN SOCIAL SERVICES Oxygen Saturation 99% 02/08/2022 9:58 AM CDT Inhaled Oxygen Concentration - - Weight 80.2 kg (176 lb 11.2 oz) 02/08/2022 9:58 AM CDT Height 160 cm (5' 2.99) 02/08/2022 9:58 AM CDT Body Mass Index 31.31 02/08/2022 9:58 AM CDT Plan of Treatment Not on file Insurance MEDICARE ADVANTAGE [facility] MEDICARE ADVANTAGE Care Teams Tortilla Maker Relationship Specialty Start Date End Date Becca Oh MD [address] [place] [address] PCP - General Internal Medicine 07/27/21
--- OUTSIDE RECORDS SUMMARY | 2025-04-27 02:28 | XMS_ITS | Clinical Summary ---
Author Organization [facility] Address [address] [address] Phone Care Team Providers Care Hand Leather Trimmer Name Role Phone Unavailable Primary Care Provider [...] taking.Reported on 08/05/2019 Blood Glucose Monitoring Suppl ([employer]) w/Device Kit 1 Kit by Does not [...] 90 Tab 8 Active ergocalciferol (VITAMIN D) 59254 UNIT Capsule TAKE 1 CAPSULE BY MOUTH [...] insulin 02/23/2017 Coronary artery disease invo lving redding coronary artery without angina pectoris 02/23/2017 Anxiety [...] Comments Blood Pressure 130/76 08/05/2019 2:25 PM DUST COLLECTOR Pulse 72 08/05/2019 2:25 PM DUST COLLECTOR Temperature 36.4 C (97.6 F) 08/05/2019 2:25 PM DUST COLLECTOR Respiratory Rate 16 08/05/2019 2:25 PM DUST COLLECTOR Oxygen Saturation 98% 08/05/2019 2:25 PM DUST COLLECTOR Inhaled Oxygen Concentration - - Weight 79.1 kg (174 lb 4.8 oz) 08/05/2019 2:25 P M DUST COLLECTOR Height 165.1 cm (5' 5) 08/05/2019 2:25 PM DUST COLLECTOR Body Mass Index 29.01 08/05/2019 2:25 PM DUST COLLECTOR Plan of Treatment Health Maintenance Due Date [...] (COMPREHENSIVE METABOLIC PANEL) Today 08/05/2019 2:56 PM DUST COLLECTOR Essential hypertension Type 2 diabetes mellitus with diabetic polyneuropathy, 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 Lipid disorder Chronic midline low back pain without sciatica HEMOGLOBIN A1C W/ ESTIMATED GLUCOSE Today 08/05/2019 2:56 PM DUST COLLECTOR Essential hypertension Type 2 diabetes mellitus with diabetic polyneuropathy, 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 Lipid disorder Chronic midline low back pain without sciatica HM COLONOSCOPY Routine 06/26/2017 HEPATITIS C ANTIBODY Routine 02/23/2017 2:14 PM CDT Physical exam, annual (Adult) from Last 3 Months or Most Recently Relevant to Health Maintenance Results * (ABNORMAL) HEMOGLOBIN A1C W/ ESTIMATED GLUCOSE (08/05/2019 2:56 PM DUST COLLECTOR) HGB-A1C 9.4(H) 4.0 - 6.0 % 08/05/2019 4:28 PM DUST COLLECTOR [facility] Est Average Glucose 223.1 mg/dL 08/05/2019 4:28 PM DUST COLLECTOR [facility] Blood specimen (specimen) Venipuncture / Unknown 08/05/2019 2:56 PM DUST COLLECTOR 08/05/2019 2:56 PM DUST COLLECTOR Narrative [facility] - 08/05/2019 4:28 PM DUST COLLECTOR HEMOGLOBIN A1C: DIABETIC PATIENTS: WELL-CONTROLLED: 6.2 - 7.0 INTERMEDIATE WELL-CONTROLLED: 7.0 - 9.0 POORLY-CONTROLLED: >9.0 us Alex Pineda MD CHEMISTRY ORDERABLES Final Re sult [facility] [place] [address] * (ABNORMAL) CMP (COMPREHENSIVE METABOLIC PANEL) (08/05/2019 2:56 PM DUST COLLECTOR) SODIUM 143 136 - 144 mmol/L 08/05/2019 3:50 PM DUST COLLECTOR [facility] POTASSIUM 4.3 3.5 - 5.1 mmol/L 08/05/2019 3:50 PM DUST COLLECTOR [facility] CHLORIDE 105 100 - 110 mmol/L 08/05/2019 3:50 PM [facility] CO2, VENOUS 25 22 - 32 mmol/L 08/05/2019 3:50 PM DUST COLLECTOR [facility] ANION GAP 17.3 8.0 - 20.0 mmol/L 08/05/2019 3:50 PM DUST COLLECTOR [facility] GLUCOSE 159(H) 70 - 99 mg/dL 08/05/2019 3:50 PM [facility] BUN 7(L) 8 - 23 mg/dL 08/05/2019 3:50 PM [facility] CREATININE, BLOOD 0.51(L) 0.80 - 1.30 mg/dL 08/05/2019 3:50 PM [facility] BUN/CREATININE RATIO 14 12 - 20 ratio 08/05/2019 3:50 PM [facility] TOTAL PROTEIN 7.1 6.0 - 8.3 g/dL 08/05/2019 3:50 PM [facility] ALBUMIN 4.3 3.5 - 5.2 g/dL 08/05/2019 3:50 PM [facility] Comment: The colormetric methods used for the determination of Albumin may lead to falsely elevated test results in patients suffering from renal failure or insufficiency due to interference with other proteins. A/G RATIO 1.5 1.0 - 2.0 08/05/2019 3:50 PM DUST COLLECTOR [facility] CALCIUM 9.5 8.9 - 10.3 mg/dL 08/05/2019 3:50 PM DUST COLLECTOR [facility] T BILI 0.3 <=1.2 mg/dL 08/05/2019 3:50 PM DUST COLLECTOR [facility] SGOT (AST) 17 <=40 U/L 08/05/2019 3:50 PM DUST COLLECTOR [facility] SGPT (ALT) 29 <=41 U/L 08/05/2019 3:50 PM DUST COLLECTOR [facility] ALKALINE PHOSPHATASE 53 40 - 130 U/L 08/05/2019 3:50 PM DUST COLLECTOR [facility] GFR, EST. NONAFRICAN >60 >=60 08/05/2019 3:50 PM DUST COLLECTOR [facility] GFR, EST. >60 >=60 019 3:50 PM DUST COLLECTOR [facility] Comment: Creatinine Clearance is the preferred criteria for selecting drug dose adjustments in renally impaired patients. The GFR is provided as additional pertinent clinical information. GFR is reported in mL/min/1.73 sq m. Blood specimen (specimen) Venipuncture / Unknown 08/05/2019 2:56 PM DUST COLLECTOR 08/05/2019 2:56 PM DUST COLLECTOR us Alex Pineda MD CHEMISTRY ORDERABLES Final Re sult [facility] [place] [address] * HM COLONOSCOPY (06/26/2017) us Tata Do MD PROCEDURE/MINOR SURGICAL ORDER EMILY Final Result * HEPATITIS C ANTIBODY (02/23/2017 2:14 PM CDT) hepatitis C antibody 0.06 <1 S/CO 02/23/2017 11:23 PM CDT [facility] Comment: Signal/Cutoff ratio < 0.79 is Nondetected Signal/Cutoff ratio 0.80-0.99 is Grayzone Signal/Cutoff ratio > 0.99 is Detected Supplemental assays are recommended if signal/cutoff ratio is >/=1.00. Signal/cutoff ratio result >/= 5.00 is 97% predictive of positivity for recombinant immunoblot assay (RIBA) and will be reported to the [place] Department of Public Health as required. Blood specimen (specimen) Venipuncture / Unknown 02/23/2017 2:14 PM CDT 02/23/2017 2:14 PM CDT us Alex Pineda MD CHEMISTRY ORDERABLES Final Re sult [facility] [address] [place] [address], [place] from Last 3 Months or Most Recently Relevant to Health Maintenance Insurance MEDICARE [place]ID [place]
[2025-04-27 02:41] LABS: NT Pro B Type Natriuretic Pept 20 pg/mL (19.9-100)
[2025-04-27 02:52] LABS: Troponin I < 0.012 ng/mL (0.000-0.034)
[2025-04-27 03:29] LABS: Alanine Aminotransferase 54 U/L (6-50); Albumin Level 4.3 g/dL (3.5-5.1); Alkaline Phosphatase 60 U/L (38-126); Anion Gap 10 mmol/L (4-12); Aspartate Amino Transferase 30 U/L (17-59); Bilirubin,Total 0.3 mg/dL (0.2-1.3); Blood Urea Nitrogen 12 mg/dL (9-20); Calcium 10.1 mg/dL (8.4-10.2); Carbon Dioxide 21 mmol/L (22-30); Chloride 103 mmol/L (98-107); Estimated CRCL calculation 91 ml/min; Estimated Glomerular Filt Rate > 60; Glucose 146 mg/dL (65-110); Potassium 4.0 mmol/L (3.4-5.0); Sodium 134 mmol/L (137-145); Total Protein 7.3 g/dL (6.3-8.2)
--- NOTE | 2025-04-27 04:51 | ED.GENADULT ---
HPI - General Adult General Chief complaint: Unspecified Stated complaint: high blood pressure Time Seen by Provider: 04/27/25 01:56 History of Present Illness HPI narrative: Patient with history of hypertension has been having increasing blood pressure with new antihypertensive just started recent presents after he checked his blood pressure and noticed it was almost 200. He became nervous and was having some chest tightness. Related Data Home Medications ?Medication ?Instructions ?Recorded ?Confirmed ?Last Taken ?Type alprazolam 1 mg tablet (Xanax) 1 mg PO DAILY 01/30/23 04/27/25 Unknown History amlodipine 10 mg tablet 10 mg PO DAILY 01/30/23 04/27/25 Unknown History carvedilol 12.5 mg tablet (Coreg) 12.5 mg PO Q12H 01/30/23 04/27/25 Unknown History clopidogrel 75 mg tablet (Plavix) 75 mg PO DAILY 01/30/23 04/27/25 Unknown History furosemide 20 mg tablet (Lasix) 20 mg PO QAM 01/30/23 04/27/25 Unknown History insulin glargine 100 unit/mL (3 80 unit subcut BID 01/30/23 04/27/25 Unknown History mL) subcutaneous pen (Lantus Solostar U-100 Insulin) irbesartan 300 mg tablet 300 mg PO DAILY 01/30/23 04/27/25 Unknown History metformin 1,000 mg tablet,extended 1,000 mg PO BID 01/30/23 04/27/25 Unknown History release 24hr (osmotic) montelukast 10 mg tablet 10 mg PO DAILY 01/30/23 04/27/25 Unknown History (Singulair) omeprazole 20 mg capsule,delayed 20 mg PO DAILY 01/30/23 04/27/25 Unknown History release potassium chloride 20 mEq 20 meq PO DAILY 01/30/23 04/27/25 Unknown History tablet,extended release carisoprodol 350 mg tablet mg 04/27/25 Unknown History spironolactone 25 mg tablet mg 04/27/25 Unknown History Allergies Allergy/AdvReac Type Severity Reaction Status Date / Time No Known Allergies Allergy Mild Verified 04/27/25 01:57 Review of Systems Review of Systems: All systems reviewed & are unremarkable except as noted in HPI and below PMFSH Past Medical History Medical History Cholecystectomy planned HTN (hypertension), benign Type 2 diabetes mellitus Surgical History Surgical History H/O brain surgery Social History Social History Smoking status: Never smoker Alcohol intake: never Exam Narrative: EXAMINATION OF ORGAN SYSTEMS/BODY AREAS: Constitutional: Vital signs per nursing GENERAL:[No acute distress, non-toxic appearing.] HEAD: Normal with no signs of head trauma. EYES: EOMI, conjunctiva normal ENT: Hearing grossly intact LUNGS: Nonlabored breathing. HEART: [Regular rate and rhythm] ABD: [Soft], [nontender to palpation] EXT: Normal range of motion SKIN: [No rashes or lesions.] NEURO: [Alert and oriented x 3. No gross focal sensory or strength deficits.] PSYCH: Normal affect Course Vital Signs Vital signs: Vital Signs Temperature 98.1 F 04/27/25 01:54 Pulse Rate 70 04/27/25 01:54 Respiratory Rate 14 04/27/25 01:54 Blood Pressure 187/63 H 04/27/25 01:54 Pulse Oximetry 98 04/27/25 01:54 Oxygen Delivery Room Air 04/27/25 01:54 Temperature 98.1 F 04/27/25 01:54 Pulse Rate 73 04/27/25 03:48 Respiratory Rate 16 04/27/25 03:48 Blood Pressure 137/57 L 04/27/25 03:48 Pulse Oximetry 95 04/27/25 03:48 Oxygen Delivery Room Air 04/27/25 01:54 Medical Decision Making MDM Narrative Medical decision making narrative: Patient with essentially asymptomatic hypertension. No signs or symptoms of end organ dysfunction; he did report some slight chest tightness, no shortness of breath, neurological deficits, severe headaches, visual disturbance, oliguria, or symptoms of dissection/AAA). Long-term risks of hypertension, especially uncontrolled, were discussed including increased risks of kidney disease, vascular disease, stroke and heart disease. We discussed lifestyle modifications including diet and exercise. I did obtain cardiac workup here which is unremarkable. EKG on my independent interpretation shows sinus rhythm rate 71, MS 158, QRS 90, QTC 381, no significant ST elevations or depressions or signs of acute ischemia or arrhythmia. Chest x-ray on my independent interpretation without any obvious consolidation or pneumothorax. On re-evaluation, symptoms completely resolved and he is resting comfortably in no distress. His blood pressure without any acute intervention is now 137/57. We did discuss keeping a log of his pressures at home. Patient expressed understanding of the instructions and strongly advised to follow-up with PMD for further management. Vital Signs Vital Signs: Vital Signs Temperature 98.1 F 04/27/25 01:54 Pulse Rate 70 04/27/25 01:54 Respiratory Rate 14 04/27/25 01:54 Blood Pressure 187/63 H 04/27/25 01:54 Pulse Oximetry 98 04/27/25 01:54 Oxygen Delivery Room Air 04/27/25 01:54 Temperature 98.1 F 04/27/25 01:54 Pulse Rate 73 04/27/25 03:48 Respiratory Rate 16 04/27/25 03:48 Blood Pressure 137/57 L 04/27/25 03:48 Pulse Oximetry 95 04/27/25 03:48 Oxygen Delivery Room Air 04/27/25 01:54 Lab Data 04/27/25 02:06 04/27/25 03:02 Labs: Lab Results 04/27/25 04/27/25 Range/Units 02:06 03:02 WBC 7.3 (4.5-10.0) K/mm3 RBC 4.42 L (4.6-6.20) M/mm3 Hgb 13.3 L (14.0-18.0) g/dL Hct 38.6 L (42.0-52.0) % MCV 87.3 (80-100) fl MCH 30.1 (26-34) pg MCHC 34.5 (32-36) g/dl RDW 12.9 (11.5-14.5) % Plt Count 266 (150-375) k/mm3 MPV 9.9 (7.4-10.4) fl Immature Gran % (Auto) 0.8 H (0-0.5) % Neut % (Auto) 52.0 (45.5-73.1) % Lymph % (Auto) 35.3 (18.3-44.2) % [place] % (Auto) 7.4 (2.6-8.5) % Eos % (Auto) 4.0 (0-4.4) % Baso % (Auto) 0.5 (0.2-1.2) % Lymph # (Auto) 2.57 (0.9-3.2) K/mm3 [place] # (Auto) 0.5 (0.1-0.6) K/mm3 Eos # (Auto) 0.3 (0-0.3) K/mm3 Baso # (Auto) 0.0 (0.0-0.1) K/mm3 Abs Immat Gran (auto) 0.06 H (0.00-0.031) K/mm3 Absolute Neuts (auto) 3.8 (1.3-6.7) K/mm3 Absolute Nucleated RBC 0.000 (0.0-0.012) K/mm3 Nucleated RBC % 0.0 (0.0-0.2) % Sodium 134 L (137-145) mmol/L Potassium 4.0 (3.4-5.0) mmol/L Chloride 103 (98-107) mmol/L Carbon Dioxide 21 L (22-30) mmol/L Anion Gap 10 (4-12) mmol/L BUN 12 (9-20) mg/dL Creatinine 0.64 L (0.7-1.3) mg/dL Estim Creat Clear Calc 91 ml/min Estimated GFR > 60 (59 - ) Glucose 146 H (65-110) mg/dL Calcium 10.1 (8.4-10.2) mg/dL Total Bilirubin 0.3 (0.2-1.3) mg/dL AST 30 (17-59) U/L ALT 54 H (6-50) U/L Alkaline Phosphatase 60 (38-126) U/L Troponin I < 0.012 (0.000-0.034) ng/mL NT-Pro-B Natriuret Pep 20 (19.9-100) pg/mL Total Protein 7.3 (6.3-8.2) g/dL Albumin 4.3 (3.5-5.1) g/dL Discharge Plan Discharge Clinical Impression: Hypertension Patient Disposition: Home Condition: Stable Instructions: Chest Pain (ED), Chronic Hypertension (ED) Additional Instructions: Please follow up with your doctor; continue taking your medications as prescribed. You can always return for any further issues. Patient Language: Spanish Prescriptions: No Action alprazolam [Xanax] 1 mg tablet 1 mg PO DAILY insulin glargine [Lantus Solostar U-100 Insulin] 100 unit/mL (3 mL) insulin pen 80 unit subcut BID furosemide [Lasix] 20 mg tablet 20 mg PO QAM potassium chloride 20 mEq tablet extended release 20 meq PO DAILY metformin 1,000 mg tablet extended release 24 hr 1,000 mg PO BID irbesartan 300 mg tablet 300 mg PO DAILY carvedilol [Coreg] 12.5 mg tablet 12.5 mg PO Q12H Rx Instructions: must administer with a meal/food montelukast [Singulair] 10 mg tablet 10 mg PO DAILY clopidogrel [Plavix] 75 mg tablet 75 mg PO DAILY amlodipine 10 mg tablet 10 mg PO DAILY omeprazole 20 mg capsule,delayed release(DR/EC) 20 mg PO DAILY carisoprodol 350 mg tablet spironolactone 25 mg tablet Follow-up/Referrals: PHYSICIAN NOT ON STAFF,NONSTAFF [Primary Care Provider] -
== END 2025-04-27 03:50 | disposition home or self-care (01) ==
PROVIDERS: Emergency Provider Emergency Medicine
DX: I10 Essential (primary) hypertension (principal)
CPT/HCPCS: 36415; 71045; 80053; 83880; 84484; 85025; 93005; 99284

== ENCOUNTER 2025-09-19 16:15 | Outpatient (CLI) | payer MEDICARE, MEDICAID, SELFPAY ==
--- NOTE | ~2025-09-19 | XR_ITS ---
EXAMINATION: XR knee RT 3V, 09/19/2025 16:29 SYSTEMS SUPPORT OFFICER HISTORY: ACUTE RIGHT KNEE PAIN COMPARISON: No comparisons available. Findings: No acute fracture or malalignment. No significant degenerative changes. Soft tissues unremarkable. Impression: No acute fracture or malalignment. Reviewed, dictated and finalized at location P. EMS SUPPORT OFFICER Impression: No acute fracture or malalignment.
--- OUTSIDE RECORDS SUMMARY | 2025-09-19 16:17 | XMS_ITS | Encounter Summary ---
Author Organization [facility] Address [address] [place] [address] Phone Care Team Providers Care Network Operations Project Manager Name Role Phone Unavailable Primary Care Provider Unavailabl e Reason for Visit * Reason Comments Medication Refill Encounter Details Date Type Department Care Team (Late st Contact Info) Description [facility] [address] [place] [address] Alex Pineda MD [id number] [id number] Medication Refill Social History Tobacco Use Types [...] Humera Roth RMA - 10/05/2020 5:50 PM SIGN ERECTOR AND REPAIRER Called patient, no answer ERECTOR AND REPAIRER * Telephone Encounter - Patricia Jackson RN - 10/05/2020 8:07 AM CST Patient needs appointment per Dr Pineda. 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 Showing future appointments within next 90 days with a meds authorizing provider and meeting all other requirements Failed - Medication not assigned to a protocol, review manually. ERECTOR AND REPAIRER documented in this encounter Plan of Treatment Not on file documented as of this encounter Visit Diagnoses Not on filedocumented in this encounter Additional Health Concerns Assessment Noted Time PHQ-9 Depression Total Score: 8 04/03/20 19 1:49 PM CDT documented as of this encounter
--- OUTSIDE RECORDS SUMMARY | 2025-09-19 16:17 | XMS_ITS | Clinical Summary ---
Author Organization [facility] [address] [place] [address] Address [address] [place] [address] Care Team Providers Care Jig And Fixture Repairer Name Role Phone Mary Workman MD Primary Care Provider [phone] Allergies Active Allergy Reactions Criticality Noted Date Comments Cyclobenzaprine Dizziness Low 07/27/2021 Medications ALPRAZolam (XANAX) 1 mg tablet 1 Tablet. 07/21/20 21 Active clopidogreL (PLAVIX) 75 mg Tablet clopidogrel 75 mg tablet 07/27/20 21 Active FLUoxetine (PROzac) 20 mg capsule 1 Capsule daily. Act elizabeth fluticasone propionate (FLONASE) 50 mcg/spray [place], Suspension nasal inhaler fluticasone propionate 50 mcg/actuation spray,suspension Active furosemide (LASIX) 20 mg tablet furosemide 20 mg tablet 06/07/20 22 Active clotrimazole-be tamethasone (LOTRISONE) 1-0.05 % CreamIndication s:Tinea pedis of both feet Apply to affected area 2 times daily. 30 Gram 12/26/19 24 Active metoclopramide HCl (REGLAN) 10 mg tabletIndicatio ns:Nausea,Contr olled type 2 diabetes mellitus without complication, with long-term current use of insulin ([facility]) Take 1 Tablet (10 mg) by mouth 2 times daily as needed for Nausea/Emesis. 60 Tablet 07/16/20 24 Active ferrous sulfate 325 mg (65 mg iron) tablet Take 1 Tablet (325 mg) by mouth daily. 100 Tablet 3 10/04/19 25 Active pantoprazole (PROTONIX) 20 mg Tablet, Delayed Release (E.C.) Take 1 Tablet (20 mg) by mouth daily. 100 Tablet 3 12/27/19 25 Active hydrocortisone acetate (ANUSOL-HC) 25 mg SuppositoryIndi cations:Hemorrh oids, unspecified hemorrhoid type INSERT 1 SUPPOSITORY (25 MG) BY RECTUM 2 TIMES DAILY NEEDED FOR ITCHING. 60 Suppository 01/02/20 25 Active ipratropium-alb uteroL (DUONEB) 0.5 mg-3 mg(2.5 mg base)/3 mL Solution for Nebulization INHALE THE CONTENTS OF 1 VIAL VIA NEBULIZER EVERY 6 HOURS NEEDED FOR SHORTNESS OF BREATH 270 mL 1 02/21/20 25 Active metFORMIN (GLUCOPHAGE) 1,000 mg tablet TAKE 1 TABLET (1000 MG) BY MOUTH TWICE DAILY WITH MEALS 200 Tablet 3 04/07/20 25 Active Additional Information Patient taking differently: 1,000 mg Oral TWO TIMES DAILY WITH MEALS, Reported on 08/20/2025 glipiZIDE (GLUCOTROL XL) 5 mg Extended Release 24 hour tabletIndicatio ns:Controlled type 2 diabetes mellitus without complication, with long-term current use of insulin ([facility]) TAKE 1 TABLET BY MOUTH DAILY WITH BREAKFAST FOR DIABETES 100 Tablet 3 04/07/20 25 Active insulin glargine (Lantus Solostar U-100 Insulin) 100 unit/mL pen syringeIndicati ons:Controlled type 2 diabetes mellitus without complication, with long-term current use of insulin ([facility]) INJECT 80 UNITS UNDER THE SKIN TWICE DAILY 135 mL 2 04/07/20 25 Active amLODIPine (NORVASC) 10 mg tablet TAKE 1 TABLET BY MOUTH DAILY 100 Tablet 3 04/07/20 25 Active Blood Glucose Control High&Low Solution Check control high/low once monthly 1 Each 3 04/11/20 25 Active Insulin [place], Disposable, 32 gauge x 5/32 Needle Use needle to administer lantus subcutaneously two times daily 200 Each 04/11/20 25 Active carvediloL (COREG) 25 mg tabletIndicatio ns:Hypertension , essential Take 1 Tablet (25 mg) by mouth 2 times daily. 200 Tablet 04/11/20 25 Active montelukast (SINGULAIR) 10 mg tablet Take 1 Tablet (10 mg) by mouth daily. 100 Tablet 3 04/16/20 25 Active spironolactone (ALDACTONE) 25 mg tablet Take 1 Tablet (25 mg) by mouth daily. 100 Tablet 1 04/25/20 25 Active ipratropium bromide (ATROVENT) 42 mcg (0.06 %) [place], Non-AerosolIndi cations:Runny nose INSTILL 2 SPRAYS INTO EACH NOSTRIL TWICE DAILY WITH MEALS 45 mL 2 04/28/20 25 Active NIFEdipine (ADALAT CC) 30 mg Extended Release tablet Take 30 mg by mouth daily. Active atorvastatin (LIPITOR) 80 mg tablet Take 1 Tablet (80 mg) by mouth daily. 90 Tablet 3 05/15/20 25 Active Blood Pressure Monitor Kit Check blood pressure once daily 1 Each 05/15/20 25 Active lancets Check your blood sugar four times daily 400 Each 3 06/11/20 25 Active cholecalciferol 1,250 mcg (50,000 unit) Capsule TAKE 1 CAPSULE BY MOUTH EVERY 2 WEEKS. 12 Capsule 1 06/17/20 25 Active Irbesartan (AVAPRO) 300 mg tablet TAKE 1 TABLET BY MOUTH EVERY DAY 100 Tablet 1 07/04/20 25 Active alcohol Pads, MedicatedIndica tions:Controlle d type 2 diabetes mellitus without complication, with long-term current use of insulin ([facility]) Use to clean skin to check your blood sugar four times daily. 400 Each 3 07/08/20 25 Active Blood-Glucose Meter (Contour Meter) Kit Check blood glucose levels QID 1 Each 3 08/18/20 25 Active blood sugar diagnostic (Contour Plus Test Strip) Strip Check BG at least every morning and TID as needed if symptomatic. T/S Contour Plus Test strips, T/S Contour Next Test Strip, T/S Accu-chek guide 100 Each 3 08/19/20 25 Active hydrALAZINE (APRESOLINE) 50 mg tablet take 1 tablet by mouth three times a day with food 06/10/20 25 Active nitroglycerin (NITROSTAT) 0.4 mg Tablet, Sublingual PLACE ONE TABLET UNDER THE TONGUE NEEDED FOR CHEST PAIN AND MAY REPEAT IN 10 MINUTES IF NEEDED 05/31/20 25 Active carisoprodoL (SOMA) 350 mg tabletIndicatio ns:Chronic midline low back pain without sciatica Take 1 Tablet (350 mg) by mouth every 8 hours as needed for Spasm. 30 Tablet 09/15/20 25 Active carisoprodoL (SOMA) 350 mg tabletIndicatio ns:Chronic midline low back pain without sciatica Take 1 Tablet (350 mg) by mouth every 8 hours as needed for Spasm. 30 Tablet 08/05/202024 Carlosi gabino(Reo rdalexander) Active Problems Problem Noted Date Diagnosed Date Diastolic dysfunction 08/27/2025 Obesity (BMI 30.0-34.9) 03/29/2024 Aortic stenosis, mild 09/04/2023 Systolic murmur 08/21/2023 Peripheral arterial occlusive disease 08/22/2022 Venous insufficiency 08/22/2022 Anxiety 02/23/2017 Chronic low back pain 02/23/2017 Overview (12/26/2023): Last Assessment & Plan: Patient needs to follow-up with pain specialist DM (diabetes mellitus), type 2 with peripheral vascular complications 02/23/2017 Overview (12/26/2023): Last Assessment & Plan: Continue current medications, discussed low carbohydrate diet, advised to exercise on regular basis, advised to have annual eye exam. We will continue to monitor. Iron deficiency anemia 11/30/2016 Atherosclerosis of [place] co ronary artery of [place] heart with stable angina pectoris 06/29/2016 Overview (12/26/2023): Last Assessment & Plan: Status post stent placement. Continue current medications and he is followed by assembler dry cell and battery Right renal artery stenosis 06/29/2016 Personal history of nicotine dependence 12/09/19 16 Mixed hyperlipidemia 04/20/2010 Overview (12/26/2023): Last Assessment & Plan: Controlled on current medications. Continue low-fat diet. Will continue to monitor . Hypertension with heart disease 04/20/2010 Overview (12/26/2023): Last Assessment & Plan: [...] Encounters Date Type Department Care Team Description 09/15/2025 Refill [facility] [address] [place] [address] Mary Workman MD Chronic midline low back pain without sciatica 09/09/2025 External Device Data STL ABSTRACTION Provider, Abstract 09/02/2025 External Device Data STL ABSTRACTION Provider, Abstract 08/27/2025 Abstract [facility] [address] [place] [address] Mary Workman MD 08/26/2025 External Device Data STL ABSTRACTION Provider, Abstract 08/25/2025 Orders Only [facility] [address] [place] [address] Jarod Villegas MD 08/21/2025 Abstract [facility] [address] [place] [address] Mary Workman MD 08/20/2025 3:20 PM JIG AND FIXTURE REPAIRER Office Visit [facility] [address] [place] [address] Phu Ly PA-C Flu vaccine need (Primary Dx); Controlled type 2 diabetes mellitus without complication, with long-term current use of insulin ([facility]); History of smoking; Screening for abdominal aortic aneurysm; Type 2 diabetes mellitus with pressure callus ([facility]); Acute pain of right knee; Venous insufficiency; Systolic murmur; Peripheral arterial occlusive disease; Obesity (BMI 30.0-34.9); Mixed hyperlipidemia; Hypertension with heart disease; Chronic midline low back pain without sciatica; Aortic stenosis, mild; Atherosclerosis of [place] coronary artery of [place] heart with stable angina pectoris 08/18/2025 Telephone [facility] [address] [place] [phone] Mary Workman MD Medication Refill 08/18/2025 Orders Only [facility] [address] [place] [phone] Phu Ly PA-C 08/05/2025 Refill [facility] [address] [place] [address] Mary Workman MD Chronic midline low back pain without sciatica 07/10/2025 Results Follow-Up [facility] [address] [place] [address] Mary Workman MD HEMOGLOBIN A1C 07/07/2025 Refill [facility] [address] [place] [address] Mary Workman MD Controlled type 2 diabetes mellitus without complication, with long-term current use of insulin ([facility]) (Primary Dx) 07/03/2025 Refill [facility] [address] [place] [address] Mary Workman MD Chronic midline low back pain without sciatica 07/03/2025 Refill [facility] [address] [place] [id number] Phu Ly, CURT-Jose 07/02/2025 Abstract [facility] [address] [place] [address] Mary Workman MD 06/30/2025 Telephone [facility] [address] [place] [address] Mary Workman MD Medication Refill 06/27/2025 Refill [facility] [address] [place] [phone] Mary Workman MD 06/27/2025 Telephone [facility] [address] [place] [address] Mary Workman MD Medication Assistance 06/25/2025 Orders Only [facility] [place] [address] [place] [address] Mary Workman MD Controlled type 2 diabetes mellitus without complication, with long-term current use of insulin ([facility]) from Last 3 Months Immunizations Immunization Administration Dates Next Due (ADACEL/BOOSTRIX)(10 YR UP) TDAP VACCINE, 0.5ML, IM 07/01/2019 (PNEUMOVAX 23)(50 YRS UP) PN EUMOCOCCAL POLYSACCHARIDE (PPV23) 0.5 ML, IM 06/23/2017 (PREVNAR 20)(6 WKS UP) PNEUM OCOCCAL CONJUGATE VACCINE 20-VALENT (PCV20), POLYSACCHARIDE ALY567 CONJUGATE, ADJUVANT 0.5 ML (PF) IM 03/29/2024 INFLUENZA VACCINE HIGH DOSE TRIVALENT SPLIT VIRUS, (65 YR UP), 0.5ML (PF), IM 08/20/2025 INFLUENZA VACCINE INACTIVATE D ADJUV, (65 YR [...] Sign Reading Time Taken Comments Blood Pressure 126/40 08/20/2025 2:31 PM JIG AND FIXTURE REPAIRER Pulse 76 08/20/2025 2:31 PM JIG AND FIXTURE REPAIRER Temperature 36 C (96.8 F) 08/20/2025 2:31 PM JIG AND FIXTURE REPAIRER Respiratory Rate 18 08/20/2025 2:31 PM JIG AND FIXTURE REPAIRER Oxygen Saturation 98% 08/20/2025 2:31 PM JIG AND FIXTURE REPAIRER Inhaled Oxygen Concentration - - Weight 80.7 kg (178 lb) 08/20/2025 2:31 PM JIG AND FIXTURE REPAIRER Height 160 cm (5' 3) 08/20/2025 2:31 PM JIG AND FIXTURE REPAIRER Body Mass Index 31.53 08/20/2025 2:31 PM JIG AND FIXTURE REPAIRER Plan of Treatment Upcoming Encounters Date Type Department Care Team (Late st Contact Info) Description 11/24/2025 2:40 PM JIG AND FIXTURE REPAIRER Office Visit [facility] [place] [address] [place] [address] Phu Ly PA-C [address] [place] [address] Health Maintenance Due Date Last Done Comments DIABETES ANNUAL RETINAL EXAM 1975 FIT/ DNA Q 3 YEARS (AUTO ORDER) 1975 FIT/FOBT Q 1 YEAR (AUTO ORDER) 1975 FIT-DNA Q 3 years 2002 FIT/FOBT Q 1 year 2002 Flex Sig/CT Colonography Q 5 years 2002 RSV VACCINE (60+ or ) (1 - Risk 50-74 years 1-dose series) 2007 ZOSTER VACCINE (1 of 2) 2007 Abdominal Aortic Aneurysm (A AA) Screening 2022 FLEX SIG/CT COLONOGRAPHY Q 5 YEARS (AUTO ORDER) 06/26/2022 06/26/2017, 06/26/2017 LDL CHOLESTEROL ANNUAL 07/15/2025 07/15/2024, 2023 DIABETES MICROALBUMIN ANNUAL SCREEN 01/07/2026 01/07/2025, 03/29/2024 DIABETES HBA1C Q 6 MONTHS 01/08/20262024, 02/20/2025, 01/07/2025, Additional history exists DIABETES: A1C (Auto Order) 07/10/202607/10, 02/20/2025, 01/07/2025, Additional history exists DIABETES ANNUAL FOOT EXAM 08/20/20262024, 07/01/2024, 03/29/2024 COLORECTAL CANCER SCREENING (AUTO ORDER) 06/26/2027 06/26/2017 COLORECTAL SCREENING 06/26/2027 06/26/2017 Colorectal Cancer Screening (AUTO ORDER) 06/26/2027 Colorectal Cancer Screening 06/26/2027 DTAP/TDAP/TD VACCINES (2 - T d or Tdap) 07/01/2029 07/01/2019 PNEUMOCOCCAL VACCINE 50+ YEARS Completed 03/29/2024 , 06/23/2017 KHE uACR (Auto Order) Completed 01/07/2025, 024 KHE eGFR (Auto Order) Completed 05/26/2025 , 10/04/2024, 07/15/2024, Additional history exists INFLUENZA VACCINE Completed 08/20/2025, , 07/27/2021, Additional history exists [place] Ad[place] ([place]) Preventative Visit/Annual Wellness Visit Completed 08/20/2025, 08/20/2025, 11/04/2024, Additional history exists Procedures Procedure Name Priority Date/Time Associated Diagnosis Comments HEMOGLOBIN A1C Routine 07/10/2025 8:29 AM CDT Controlled type 2 diabetes mellitus without complication, with long-term current use of insulin ([facility]) BASIC METABOLIC PANEL Routine 05/26/2025 8:47 AM CDT Hypertension, essential MICROALBUMIN/CREATI NINE RATIO, RANDOM UR Routine 01/07/2025 3:00 PM CDT Type 2 diabetes mellitus without complication, unspecified whether intermediate teacher insulin use ([facility]) LIPID PANEL Routine 07/15/2024 8:41 AM CDT Dyslipidemia from Last 3 Months or Most Recently Relevant to Health Maintenance Results * (ABNORMAL) HEMOGLOBIN A1C (07/10/2025 8:29 AM CDT) HEMOGLOBIN A1C 7.3(H) <5.7 % of total Hgb [facility] [place] Comment: For someone without known [...] diabetes for children. ESTIMATED AVERAGE GLUCOSE (MG/DL) 163 mg/dL [facility] [place] ESTIMATED AVERAGE GLUCOSE (MMOL/L) 9.0 mmol/L [facility] [place] Comment: Test Performed at: [place] [address] [address] [phone] Kassandra Rendon Blood 07/10/2025 8:29 AM CDT 07/10/2025 8:30 AM CDT us Mary Workman MD CHEMISTRY ORDERABLES Final Resul t [facility] [phone] [facility] [address] [address] [phone] * (ABNORMAL) BASIC METABOLIC PANEL (05/26/2025 8:47 AM CDT) GLUCOSE 88 65 - 99 mg/dL [facility] [place] Comment: Fasting reference interval BUN 10 7 - 25 mg/dL [facility] [place] CREATININE 0.55(L) 0.70 - 1.35 mg/dL [facility] [place] GFR 108 > OR = 60 mL/min/1. 73m2 [facility] [place] BUN/CREAT RATIO 18 6 - 22 (calc) [facility] [place] SODIUM 140 135 - 146 mmol/L [facility] [place] POTASSIUM 4.0 3.5 - 5.3 mmol/L [facility] [place] CHLORIDE 105 98 - 110 mmol/L [facility] [place] CO2 26 20 - 32 mmol/L [facility] [place] CALCIUM 9.6 8.6 - 10.3 mg/dL [facility] [place] Comment: FASTING:YES FASTING: YES Test Performed at: [place] [address] [place] [address] Kassandra Rendon Blood 05/26/2025 8:47 AM CDT 05/26/2025 8:48 AM CDT Phu Ly PA-C CHEMISTRY ORDERABLES F inal Result [facility] [phone] [place] [address] [place] [address] * MICROALBUMIN/CREATININE RATIO, RANDOM UR (01/07/2025 3:00 [...] within a diagnostic category. Test Performed at: [facility] [address] [place] [address] Kassandra Rendon MD Urine URINE SPECIMEN OBTAINED BY CLEAN CATCH PROCEDURE / Unknown 01/07/2025 3:00 PM CDT 01/08/2025 7:06 AM CDT us Tara Diop SPECIAL EDUCATION PARAPROFESSIONAL URINE ORDERABLES Final Result Performing Organization Address City/State/ZIP Co vt Phone Number [facility] [phone] [facility] [address] [facility] [place] [address] * (ABNORMAL) LIPID PANEL (07/15/2024 8:41 AM CDT) CHOLESTEROL 92 <200 mg/dL [facility] [place] HDL 25(L) > OR = 40 mg/dL [facility] [place] TRIGLYCERIDE 120 <150 mg/dL [facility] [place] LDL CALCULATED 46 mg/dL (calc) [facility] [place] Comment: Reference range: <100 Desirable range <100 mg/dL for primary prevention; <70 mg/dL for patients with CHD or diabetic patients with > or = 2 CHD risk factors. LDL-C is now calculated using the Ricardo calculation, which is a validated novel method providing better accuracy than the Friedewald equation in the estimation of LDL-C. Robbin SHAIKH et al. MORIAH. 2013;310(19): 9756-3830 (http://education.Mobileye/faq/NHL825) CHOL/HDL RATIO 3.7 <5.0 (calc) [facility] [place] NON-HDL CHOLESTEROL 67 <130 mg/dL (calc) [facility] [place] Comment: For patients with diabetes plus 1 major ASCVD risk factor, treating to a non-HDL-C goal of <100 mg/dL (LDL-C of <70 mg/dL) is considered a therapeutic option. Test Performed at: [facility] [place] [address] [place] [address] Kassandra Pendleton Blood 07/15/2024 8:41 AM CDT 07/15/2024 8:41 AM CDT Tara Diop NP CHEMISTRY ORDERABLES Final Re sult [facility] [phone] [place] [address] [place] [address] from Last 3 Months or Most Recently Relevant to Health Maintenance Insurance [facility] DUAL COMPLETE PPO DSNP [facility] [id number] [place] [facility] [id number] Care Teams Jig And Fixture Repairer Relationship Specialty Start Date End Date Mary Workman MD [address] [place] [address] PCP - General Internal Medicine 12/26/23 [facility] Consulting Physician Psychiatry 08/20/25
--- OUTSIDE RECORDS SUMMARY | 2025-09-19 16:18 | XMS_ITS | Clinical Summary ---
Author Organization [facility] Address [address] [place] [address] Care Team Providers Care Contracting Manager Name Role Phone Unavailable Primary Care [...] of 2) 2007 COVID-19 Vaccine ( - 2024-2 6 season) 2025 Influenza Adult (#1) 2025 08/09/2012 RSV Immunization or 60+ Years (1 - 1-dose 75+ series) 2032 Hepatitis A Vaccines Aged Out No long er eligible based on patient's age to complete this topic Meningococcal B Vaccine Aged Out No l onger eligible based on patient's age to complete this topic Meningococcal Vaccine Aged Out No miryam jadon eligible based on patient's age to complete this topic RSV Immunizations Under 20 Months Aged Out No longer eligible based on patient's age to complete this topic
--- OUTSIDE RECORDS SUMMARY | 2025-09-19 16:18 | XMS_ITS | Encounter Summary ---
Author Organization [facility] Address [address] [place] [address] Care Team Providers Care Reservoir Engineer Name Role Phone Mary Workman MD Primary Care Provider [phone] Reason for Visit * Reason Comments Clinical Consult Before Scheduling Encounter Details Date Type Department Care Team ([facility] st Contact Info) Description 06/11/2025 Nurse Triage [facility] [address] [place] [address] Mary Workman MD [address] [place] [address] Social History Tobacco Use Types Packs/Day Years [...] encounter Miscellaneous Notes * Telephone Encounter - Teresita Montenegro, RN - 06/11/2025 4:03 PM CDT Per Trish, symptoms started last night. Congestion in his head. No shortness of breath. No fever. Sore throat. Pt has not tested for COVID. PCN instructed Trish to have pt test for COVID. No need to treat for infection at this time. Pt should call back if he is positive for COVID. He should push fluids, use a humidifier, if he uses OTC medication he needs to use high blood pressure friendly versions, he should rest. If he notes any SOB, chest pain, wheezing, high temp, coughing up yellow mucus, etc- he is to call back right away. * Telephone Encounter - RupertSandra - 06/11/2025 2:58 PM CDT Copied from [facility] #[id number]. Topic: Symptomatic Care >> Jun 11, 2025 2:57 PM Sandra O wrote: Has this patient seen any provider (current or former) at the requested clinic in the past? Yes, Select the appropriate age range and symptom Patient has symptoms and is seeking care. Caller Name: Christian Barros Callback Number: [phone] (mobile) Call Notes: cold , sore throat , wants antibiotics Age Range/Symptom: Adult 18+ - Upper respiratory symptoms (cold, cough, COVID, fever, flu, hay fever, sinus problems, seasonal allergies Does patient have any of the following other urgent symptoms: No urgent symptoms requiring warm call transfer How would caller like to proceed? schedule and does not have a [facility] account How would caller like to proceed? Schedule an appointment but none available within 24-48 hours How would caller like to proceed? Schedule first available with care team Is there an encounter open? No Unable to schedule appointment within 24-48 hours. Scheduled appointment for . If this is not clinically appropriate, please contact patient. No documented in this encounter Plan of Treatment Upcoming Encounters Date Type Department Care Team (Late st Contact Info) Description 11/24/2025 2:40 PM CRYPTOLOGIC SUPERVISOR Office Visit [facility] [place] [address] [place] [address] Phu Ly PA-C [address] [place] [address] documented as of this encounter Visit Diagnoses Not on filedocumented in this encounter Care Teams Reservoir Engineer Relationship Specialty Start Date End Date Mary Workman MD [address] [place] [address] PCP - General Internal Medicine 12/26/23 [facility] Consulting Physician Psychiatry 08/20/25 documented as of this encounter
--- OUTSIDE RECORDS SUMMARY | 2025-09-19 16:18 | XMS_ITS | Encounter Summary ---
Author Organization [facility] Address [address] [place] [address] Care Team Providers Care Grinder Machine Setter Name Role Phone Unavailable Primary Care Provider Unavailabl e Encounter Details Date Type Department Care Team (Latest Contact Info) Description 08/07/2018 Abstract [facility] , Generic ConversionMD [...]
--- OUTSIDE RECORDS SUMMARY | 2025-09-19 16:18 | XMS_ITS | Clinical Summary ---
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 02/23/2017 Anxiety [...] Comments Blood Pressure 130/76 08/05/2019 2:25 PM OFFICE CLERK Pulse 72 08/05/2019 2:25 PM OFFICE CLERK Temperature 36.4 C (97.6 F) 08/05/2019 2:25 PM OFFICE CLERK Respiratory Rate 16 08/05/2019 2:25 PM OFFICE CLERK Oxygen Saturation 98% 08/05/2019 2:25 PM OFFICE CLERK Inhaled Oxygen Concentration - - Weight 79.1 kg (174 lb 4.8 oz) 08/05/2019 2:25 P M OFFICE CLERK Height 165.1 cm (5' 5) 08/05/2019 2:25 PM OFFICE CLERK Body Mass Index 29.01 08/05/2019 2:25 PM OFFICE CLERK Plan of Treatment Health Maintenance Due Date Last Done Comments Diabetes: Eye Exam 1957 Diabetes: Foot Exam 1955 TdaP Immunization 1955 Medicare Initial AWV G0438 07/02/1999 Cologuard 2002 Immunochemical Fecal Occult Blood 2002 Respiratory Syncytial Virus (RSV) Immunization (Adult) (1 - Risk 50-74 years 1-dose series) 2007 Zoster Immunization (1 of 2) 2007 PSA Discussion 2012 Pneumococcal Immunization (50+ years) (2 of 2 - PCV) 06/23/2018 06/23/2017 Diabetes: Hemoglobin A1c 02/03/2020 019, 04/03/2019, 08/22/2018, Additional history exists Diabetes: Nephropathy Screening 08/05/2020 08/05/2019, 08/05/2019, 04/03/2019, Additional history exists Influenza Immunization (#1) 06/02/202512/2018, 06/28/2018, 06/23/2017, Additional history exists SARS-COV-2 Immunization ( season) 2025 02/02/2021, 01/06/2021 Colonoscopy 06/26/2027 06/26/2017 Colorectal Cancer Screening 06/26/2027 Hepatitis C Virus (HCV) Screening Completed 02/23/2017 Pneumococcal Immunization Combined Discontinued 06/23/2017 Hepatitis B Immunization Aged Out No longer eligible based on patient's age to complete this topic Human Papillomavirus (HPV) Immunization (No Doses Required) Completed Meningococcal Immunization (ACWY) Aged Out No longer eligible based on patient's age to complete this topic Rotavirus Immunization Aged Out No lo nger eligible based on patient's age to complete this topic Procedures Procedure Name Priority Date/Time Associated Diagnosis Comments CMP (COMPREHENSIVE METABOLIC PANEL) Today 08/05/2019 2:56 PM OFFICE CLERK Essential hypertension Type 2 diabetes mellitus with diabetic polyneuropathy, with long-term current use of insulin (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 Chronic midline low back pain without sciatica HEMOGLOBIN A1C W/ ESTIMATED GLUCOSE Today 08/05/2019 2:56 PM OFFICE CLERK Essential hypertension Type 2 diabetes mellitus with diabetic polyneuropathy, with long-term current use of insulin (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 Chronic midline low back pain without sciatica HM COLONOSCOPY Routine 06/26/2017 HEPATITIS C ANTIBODY Routine 02/23/2017 2:14 PM CDT Physical exam, annual (Adult) from Last 3 Months or Most Recently Relevant to Health Maintenance Results * (ABNORMAL) HEMOGLOBIN A1C W/ ESTIMATED GLUCOSE (08/05/2019 2:56 PM OFFICE CLERK) HGB-A1C 9.4(H) 4.0 - 6.0 % 08/05/2019 4:28 PM OFFICE CLERK [facility] Est Average Glucose 223.1 mg/dL 08/05/2019 4:28 PM OFFICE CLERK [facility] Blood specimen (specimen) Venipuncture / Unknown 08/05/2019 2:56 PM OFFICE CLERK 08/05/2019 2:56 PM OFFICE CLERK Narrative [facility] - 08/05/2019 4:28 PM OFFICE CLERK HEMOGLOBIN A1C: DIABETIC PATIENTS: WELL-CONTROLLED: 6.2 - 7.0 INTERMEDIATE WELL-CONTROLLED: 7.0 - 9.0 POORLY-CONTROLLED: >9.0 us Alex Pineda MD CHEMISTRY ORDERABLES Final Re sult [facility] [address] [place] [address] * (ABNORMAL) CMP (COMPREHENSIVE METABOLIC PANEL) (08/05/2019 2:56 PM OFFICE CLERK) SODIUM 143 136 - 144 mmol/L 08/05/2019 3:50 PM OFFICE CLERK [facility] POTASSIUM 4.3 3.5 - 5.1 mmol/L 08/05/2019 3:50 PM [facility] CHLORIDE 105 100 - 110 mmol/L 08/05/2019 3:50 PM [facility] CO2, VENOUS 25 22 - 32 mmol/L 08/05/2019 3:50 PM [facility] ANION GAP 17.3 8.0 - 20.0 mmol/L 08/05/2019 3:50 PM [facility] GLUCOSE 159(H) 70 - 99 mg/dL 08/05/2019 3:50 PM [facility] BUN 7(L) 8 - 23 mg/dL 08/05/2019 3:50 PM [facility] CREATININE, BLOOD 0.51(L) 0.80 - 1.30 mg/dL 08/05/2019 3:50 PM [facility] BUN/CREATININE RATIO 14 12 - 20 ratio 08/05/2019 3:50 PM [facility] TOTAL PROTEIN 7.1 6.0 - 8.3 g/dL 08/05/2019 3:50 PM [facility] ALBUMIN 4.3 3.5 - 5.2 g/dL 08/05/2019 3:50 PM [facility] Comment: The colormetric methods used for the determination of Albumin may lead to falsely elevated test results in patients suffering from renal failure or insufficiency due to interference with other proteins. A/G RATIO 1.5 1.0 - 2.0 08/05/2019 3:50 PM OFFICE CLERK [facility] CALCIUM 9.5 8.9 - 10.3 mg/dL 08/05/2019 3:50 PM OFFICE CLERK [facility] T BILI 0.3 <=1.2 mg/dL 08/05/2019 3:50 PM OFFICE CLERK [facility] SGOT (AST) 17 <=40 U/L 08/05/2019 3:50 PM OFFICE CLERK [facility] SGPT (ALT) 29 <=41 U/L 08/05/2019 3:50 PM OFFICE CLERK [facility] ALKALINE PHOSPHATASE 53 40 - 130 U/L 08/05/2019 3:50 PM OFFICE CLERK [facility] GFR, EST. NONAFRICAN >60 >=60 08/05/2019 3:50 PM OFFICE CLERK [facility] GFR, EST. >60 >=60 019 3:50 PM OFFICE CLERK [facility] Comment: Creatinine Clearance is the preferred criteria for selecting drug dose adjustments in renally impaired patients. The GFR is provided as additional pertinent clinical information. GFR is reported in mL/min/1.73 sq m. Blood specimen (specimen) Venipuncture / Unknown 08/05/2019 2:56 PM OFFICE CLERK 08/05/2019 2:56 PM OFFICE CLERK us Alex Pineda MD CHEMISTRY ORDERABLES Final Re sult [facility] [address] [place] [address] * HM COLONOSCOPY (06/26/2017) Tata Do MD PROCEDURE/MINOR SURGICAL ORDER EMILY Final Result * HEPATITIS C ANTIBODY (02/23/2017 2:14 PM CDT) hepatitis C antibody 0.06 <1 S/CO 02/23/2017 11:23 PM CDT [facility] Comment: Signal/Cutoff ratio < 0.79 is Nondetected Signal/Cutoff ratio 0.80-0.99 is Grayzone Signal/Cutoff ratio > 0.99 is Detected Supplemental assays are recommended if signal/cutoff ratio is >/=1.00. Signal/cutoff ratio result >/= 5.00 is 97% predictive of positivity for recombinant immunoblot assay (RIBA) and will be reported to the [place] Department of Public Health as required. Blood specimen (specimen) Venipuncture / Unknown 02/23/2017 2:14 PM CDT 02/23/2017 2:14 PM CDT us Alex Pineda MD CHEMISTRY ORDERABLES Final Re sult [facility] [address] [place] [address], [place] from Last 3 Months or Most Recently Relevant to Health Maintenance Insurance MEDICARE [place]ICAID [place]
--- OUTSIDE RECORDS SUMMARY | 2025-09-19 16:18 | XMS_ITS | Clinical Summary ---
Author Organization [facility] Address [address] [place] [id number] Care Team Providers Care Water Supervisor Name Role Phone Becca Oh MD Primary Care Provider [phone] Allergies Active Allergy Reactions Criticality Noted Date [...] to monitor. Coronary artery disease invo lving [place] coronary artery of [place] heart without angina pectoris 07/27/2021 Assessment & Plan (07/27/2021 3:40 PM CDT): Status post stent placement. 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 Gender Identity Not on file Sexual Orientation Not on file Last Filed Vital Signs Vital Sign Reading Time Taken Comments Blood Pressure 157/64 02/08/2022 9:58 AM CDT Pulse 75 02/08/2022 9:58 AM CDT Temperature 36.7 C (98.1 F) 10/19/2021 8:51 AM MACHINE ENGRAVER Respiratory Rate 18 10/19/2021 8:51 AM MACHINE ENGRAVER Oxygen Saturation 99% 02/08/2022 9:58 AM CDT Inhaled Oxygen Concentration - - Weight 80.2 kg (176 lb 11.2 oz) 02/08/2022 9:58 AM CDT Height 160 cm (5' 2.99) 02/08/2022 9:58 AM CDT Body Mass Index 31.31 02/08/2022 9:58 AM CDT Plan of Treatment Not on file Insurance [facility] Address: [address] [address] [place] [address] [facility]ICARE [facility] Address: [address] [address] [place] [address] Care Teams Water Supervisor Relationship Specialty [place] [address] [place] [address] [place] [address] PCP - General Internal Medicine 07/27/21
== END 2025-09-19 16:16 | disposition home or self-care (01) ==
DX: M25.561 Pain in right knee (principal)
CPT/HCPCS: 73562